=== PATIENT | female | born 1955 | race Caucasian/White ===

== ENCOUNTER 2019-09-10 08:56 | Inpatient (IN) | payer BC ==
[2019-09-10] MEDS ORDERED: ACETAMINOPHEN TAB 325 MG TAB PO PRN (09:36)
[2019-09-10] MEDS ORDERED: ALBUTEROL HFA INHALER INHALATION PRN (09:36)
[2019-09-10] MEDS ORDERED: METOCLOPRAMIDE 5 MG/ML 2 ML VIAL IVP STA (09:37)
--- NOTE | 2019-09-10 09:40 | ED ---
General Adult HPI - General Chief complaint: Weakness Stated complaint: Fatigue Time Seen by Provider: 09/10/19 08:58 Source: patient, EMS, RN notes reviewed Mode of arrival: EMS Limitations: no limitations - History of Present Illness Initial comments: Patient is a pleasant 61-year-old female presenting to the emergency Department as a transfer from [facility]. Report was accepted by nighttime physician. Information provided by [facility] is extremely limited. They did not provide physician report and only limited labs. Patient reportedly was positive for coronavirus. Unclear if x-ray was done. Patient states she has been having symptoms for close to 1 week. Patient states she has mostly fatigue and nausea. No significant vomiting. Patient denies having any dyspnea. Patient has had occasional fevers. No constipation or diarrhea. Patient reportedly had low pulse ox. - Related Data Allergies Allergy/AdvReac Type Severity Reaction Status Date / Time No Known Allergies Allergy Verified 09/10/19 09:05 Review of Systems ROS Statement: Those systems with pertinent positive or pertinent negative responses have been documented in the HPI. ROS Other: All systems not noted in ROS Statement are negative. Constitutional: Reports: as per HPI, chills Eyes: Denies: eye pain ENT: Denies: ear pain Respiratory: Reports: as per HPI. Denies: dyspnea Cardiovascular: Denies: chest pain Endocrine: Reports: fatigue Gastrointestinal: Reports: nausea. Denies: abdominal pain, diarrhea, constipation Genitourinary: Denies: dysuria Musculoskeletal: Denies: back pain Skin: Denies: rash Neurological: Denies: headache Past Medical History Past Medical History: Hypertension History of Any Multi-Drug Resistant Organisms: None Reported Past Psychological History: No Psychological Hx Reported Smoking Status: Never smoker Past Alcohol Use History: None Reported Past Drug Use History: None Reported General Exam Limitations: no limitations General appearance: alert, in no apparent distress Head exam: Present: normocephalic Eye exam: Present: normal appearance Neck exam: Present: normal inspection Respiratory exam: Present: normal lung sounds bilaterally Cardiovascular Exam: Present: regular rate, normal rhythm GI/Abdominal exam: Present: soft. Absent: distended, tenderness Extremities exam: Present: normal inspection. Absent: pedal edema, calf tenderness Neurological exam: Present: alert Psychiatric exam: Present: normal affect, normal mood Skin exam: Present: normal color Course Vital Signs 09/10/19 09/10/19 09/10/19 08:57 09:04 09:05 Temperature 98.7 F Pulse Rate 93 Respiratory 24 24 Rate Blood Pressure 112/69 O2 Sat by Pulse 73 L 90 L Oximetry 09/10/19 09/10/19 09/10/19 10:12 10:27 10:34 Temperature Pulse Rate 96 94 93 Respiratory 16 28 H Rate Blood Pressure 90/49 79/51 88/55 O2 Sat by Pulse 90 L 90 L 90 L Oximetry 09/10/19 11:05 Temperature Pulse Rate 87 Respiratory 24 Rate Blood Pressure 97/57 O2 Sat by Pulse 88 L Oximetry EKG Findings - EKG Comments: EKG Findings:: Normal sinus rhythm 93. CA 162. QRS 88. QT 388. QTC 42. Normal axis. Q wave in lead III. Nonspecific T waves. Medical Decision Making - Medical Decision Making Patient was updated on results and plan. Case was discussed with Dr. Nice who did come evaluate the patient and will admit. He does request ICU. Case also discussed with Dr. Matta who will consult for critical care. He does not recommend antibiotics. He does recommend additional fluids. Patient was given a 30 mL/kg fluid bolus off of ideal body weight Yris to 1500 mL. - Lab Data Result diagrams: 09/10/19 10:07 09/10/19 10:07 Lab Results 09/10/19 09/10/19 09/10/19 Range/Units 10:07 10:07 10:07 WBC 13.2 H (3.8-10.6) k/uL RBC 4.38 (3.80-5.40) m/uL Hgb 13.5 (11.4-16.0) gm/dL Hct 38.0 (34.0-46.0) % MCV 86.7 (80.0-100.0) fL MCH 30.9 (25.0-35.0) pg MCHC 35.6 (31.0-37.0) g/dL RDW 13.2 (11.5-15.5) % Plt Count 513 H (150-450) k/uL Neutrophils % 80 % Lymphocytes % 13 % Monocytes % 4 % Eosinophils % 0 % Basophils % 0 % Neutrophils # 10.6 H (1.3-7.7) k/uL Lymphocytes # 1.6 (1.0-4.8) k/uL Monocytes # 0.6 (0-1.0) k/uL Eosinophils # 0.0 (0-0.7) k/uL Basophils # 0.0 (0-0.2) k/uL PT 10.4 (9.0-12.0) sec INR 1.0 (<1.2) APTT 23.5 (22.0-30.0) sec Sodium 134 L (137-145) mmol/L Potassium 3.7 (3.5-5.1) mmol/L Chloride 96 L (98-107) mmol/L Carbon Dioxide 27 (22-30) mmol/L Anion Gap 11 mmol/L BUN 33 H (7-17) mg/dL Creatinine 0.94 (0.52-1.04) mg/dL Est GFR (CKD-EPI)AfAm 75 (>60 ml/min/1.73 sqM) Est GFR (CKD-EPI)NonAf 65 (>60 ml/min/1.73 sqM) Glucose 197 H (74-99) mg/dL Plasma Lactic Acid Darrel (0.7-2.0) mmol/L Calcium 8.2 L (8.4-10.2) mg/dL Magnesium 2.0 (1.6-2.3) mg/dL Total Bilirubin 0.9 (0.2-1.3) mg/dL AST 92 H (14-36) U/L ALT 51 H (4-34) U/L Alkaline Phosphatase 63 (38-126) U/L Lactate Dehydrogenase 2470 H (313-618) U/L C-Reactive Protein 252.0 H (<10.0) mg/L Total Protein 7.1 (6.3-8.2) g/dL Albumin 3.6 (3.5-5.0) g/dL Coronavirus (PCR) (Not Detectd) 09/10/19 09/10/19 Range/Units 10:07 10:07 WBC (3.8-10.6) k/uL RBC (3.80-5.40) m/uL Hgb (11.4-16.0) gm/dL Hct (34.0-46.0) % MCV (80.0-100.0) fL MCH (25.0-35.0) pg MCHC (31.0-37.0) g/dL RDW (11.5-15.5) % Plt Count (150-450) k/uL Neutrophils % % Lymphocytes % % Monocytes % % Eosinophils % % Basophils % % Neutrophils # (1.3-7.7) k/uL Lymphocytes # (1.0-4.8) k/uL Monocytes # (0-1.0) k/uL Eosinophils # (0-0.7) k/uL Basophils # (0-0.2) k/uL PT (9.0-12.0) sec INR (<1.2) APTT (22.0-30.0) sec Sodium (137-145) mmol/L Potassium (3.5-5.1) mmol/L Chloride (98-107) mmol/L Carbon Dioxide (22-30) mmol/L Anion Gap mmol/L BUN (7-17) mg/dL Creatinine (0.52-1.04) mg/dL Est GFR (CKD-EPI)AfAm (>60 ml/min/1.73 sqM) Est GFR (CKD-EPI)NonAf (>60 ml/min/1.73 sqM) Glucose (74-99) mg/dL Plasma Lactic Acid Darrel 1.8 (0.7-2.0) mmol/L Calcium (8.4-10.2) mg/dL Magnesium (1.6-2.3) mg/dL Total Bilirubin (0.2-1.3) mg/dL AST (14-36) U/L ALT (4-34) U/L Alkaline Phosphatase (38-126) U/L Lactate Dehydrogenase (313-618) U/L C-Reactive Protein (<10.0) mg/L Total Protein (6.3-8.2) g/dL Albumin (3.5-5.0) g/dL Coronavirus (PCR) Detected A (Not Detectd) - Radiology Data Radiology results: image reviewed (Chest x-ray shows scattered interstitial and alveolar infiltrates in both lung mcbride.) Critical Care Time Critical Care Time: Yes Total Critical Care Time: 32 Disposition Clinical Impression: COVID-19 virus infection Disposition: ADMITTED IP TO THIS [facility] Condition: Serious Is patient prescribed a controlled substance at d/c from ED?: No Referrals: Jaison Friedman MD [Primary Care Provider] - 1-2 days Decision Time: 11:47
--- NOTE | 2019-09-10 10:13 | XR ---
EXAMINATION TYPE: XR chest 1V portable DATE OF EXAM: 09/10/2019 HISTORY: Suspected COVID-19 pneumonia COMPARISON: None. TECHNIQUE: Single view of the chest is submitted. FINDINGS: Demonstrated are scattered senescent parenchymal change. Scattered mixed interstitial and alveolar infiltrates throughout both lung mcbride compatible with und erlying pneumonia. The heart is stable. Hilar and mediastinal structures are within normal limits. Degenerative changes are seen of the dorsal spine. IMPRESSION: 1. Scattered mixed interstitial and alveolar infiltrates throughout both lung mcbride compatible with underlying pneumonia.
[2019-09-10 10:24] LABS: Basophils % (A) 0 %; Eosinophils % (A) 0 %; HGB 13.5 gm/dL (11.4-16.0); Lymphocytes # (A) 1.6 k/uL (1.0-4.8); Lymphocytes % (A) 13 %; MCH 30.9 pg (25.0-35.0); MCHC 35.6 g/dL (31.0-37.0); MCV 86.7 fL (80.0-100.0); Mean Platelet Volume 7.1; Monocytes # (A) 0.6 k/uL (0-1.0); Monocytes % (A) 4 %; Neutrophils # (A) 10.6 k/uL (1.3-7.7); Neutrophils % (A) 80 %; Platelet Count 513 k/uL (150-450); RBC 4.38 m/uL (3.80-5.40); RDW 13.2 % (11.5-15.5); WBC 13.2 k/uL (3.8-10.6)
[2019-09-10] MEDS ORDERED: SODIUM CHLORIDE 0.9% 500 ML 500 ML IV STA (10:31)
[2019-09-10 10:36] LABS: Partial Thromboplastin Time 23.5 sec (22.0-30.0); Prothrombin Time 10.4 sec (9.0-12.0)
[2019-09-10 10:41] LABS: Albumin 3.6 g/dL (3.5-5.0); Calcium 8.2 mg/dL (8.4-10.2); Potassium 3.7 mmol/L (3.5-5.1); Total Bilirubin 0.9 mg/dL (0.2-1.3); Total Protein 7.1 g/dL (6.3-8.2)
[2019-09-10] MEDS ORDERED: SODIUM CHLORIDE 0.9% 1,000 ML IV STA (11:31)
[2019-09-10] MEDS ORDERED: NALOXONE 0.4 MG/ML 1 ML VIAL IV PRN (11:47)
[2019-09-10 12:21] LABS: Glucose,Whole Blood 170 mg/dL (75-99)
[2019-09-10] MEDS: SODIUM CHLORIDE 0.9% 1,000 ML IV SCH ×2 (13:17→20:59)
[2019-09-10] MEDS: PANTOPRAZOLE 40 MG/10 ML VIAL IV SCH (13:17)
--- NOTE | 2019-09-10 13:34 | P.CNPUL ---
History of Present Illness Consult date: 09/10/19 Requesting physician: Colby Long Reason for consult: hypoxemia Chief complaint: Weakness, fatigue, fever, hypoxemia History of present illness: 63-year-old female patient of Dr. Jaison Friedman, with past medical history of hypertension, hyperlipidemia, nonsmoker, works in the dietary department at [employer], was accepted as a transfer from [facility] where she presented for evaluation of fatigue, nausea, weakness, occasional fevers and low pulse ox levels. Patient reports symptoms present for about a week. Her coronavirus PCR test was positive on 09/06/2019, and again today on all 09/10/2019. No vomiting or diarrhea, no shortness of breath. Lab work showed white blood cell count 13.2, hemoglobin of 13.5, platelet count is 513, neutrophil count is elevated at 10.6, lymphocytes at 1.6, no d-dimer was drawn, sodium is 134, potassium is 3.7, chloride is 96, CO2 is 27, B1 is 33 creatinine 0.93, LDH is 2470, CRP is significantly elevated at 252, plasma lactic acid was 1.8. EKG shows normal sinus rhythm with evidence of possible inferior infarct of undetermined age, and T-wave inversion in the anterolateral leads. QT/QTc were 388 and 482 respectively. Patient is afebrile, profound hypoxemia, with a pulse ox of 73% on 15 L high flow. Currently requiring 100% nonrebreather in addition to 15 L per high flow nasal cannula and a pulse ox is 98%. In addition patient was borderline hypotensive with pressures of 90 systolic, and patient was given 1/2 L in IV fluid boluses in the emergency department. Patient was transferred to the ICU for close monitoring. Chest x-ray showed scattered mixed interstitial and alveolar infiltrates throughout both lungs compatible with underlying pneumonia. Review of Systems All systems: negative Constitutional: Reports fatigue, Reports weakness, Denies chills, Denies fever Eyes: denies blurred vision, denies pain Ears, nose, mouth and throat: Denies headache, Denies sore throat Cardiovascular: Denies chest pain, Denies shortness of breath Respiratory: Denies cough Gastrointestinal: Reports nausea, Denies abdominal pain, Denies diarrhea, Denies vomiting Genitourinary: Denies dysuria, Denies hematuria Musculoskeletal: Denies myalgias Integumentary: Denies pruritus, Denies rash Neurological: Denies numbness, Denies weakness Psychiatric: Denies anxiety, Denies depression Endocrine: Denies fatigue, Denies weight change Past Medical History Past Medical History: Hyperlipidemia, Hypertension History of Any Multi-Drug Resistant Organisms: None Reported Past Surgical History: No Surgical Hx Reported Past Anesthesia/Blood Transfusion Reactions: No Reported Reaction Past Psychological History: No Psychological Hx Reported Smoking Status: Never smoker Past Alcohol Use History: None Reported Past Drug Use History: None Reported - Past Family History Mother Family Medical History: COPD Father Family Medical History: Coronary Artery Disease (CAD), Myocardial Infarction ([place]) Medications and Allergies Allergies Allergy/AdvReac Type Severity Reaction Status Date / Time No Known Allergies Allergy Verified 09/10/19 09:05 Physical Exam Vitals: Vital Signs Temp Pulse Pulse Resp BP BP Pulse Ox 09/10/19 12:46 98.4 F 86 31 H 109/54 90 L 09/10/19 11:56 82 16 100/53 88 L 09/10/19 11:05 87 24 97/57 88 L 09/10/19 10:34 93 28 H 88/55 90 L 09/10/19 10:27 94 16 79/51 90 L 09/10/19 10:12 96 90/49 90 L 09/10/19 09:05 24 09/10/19 09:04 90 L 09/10/19 08:57 98.7 F 93 24 112/69 73 L Intake and Output 09/09/19 09/10/19 09/10/19 22:59 06:59 14:59 Other: Weight 83.3 kg GENERAL EXAM: Alert, very pleasant, 63-year-old white female, currently on 15 L high flow nasal cannula in the 100% nonrebreather with a pulse ox between 85-90% comfortable in no apparent distress. HEAD: Normocephalic/atraumatic. EYES: Normal reaction of pupils, equal size. Conjunctiva pink, sclera white. NOSE: Clear with pink turbinates. THROAT: No erythema or exudates. NECK: No masses, no JVD, no thyroid enlargement, no adenopathy. CHEST: No chest wall deformity. Symmetrical expansion. LUNGS: Equal air entry with no crackles, wheeze, rhonchi or dullness. CVS: Regular rate and rhythm, normal S1 and S2, no gallops, no murmurs, no rubs ABDOMEN: Soft, nontender. No hepatosplenomegaly, normal bowel sounds, no guarding or rigidity. EXTREMITIES: No clubbing, no edema, no cyanosis, 2+ pulses and upper and lower extremities. MUSCULOSKELETAL: Muscle strength and tone normal. SPINE: No scoliosis or deformity SKIN: No rashes CENTRAL NERVOUS SYSTEM: Alert and oriented -3. No focal deficits, tone is normal in all 4 extremities. PSYCHIATRIC: Alert and oriented -3. Appropriate affect. Intact judgment and insight. Results - Laboratory Findings CBC and BMP: 09/10/19 10:07 09/10/19 10:07 PT/INR, D-dimer PT 10.4 sec (9.0-12.0) 09/10/19 10:07 INR 1.0 (<1.2) 09/10/19 10:07 Abnormal lab findings: Abnormal Labs 09/10/19 09/10/19 09/10/19 10:07 10:07 10:07 WBC 13.2 H Plt Count 513 H Neutrophils # 10.6 H Sodium 134 L Chloride 96 L BUN 33 H Glucose 197 H POC Glucose (mg/dL) Calcium 8.2 L AST 92 H ALT 51 H Lactate Dehydrogenase 2470 H C-Reactive Protein 252.0 H Coronavirus (PCR) Detected A 09/10/19 12:19 WBC Plt Count Neutrophils # Sodium Chloride BUN Glucose POC Glucose (mg/dL) 170 H Calcium AST ALT Lactate Dehydrogenase C-Reactive Protein Coronavirus (PCR) - Diagnostic Findings Chest x-ray: report reviewed, image reviewed Additional studies: EKG reviewed Assessment and Plan Plan: Assessment: #1. Acute hypoxemic respiratory failure related to acute COVID 19 pneumonitis #2. Acute COVID 19 infection with symptoms of profound hypoxemia, weakness, fatigue, intermittent fevers, nausea for one week prior to presentation, patient had a COVID 19 PCR test positive on 2 occasions on 09/06/2019, and again on 09/10/2019 #3. Sepsis related to viral pneumonia, although possibility of bacterial pneumonia is not entirely excluded. Pro-calcitonin level is pending #4. Hypotension, hypovolemic and related to decreased oral intake, nausea, and sepsis related to viral pneumonia, recovered with IV fluid boluses #5. Elevated LDH, CRP related to COVID 19 infection #6. History of hypertension #7. History of hyperlipidemia #8. Never smoker #9. No history of EtOH use Plan: We will continue with high flow oxygen to keep O2 sat at 88-90%. Despite profound hypoxemia patient denies acute respiratory distress, seems to be comfortable on high flow oxygen. We'll get a stat d-dimer, LDH and CRP levels were noted, if d-dimer is above 1 we'll start Lovenox at 1 mg/kg twice daily. We'll start the patient on Plaquenil protocol 400 twice a day 2 doses and 200 twice a day 8 doses. We'll start zinc. Pro-calcitonin level is pending, continue IV hydration. Daily labs, daily inflammatory markers d-dimer and ferritin level every other day. Daily chest x-ray. Close monitoring for deteriorating respiratory status, and worsening hypoxemia. We'll continue to c losely monitor in the ICU. We'll send a interleukin-6 level for possibility of Tocilizumab administration. Continue to follow I performed a history & physical examination of the patient and discussed their management with my nurse practitioner, Nelsy Encarnacion. I reviewed the nurse practitioner's note and agree with the documented findings and plan of care. Lung sounds are positive for diminished breath sounds. The findings and the impression was discussed with the patient. I attest to the documentation by the nurse practitioner. Time with Patient: Greater than 30
--- NOTE | 2019-09-10 13:59 | P.HPIM ---
History of Present Illness 61-year-old female transferred from [facility] after she was diagnosed with the COVID 19. Patient denied any fever chills but patient was having diarrhea and some body aches has been going on for about a week. Patient's the coronary testing is positive. Patient is also hypoxic is on 15 L of oxygen. Patient has elevated white blood cell count doesn't have any lymphopenia highly elevated LDH d-dimer is pending. EKG showed some T-wave inversions in anterolateral leads patient denied any chest pain QTc is around 482 she and is hypotensive with blood pressures of 90 systolic received the 2 L of IV fluids in ER patient is presently on 1 25 mL of normal saline chest x-ray showing alveolar infiltrates consistent with atypical pneumonia coronavirus pneumonia, patient denied any alteration in sense of smell or taste Review of Systems REVIEW OF SYSTEMS: CONSTITUTIONAL: No fever, no malaise, no fatigue. HEENT: No recent visual problems or hearing problems. Denied any sore throat. CARDIOVASCULAR: No chest pain, orthopnea, PND, no palpitations, no syncope. PULMONARY: No shortness of breath, no cough, no hemoptysis. GASTROINTESTINAL: As mentioned in HPI NEUROLOGICAL: No headaches, no weakness, no numbness. HEMATOLOGICAL: Denies any bleeding or petechiae. GENITOURINARY: Denies any burning micturition, frequency, or urgency. MUSCULOSKELETAL/RHEUMATOLOGICAL: Denies any joint pain, swelling, or any muscle pain. ENDOCRINE: Denies any polyuria or polydipsia. The rest of the 14-point review of systems is negative. Past Medical History Past Medical History: Hyperlipidemia, Hypertension History of Any Multi-Drug Resistant Organisms: None Reported Past Surgical History: No Surgical Hx Reported Past Anesthesia/Blood Transfusion Reactions: No Reported Reaction Past Psychological History: No Psychological Hx Reported Smoking Status: Never smoker Past Alcohol Use History: None Reported Past Drug Use History: None Reported - Past Family History Mother Family Medical History: COPD Father Family Medical History: Coronary Artery Disease (CAD), Myocardial Infarction ([place]) Medications and Allergies Allergies Allergy/AdvReac Type Severity Reaction Status Date / Time No Known Allergies Allergy Verified 09/10/19 09:05 Physical Exam Vitals: Vital Signs Temp Pulse Pulse Resp BP BP Pulse Ox 09/10/19 13:10 79 32 H 103/53 85 L 09/10/19 12:46 98.4 F 86 31 H 109/54 90 L 09/10/19 12:40 84 35 H 102/54 86 L 09/10/19 12:30 98.4 F 89 23 109/56 92 L 09/10/19 11:56 82 16 100/53 88 L 09/10/19 11:05 87 24 97/57 88 L 09/10/19 10:34 93 28 H 88/55 90 L 09/10/19 10:27 94 16 79/51 90 L 09/10/19 10:12 96 90/49 90 L 09/10/19 09:05 24 09/10/19 09:04 90 L 09/10/19 08:57 98.7 F 93 24 112/69 73 L Intake and Output 09/09/19 09/10/19 09/10/19 22:59 06:59 14:59 Intake Total 1000 Output Total 240 Balance 760 Intake: IV 1000 Sodium Chloride 0.9% 1, 1000 000 ml @ 999 mls/hr IV . Q1H1M STA Rx#:[id number] Output: Urine 240 Other: Voiding Method Indwelling Catheter Weight 83.3 kg PHYSICAL EXAMINATION: GENERAL: The patient is alert and oriented x3, not in any acute distress. Well developed, well nourished. She and is presently on 100% nonrebreather as well as high flow HEENT: Pupils are round and equally reacting to light. EOMI. No scleral icterus. No conjunctival pallor. Normocephalic, atraumatic. No pharyngeal erythema. No thyromegaly. CARDIOVASCULAR: S1 and S2 present. No murmurs, rubs, or gallops. PULMONARY: Chest is clear to auscultation, no wheezing or crackles. ABDOMEN: Soft, nontender, nondistended, normoactive bowel sounds. No palpable organomegaly. MUSCULOSKELETAL: No joint swelling or deformity. EXTREMITIES: No cyanosis, clubbing, or pedal edema. NEUROLOGICAL: Gross neurological examination did not reveal any focal deficits. SKIN: No rashes. Results CBC & Chem 7: 09/10/19 10:07 09/10/19 10:07 Labs: Abnormal Lab Results - Last 24 Hours (Table) 09/10/19 09/10/19 09/10/19 Range/Units 10:07 10:07 10:07 WBC 13.2 H (3.8-10.6) k/uL Plt Count 513 H (150-450) k/uL Neutrophils # 10.6 H (1.3-7.7) k/uL Sodium 134 L (137-145) mmol/L Chloride 96 L (98-107) mmol/L BUN 33 H (7-17) mg/dL Glucose 197 H (74-99) mg/dL POC Glucose (mg/dL) (75-99) mg/dL Calcium 8.2 L (8.4-10.2) mg/dL AST 92 H (14-36) U/L ALT 51 H (4-34) U/L Lactate Dehydrogenase 2470 H (313-618) U/L C-Reactive Protein 252.0 H (<10.0) mg/L Coronavirus (PCR) Detected A (Not Detectd) 09/10/19 Range/Units 12:19 WBC (3.8-10.6) k/uL Plt Count (150-450) k/uL Neutrophils # (1.3-7.7) k/uL Sodium (137-145) mmol/L Chloride (98-107) mmol/L BUN (7-17) mg/dL Glucose (74-99) mg/dL POC Glucose (mg/dL) 170 H (75-99) mg/dL Calcium (8.4-10.2) mg/dL AST (14-36) U/L ALT (4-34) U/L Lactate Dehydrogenase (313-618) U/L C-Reactive Protein (<10.0) mg/L Coronavirus (PCR) (Not Detectd) Thrombosis Risk Factor Assmnt - Choose All That Apply Each Factor Represents 1 point: Medical pt on bed rest, Obesity (BMI >25) Other Risk Factors: Yes Each Risk Factor Represents 2 Points: Age 61-74 years Other congenital or acquired thrombophilia - If yes, enter type in comment: No Thrombosis Risk Factor Assessment Total Risk Factor Score: 4 Thrombosis Risk Factor Assessment Level: Moderate Risk Assessment and Plan Plan: -Acute hypoxic respiratory failure secondary to COVID 19 pneumonitis and con tinue with respiratory support, need to be closely monitored in ICU. Patient is presently on high flow nasal cannula oxygen. Patient was started on systemic steroids, hydroxychloroquine and repeat chest x-ray tomorrow ferritin level is being obtain as well. -Hypotension : secondary to sepsis from COVID 19 d-dimer will be obtained patient is presently on DVT prophylaxis dose of Lovenox but if needed patient need to be in full anticoagulation dose of Lovenox d-dimer will be obtained. -Hyperlipidemia
[2019-09-10] MEDS: ENOXAPARIN 40 MG/0.4 ML SYRINGE SQ SCH (14:52)
[2019-09-10] MEDS: ALBUTEROL HFA INHALER INHALATION SCH ×2 (15:56→19:53)
[2019-09-10 17:25] LABS: Ferritin 1404.9 ng/mL (10.0-291.0)
[2019-09-10] MEDS: methylPREDNISolone SOD SUCCI 40 MG/ML 1 ML VIAL IV SCH (20:58)
[2019-09-10] MEDS: HYDROXYCHLOROQUINE SULFATE 200 MG TAB PO SCH (20:59)
[2019-09-10 21:16] LABS: Glucose,Whole Blood 138 mg/dL (75-99)
[2019-09-11] MEDS: ALBUTEROL HFA INHALER INHALATION SCH ×5 (01:58→20:38)
[2019-09-11] MEDS: SODIUM CHLORIDE 0.9% 1,000 ML IV SCH ×2 (03:17→14:36)
[2019-09-11 05:18] LABS: Basophils % (A) 0 %; Eosinophils % (A) 0 %; HCT 33.9 % (34.0-46.0); HGB 11.7 gm/dL (11.4-16.0); Lymphocytes % (A) 8 %; MCHC 34.5 g/dL (31.0-37.0); MCV 89.9 fL (80.0-100.0); Mean Platelet Volume 7.1; Monocytes # (A) 0.4 k/uL (0-1.0); Monocytes % (A) 3 %; Neutrophils # (A) 12.1 k/uL (1.3-7.7); Neutrophils % (A) 88 %; Platelet Count 480 k/uL (150-450); RBC 3.77 m/uL (3.80-5.40); RDW 13.5 % (11.5-15.5); WBC 13.8 k/uL (3.8-10.6)
[2019-09-11 05:35] LABS: ALT 39 U/L (4-34); AST 70 U/L (14-36); African American GFR (CKD) >90 (>60 ml/min/1.73 sqM); Albumin 2.9 g/dL (3.5-5.0); Alkaline Phosphatase 56 U/L (38-126); Anion Gap 5 mmol/L; Blood Urea Nitrogen 19 mg/dL (7-17); Calcium 7.2 mg/dL (8.4-10.2); Carbon Dioxide 28 mmol/L (22-30); Chloride 104 mmol/L (98-107); Glucose 278 mg/dL (74-99); Non-African American GFR(CKD) >90 (>60 ml/min/1.73 sqM); Potassium 3.6 mmol/L (3.5-5.1); Sodium 137 mmol/L (137-145); Total Bilirubin 0.6 mg/dL (0.2-1.3); Total Protein 5.8 g/dL (6.3-8.2)
[2019-09-11 05:47] LABS: C Reactive Protein 192.6 mg/L (<10.0); LDH 2002 U/L (313-618)
[2019-09-11] MEDS ORDERED: Potassium Replacement Protocol 1 EACH MISC MISCELLANE PRN (05:55)
[2019-09-11] MEDS ORDERED: POTASSIUM CHLORIDE ER 20 MEQ TAB.ER PO SCH (06:00)
--- NOTE | 2019-09-11 07:57 | XR ---
EXAMINATION TYPE: XR chest 1V portable DATE OF EXAM: 09/11/2019 COMPARISON: 09/11/2019 HISTORY: Shortness of breath. Suspected COVID-19 pneumonia TECHNIQUE: Single frontal view of the chest is obtained. FINDINGS: Increasing consolidation in the right upper lung with better delineation of the right gerri r fissure. Persistent patchy opacities in the left midlung and right lung base. Cardiomediastinal edith houette is now partially obscured but overall stable. No sizable pneumothorax or pleural effusion. IMPRESSION: Worsening right upper lobe pneumonia with multifocal opacities in the left midlung and r ight lung base unchanged from the prior.
[2019-09-11] MEDS: ENOXAPARIN 40 MG/0.4 ML SYRINGE SQ SCH (08:47)
[2019-09-11] MEDS: PANTOPRAZOLE 40 MG/10 ML VIAL IV SCH (08:48)
[2019-09-11] MEDS: ZINC SULFATE 220 MG CAP PO SCH (08:48)
[2019-09-11] MEDS: HYDROXYCHLOROQUINE SULFATE 200 MG TAB PO SCH ×2 (08:48→21:21)
[2019-09-11] MEDS: methylPREDNISolone SOD SUCCI 40 MG/ML 1 ML VIAL IV SCH ×2 (08:48→21:21)
[2019-09-11] MEDS: TOCILIZUMAB 400 MG in SODIUM CHLORIDE 0.9% 80 ML IV SCH ×2 (10:14→21:23)
--- NOTE | 2019-09-11 11:52 | P.PN ---
Subjective Progress Note Date: 09/11/19 Principal diagnosis: Acute COVID 19 related pneumonitis 63-year-old female patient of Dr. Jaison Friedman, with past medical history of hypertension, hyperlipidemia, nonsmoker, works in the dietary department at [employer], was accepted as a transfer from [facility] where she presented for evaluation of fatigue, nausea, weakness, occasional fevers and low pulse ox levels. Patient reports symptoms present for about a week. Her coronavirus PCR test was positive on 09/06/2019, and again today on all 09/10/2019. No vomiting or diarrhea, no shortness of breath. Lab work showed white blood cell count 13.2, hemoglobin of 13.5, platelet count is 513, neutrophil count is elevated at 10.6, lymphocytes at 1.6, no d-dimer was drawn, sodium is 134, potassium is 3.7, chloride is 96, CO2 is 27, B1 is 33 creatinine 0.93, LDH is 2470, CRP is significantly elevated at 252, plasma lactic acid was 1.8. EKG shows normal sinus rhythm with evidence of possible inferior infarct of undetermined age, and T-wave inversion in the anterolateral leads. QT/QTc were 388 and 482 respectively. Patient is afebrile, profound hypoxemia, with a pulse ox of 73% on 15 L high flow. Currently requiring 100% nonrebreather in addition to 15 L per high flow nasal cannula and a pulse ox is 98%. In addition patient was borderline hypotensive with pressures of 90 systolic, and patient was given 1/2 L in IV fluid boluses in the emergency department. Patient was transferred to the ICU for close monitoring. Chest x-ray showed scattered mixed interstitial and alveolar infiltrates throughout both lungs compatible with underlying pneumonia. On 09/11/2019 patient seen in follow-up in the intensive care unit, she remains on high flow oxygen, currently on 100% nonrebreather with a pulse ox of 88-90%, patient has been afebrile, hemodynamically stable, today's chest x-ray shows worsening over the right upper lobe pneumonia with multifocal opacities in the left midlung and right lung base unchanged from prior chest x-ray which was done yesterday. Today's labs have been reviewed, showing white blood cell count of 13.8, hemoglobin of 11.7, platelet count is 480, electrolytes were within normal limits, BUN is 19 creatinine 0.63, yesterday patient's d-dimer was 0.90 patient is on reflected dose of Lovenox. Ferritin level yesterday was 1514, AST and ALT improving, down to 7039 respectively, alk phos is 56, lactate dehydrogenase is 2002, trending down from yesterday, and patient had elevated troponins at 3.2 and 1.8, CRP remains significantly elevated as well at 192. Pro-calcitonin was mildly elevated to 0.18, we will add Rocephin for empiric antibiotic coverage. Objective - Vital Signs Vital signs: Vital Signs Temp 98.8 F 09/11/19 04:00 Pulse 73 09/11/19 07:00 Resp 24 09/11/19 07:00 BP 114/64 09/11/19 07:00 Pulse Ox 90 L 09/11/19 08:44 Intake & Output 09/10/19 09/11/19 09/11/19 18:59 06:59 18:59 Intake Total 1750 1500 600 Output Total 815 820 275 Balance 935 680 325 Weight 83.3 kg 85.3 kg 85.3 kg Intake: IV 1750 1500 375 Sodium Chloride 0.9% 1, 750 1500 375 000 ml @ 125 mls/hr IV . Q8H ABBEY Rx#:[id number] Sodium Chloride 0.9% 1, 1000 000 ml @ 999 mls/hr IV . Q1H1M STA Rx#:[id number] Intake, IV Titration 100 Amount Tocilizumab 400 mg In 100 Sodium Chloride 0.9% 80 ml @ 100 mls/hr IV Q12HR ABBEY Rx#:[id number] Oral 125 Output: Urine 815 820 275 Other: Voiding Method Indwelling Catheter Indwelling Catheter Indwelling Catheter - Exam GENERAL EXAM: Alert, very pleasant, 63-year-old white female, currently on 15 L high flow nasal cannula in the 100% nonrebreather with a pulse ox between 85-90% comfortable in no apparent distress. HEAD: Normocephalic/atraumatic. EYES: Normal reaction of pupils, equal size. Conjunctiva pink, sclera white. NOSE: Clear with pink turbinates. THROAT: No erythema or exudates. NECK: No masses, no JVD, no thyroid enlargement, no adenopathy. CHEST: No chest wall deformity. Symmetrical expansion. LUNGS: Equal air entry with no crackles, wheeze, rhonchi or dullness. CVS: Regular rate and rhythm, normal S1 and S2, no gallops, no murmurs, no rubs ABDOMEN: Soft, nontender. No hepatosplenomegaly, normal bowel sounds, no guarding or rigidity. EXTREMITIES: No clubbing, no edema, no cyanosis, 2+ pulses and upper and lower extremities. MUSCULOSKELETAL: Muscle strength and tone normal. SPINE: No scoliosis or deformity SKIN: No rashes CENTRAL NERVOUS SYSTEM: Alert and oriented -3. No focal deficits, tone is normal in all 4 extremities. PSYCHIATRIC: Alert and oriented -3. Appropriate affect. Intact judgment and insight. - Labs CBC & Chem 7: 09/11/19 05:02 09/11/19 05:02 Labs: Abnormal Lab Results - Last 24 Hours (Table) 09/10/19 09/10/19 09/10/19 Range/Units 10:00 10:07 10:07 WBC (3.8-10.6) k/uL RBC (3.80-5.40) m/uL Hct (34.0-46.0) % Plt Count (150-450) k/uL Neutrophils # (1.3-7.7) k/uL D-Dimer 0.90 H (<0.60) mg/L FEU BUN (7-17) mg/dL Glucose (74-99) mg/dL POC Glucose (mg/dL) (75-99) mg/dL Calcium (8.4-10.2) mg/dL Ferritin 1404.9 H (10.0-291.0) ng/mL AST (14-36) U/L ALT (4-34) U/L Lactate Dehydrogenase (313-618) U/L Troponin I (0.000-0.034) ng/mL C-Reactive Protein (<10.0) mg/L Total Protein (6.3-8.2) g/dL Albumin (3.5-5.0) g/dL Procalcitonin 0.18 H (0.02-0.09) ng/mL 09/10/19 09/10/19 09/10/19 Range/Units 12:19 13:21 13:21 WBC (3.8-10.6) k/uL RBC (3.80-5.40) m/uL Hct (34.0-46.0) % Plt Count (150-450) k/uL Neutrophils # (1.3-7.7) k/uL D-Dimer (<0.60) mg/L FEU BUN (7-17) mg/dL Glucose (74-99) mg/dL POC Glucose (mg/dL) 170 H (75-99) mg/dL Calcium (8.4-10.2) mg/dL Ferritin 1514.6 H (10.0-291.0) ng/mL AST (14-36) U/L ALT (4-34) U/L Lactate Dehydrogenase (313-618) U/L Troponin I 3.200 H* (0.000-0.034) ng/mL C-Reactive Protein (<10.0) mg/L Total Protein (6.3-8.2) g/dL Albumin (3.5-5.0) g/dL Procalcitonin (0.02-0.09) ng/mL 09/10/19 09/11/19 09/11/19 Range/Units 21:15 05:02 05:02 WBC 13.8 H (3.8-10.6) k/uL RBC 3.77 L (3.80-5.40) m/uL Hct 33.9 L (34.0-46.0) % Plt Count 480 H (150-450) k/uL Neutrophils # 12.1 H (1.3-7.7) k/uL D-Dimer (<0.60) mg/L FEU BUN 19 H (7-17) mg/dL Glucose 278 H (74-99) mg/dL POC Glucose (mg/dL) 138 H (75-99) mg/dL Calcium 7.2 L (8.4-10.2) mg/dL Ferritin (10.0-291.0) ng/mL AST 70 H (14-36) U/L ALT 39 H (4-34) U/L Lactate Dehydrogenase 2002 H (313-618) U/L Troponin I (0.000-0.034) ng/mL C-Reactive Protein 192.6 H (<10.0) mg/L Total Protein 5.8 L (6.3-8.2) g/dL Albumin 2.9 L (3.5-5.0) g/dL Procalcitonin (0.02-0.09) ng/mL 09/11/19 Range/Units 05:02 WBC (3.8-10.6) k/uL RBC (3.80-5.40) m/uL Hct (34.0-46.0) % Plt Count (150-450) k/uL Neutrophils # (1.3-7.7) k/uL D-Dimer (<0.60) mg/L FEU BUN (7-17) mg/dL Glucose (74-99) mg/dL POC Glucose (mg/dL) (75-99) mg/dL Calcium (8.4-10.2) mg/dL Ferritin (10.0-291.0) ng/mL AST (14-36) U/L ALT (4-34) U/L Lactate Dehydrogenase (313-618) U/L Troponin I 1.850 H* (0.000-0.034) ng/mL C-Reactive Protein (<10.0) mg/L Total Protein (6.3-8.2) g/dL Albumin (3.5-5.0) g/dL Procalcitonin (0.02-0.09) ng/mL Assessment and Plan Plan: Assessment: #1. Acute hypoxemic respiratory failure related to acute COVID 19 pneumonitis #2. Acute COVID 19 infection with symptoms of profound hypoxemia, weakness, fatigue, intermittent fevers, nausea for one week prior to presentation, patient had a COVID 19 PCR test positive on 2 occasions on 09/06/2019, and again on 09/10/2019 #3. Sepsis related to viral pneumonia, although possibility of bacterial pneumonia is not entirely excluded. Pro-calcitonin level is pending #4. Hypotension, hypovolemic and related to decreased oral intake, nausea, and sepsis related to viral pneumonia, recovered with IV fluid boluses #5. Elevated LDH, CRP related to COVID 19 infection #6. History of hypertension #7. History of hyperlipidemia #8. Never smoker #9. No history of EtOH use #10. Positive troponin, possibly related to acute Covid 19 related myocarditis Plan: We will continue with current treatment protocol including Plaquenil, Solu- Medrol, we will add 2 doses of Tocilizumab 12 hours apart, today's labs reveal inflammatory markers are still significantly elevated, continue prophylactic dose of Lovenox, patient continues on high flow oxygen, maintaining O2 saturations at 85% and above. Blood pressure is stable, we'll add empiric antibiotics in the form of Rocephin, in view of mildly elevated pro-calcitonin. Follow-up chest x-ray and inflammatory markers tomorrow. Still awaiting interleukin-6 level. We'll continue to closely monitor in the ICU I performed a history & physical examination of the patient and discussed their management with my nurse practitioner, Nelsy Encarnacion. I reviewed the nurse practitioner's note and agree with the documented findings and plan of care. Lung sounds are positive for diminished breath sounds. The findings and the impression was discussed with the patient. I attest to the documentation by the nurse practitioner. Time with Patient: Greater than 30
[2019-09-11 12:04] LABS: Glucose,Whole Blood 272 mg/dL (75-99)
--- NOTE | 2019-09-11 12:17 | P.PN ---
Subjective 63-year-old female is admitted for acute respiratory failure secondary to acute COVID 19 sepsis, patient is presently on 100% nonrebreather saturating at 88-90% chest x-ray showing mild worsening of right upper lobe pneumonia. Patient remains on IV fluids. Patient troponins are elevated because of possible Covid myocarditis I'll obtain a echocardiogram to see if there is any heart failure. All the acute phase reactants are elevated including d-dimer which is only minimally elevated. Patient is presently on hydroxychloroquine and the steroids which were ordered by pulmonary patient has highly elevated LDH. Constitutional: Denied any fatigue denied any fever. Cardio vascular: denied any chest pain, palpitations Gastrointestinal denied any nausea vomiting Pulmonary: As mentioned in HPI Neurologic denied any new focal deficits All inpatient medications were reviewed and appropriate changes in these medications as dictated in the interval history and assessment and plan. Objective - Vital Signs Vital signs: Vital Signs Temp 98.8 F 09/11/19 04:00 Pulse 73 09/11/19 07:00 Resp 24 09/11/19 07:00 BP 114/64 09/11/19 07:00 Pulse Ox 90 L 09/11/19 08:44 Intake & Output 09/10/19 09/11/19 09/11/19 18:59 06:59 18:59 Intake Total 1750 1500 600 Output Total 815 820 275 Balance 935 680 325 Weight 83.3 kg 85.3 kg 85.3 kg Intake: IV 1750 1500 375 Sodium Chloride 0.9% 1, 750 1500 375 000 ml @ 125 mls/hr IV . Q8H ABBEY Rx#:[id number] Sodium Chloride 0.9% 1, 1000 000 ml @ 999 mls/hr IV . Q1H1M STA Rx#:[id number] Intake, IV Titration 100 Amount Tocilizumab 400 mg In 100 Sodium Chloride 0.9% 80 ml @ 100 mls/hr IV Q12HR ABBEY Rx#:[id number] Oral 125 Output: Urine 815 820 275 Other: Voiding Method Indwelling Catheter Indwelling Catheter Indwelling Catheter - Exam PHYSICAL EXAMINATION: GENERAL: The patient is alert and oriented x3, not in any acute distress on 100% nonrebreather. Well developed, well nourished. HEENT: Pupils are round and equally reacting to light. EOMI. No scleral icterus. No conjunctival pallor. Normocephalic, atraumatic. No pharyngeal erythema. No thyromegaly. CARDIOVASCULAR: S1 and S2 present. No murmurs, rubs, or gallops. PULMONARY: Chest is clear to auscultation, no wheezing or crackles. ABDOMEN: Soft, nontender, nondistended, normoactive bowel sounds. No palpable organomegaly. MUSCULOSKELETAL: No joint swelling or deformity. EXTREMITIES: No cyanosis, clubbing, or pedal edema. NEUROLOGICAL: Gross neurological examination did not reveal any focal deficits. SKIN: No rashes. - Labs CBC & Chem 7: 09/11/19 05:02 09/11/19 05:02 Labs: Abnormal Lab Results - Last 24 Hours (Table) 09/10/19 09/10/19 09/10/19 Range/Units 10:00 10:07 10:07 WBC (3.8-10.6) k/uL RBC (3.80-5.40) m/uL Hct (34.0-46.0) % Plt Count (150-450) k/uL Neutrophils # (1.3-7.7) k/uL D-Dimer 0.90 H (<0.60) mg/L FEU BUN (7-17) mg/dL Glucose (74-99) mg/dL POC Glucose (mg/dL) (75-99) mg/dL Calcium (8.4-10.2) mg/dL Ferritin 1404.9 H (10.0-291.0) ng/mL AST (14-36) U/L ALT (4-34) U/L Lactate Dehydrogenase (313-618) U/L Troponin I (0.000-0.034) ng/mL C-Reactive Protein (<10.0) mg/L Total Protein (6.3-8.2) g/dL Albumin (3.5-5.0) g/dL Procalcitonin 0.18 H (0.02-0.09) ng/mL 09/10/19 09/10/19 09/10/19 Range/Units 12:19 13:21 13:21 WBC (3.8-10.6) k/uL RBC (3.80-5.40) m/uL Hct (34.0-46.0) % Plt Count (150-450) k/uL Neutrophils # (1.3-7.7) k/uL D-Dimer (<0.60) mg/L FEU BUN (7-17) mg/dL Glucose (74-99) mg/dL POC Glucose (mg/dL) 170 H (75-99) mg/dL Calcium (8.4-10.2) mg/dL Ferritin 1514.6 H (10.0-291.0) ng/mL AST (14-36) U/L ALT (4-34) U/L Lactate Dehydrogenase (313-618) U/L Troponin I 3.200 H* (0.000-0.034) ng/mL C-Reactive Protein (<10.0) mg/L Total Protein (6.3-8.2) g/dL Albumin (3.5-5.0) g/dL Procalcitonin (0.02-0.09) ng/mL 09/10/19 09/11/19 09/11/19 Range/Units 21:15 05:02 05:02 WBC 13.8 H (3.8-10.6) k/uL RBC 3.77 L (3.80-5.40) m/uL Hct 33.9 L (34.0-46.0) % Plt Count 480 H (150-450) k/uL Neutrophils # 12.1 H (1.3-7.7) k/uL D-Dimer (<0.60) mg/L FEU BUN 19 H (7-17) mg/dL Glucose 278 H (74-99) mg/dL POC Glucose (mg/dL) 138 H (75-99) mg/dL Calcium 7.2 L (8.4-10.2) mg/dL Ferritin (10.0-291.0) ng/mL AST 70 H (14-36) U/L ALT 39 H (4-34) U/L Lactate Dehydrogenase 2002 H (313-618) U/L Troponin I (0.000-0.034) ng/mL C-Reactive Protein 192.6 H (<10.0) mg/L Total Protein 5.8 L (6.3-8.2) g/dL Albumin 2.9 L (3.5-5.0) g/dL Procalcitonin (0.02-0.09) ng/mL 09/11/19 09/11/19 Range/Units 05:02 12:03 WBC (3.8-10.6) k/uL RBC (3.80-5.40) m/uL Hct (34.0-46.0) % Plt Count (150-450) k/uL Neutrophils # (1.3-7.7) k/uL D-Dimer (<0.60) mg/L FEU BUN (7-17) mg/dL Glucose (74-99) mg/dL POC Glucose (mg/dL) 272 H (75-99) mg/dL Calcium (8.4-10.2) mg/dL Ferritin (10.0-291.0) ng/mL AST (14-36) U/L ALT (4-34) U/L Lactate Dehydrogenase (313-618) U/L Troponin I 1.850 H* (0.000-0.034) ng/mL C-Reactive Protein (<10.0) mg/L Total Protein (6.3-8.2) g/dL Albumin (3.5-5.0) g/dL Procalcitonin (0.02-0.09) ng/mL Assessment and Plan Plan: -Acute hypoxic respiratory failure secondary to COVID 19 pneumonitis and continue with respiratory support, need to be closely monitored in ICU. Patient is presently on high flow nasal cannula oxygen. Patient was started on systemic steroids, hydroxychloroquine and repeat chest x-ray showing increased infiltrate on the right side -Elevated troponin secondary to Covid myocarditis echocardiogram will be obtained, will consider cardiology consultation -Hypotension : secondary to sepsis from COVID 19 improved with IV fluids patient's d-dimer is only 9 because of which patient is only on prophylactic doses of Lovenox -Hyperlipidemia
[2019-09-11] MEDS ORDERED: INSULIN ASPART (NovoLOG) 100 UNIT/ML VIAL SQ ONE (12:30)
[2019-09-11] MEDS: INSULIN ASPART (NovoLOG) 100 UNIT/ML VIAL SQ SCH ×3 (12:41→21:22)
[2019-09-11 16:50] LABS: Glucose,Whole Blood 180 mg/dL (75-99)
--- NOTE | 2019-09-11 17:01 | ECHOF ---
Referral Reason:elevated troponin MEASUREMENTS -------- HEIGHT: 157.5 cm WEIGHT: 85.3 kg BP: 114/64 RVIDd: 3.5 cm (< 3.3) IVSd: 1.4 cm (0.6 - 1.1) LVIDd: 3.3 cm (3.9 - 5.3) LVPWd: 1.7 cm (0.6 - 1.1) IVSs: 2.1 cm LVIDs: 2.0 cm LVPWs: 2.0 cm LAESV Index (A-L): 9.47 ml/m Ao Diam: 2.9 cm (2.0 - 3.7) AV Cusp: 1.9 cm (1.5 - 2.6) MV EXCURSION: 13.970 mm (> 18.000) MV EF SLOPE: 49 mm/s (70 - 150) EPSS: 0.3 cm MV E Sergio: 0.90 m/s MV DecT: 249 ms MV A Sergio: 1.24 m/s MV E/A Ratio: 0.73 RAP: 5.00 mmHg RVSP: 23.88 mmHg FINDINGS -------- Sinus rhythm. This was a technically difficult study with suboptimal apical views. The left ventricular size is normal. There is moderate concentric left ventricular hypertrophy. O verall left ventricular systolic function is normal with, an EF between 55 - 60 %. The diastolic fi lling pattern is normal for the age of the patient {E/E'}. The right ventricle is mildly enlarged. Normal LA size by volume 22+/-6 ml/m2. The right atrium was not well visualized. 5.0mg of Lumason was utilized for enhancement of images Interatrial and interventricular septum intact. The aortic valve is trileaflet, and appears structurally normal. No aortic stenosis or regurgitation. The mitral valve is normal. There is trace mitral regurgitation. Mild tricuspid regurgitation present. There is no evidence of pulmonary hypertension. The right v entricular systolic pressure, as measured by Doppler, is 23.88mmHg. There is no pulmonic regurgitation present. The aortic root size is normal. IVC Not well visulized. There is no pericardial effusion. CONCLUSIONS -------- 1. There is moderate concentric left ventricular hypertrophy. 2. Overall left ventricular systolic function is normal with, an EF between 55 - 60 %. 3. The diastolic filling pattern is normal for the age of the patient {E/E'} 4. The right ventricle is mildly enlarged. 5. Normal LA size by volume 22+/-6 ml/m2. 6. 5.0mg of Lumason was utilized for enhancement of images 7. The aortic valve is trileaflet, and appears structurally normal. No aortic stenosis or regurgitati on. 8. There is trace mitral regurgitation. 9. Mild tricuspid regurgitation present. 10. There is no evidence of pulmonary hypertension. 11. There is no pericardial effusion. PULMONARY DISEASE SPECIALIST: Iqra Grimes RDCS
[2019-09-11 20:31] LABS: Glucose,Whole Blood 166 mg/dL (75-99)
[2019-09-11] MEDS: INSULIN DETEMIR (LEVEMIR) 100 UNIT/ML SYR SQ SCH (21:23)
[2019-09-12] MEDS: SODIUM CHLORIDE 0.9% 1,000 ML IV SCH ×3 (00:14→08:00)
[2019-09-12] MEDS: ONDANSETRON 4 MG/2 ML VIAL IVP PRN ×2 (02:25→20:42)
[2019-09-12 05:58] LABS: Basophils % (A) 0 %; Eosinophils % (A) 0 %; HCT 37.4 % (34.0-46.0); HGB 12.6 gm/dL (11.4-16.0); Lymphocytes % (A) 5 %; MCH 30.2 pg (25.0-35.0); MCHC 33.6 g/dL (31.0-37.0); MCV 89.9 fL (80.0-100.0); Mean Platelet Volume 7.6; Monocytes # (A) 0.8 k/uL (0-1.0); Monocytes % (A) 4 %; Neutrophils # (A) 16.6 k/uL (1.3-7.7); Neutrophils % (A) 89 %; Platelet Count 489 k/uL (150-450); RBC 4.16 m/uL (3.80-5.40); RDW 13.7 % (11.5-15.5); WBC 18.6 k/uL (3.8-10.6)
[2019-09-12 06:10] LABS: ALT 45 U/L (4-34); AST 96 U/L (14-36); African American GFR (CKD) >90 (>60 ml/min/1.73 sqM); Alkaline Phosphatase 101 U/L (38-126); Anion Gap 8 mmol/L; Blood Urea Nitrogen 19 mg/dL (7-17); C Reactive Protein 87.4 mg/L (<10.0); Calcium 7.3 mg/dL (8.4-10.2); Carbon Dioxide 25 mmol/L (22-30); Chloride 106 mmol/L (98-107); Glucose 192 mg/dL (74-99); Non-African American GFR(CKD) >90 (>60 ml/min/1.73 sqM); Potassium 3.7 mmol/L (3.5-5.1); Sodium 139 mmol/L (137-145); Total Bilirubin 0.5 mg/dL (0.2-1.3); Total Protein 6.2 g/dL (6.3-8.2)
--- NOTE | 2019-09-12 06:18 | XR ---
EXAMINATION TYPE: XR chest 1V DATE OF EXAM: 09/12/2019 HISTORY: SOB. REFERENCE: Previous study dated 09/11/2019. FINDINGS: There are bilateral airspace opacities which may have worsened slightly from previous. Hear t size is mildly enlarged. Blunting of both CP angles and be difficult to exclude small effusions. IMPRESSION: THERE IS PERHAPS, SLIGHT WORSENING IN THE APPEARANCE OF THE CHEST.
[2019-09-12 06:25] LABS: LDH 2980 U/L (313-618)
[2019-09-12] MEDS ORDERED: Potassium Replacement Protocol 1 EACH MISC MISCELLANE PRN (06:40)
[2019-09-12] MEDS ORDERED: POTASSIUM CHLORIDE ER 20 MEQ TAB.ER PO SCH (07:00)
[2019-09-12 07:10] LABS: Glucose,Whole Blood 183 mg/dL (75-99)
[2019-09-12] MEDS: INSULIN ASPART (NovoLOG) 100 UNIT/ML VIAL SQ SCH ×4 (07:19→20:59)
[2019-09-12] MEDS: ZINC SULFATE 220 MG CAP PO SCH (08:01)
[2019-09-12] MEDS: methylPREDNISolone SOD SUCCI 40 MG/ML 1 ML VIAL IV SCH ×2 (08:01→20:58)
[2019-09-12] MEDS: PANTOPRAZOLE 40 MG/10 ML VIAL IV SCH (08:01)
[2019-09-12] MEDS: HYDROXYCHLOROQUINE SULFATE 200 MG TAB PO SCH ×2 (08:01→20:58)
[2019-09-12] MEDS: ENOXAPARIN 40 MG/0.4 ML SYRINGE SQ SCH (08:01)
[2019-09-12] MEDS: ALBUTEROL HFA INHALER INHALATION SCH ×3 (08:04→19:45)
[2019-09-12] MEDS ORDERED: ENOXAPARIN 40 MG/0.4 ML SYRINGE SQ STA (09:25)
--- NOTE | 2019-09-12 10:11 | CONS ---
CONSULTATION Mrs. Olivares is a 63-year-old female who was transferred from [facility] with symptoms of progressive dyspnea and evidence of Covid-19 infection. She has been complaining of dyspnea and fatigue over the last 2 weeks, worse recently with some cough and was subsequently transferred to [facility]. Cardiology consultation was requested because of mild troponin elevation. The patient denies any prior cardiac history. She denies any exertional chest discomfort or dyspnea on a regular basis. No peripheral edema. No PND, orthopnea. No dizziness or syncope in the past. She has a history of hypertension. She is a non smoker and non diabetic. Her lab data on presentation revealed a troponin of 3.2, 1.8 and subsequently 34.6. She underwent an echocardiogram yesterday that showed a preserved systolic function. At home prior to admission she was on Celexa, simvastatin, metoprolol tartrate 25 mg daily and losartan HCT 100-25 mg daily. She has been started on Plaquenil after admission. REVIEW OF SYSTEMS: RESPIRATORY system: She has the symptoms of progressive dyspnea and a cough and a fever. She has Covid-19 positive. GI system: No nausea, no vomiting. No GI bleeding. system: No dysuria or hematuria. Nervous system: No stroke or seizure. PHYSICAL EXAMINATION: She is a 63-year-old female, alert, oriented, mildly dyspneic. Blood pressure 134/80 with a heart rate in the 80s. HEAD: Normocephalic. EYES: Sclerae nonicteric. NECK: Good upstroke. No bruit. LUNGS with scattered rhonchi bilaterally. HEART: Regular rate and rhythm. S1, S2. No S3. No rub. ABDOMEN: Soft, nontender. Positive bowel sounds. No organomegaly. EXTREMITIES: No edema. Intact distal pulses. LAB DATA: Revealed a white blood cell of 18.6, hemoglobin 12.6. BUN and creatinine 19 and 0.62. AST of 96, ALT of 45, LDH of 2980 daily. C-reactive protein of 87.4 which is down compared with her admission numbers. Her EKG showed a sinus mechanism, normal axis, cannot exclude inferior myocardial infarction with nonspecific ST-T wave changes. IMPRESSION: 1. Covid-19 infection with respiratory difficulties and hypoxemia. 2. Elevated troponin related to the infectious process. No evidence of significant wall motion abnormalities. 3. Prior history of hypertension. 4. Prior history of hyperlipidemia. RECOMMENDATIONS: From the cardiac standpoint, there is no significant impairment of ventricular systolic function. We will continue present therapy. We will follow her EKGs. Depending on her progress, further recommendations will be made. Thank you for this consult. We will follow with you. JESSY / MAURICIO: [id number] /
--- NOTE | 2019-09-12 11:25 | P.PN ---
Subjective Progress Note Date: 09/12/19 Principal diagnosis: Acute CoVID19 related to pneumonitis 63-year-old female patient of Dr. Jaison Friedman, with past medical history of hypertension, hyperlipidemia, nonsmoker, works in the dietary department at [employer], was accepted as a transfer from [facility] [employer] [facility] where she presented for evaluation of fatigue, nausea, weakness, occasional fevers and low pulse ox levels. Patient reports symptoms present for about a week. Her coronavirus PCR test was positive on 09/06/2019, and again today on all 09/10/2019. No vomiting or diarrhea, no shortness of breath. Lab work showed white blood cell count 13.2, hemoglobin of 13.5, platelet count is 513, neutrophil count is elevated at 10.6, lymphocytes at 1.6, no d-dimer was drawn, sodium is 134, potassium is 3.7, chloride is 96, CO2 is 27, B1 is 33 creatinine 0.93, LDH is 2470, CRP is significantly elevated at 252, plasma lactic acid was 1.8. EKG shows normal sinus rhythm with evidence of possible inferior infarct of undetermined age, and T-wave inversion in the anterolateral leads. QT/QTc were 388 and 482 respectively. Patient is afebrile, profound hypoxemia, with a pulse ox of 73% on 15 L high flow. Currently requiring 100% nonrebreather in addition to 15 L per high flow nasal cannula and a pulse ox is 98%. In addition patient was borderline hypotensive with pressures of 90 systolic, and patient was given 1/2 L in IV fluid boluses in the emergency department. Patient was transferred to the ICU for close monitoring. Chest x-ray showed scattered mixed interstitial and alveolar infiltrates throughout both lungs compatible with underlying pneumonia. On 09/11/2019 patient seen in follow-up in the intensive care unit, she remains on high flow oxygen, currently on 100% nonrebreather with a pulse ox of 88-90%, patient has been afebrile, hemodynamically stable, today's chest x-ray shows worsening over the right upper lobe pneumonia with multifocal opacities in the left midlung and right lung base unchanged from prior chest x-ray which was done yesterday. Today's labs have been reviewed, showing white blood cell count of 13.8, hemoglobin of 11.7, platelet count is 480, electrolytes were within normal limits, BUN is 19 creatinine 0.63, yesterday patient's d-dimer was 0.90 patient is on reflected dose of Lovenox. Ferritin level yesterday was 1514, AST and ALT improving, down to 7039 respectively, alk phos is 56, lactate dehydrogenase is 2002, trending down from yesterday, and patient had elevated troponins at 3.2 and 1.8, CRP remains significantly elevated as well at 192. Pro-calcitonin was mildly elevated to 0.18, we will add Rocephin for empiric antibiotic coverage. The patient is seen today 09/22/2019 in follow-up in the intensive care unit. She is awake and alert in no acute distress. She is resting in bed. She is continuing to require high flow nasal cannula at 15 L/m along with a nonrebreather. O2 saturations remained in the high 80s. She is currently afebrile. Hemodynamically stable. Tachypneic. Chest x-ray shows bilateral airspace disease that of increased compared to yesterday. Small bilateral effusions. White count 18.6. Hemoglobin 12.6. Platelets 49. D-dimer 14.2. Sodium 139. Potassium 3.7. Creatinine 0.62. Ferritin 1072. LDH 2980. C- reactive protein 87. She did receive tocilizumab 2. She remains on Plaquenil, IV Solu-Medrol and zinc. Antibiotics in the form of ceftriaxone. Lovenox to be increased to 80 mg subcu twice daily. Objective - Vital Signs Vital signs: Vital Signs Temp 98.2 F 09/12/19 08:00 Pulse 87 09/12/19 10:00 Resp 33 H 09/12/19 10:00 BP 157/94 09/12/19 10:00 Pulse Ox 87 L 09/12/19 10:00 Intake & Output 09/11/19 09/12/19 09/12/19 18:59 06:59 18:59 Intake Total 2130 1500 495 Output Total 745 520 170 Balance 1385 980 325 Weight 85.3 kg 89 kg Intake: IV 1375 1500 415 Sodium Chloride 0.9% 1, 1375 1500 415 000 ml @ 40 mls/hr IV . Q24H [facility] Rx#:[id number] Intake, IV Titration 150 50 Amount Tocilizumab 400 mg In 100 Sodium Chloride 0.9% 80 ml @ 100 mls/hr IV Q12HR [facility] Rx#:[id number] cefTRIAXone 1 gm In 50 50 Sodium Chloride 0.9% 50 ml @ 100 mls/hr IVPB Q24HR [facility] Rx#:[id number] Oral 605 30 Output: Urine 745 520 170 Other: Voiding Method Indwelling Catheter Indwelling Catheter Indwelling Catheter # Bowel Movements 1 1 - Exam GENERAL EXAM: Alert, very pleasant, 63-year-old female patient, currently on 15 L high flow nasal cannula in the 100% nonrebreather with a pulse ox between 87- 89 % comfortable in no apparent distress. HEAD: Normocephalic/atraumatic. EYES: Normal reaction of pupils, equal size. Conjunctiva pink, sclera white. NOSE: Clear with pink turbinates. THROAT: No erythema or exudates. NECK: No masses, no JVD, no thyroid enlargement, no adenopathy. CHEST: No chest wall deformity. Symmetrical expansion. LUNGS: Equal air entry with few scattered rhonchi, crackles in the bases. CVS: Regular rate and rhythm, normal S1 and S2, no gallops, no murmurs, no rubs ABDOMEN: Soft, nontender. No hepatosplenomegaly, normal bowel sounds, no guarding or rigidity. EXTREMITIES: No clubbing, no edema, no cyanosis, 2+ pulses and upper and lower extremities. MUSCULOSKELETAL: Muscle strength and tone normal. SPINE: No scoliosis or deformity SKIN: No rashes CENTRAL NERVOUS SYSTEM: No focal deficits, tone is normal in all 4 extremities. PSYCHIATRIC: Alert and oriented -3. Appropriate affect. Intact judgment and insight. - Labs CBC & Chem 7: 09/12/19 05:17 09/12/19 05:17 Labs: Abnormal Lab Results - Last 24 Hours (Table) 09/11/19 09/11/19 09/11/19 Range/Units 12:03 12:36 16:48 WBC (3.8-10.6) k/uL Plt Count (150-450) k/uL Neutrophils # (1.3-7.7) k/uL D-Dimer (<0.60) mg/L FEU BUN (7-17) mg/dL Glucose (74-99) mg/dL POC Glucose (mg/dL) 272 H 180 H (75-99) mg/dL Calcium (8.4-10.2) mg/dL Ferritin (10.0-291.0) ng/mL AST (14-36) U/L ALT (4-34) U/L Lactate Dehydrogenase (313-618) U/L Troponin I 34.600 H* (0.000-0.034) ng/mL C-Reactive Protein (<10.0) mg/L Total Protein (6.3-8.2) g/dL Albumin (3.5-5.0) g/dL 09/11/19 09/12/19 09/12/19 Range/Units 20:30 05:17 05:17 WBC (3.8-10.6) k/uL Plt Count (150-450) k/uL Neutrophils # (1.3-7.7) k/uL D-Dimer (<0.60) mg/L FEU BUN 19 H (7-17) mg/dL Glucose 192 H (74-99) mg/dL POC Glucose (mg/dL) 166 H (75-99) mg/dL Calcium 7.3 L (8.4-10.2) mg/dL Ferritin 1072.3 H (10.0-291.0) ng/mL AST 96 H (14-36) U/L ALT 45 H (4-34) U/L Lactate Dehydrogenase 2980 H (313-618) U/L Troponin I (0.000-0.034) ng/mL C-Reactive Protein 87.4 H (<10.0) mg/L Total Protein 6.2 L (6.3-8.2) g/dL Albumin 3.0 L (3.5-5.0) g/dL 09/12/19 09/12/19 09/12/19 Range/Units 05:17 07:09 07:34 WBC 18.6 H (3.8-10.6) k/uL Plt Count 489 H (150-450) k/uL Neutrophils # 16.6 H (1.3-7.7) k/uL D-Dimer 14.20 H (<0.60) mg/L FEU BUN (7-17) mg/dL Glucose (74-99) mg/dL POC Glucose (mg/dL) 183 H (75-99) mg/dL Calcium (8.4-10.2) mg/dL Ferritin (10.0-291.0) ng/mL AST (14-36) U/L ALT (4-34) U/L Lactate Dehydrogenase (313-618) U/L Troponin I (0.000-0.034) ng/mL C-Reactive Protein (<10.0) mg/L Total Protein (6.3-8.2) g/dL Albumin (3.5-5.0) g/dL Microbiology - Last 24 Hours (Table) 09/10/19 10:07 Blood Culture - Preliminary Blood No Growth after 24 hours Assessment and Plan Assessment: #1. Acute hypoxemic respiratory failure related to acute COVID 19 pneumonitis #2. Acute COVID 19 infection with symptoms of profound hypoxemia, weakness, fatigue, intermittent fevers, nausea for one week prior to presentation, patient had a COVID 19 PCR test positive on 2 occasions on 09/06/2019, and again on 11/2019 #3. Sepsis related to viral pneumonia, although possibility of bacterial pneumonia is not entirely excluded. Pro-calcitonin level is pending #4. Hypotension, hypovolemic and related to decreased oral intake, nausea, and sepsis related to viral pneumonia, recovered with IV fluid boluses #5. Elevated LDH, CRP related to COVID 19 infection #6. History of hypertension #7. History of hyperlipidemia #8. Never smoker #9. No history of EtOH use #10. Positive troponin, possibly related to acute Covid 19 related myocarditis Plan: The patient was seen and evaluated by Dr. Matta Chest x-ray and labs reviewed D-dimer increased from 0.9 to 14.2 Increase Lovenox 80 mg every 12 hours She did receive tocilizumab 2 Continue on Plaquenil, steroids, zinc Antibiotics in the form of ceftriaxone We will continue to monitor her here closely in the intensive care unit We'll continue to follow make further recommendations based on her clinical status I, the cosigning physician, performed a history & physical examination of the patient. Lungs sounds with bilateral scattered rhonchi, crackles in the bases. Maintaining good O2 saturations in the 90s on 15 L high flow nasal cannula along with a nonrebreather mask at 100% FiO2. I discussed the assessment and plan of care with my nurse practitioner, Marlene Mcgarry. I attest to the above note as dictated by her.
[2019-09-12 11:46] LABS: Glucose,Whole Blood 177 mg/dL (75-99)
--- NOTE | 2019-09-12 12:42 | P.PN ---
Subjective 63-year-old female is admitted for acute respiratory failure secondary to acute COVID 19 sepsis, patient is presently on 100% nonrebreather saturating at 88-90% chest x-ray showing mild worsening of right upper lobe pneumonia. Patient remains on IV fluids. Patient troponins are elevated because of possible Covid myocarditis I'll obtain a echocardiogram to see if there is any heart failure. All the acute phase reactants are elevated including d-dimer which is only minimally elevated. Patient is presently on hydroxychloroquine and the steroids which were ordered by pulmonary patient has highly elevated LDH. 09/12/2019 Patient remains in the ICU, she is awake and oriented and follow commands however she is short of breath and she still on 50 L oxygen via nonrebreather. Also patient has significant orthopnea with diminished breath sounds on both sides. She is significantly tachypneic 27-34 and saturating 88% and 15L Oxygen via nasal cannula/high flow She has leukocytosis of 18.6 K however she is on steroids. D-dimer is worse today from 0.4 up to 14.0. BMP is unremarkable. Liver enzymes mildly elevated but stable Patient is currently on Plaquenil, zinc, Rocephin, Solu-Medrol 30 mg twice daily, normal saline. Her Lovenox was increased to 80 mg twice a day Pulmonary the case. Also proration clerk evaluated the patient and recommended to continue with present therapy and monitor EKG Constitutional: Denied any fatigue denied any fever. Cardio vascular: denied any chest pain, palpitations Gastrointestinal denied any nausea vomiting Pulmonary: As mentioned in HPI Neurologic denied any new focal deficits Active Medications Generic Name Dose Route Start Last Admin Trade Name Freq PRN Reason Stop Dose Admin Acetaminophen 650 mg 09/10/19 09:36 Tylenol Tab PO Q4HR PRN Fever>101 Albuterol Sulfate 2 puff 09/10/19 14:00 09/12/19 11:33 Ventolin Hfa Inhaler INHALATION 2 puff RT-Q6H [facility] Administration Albuterol Sulfate 2 puff 09/10/19 09:36 09/10/19 10:02 Ventolin Hfa Inhaler INHALATION 2 puff RT-Q6H PRN Administration Shortness Of Breath Or Wheezing Enoxaparin Sodium 80 mg 09/12/19 21:00 Lovenox SQ BID [facility] Hydroxychloroquine Sulfate 200 mg 09/11/19 21:00 09/12/19 08:01 Plaquenil PO 09/15/19 09:01 200 mg BID [facility] Administration Sodium Chloride 1,000 mls @ 40 mls/hr 09/10/19 12:00 09/12/19 08:00 Saline 0.9% IV 125 mls/hr .Q24H [facility] Administration Ceftriaxone Sodium 1 gm/ 50 mls @ 100 mls/hr 09/11/19 12:00 09/12/19 08:00 Sodium Chloride IVPB 100 mls/hr Q24HR [facility] Administration Insulin Aspart 0 unit 09/11/19 12:30 09/12/19 07:19 Novolog SQ 4 unit ACHS [facility] Administration Protocol Insulin Detemir 15 unit 09/11/19 21:00 09/11/19 21:23 Levemir SQ 15 unit HS [facility] Administration Methylprednisolone Sodium Succinate 30 mg 09/10/19 21:00 09/12/19 08:01 Solu-Medrol IV 30 mg Q12HR [facility] Administration Miscellaneous Information 1 each 09/11/19 05:55 Potassium Per Protocol MISCELLANE DAILY PRN Per Protocol Protocol Miscellaneous Information 1 each 09/12/19 06:40 Potassium Per Protocol MISCELLANE DAILY PRN Per Protocol Protocol Naloxone HCl 0.2 mg 09/10/19 11:47 Narcan IV Q2M PRN Opioid Reversal Ondansetron HCl 4 mg 09/12/19 02:18 09/12/19 02:25 Zofran IVP 4 mg Q6HR PRN Administration Nausea And Vomiting Pantoprazole Sodium 40 mg 09/10/19 12:00 09/12/19 08:01 Protonix IV 40 mg DAILY [facility] Administration Zinc Sulfate 220 mg 09/11/19 09:00 09/12/19 08:01 Orazinc PO 220 mg DAILY [facility] Administration Objective - Vital Signs Vital signs: Vital Signs Temp 98.2 F 09/12/19 08:00 Pulse 101 H 09/12/19 11:00 Resp 27 H 09/12/19 11:00 BP 157/90 09/12/19 11:00 Pulse Ox 88 L 09/12/19 11:00 Intake & Output 09/11/19 09/12/19 09/12/19 18:59 06:59 18:59 Intake Total 2130 1500 495 Output Total 745 520 170 Balance 1385 980 325 Weight 85.3 kg 89 kg Intake: IV 1375 1500 415 Sodium Chloride 0.9% 1, 1375 1500 415 000 ml @ 40 mls/hr IV . Q24H [facility] Rx#:[id number] Intake, IV Titration 150 50 Amount Tocilizumab 400 mg In 100 Sodium Chloride 0.9% 80 ml @ 100 mls/hr IV Q12HR [facility] Rx#:[id number] cefTRIAXone 1 gm In 50 50 Sodium Chloride 0.9% 50 ml @ 100 mls/hr IVPB Q24HR [facility] Rx#:[id number] Oral 605 30 Output: Urine 745 520 170 Other: Voiding Method Indwelling Catheter Indwelling Catheter Indwelling Catheter # Bowel Movements 1 1 - Exam GENERAL: The patient is alert and oriented x3, not in any acute distress. Well developed, well nourished. HEENT: Pupils are round and equally reacting to light. EOMI. No scleral icterus. No conjunctival pallor. Normocephalic, atraumatic. No pharyngeal erythema. No thyromegaly. CARDIOVASCULAR: S1 and S2 present. No murmurs, rubs, or gallops. PULMONARY: Chest is clear to auscultation, no wheezing or crackles. ABDOMEN: Soft, nontender, nondistended, normoactive bowel sounds. No palpable organomegaly. MUSCULOSKELETAL: No joint swelling or deformity. EXTREMITIES: No cyanosis, clubbing, or pedal edema. NEUROLOGICAL: Gross neurological examination did not reveal any focal deficits. SKIN: No rashes. no petechiae. - Labs CBC & Chem 7: 09/12/19 05:17 09/12/19 05:17 Labs: Abnormal Lab Results - Last 24 Hours (Table) 09/11/19 09/11/19 09/11/19 Range/Units 12:36 16:48 20:30 WBC (3.8-10.6) k/uL Plt Count (150-450) k/uL Neutrophils # (1.3-7.7) k/uL D-Dimer (<0.60) mg/L FEU BUN (7-17) mg/dL Glucose (74-99) mg/dL POC Glucose (mg/dL) 180 H 166 H (75-99) mg/dL Calcium (8.4-10.2) mg/dL Ferritin (10.0-291.0) ng/mL AST (14-36) U/L ALT (4-34) U/L Lactate Dehydrogenase (313-618) U/L Troponin I 34.600 H* (0.000-0.034) ng/mL C-Reactive Protein (<10.0) mg/L Total Protein (6.3-8.2) g/dL Albumin (3.5-5.0) g/dL 09/12/19 09/12/19 09/12/19 Range/Units 05:17 05:17 05:17 WBC 18.6 H (3.8-10.6) k/uL Plt Count 489 H (150-450) k/uL Neutrophils # 16.6 H (1.3-7.7) k/uL D-Dimer (<0.60) mg/L FEU BUN 19 H (7-17) mg/dL Glucose 192 H (74-99) mg/dL POC Glucose (mg/dL) (75-99) mg/dL Calcium 7.3 L (8.4-10.2) mg/dL Ferritin 1072.3 H (10.0-291.0) ng/mL AST 96 H (14-36) U/L ALT 45 H (4-34) U/L Lactate Dehydrogenase 2980 H (313-618) U/L Troponin I (0.000-0.034) ng/mL C-Reactive Protein 87.4 H (<10.0) mg/L Total Protein 6.2 L (6.3-8.2) g/dL Albumin 3.0 L (3.5-5.0) g/dL 09/12/19 09/12/19 09/12/19 Range/Units 07:09 07:34 11:45 WBC (3.8-10.6) k/uL Plt Count (150-450) k/uL Neutrophils # (1.3-7.7) k/uL D-Dimer 14.20 H (<0.60) mg/L FEU BUN (7-17) mg/dL Glucose (74-99) mg/dL POC Glucose (mg/dL) 183 H 177 H (75-99) mg/dL Calcium (8.4-10.2) mg/dL Ferritin (10.0-291.0) ng/mL AST (14-36) U/L ALT (4-34) U/L Lactate Dehydrogenase (313-618) U/L Troponin I (0.000-0.034) ng/mL C-Reactive Protein (<10.0) mg/L Total Protein (6.3-8.2) g/dL Albumin (3.5-5.0) g/dL Microbiology - Last 24 Hours (Table) 09/10/19 10:07 Blood Culture - Preliminary Blood No Growth after 48 hours Assessment and Plan Assessment: -Bilateral Covid pneumonia. Continue with antibiotics and pulmonary consult. -Acute hypoxic respiratory failure secondary to COVID 19 pneumonitis and continue with respiratory support, need to be closely monitored in ICU. Patient is presently on high flow nasal cannula oxygen. Patient was started on systemic steroids, hydroxychloroquine and repeat chest x-ray showing increased infiltrate on the right side -Elevated troponin secondary to Covid myocarditis echocardiogram will be obtained, cardiology consultation is ordered -Mildly elevated liver enzymes -Elevated d-dimer, continue with Lovenox -Elevated inflammatory markers included 13, LDH and C-reactive protein, secondary to Covid -Hypotension : Improved -Hyperlipidemia DVT prophylaxis: Lovenox GI prophylaxis: Protonix Prognosis is guarded
[2019-09-12 16:35] LABS: Glucose,Whole Blood 148 mg/dL (75-99)
[2019-09-12 20:48] LABS: Glucose,Whole Blood 116 mg/dL (75-99)
[2019-09-12] MEDS: ENOXAPARIN 80 MG/0.8 ML SYRINGE SQ SCH (20:59)
[2019-09-12] MEDS: INSULIN DETEMIR (LEVEMIR) 100 UNIT/ML SYR SQ SCH (20:59)
[2019-09-12] MEDS ORDERED: ENOXAPARIN 40 MG/0.4 ML SYRINGE SQ SCH (21:00)
[2019-09-13] MEDS: ALBUTEROL HFA INHALER INHALATION SCH ×4 (00:58→18:46)
[2019-09-13] MEDS: ONDANSETRON 4 MG/2 ML VIAL IVP PRN ×2 (01:20→17:47)
--- NOTE | 2019-09-13 05:49 | XR ---
EXAMINATION TYPE: XR chest 1V DATE OF EXAM: 09/13/2019 HISTORY: SOB. REFERENCE: Previous study dated 09/12/2019. FINDINGS: There continues be diffuse opacification of both lungs. This has perhaps worsened slightly from previous. The heart is mildly enlarged. I could not exclude small, bilateral effusions. IMPRESSION: SLIGHT WORSENING IN THE AERATION OF BOTH LUNGS.
[2019-09-13 06:09] LABS: Basophils # (A) 0.1 k/uL (0-0.2); Basophils % (A) 1 %; Eosinophils % (A) 0 %; HCT 38.1 % (34.0-46.0); HGB 12.1 gm/dL (11.4-16.0); Lymphocytes # (A) 0.8 k/uL (1.0-4.8); Lymphocytes % (A) 4 %; MCH 29.1 pg (25.0-35.0); MCHC 31.8 g/dL (31.0-37.0); MCV 91.4 fL (80.0-100.0); Mean Platelet Volume 7.2; Monocytes # (A) 0.9 k/uL (0-1.0); Monocytes % (A) 4 %; Neutrophils # (A) 17.5 k/uL (1.3-7.7); Neutrophils % (A) 89 %; Platelet Count 408 k/uL (150-450); RBC 4.17 m/uL (3.80-5.40); RDW 13.7 % (11.5-15.5); WBC 19.6 k/uL (3.8-10.6)
[2019-09-13 06:20] LABS: ALT 50 U/L (4-34); AST 88 U/L (14-36); African American GFR (CKD) >90 (>60 ml/min/1.73 sqM); Albumin 3.1 g/dL (3.5-5.0); Alkaline Phosphatase 128 U/L (38-126); Anion Gap 6 mmol/L; Blood Urea Nitrogen 23 mg/dL (7-17); C Reactive Protein 41.9 mg/L (<10.0); Calcium 7.5 mg/dL (8.4-10.2); Carbon Dioxide 26 mmol/L (22-30); Chloride 108 mmol/L (98-107); Creatine Kinase 318 U/L (30-135); Glucose 134 mg/dL (74-99); Non-African American GFR(CKD) >90 (>60 ml/min/1.73 sqM); Sodium 140 mmol/L (137-145); Total Bilirubin 0.6 mg/dL (0.2-1.3); Total Protein 6.4 g/dL (6.3-8.2)
[2019-09-13 06:26] LABS: LDH 3118 U/L (313-618)
[2019-09-13] MEDS ORDERED: Potassium Replacement Protocol 1 EACH MISC MISCELLANE PRN (06:41)
[2019-09-13] MEDS: SODIUM CHLORIDE 0.9% 1,000 ML IV SCH (06:48)
[2019-09-13 06:55] LABS: Glucose,Whole Blood 132 mg/dL (75-99)
[2019-09-13] MEDS ORDERED: POTASSIUM CHLORIDE ER 20 MEQ TAB.ER PO SCH (07:00)
[2019-09-13] MEDS: INSULIN ASPART (NovoLOG) 100 UNIT/ML VIAL SQ SCH ×4 (07:04→23:20)
[2019-09-13] MEDS: ENOXAPARIN 80 MG/0.8 ML SYRINGE SQ SCH ×2 (08:13→20:28)
[2019-09-13] MEDS: methylPREDNISolone SOD SUCCI 40 MG/ML 1 ML VIAL IV SCH ×2 (08:13→20:27)
[2019-09-13] MEDS: HYDROXYCHLOROQUINE SULFATE 200 MG TAB PO SCH ×2 (08:14→20:28)
[2019-09-13] MEDS: PANTOPRAZOLE 40 MG/10 ML VIAL IV SCH (08:14)
[2019-09-13] MEDS: ZINC SULFATE 220 MG CAP PO SCH (08:14)
--- NOTE | 2019-09-13 08:21 | PN ---
PROGRESS NOTE Mrs. Olivares is a 63-year-old female who was transferred from [facility] with evidence of Covid-19. Cardiology consultation was requested because of mild troponin elevation. Her echocardiogram revealed a preserved left ventricular size and systolic function with no evidence of segmental wall motion abnormality. Discussion of her case with the nursing staff, she has been stable. She continues to be on high oxygen flow but oxygenating well. Hemodynamically, she is stable. She has no evidence of malignant arrhythmia. She continues to be on Lovenox, Plaquenil, methylprednisolone, Protonix. PHYSICAL EXAMINATION: Blood pressure running in the 130s and 140s with a heart rate in the 60s. IMPRESSION: 1. Covid-19 infection with hypoxemia. 2. Mild troponin elevation most likely related to myocarditis with no evidence of segmental wall motion abnormality. 3. History of hypertension. 4. Hyperlipidemia. RECOMMENDATIONS: From the cardiac standpoint, we will continue on present therapy. There is no evidence of cardiac decompensation at this time. No change in the medication is needed. We will see her on an as-needed basis. Please feel free to call us for any questions. MMODL / IJN: [id number] /
--- NOTE | 2019-09-13 10:44 | P.PN ---
Subjective Progress Note Date: 09/13/19 Principal diagnosis: Acute CoVID19 related to pneumonitis 63-year-old female patient of Dr. Jaison Friedman, with past medical history of hypertension, hyperlipidemia, nonsmoker, works in the dietary department at [employer], was accepted as a transfer from [facility] where she presented for evaluation of fatigue, nausea, weakness, occasional fevers and low pulse ox levels. Patient reports symptoms present for about a week. Her coronavirus PCR test was positive on 09/06/2019, and again today on all 09/10/2019. No vomiting or diarrhea, no shortness of breath. Lab work showed white blood cell count 13.2, hemoglobin of 13.5, platelet count is 513, neutrophil count is elevated at 10.6, lymphocytes at 1.6, no d-dimer was drawn, sodium is 134, potassium is 3.7, chloride is 96, CO2 is 27, B1 is 33 creatinine 0.93, LDH is 2470, CRP is significantly elevated at 252, plasma lactic acid was 1.8. EKG shows normal sinus rhythm with evidence of possible inferior infarct of undetermined age, and T-wave inversion in the anterolateral leads. QT/QTc were 388 and 482 respectively. Patient is afebrile, profound hypoxemia, with a pulse ox of 73% on 15 L high flow. Currently requiring 100% nonrebreather in addition to 15 L per high flow nasal cannula and a pulse ox is 98%. In addition patient was borderline hypotensive with pressures of 90 systolic, and patient was given 1/2 L in IV fluid boluses in the emergency department. Patient was transferred to the ICU for close monitoring. Chest x-ray showed scattered mixed interstitial and alveolar infiltrates throughout both lungs compatible with underlying pneumonia. On 09/11/2019 patient seen in follow-up in the intensive care unit, she remains on high flow oxygen, currently on 100% nonrebreather with a pulse ox of 88-90%, patient has been afebrile, hemodynamically stable, today's chest x-ray shows worsening over the right upper lobe pneumonia with multifocal opacities in the left midlung and right lung base unchanged from prior chest x-ray which was done yesterday. Today's labs have been reviewed, showing white blood cell count of 13.8, hemoglobin of 11.7, platelet count is 480, electrolytes were within normal limits, BUN is 19 creatinine 0.63, yesterday patient's d-dimer was 0.90 patient is on reflected dose of Lovenox. Ferritin level yesterday was 1514, AST and ALT improving, down to 7039 respectively, alk phos is 56, lactate dehydrogenase is 2002, trending down from yesterday, and patient had elevated troponins at 3.2 and 1.8, CRP remains significantly elevated as well at 192. Pro-calcitonin was mildly elevated to 0.18, we will add Rocephin for empiric antibiotic coverage. The patient is seen today 09/12/2019 in follow-up in the intensive care unit. She is awake and alert in no acute distress. She is resting in bed. She is continuing to require high flow nasal cannula at 15 L/m along with a nonrebreather. O2 saturations remained in the high 80s. She is currently afebrile. Hemodynamically stable. Tachypneic. Chest x-ray shows bilateral airspace disease that of increased compared to yesterday. Small bilateral effusions. White count 18.6. Hemoglobin 12.6. Platelets 49. D-dimer 14.2. Sodium 139. Potassium 3.7. Creatinine 0.62. Ferritin 1072. LDH 2980. C- reactive protein 87. She did receive tocilizumab 2. She remains on Plaquenil, IV Solu-Medrol and zinc. Antibiotics in the form of ceftriaxone. Lovenox to be increased to 80 mg subcu twice daily. The patient is seen today 09/13/2019 in follow-up in the intensive care unit. She is currently resting in bed. Awake and alert in no acute distress. She is still requiring 15 L high flow nasal cannula along with a nonrebreather mask to maintain O2 saturation in the low 90s. Chest x-ray continues to show worsening aeration bilaterally. She did receive tocilizumab 2. She remains on Plaquenil, Solu-Medrol, zinc, ceftriaxone. She is on Lovenox 80 mg subcutaneously twice a day. White count 19.6. Hemoglobin 12.1. Lymphocytes 0.8. Sodium 140. Potassium 4.0. Creatinine 0.57. AST 88. ALT 50. LDH 3118. CK 318. C- reactive protein 41.9. Objective - Vital Signs Vital signs: Vital Signs Temp 98.2 F 09/13/19 08:00 Pulse 85 05/10/20 10:00 Resp 30 H 09/13/19 10:00 BP 145/93 09/13/19 10:00 Pulse Ox 92 L 09/13/19 10:00 Intake & Output 09/12/19 09/13/19 09/13/19 18:59 06:59 18:59 Intake Total 995 440 370 Output Total 505 675 195 Balance 490 -235 175 Weight 89.9 kg Intake: IV 735 440 120 Sodium Chloride 0.9% 1, 735 440 120 000 ml @ 40 mls/hr IV . Q24H ABBEY Rx#:[id number] Intake, IV Titration 50 50 Amount cefTRIAXone 1 gm In 50 50 Sodium Chloride 0.9% 50 ml @ 100 mls/hr IVPB Q24HR ABBEY Rx#:[id number] Oral 210 200 Output: Urine 505 675 195 Other: Voiding Method Indwelling Catheter Indwelling Catheter Indwelling Catheter # Bowel Movements 1 - Exam GENERAL EXAM: Alert, very pleasant, 63-year-old female patient, currently on 15 L high flow nasal cannula in the 100% nonrebreather with a pulse ox between 90- 92% comfortable in no apparent distress. HEAD: Normocephalic/atraumatic. EYES: Normal reaction of pupils, equal size. Conjunctiva pink, sclera white. NOSE: Clear with pink turbinates. THROAT: No erythema or exudates. NECK: No masses, no JVD, no thyroid enlargement, no adenopathy. CHEST: No chest wall deformity. Symmetrical expansion. LUNGS: Equal air entry with few scattered rhonchi, crackles in the bases. CVS: Regular rate and rhythm, normal S1 and S2, no gallops, no murmurs, no rubs ABDOMEN: Soft, nontender. No hepatosplenomegaly, normal bowel sounds, no guarding or rigidity. EXTREMITIES: No clubbing, no edema, no cyanosis, 2+ pulses and upper and lower extremities. MUSCULOSKELETAL: Muscle strength and tone normal. SPINE: No scoliosis or deformity SKIN: No rashes CENTRAL NERVOUS SYSTEM: No focal deficits, tone is normal in all 4 extremities. PSYCHIATRIC: Alert and oriented -3. Appropriate affect. Intact judgment and insight. - Labs CBC & Chem 7: 09/13/19 05:50 09/13/19 05:50 Labs: Abnormal Lab Results - Last 24 Hours (Table) 09/12/19 09/12/19 09/12/19 Range/Units 05:17 11:45 16:33 WBC (3.8-10.6) k/uL Neutrophils # (1.3-7.7) k/uL Lymphocytes # (1.0-4.8) k/uL Chloride (98-107) mmol/L BUN (7-17) mg/dL Glucose (74-99) mg/dL POC Glucose (mg/dL) 177 H 148 H (75-99) mg/dL Calcium (8.4-10.2) mg/dL Ferritin 1072.3 H (10.0-291.0) ng/mL AST (14-36) U/L ALT (4-34) U/L Alkaline Phosphatase (38-126) U/L Lactate Dehydrogenase (313-618) U/L Creatine Kinase (30-135) U/L C-Reactive Protein (<10.0) mg/L Albumin (3.5-5.0) g/dL 09/12/19 09/13/19 09/13/19 Range/Units 20:47 05:50 05:50 WBC 19.6 H (3.8-10.6) k/uL Neutrophils # 17.5 H (1.3-7.7) k/uL Lymphocytes # 0.8 L (1.0-4.8) k/uL Chloride 108 H (98-107) mmol/L BUN 23 H (7-17) mg/dL Glucose 134 H (74-99) mg/dL POC Glucose (mg/dL) 116 H (75-99) mg/dL Calcium 7.5 L (8.4-10.2) mg/dL Ferritin (10.0-291.0) ng/mL AST 88 H (14-36) U/L ALT 50 H (4-34) U/L Alkaline Phosphatase 128 H (38-126) U/L Lactate Dehydrogenase 3118 H (313-618) U/L Creatine Kinase 318 H (30-135) U/L C-Reactive Protein 41.9 H (<10.0) mg/L Albumin 3.1 L (3.5-5.0) g/dL 09/13/19 Range/Units 06:53 WBC (3.8-10.6) k/uL Neutrophils # (1.3-7.7) k/uL Lymphocytes # (1.0-4.8) k/uL Chloride (98-107) mmol/L BUN (7-17) mg/dL Glucose (74-99) mg/dL POC Glucose (mg/dL) 132 H (75-99) mg/dL Calcium (8.4-10.2) mg/dL Ferritin (10.0-291.0) ng/mL AST (14-36) U/L ALT (4-34) U/L Alkaline Phosphatase (38-126) U/L Lactate Dehydrogenase (313-618) U/L Creatine Kinase (30-135) U/L C-Reactive Protein (<10.0) mg/L Albumin (3.5-5.0) g/dL Microbiology - Last 24 Hours (Table) 09/10/19 10:07 Blood Culture - Preliminary Blood No Growth after 48 hours Assessment and Plan Assessment: #1. Acute hypoxemic respiratory failure related to acute COVID 19 pneumonitis #2. Acute COVID 19 infection with symptoms of profound hypoxemia, weakness, fatigue, intermittent fevers, nausea for one week prior to presentation, patient had a COVID 19 PCR test positive on 2 occasions on 09/06/2019, and again on 09/10/2019 #3. Sepsis related to viral pneumonia, although possibility of bacterial pneumonia is not entirely excluded. Pro-calcitonin level is pending #4. Hypotension, hypovolemic and related to decreased oral intake, nausea, and sepsis related to viral pneumonia, recovered with IV fluid boluses #5. Elevated LDH, CRP related to COVID 19 infection #6. History of hypertension #7. History of hyperlipidemia #8. Never smoker #9. No history of EtOH use #10. Positive troponin, possibly related to acute Covid 19 related myocarditis Plan: The patient was seen and evaluated by Dr. Matta Chest x-ray and labs reviewed No significant improvement We'll initiate an order for convalescent plasma She did receive tocilizumab 2 Continue on Plaquenil, steroids, zinc Antibiotics in the form of ceftriaxone Continue to monitor inflammatory markers We will continue to monitor her here closely in the intensive care unit We'll continue to follow and make further recommendations based on her clinical status I, the cosigning physician, performed a history & physical examination of the patient. Lungs sounds with bilateral scattered rhonchi, crackles in the bases. Maintaining good O2 saturations in the 90s on 15 L high flow nasal cannula along with a nonrebreather mask at 100% FiO2. I discussed the assessment and plan of care with my nurse practitioner, Marlene Mcgarry. I attest to the above note as dict ated by her.
[2019-09-13 12:15] LABS: Glucose,Whole Blood 104 mg/dL (75-99)
[2019-09-13 16:48] LABS: Glucose,Whole Blood 101 mg/dL (75-99)
--- NOTE | 2019-09-13 17:34 | P.PN ---
Subjective 63-year-old female is admitted for acute respiratory failure secondary to acute COVID 19 sepsis, patient is presently on 100% nonrebreather saturating at 88-90% chest x-ray showing mild worsening of right upper lobe pneumonia. Patient remains on IV fluids. Patient troponins are elevated because of possible Covid myocarditis I'll obtain a echocardiogram to see if there is any heart failure. All the acute phase reactants are elevated including d-dimer which is only minimally elevated. Patient is presently on hydroxychloroquine and the steroids which were ordered by pulmonary patient has highly elevated LDH. 09/12/2019 Patient remains in the ICU, she is awake and oriented and follow commands however she is short of breath and she still on 50 L oxygen via nonrebreather. Also patient has significant orthopnea with diminished breath sounds on both sides. She is significantly tachypneic 27-34 and saturating 88% and 15L Oxygen via nasal cannula/high flow She has leukocytosis of 18.6 K however she is on steroids. D-dimer is worse today from 0.4 up to 14.0. BMP is unremarkable. Liver enzymes mildly elevated but stable Patient is currently on Plaquenil, zinc, Rocephin, Solu-Medrol 30 mg twice daily, normal saline. Her Lovenox was increased to 80 mg twice a day Pulmonary the case. Also music pastor evaluated the patient and recommended to continue with present therapy and monitor EKG 09/13/2019 Patient in the ICU. She is awake and oriented, she is dyspneic and orthopedic with dry cough for her comfort pneumonia with chest x-ray showing slight worsening by radiologist She remains on 15 L oxygen via nasal cannula over the last 2-3 days Cross Tie Tram Loader recommended to continue with same treatment, no need for intervention for now. No change in the treatment today as she continue with Rocephin, Solu-Medrol 30 mg, Lovenox 80 mg and Plaquenil, her normal saline was lowered to 40 mL per hour WBC is 19.6 while she is on steroids, liver enzymes slightly elevated and stable Constitutional: Denied any fatigue denied any fever. Cardio vascular: denied any chest pain, palpitations Gastrointestinal denied any nausea vomiting Pulmonary: As mentioned in HPI Neurologic denied any new focal deficits Active Medications Generic Name Dose Route Start Last Admin Trade Name Freq PRN Reason Stop Dose Admin Acetaminophen 650 mg 09/10/19 09:36 Tylenol Tab PO Q4HR PRN Fever>101 Albuterol Sulfate 2 puff 09/10/19 14:00 09/13/19 11:33 Ventolin Hfa Inhaler INHALATION 2 puff RT-Q6H ABBEY Administration Albuterol Sulfate 2 puff 09/10/19 09:36 09/10/19 10:02 Ventolin Hfa Inhaler INHALATION 2 puff RT-Q6H PRN Administration Shortness Of Breath Or Wheezing Enoxaparin Sodium 80 mg 09/12/19 21:00 09/13/19 08:13 Lovenox SQ 80 mg BID ABBEY Administration Hydroxychloroquine Sulfate 200 mg 09/11/19 21:00 09/13/19 08:14 Plaquenil PO 09/15/19 09:01 200 mg BID ABBEY Administration Sodium Chloride 1,000 mls @ 40 mls/hr 09/10/19 12:00 09/13/19 06:48 Saline 0.9% IV 40 mls/hr .Q24H ABBEY Administration Ceftriaxone Sodium 1 gm/ 50 mls @ 100 mls/hr 09/11/19 12:00 09/13/19 08:14 Sodium Chloride IVPB 100 mls/hr Q24HR ABBEY Administration Insulin Aspart 0 unit 09/11/19 12:30 09/13/19 12:34 Novolog SQ Not Given ACHS ABBEY Protocol Insulin Detemir 15 unit 09/11/19 21:00 09/12/19 20:59 Levemir SQ 15 unit HS ABBEY Administration Methylprednisolone Sodium Succinate 30 mg 09/10/19 21:00 09/13/19 08:13 Solu-Medrol IV 30 mg Q12HR ABBEY Administration Miscellaneous Information 1 each 09/11/19 05:55 Potassium Per Protocol MISCELLANE DAILY PRN Per Protocol Protocol Miscellaneous Information 1 each 09/12/19 06:40 Potassium Per Protocol MISCELLANE DAILY PRN Per Protocol Protocol Miscellaneous Information 1 each 09/13/19 06:41 Potassium Per Protocol MISCELLANE DAILY PRN Per Protocol Protocol Naloxone HCl 0.2 mg 09/10/19 11:47 Narcan IV Q2M PRN Opioid Reversal Ondansetron HCl 4 mg 09/12/19 02:18 09/13/19 01:20 Zofran IVP 4 mg Q6HR PRN Administration Nausea And Vomiting Pantoprazole Sodium 40 mg 09/10/19 12:00 09/13/19 08:14 Protonix IV 40 mg DAILY ABBEY Administration Zinc Sulfate 220 mg 09/11/19 09:00 09/13/19 08:14 Orazinc PO 220 mg DAILY ABBEY Administration Objective - Vital Signs Vital signs: Vital Signs Temp 99 F 09/13/19 12:00 Pulse 75 09/13/19 14:00 Resp 26 H 09/13/19 14:00 BP 156/89 09/13/19 14:00 Pulse Ox 94 L 09/13/19 14:00 Intake & Output 09/12/19 09/13/19 09/13/19 18:59 06:59 18:59 Intake Total 995 440 570 Output Total 505 675 490 Balance 490 -235 80 Weight 89.9 kg Intake: IV 735 440 320 Sodium Chloride 0.9% 1, 735 440 320 000 ml @ 40 mls/hr IV . Q24H [facility]BEY Rx#:[id number] Intake, IV Titration 50 50 Amount cefTRIAXone 1 gm In 50 50 Sodium Chloride 0.9% 50 ml @ 100 mls/hr IVPB Q24HR [facility]BEY Rx#:[id number] Oral 210 200 Output: Urine 505 675 490 Other: Voiding Method Indwelling Catheter Indwelling Catheter Indwelling Catheter # Bowel Movements 1 - Exam GENERAL: The patient is alert and oriented x3, not in any acute distress. Well developed, well nourished. HEENT: Pupils are round and equally reacting to light. EOMI. No scleral icterus. No conjunctival pallor. Normocephalic, atraumatic. No pharyngeal erythema. No thyromegaly. CARDIOVASCULAR: S1 and S2 present. No murmurs, rubs, or gallops. PULMONARY: Chest is clear to auscultation, no wheezing or crackles. ABDOMEN: Soft, nontender, nondistended, normoactive bowel sounds. No palpable organomegaly. MUSCULOSKELETAL: No joint swelling or deformity. EXTREMITIES: No cyanosis, clubbing, or pedal edema. NEUROLOGICAL: Gross neurological examination did not reveal any focal deficits. SKIN: No rashes. no petechiae. - Labs CBC & Chem 7: 09/13/19 05:50 09/13/19 05:50 Labs: Abnormal Lab Results - Last 24 Hours (Table) 09/12/19 09/12/19 09/13/19 Range/Units 16:33 20:47 05:50 WBC (3.8-10.6) k/uL Neutrophils # (1.3-7.7) k/uL Lymphocytes # (1.0-4.8) k/uL Chloride 108 H (98-107) mmol/L BUN 23 H (7-17) mg/dL Glucose 134 H (74-99) mg/dL POC Glucose (mg/dL) 148 H 116 H (75-99) mg/dL Calcium 7.5 L (8.4-10.2) mg/dL AST 88 H (14-36) U/L ALT 50 H (4-34) U/L Alkaline Phosphatase 128 H (38-126) U/L Lactate Dehydrogenase 3118 H (313-618) U/L Creatine Kinase 318 H (30-135) U/L C-Reactive Protein 41.9 H (<10.0) mg/L Albumin 3.1 L (3.5-5.0) g/dL 09/13/19 09/13/19 09/13/19 Range/Units 05:50 06:53 12:14 WBC 19.6 H (3.8-10.6) k/uL Neutrophils # 17.5 H (1.3-7.7) k/uL Lymphocytes # 0.8 L (1.0-4.8) k/uL Chloride (98-107) mmol/L BUN (7-17) mg/dL Glucose (74-99) mg/dL POC Glucose (mg/dL) 132 H 104 H (75-99) mg/dL Calcium (8.4-10.2) mg/dL AST (14-36) U/L ALT (4-34) U/L Alkaline Phosphatase (38-126) U/L Lactate Dehydrogenase (313-618) U/L Creatine Kinase (30-135) U/L C-Reactive Protein (<10.0) mg/L Albumin (3.5-5.0) g/dL Microbiology - Last 24 Hours (Table) 09/10/19 10:07 Blood Culture - Preliminary Blood No Growth after 72 hours Assessment and Plan Assessment: -Bilateral Covid pneumonia. Continue with antibiotics and pulmonary consult. -Acute hypoxic respiratory failure secondary to COVID 19 pneumonitis and continue with respiratory support, need to be closely monitored in ICU. Patient is presently on high flow nasal cannula oxygen. Patient was started on systemic steroids, hydroxychloroquine and repeat chest x-ray showing increased infiltrate on the right side -Elevated troponin secondary to Covid myocarditis echocardiogram will be obtained, cardiology consultation is ordered -Mildly elevated liver enzymes -Elevated d-dimer, continue with Lovenox -Elevated inflammatory markers included 13, LDH and C-reactive protein, secondary to Covid -Hypotension : Improved -Hyperlipidemia DVT prophylaxis: Lovenox GI prophylaxis: Protonix Prognosis is guarded
[2019-09-13] MEDS: INSULIN DETEMIR (LEVEMIR) 100 UNIT/ML SYR SQ SCH (20:28)
[2019-09-13 20:57] LABS: Glucose,Whole Blood 94 mg/dL (75-99)
[2019-09-14] MEDS: ALBUTEROL HFA INHALER INHALATION SCH ×4 (02:55→18:47)
[2019-09-14 07:10] LABS: Glucose,Whole Blood 99 mg/dL (75-99)
[2019-09-14 07:21] LABS: ALT 54 U/L (4-34); AST 95 U/L (14-36); African American GFR (CKD) >90 (>60 ml/min/1.73 sqM); Albumin 2.9 g/dL (3.5-5.0); Alkaline Phosphatase 154 U/L (38-126); Anion Gap 7 mmol/L; Blood Urea Nitrogen 22 mg/dL (7-17); C Reactive Protein 25.2 mg/L (<10.0); Calcium 7.5 mg/dL (8.4-10.2); Carbon Dioxide 25 mmol/L (22-30); Chloride 106 mmol/L (98-107); Creatine Kinase 145 U/L (30-135); Glucose 110 mg/dL (74-99); Non-African American GFR(CKD) >90 (>60 ml/min/1.73 sqM); Potassium 4.4 mmol/L (3.5-5.1); Sodium 138 mmol/L (137-145); Total Bilirubin 0.7 mg/dL (0.2-1.3)
--- NOTE | 2019-09-14 07:33 | XR ---
EXAMINATION TYPE: XR chest 1V portable DATE OF EXAM: 09/14/2019 HISTORY: Shortness of breath. COMPARISON: 09/13/2019 TECHNIQUE: Single view of the chest is submitted. FINDINGS: Demonstrated are scattered senescent parenchymal change. Persistent diffuse bilateral airspace infiltrates and small effusions. The heart is stable. Hilar and mediastinal structures are within normal limits. Degenerative changes are seen of the dorsal spine. IMPRESSION: 1. Stable chest.
[2019-09-14 07:34] LABS: Basophils # (A) 0.1 k/uL (0-0.2); Basophils % (A) 0 %; Eosinophils # (A) 0.1 k/uL (0-0.7); Eosinophils % (A) 1 %; HGB 12.4 gm/dL (11.4-16.0); Lymphocytes # (A) 1.1 k/uL (1.0-4.8); Lymphocytes % (A) 7 %; MCH 30.5 pg (25.0-35.0); MCHC 32.8 g/dL (31.0-37.0); Mean Platelet Volume 7.6; Monocytes % (A) 6 %; Neutrophils # (A) 14.4 k/uL (1.3-7.7); Neutrophils % (A) 86 %; Platelet Count 454 k/uL (150-450); RBC 4.08 m/uL (3.80-5.40); WBC 16.8 k/uL (3.8-10.6)
[2019-09-14 07:37] LABS: LDH 3785 U/L (313-618)
[2019-09-14] MEDS: INSULIN ASPART (NovoLOG) 100 UNIT/ML VIAL SQ SCH ×4 (08:59→20:20)
[2019-09-14] MEDS: ONDANSETRON 4 MG/2 ML VIAL IVP PRN (09:24)
[2019-09-14] MEDS: methylPREDNISolone SOD SUCCI 40 MG/ML 1 ML VIAL IV SCH ×2 (09:24→20:06)
[2019-09-14] MEDS: PANTOPRAZOLE 40 MG/10 ML VIAL IV SCH (09:24)
[2019-09-14] MEDS: ENOXAPARIN 80 MG/0.8 ML SYRINGE SQ SCH ×2 (09:24→20:06)
[2019-09-14] MEDS: SODIUM CHLORIDE 0.9% 1,000 ML IV SCH ×2 (09:44→20:07)
[2019-09-14] MEDS ORDERED: FUROSEMIDE 10 MG/ML 4 ML VIAL IV STA (11:42)
--- NOTE | 2019-09-14 11:42 | P.PN ---
Subjective Progress Note Date: 09/14/19 63-year-old female patient of Dr. Jaison Friedman, with past medical history of hypertension, hyperlipidemia, nonsmoker, works in the dietary department at [employer], was accepted as a transfer from [facility] where she presented for evaluation of fatigue, nausea, weakness, occasional fe vers and low pulse ox levels. Patient reports symptoms present for about a week. Her coronavirus PCR test was positive on 09/06/2019, and again on 09/10/2019. No vomiting or diarrhea, no shortness of breath. Lab work showed white blood cell count 13.2, hemoglobin of 13.5, platelet count is 513, neutrophil count is elevated at 10.6, lymphocytes at 1.6, no d-dimer was drawn, sodium is 134, potassium is 3.7, chloride is 96, CO2 is 27, B1 is 33 creatinine 0.93, LDH is 2470, CRP is significantly elevated at 252, plasma lactic acid was 1.8. EKG shows normal sinus rhythm with evidence of possible inferior infarct of undetermined age, and T-wave inversion in the anterolateral leads. QT/QTc we re 388 and 482 respectively. Patient is afebrile, profound hypoxemia, with a pulse ox of 73% on 15 L high flow. Currently requiring 100% nonrebreather in addition to 15 L per high flow nasal cannula and a pulse ox is 98%. In addition patient was borderline hypotensive with pressures of 90 systolic, and patient was given 1/2 L in IV fluid boluses in the emergency department. Patient was transferred to the ICU for close monitoring. Chest x-ray showed scattered mixed interstitial and alveolar infiltrates throughout both lungs compatible with underlying pneumonia. Over the past 3 days, the patient has remained in the intensive care unit regarding her chronic 19 pneumonia. The patient showed some improvement in the inflammatory markers that were down trending including the ferritin, liver function tests and LDH. The patient's pleural Level Was at 0.18. The Patient Was Given Rocephin As an Empiric Antibiotic Coverage. The patient was given Plaquenil. The patient also was given IV Solu-Medrol. The patient also received 2 doses of tocilizumab . Note that the patient also had a significant elevation of troponin that peaked at 34.6. The EKG showed a normal sinus rhythm and some Q waves involving the inferior wall and the echocardiogram from 09/11/2019 showed normal ejection fraction of 55-60% and moderate degree of concentric left ventricular hypertrophy. Cardiology was consulted. Medical treatment was suggested. The patient remains therapeutic dose of Lovenox 80 mg subcu every 12 hours, IV Solu-Medrol 30 mg every 12 hours and Tequin for now. The patient is also on IV fluids with normal state rate of 40 cc an hour. Clinically the patient is still the same. No major change in her condition compared to yesterday. Chest x-ray findings are essentially unchanged. Remains on IV Solu-Medrol. Remains on empiric antibiotic coverage with Rocephin. Remains on zinc sulfate and completing the course of Plaquenil that was started on 09/11/2019. 700% nonrebreather facemask on today's evaluation. Still on 15 L high flow oxygen. Being considered for convalescent immunoglobulin Objective - Vital Signs Vital signs: Vital Signs Temp 98.0 F 09/14/19 08:00 Pulse 71 09/14/19 11:00 Resp 18 09/14/19 11:00 BP 133/83 09/14/19 11:00 Pulse Ox 91 L 09/14/19 11:00 Intake & Output 09/13/19 09/14/19 09/14/19 18:59 06:59 18:59 Intake Total 970 980 120 Output Total 790 815 260 Balance 180 165 -140 Weight 89.9 kg Intake: IV 480 480 120 Sodium Chloride 0.9% 1, 480 480 120 000 ml @ 40 mls/hr IV . Q24H ABBEY Rx#:[id number] Intake, IV Titration 50 Amount cefTRIAXone 1 gm In 50 Sodium Chloride 0.9% 50 ml @ 100 mls/hr IVPB Q24HR ABBEY Rx#:[id number] Oral 440 500 Output: Urine 790 815 260 Other: Voiding Method Indwelling Catheter Indwelling Catheter Indwelling Catheter # Bowel Movements 1 1 - Exam GENERAL EXAM: Alert, very pleasant, 63-year-old female patient, currently on 15 L high flow nasal cannula in the 100% nonrebreather with a pulse ox between 90- 92% comfortable in no apparent distress. HEAD: Normocephalic/atraumatic. EYES: Normal reaction of pupils, equal size. Conjunctiva pink, sclera white. NOSE: Clear with pink turbinates. THROAT: No erythema or exudates. NECK: No masses, no JVD, no thyroid enlargement, no adenopathy. CHEST: No chest wall deformity. Symmetrical expansion. LUNGS: Equal air entry with few scattered rhonchi, crackles in the bases. CVS: Regular rate and rhythm, normal S1 and S2, no gallops, no murmurs, no rubs ABDOMEN: Soft, nontender. No hepatosplenomegaly, normal bowel sounds, no guarding or rigidity. EXTREMITIES: No clubbing, no edema, no cyanosis, 2+ pulses and upper and lower extremities. MUSCULOSKELETAL: Muscle strength and tone normal. SPINE: No scoliosis or deformity SKIN: No rashes CENTRAL NERVOUS SYSTEM: No focal deficits, tone is normal in all 4 extremities. PSYCHIATRIC: Alert and oriented -3. Appropriate affect. Intact judgment and insight. - Labs CBC & Chem 7: 09/14/19 03:57 09/14/19 03:57 Labs: Abnormal Lab Results - Last 24 Hours (Table) 09/13/19 09/13/19 09/14/19 Range/Units 12:14 16:46 03:57 WBC (3.8-10.6) k/uL Plt Count (150-450) k/uL Neutrophils # (1.3-7.7) k/uL D-Dimer 12.15 H (<0.60) mg/L FEU BUN (7-17) mg/dL Glucose (74-99) mg/dL POC Glucose (mg/dL) 104 H 101 H (75-99) mg/dL Calcium (8.4-10.2) mg/dL AST (14-36) U/L ALT (4-34) U/L Alkaline Phosphatase (38-126) U/L Lactate Dehydrogenase (313-618) U/L Creatine Kinase (30-135) U/L Troponin I (0.000-0.034) ng/mL C-Reactive Protein (<10.0) mg/L Total Protein (6.3-8.2) g/dL Albumin (3.5-5.0) g/dL 09/14/19 09/14/19 09/14/19 Range/Units 03:57 03:57 09:00 WBC 16.8 H (3.8-10.6) k/uL Plt Count 454 H (150-450) k/uL Neutrophils # 14.4 H (1.3-7.7) k/uL D-Dimer (<0.60) mg/L FEU BUN 22 H (7-17) mg/dL Glucose 110 H (74-99) mg/dL POC Glucose (mg/dL) (75-99) mg/dL Calcium 7.5 L (8.4-10.2) mg/dL AST 95 H (14-36) U/L ALT 54 H (4-34) U/L Alkaline Phosphatase 154 H (38-126) U/L Lactate Dehydrogenase 3785 H (313-618) U/L Creatine Kinase 145 H (30-135) U/L Troponin I 2.270 H* (0.000-0.034) ng/mL C-Reactive Protein 25.2 H (<10.0) mg/L Total Protein 6.0 L (6.3-8.2) g/dL Albumin 2.9 L (3.5-5.0) g/dL Microbiology - Last 24 Hours (Table) 09/10/19 10:07 Blood Culture - Preliminary Blood No Growth after 72 hours Assessment and Plan Plan: 1. Acute hypoxemic respiratory failure related to acute COVID 19 pneumonia and the patient developed diffuse bilateral pulmonary infiltrates with areas of consolidation scattered throughout the lung mcbride bilaterally. 2. Acute COVID 19 infection with symptoms of profound hypoxemia, weakness, fatigue, intermittent fevers, nausea for one week prior to presentation, patient had a COVID 19 PCR test positive on 2 occasions on 09/06/2019, and again on 09/10/2019 3. Sepsis related to viral pneumonia, although possibility of bacterial pneumo eligio is not entirely excluded. Pro-calcitonin level is 0.18 and the patient is empirically on IV Rocephin 4. Hypotension, hypovolemic and related to decreased oral intake, nausea, and sepsis related to viral pneumonia, recovered with IV fluid boluses, currently on no pressors 5. Elevated LDH, CRP related to COVID 19 infection 6. History of hypertension 7. History of hyperlipidemia 8. Never smoker 9. No history of EtOH use 10. Positive troponin, possibly related to acute Covid 19 related myocarditis plan Monitor status and ICU Condition is critical and the inflammatory markers included a d-dimer started quite elevated Continue Lovenox Continue steroids Continue Plaquenil Continue high flow oxygen including 15 L nasal cannula and 100% on a beta facemask Repeat troponin levels Were given a dose of Lasix 40 mg IV push Awaiting convalescent immunoglobulin treatment Condition is critical
[2019-09-14] MEDS: HYDROXYCHLOROQUINE SULFATE 200 MG TAB PO SCH ×2 (11:43→20:06)
[2019-09-14] MEDS: ZINC SULFATE 220 MG CAP PO SCH (11:43)
[2019-09-14 12:06] LABS: Glucose,Whole Blood 107 mg/dL (75-99)
--- NOTE | 2019-09-14 16:37 | P.PN ---
Subjective 63-year-old female is admitted for acute respiratory failure secondary to acute COVID 19 sepsis, patient is presently on 100% nonrebreather saturating at 88-90% chest x-ray showing mild worsening of right upper lobe pneumonia. Patient remains on IV fluids. Patient troponins are elevated because of possible Covid myocarditis I'll obtain a echocardiogram to see if there is any heart failure. All the acute phase reactants are elevated including d-dimer which is only minimally elevated. Patient is presently on hydroxychloroquine and the steroids which were ordered by pulmonary patient has highly elevated LDH. 09/12/2019 Patient remains in the ICU, she is awake and oriented and follow commands however she is short of breath and she still on 50 L oxygen via nonrebreather. Also patient has significant orthopnea with diminished breath sounds on both sides. She is significantly tachypneic 27-34 and saturating 88% and 15L Oxygen via nasal cannula/high flow She has leukocytosis of 18.6 K however she is on steroids. D-dimer is worse today from 0.4 up to 14.0. BMP is unremarkable. Liver enzymes mildly elevated but stable Patient is currently on Plaquenil, zinc, Rocephin, Solu-Medrol 30 mg twice daily, normal saline. Her Lovenox was increased to 80 mg twice a day Pulmonary the case. Also silk worker evaluated the patient and recommended to continue with present therapy and monitor EKG 09/13/2019 Patient in the ICU. She is awake and oriented, she is dyspneic and orthopedic with dry cough for her comfort pneumonia with chest x-ray showing slight worsening by radiologist She remains on 15 L oxygen via nasal cannula over the last 2-3 days Hotel Engineer recommended to continue with same treatment, no need for intervention for now. No change in the treatment today as she continue with Rocephin, Solu-Medrol 30 mg, Lovenox 80 mg and Plaquenil, her normal saline was lowered to 40 mL per hour WBC is 19.6 while she is on steroids, liver enzymes slightly elevated and stable 09/14/2019 Patient remains in the ICU oriented but still dyspneic with cough. WBC slightly less at 16.8 D-dimer still high at 12.15, LDH is elevated at 3785, ferritin is slightly down to 983, C-reactive protein is the main inflammatory markers and coming down to 25. Troponin down to 2.2. patient is written for convalescent immunoglobulin Patient was monitored closely by pulmonary/critical care team Constitutional: Denied any fatigue denied any fever. Cardio vascular: denied any chest pain, palpitations Gastrointestinal denied any nausea vomiting Pulmonary: As mentioned in HPI Neurologic denied any new focal deficits Active Medications Generic Name Dose Route Start Last Admin Trade Name Freq PRN Reason Stop Dose Admin Acetaminophen 650 mg 09/10/19 09:36 09/13/19 23:44 Tylenol Tab PO 650 mg Q4HR PRN Administration Fever>101 Albuterol Sulfate 2 puff 09/10/19 14:00 09/14/19 14:22 Ventolin Hfa Inhaler INHALATION Not Given RT-Q6H ABBEY Albuterol Sulfate 2 puff 09/10/19 09:36 09/10/19 10:02 Ventolin Hfa Inhaler INHALATION 2 puff RT-Q6H PRN Administration Shortness Of Breath Or Wheezing Enoxaparin Sodium 80 mg 09/12/19 21:00 09/14/19 09:24 Lovenox SQ 80 mg BID ABBEY Administration Hydroxychloroquine Sulfate 200 mg 09/11/19 21:00 09/14/19 11:43 Plaquenil PO 09/15/19 09:01 200 mg BID ABBEY Administration Sodium Chloride 1,000 mls @ 40 mls/hr 09/10/19 12:00 09/14/19 09:44 Saline 0.9% IV 40 mls/hr .Q24H ABBEY Administration Ceftriaxone Sodium 1 gm/ 50 mls @ 100 mls/hr 09/11/19 12:00 09/14/19 09:25 Sodium Chloride IVPB 100 mls/hr Q24HR ABBEY Administration Insulin Aspart 0 unit 09/11/19 12:30 09/14/19 12:35 Novolog SQ Not Given ACHS ABBEY Protocol Insulin Detemir 15 unit 09/11/19 21:00 09/13/19 20:28 Levemir SQ 15 unit HS ABBEY Administration Methylprednisolone Sodium Succinate 30 mg 09/10/19 21:00 09/14/19 09:24 Solu-Medrol IV 30 mg Q12HR ABBEY Administration Miscellaneous Information 1 each 09/11/19 05:55 Potassium Per Protocol MISCELLANE DAILY PRN Per Protocol Protocol Miscellaneous Information 1 each 09/12/19 06:40 Potassium Per Protocol MISCELLANE DAILY PRN Per Protocol Protocol Miscellaneous Information 1 each 09/13/19 06:41 Potassium Per Protocol MISCELLANE DAILY PRN Per Protocol Protocol Naloxone HCl 0.2 mg 09/10/19 11:47 Narcan IV Q2M PRN Opioid Reversal Ondansetron HCl 4 mg 09/12/19 02:18 09/14/19 09:24 Zofran IVP 4 mg Q6HR PRN Administration Nausea And Vomiting Pantoprazole Sodium 40 mg 09/10/19 12:00 09/14/19 09:24 Protonix IV 40 mg DAILY ABBEY Administration Zinc Sulfate 220 mg 09/11/19 09:00 09/14/19 11:43 Orazinc PO 220 mg DAILY ABBEY Administration Objective - Vital Signs Vital signs: Vital Signs Temp 98.0 F 09/14/19 08:00 Pulse 71 09/14/19 11:00 Resp 18 09/14/19 11:00 BP 133/83 09/14/19 11:00 Pulse Ox 91 L 09/14/19 11:00 Intake & Output 09/13/19 09/14/19 09/14/19 18:59 06:59 18:59 Intake Total 970 980 240 Output Total 790 815 460 Balance 180 165 -220 Weight 89.9 kg Intake: IV 480 480 240 Sodium Chloride 0.9% 1, 480 480 240 000 ml @ 40 mls/hr IV . Q24H ABBEY Rx#:[id number] Intake, IV Titration 50 Amount cefTRIAXone 1 gm In 50 Sodium Chloride 0.9% 50 ml @ 100 mls/hr IVPB Q24HR ABBEY Rx#:[id number] Oral 440 500 Output: Urine 790 815 460 Other: Voiding Method Indwelling Catheter Indwelling Catheter Indwelling Catheter # Bowel Movements 1 1 - Exam GENERAL: The patient is alert and oriented x3, not in any acute distress. Well developed, well nourished. HEENT: Pupils are round and equally reacting to light. EOMI. No scleral icterus. No conjunctival pallor. Normocephalic, atraumatic. No pharyngeal erythema. No thyromegaly. CARDIOVASCULAR: S1 and S2 present. No murmurs, rubs, or gallops. PULMONARY: Chest is clear to auscultation, no wheezing or crackles. ABDOMEN: Soft, nontender, nondistended, normoactive bowel sounds. No palpable organomegaly. MUSCULOSKELETAL: No joint swelling or deformity. EXTREMITIES: No cyanosis, clubbing, or pedal edema. NEUROLOGICAL: Gross neurological examination did not reveal any focal deficits. SKIN: No rashes. no petechiae. - Labs CBC & Chem 7: 09/14/19 03:57 09/14/19 03:57 Labs: Abnormal Lab Results - Last 24 Hours (Table) 09/13/19 09/14/19 09/14/19 Range/Units 16:46 03:57 03:57 WBC (3.8-10.6) k/uL Plt Count (150-450) k/uL Neutrophils # (1.3-7.7) k/uL D-Dimer 12.15 H (<0.60) mg/L FEU BUN (7-17) mg/dL Glucose (74-99) mg/dL POC Glucose (mg/dL) 101 H (75-99) mg/dL Calcium (8.4-10.2) mg/dL Ferritin 983.0 H (10.0-291.0) ng/mL AST (14-36) U/L ALT (4-34) U/L Alkaline Phosphatase (38-126) U/L Lactate Dehydrogenase (313-618) U/L Creatine Kinase (30-135) U/L Troponin I (0.000-0.034) ng/mL C-Reactive Protein (<10.0) mg/L Total Protein (6.3-8.2) g/dL Albumin (3.5-5.0) g/dL 09/14/19 09/14/19 09/14/19 Range/Units 03:57 03:57 09:00 WBC 16.8 H (3.8-10.6) k/uL Plt Count 454 H (150-450) k/uL Neutrophils # 14.4 H (1.3-7.7) k/uL D-Dimer (<0.60) mg/L FEU BUN 22 H (7-17) mg/dL Glucose 110 H (74-99) mg/dL POC Glucose (mg/dL) (75-99) mg/dL Calcium 7.5 L (8.4-10.2) mg/dL Ferritin (10.0-291.0) ng/mL AST 95 H (14-36) U/L ALT 54 H (4-34) U/L Alkaline Phosphatase 154 H (38-126) U/L Lactate Dehydrogenase 3785 H (313-618) U/L Creatine Kinase 145 H (30-135) U/L Troponin I 2.270 H* (0.000-0.034) ng/mL C-Reactive Protein 25.2 H (<10.0) mg/L Total Protein 6.0 L (6.3-8.2) g/dL Albumin 2.9 L (3.5-5.0) g/dL 09/14/19 Range/Units 12:05 WBC (3.8-10.6) k/uL Plt Count (150-450) k/uL Neutrophils # (1.3-7.7) k/uL D-Dimer (<0.60) mg/L FEU BUN (7-17) mg/dL Glucose (74-99) mg/dL POC Glucose (mg/dL) 107 H (75-99) mg/dL Calcium (8.4-10.2) mg/dL Ferritin (10.0-291.0) ng/mL AST (14-36) U/L ALT (4-34) U/L Alkaline Phosphatase (38-126) U/L Lactate Dehydrogenase (313-618) U/L Creatine Kinase (30-135) U/L Troponin I (0.000-0.034) ng/mL C-Reactive Protein (<10.0) mg/L Total Protein (6.3-8.2) g/dL Albumin (3.5-5.0) g/dL Microbiology - Last 24 Hours (Table) 09/10/19 10:07 Blood Culture - Preliminary Blood No Growth after 96 hours Assessment and Plan Assessment: -Bilateral Covid pneumonia. Continue with antibiotics and pulmonary consult. -Acute hypoxic respiratory failure secondary to COVID 19 pneumonitis and continue with respiratory support, need to be closely monitored in ICU. Patient is presently on high flow nasal cannula oxygen. Patient was started on systemic steroids, hydroxychloroquine and repeat chest x-ray showing increased infiltrate on the right side -Elevated troponin secondary to Covid myocarditis echocardiogram will be obtained, cardiology consultation is ordered -Mildly elevated liver enzymes -Elevated d-dimer, continue with Lovenox -Elevated inflammatory markers included 13, LDH and C-reactive protein, secondary to Covid -Hypotension : Improved -Hyperlipidemia DVT prophylaxis: Lovenox GI prophylaxis: Protonix Prognosis is guarded
[2019-09-14 17:08] LABS: Glucose,Whole Blood 123 mg/dL (75-99)
[2019-09-14 20:19] LABS: Glucose,Whole Blood 94 mg/dL (75-99)
[2019-09-14] MEDS: INSULIN DETEMIR (LEVEMIR) 100 UNIT/ML SYR SQ SCH (20:22)
[2019-09-15] MEDS: ALBUTEROL HFA INHALER INHALATION SCH ×4 (01:31→20:10)
[2019-09-15 04:27] LABS: Basophils % (A) 0 %; Eosinophils # (A) 0.5 k/uL (0-0.7); Eosinophils % (A) 4 %; HCT 41.1 % (34.0-46.0); HGB 13.4 gm/dL (11.4-16.0); Lymphocytes # (A) 1.6 k/uL (1.0-4.8); Lymphocytes % (A) 11 %; MCH 29.6 pg (25.0-35.0); MCHC 32.6 g/dL (31.0-37.0); MCV 90.8 fL (80.0-100.0); Mean Platelet Volume 7.1; Monocytes # (A) 0.9 k/uL (0-1.0); Monocytes % (A) 6 %; Neutrophils # (A) 11.5 k/uL (1.3-7.7); Neutrophils % (A) 79 %; Platelet Count 465 k/uL (150-450); RBC 4.52 m/uL (3.80-5.40); RDW 14.1 % (11.5-15.5); WBC 14.6 k/uL (3.8-10.6)
[2019-09-15 04:41] LABS: ALT 76 U/L (4-34); AST 107 U/L (14-36); African American GFR (CKD) >90 (>60 ml/min/1.73 sqM); Alkaline Phosphatase 170 U/L (38-126); Anion Gap 2 mmol/L; Blood Urea Nitrogen 22 mg/dL (7-17); C Reactive Protein 15.6 mg/L (<10.0); Calcium 7.8 mg/dL (8.4-10.2); Carbon Dioxide 34 mmol/L (22-30); Chloride 101 mmol/L (98-107); Creatine Kinase 78 U/L (30-135); Glucose 84 mg/dL (74-99); Non-African American GFR(CKD) >90 (>60 ml/min/1.73 sqM); Potassium 3.9 mmol/L (3.5-5.1); Sodium 137 mmol/L (137-145); Total Bilirubin 0.7 mg/dL (0.2-1.3)
[2019-09-15 04:46] LABS: LDH 3638 U/L (313-618)
[2019-09-15] MEDS ORDERED: POTASSIUM CHLORIDE ER 20 MEQ TAB.ER PO SCH (05:00)
[2019-09-15] MEDS: INSULIN ASPART (NovoLOG) 100 UNIT/ML VIAL SQ SCH ×4 (06:57→21:16)
[2019-09-15 06:58] LABS: Glucose,Whole Blood 83 mg/dL (75-99)
[2019-09-15] MEDS: methylPREDNISolone SOD SUCCI 40 MG/ML 1 ML VIAL IV SCH ×2 (08:23→20:39)
[2019-09-15] MEDS: ZINC SULFATE 220 MG CAP PO SCH (08:23)
[2019-09-15] MEDS: ENOXAPARIN 80 MG/0.8 ML SYRINGE SQ SCH ×2 (08:23→20:39)
[2019-09-15] MEDS: PANTOPRAZOLE 40 MG/10 ML VIAL IV SCH (08:24)
[2019-09-15] MEDS: HYDROXYCHLOROQUINE SULFATE 200 MG TAB PO SCH (08:24)
--- NOTE | 2019-09-15 08:33 | XR ---
EXAMINATION TYPE: XR chest 1V portable DATE OF EXAM: 09/15/2019 COMPARISON: 09/14/2019 INDICATION: Covid 19 TECHNIQUE: Single frontal view of the chest is obtained. FINDINGS: The heart size is normal. The pulmonary vasculature is indistinct. There is diffuse patchy infiltrates throughout the bilateral lung mcbride. This is somewhat more patch y but covers a similar volume to the previous exam. IMPRESSION: 1. Patchy bilateral lung infiltrates.
[2019-09-15 11:38] LABS: Glucose,Whole Blood 111 mg/dL (75-99)
[2019-09-15 12:01] LABS: Ferritin 1402.6 ng/mL (10.0-291.0)
--- NOTE | 2019-09-15 13:54 | P.PN ---
Subjective Progress Note Date: 09/15/19 63-year-old female patient of Dr. Jaison Friedman, with past medical history of hypertension, hyperlipidemia, nonsmoker, works in the dietary department at [employer], was accepted as a transfer from [facility] where she presented for evaluation of fatigue, nausea, weakness, occasional fe vers and low pulse ox levels. Patient reports symptoms present for about a week. Her coronavirus PCR test was positive on 09/06/2019, and again on 09/10/2019. No vomiting or diarrhea, no shortness of breath. Lab work showed white blood cell count 13.2, hemoglobin of 13.5, platelet count is 513, neutrophil count is elevated at 10.6, lymphocytes at 1.6, no d-dimer was drawn, sodium is 134, potassium is 3.7, chloride is 96, CO2 is 27, B1 is 33 creatinine 0.93, LDH is 2470, CRP is significantly elevated at 252, plasma lactic acid was 1.8. EKG shows normal sinus rhythm with evidence of possible inferior infarct of undetermined age, and T-wave inversion in the anterolateral leads. QT/QTc we re 388 and 482 respectively. Patient is afebrile, profound hypoxemia, with a pulse ox of 73% on 15 L high flow. Currently requiring 100% nonrebreather in addition to 15 L per high flow nasal cannula and a pulse ox is 98%. In addition patient was borderline hypotensive with pressures of 90 systolic, and patient was given 1/2 L in IV fluid boluses in the emergency department. Patient was transferred to the ICU for close monitoring. Chest x-ray showed scattered mixed interstitial and alveolar infiltrates throughout both lungs compatible with underlying pneumonia. Over the past 3 days, the patient has remained in the intensive care unit regarding her chronic 19 pneumonia. The patient showed some improvement in the inflammatory markers that were down trending including the ferritin, liver function tests and LDH. The patient's pleural Level Was at 0.18. The Patient Was Given Rocephin As an Empiric Antibiotic Coverage. The patient was given Plaquenil. The patient also was given IV Solu-Medrol. The patient also received 2 doses of tocilizumab . Note that the patient also had a significant elevation of troponin that peaked at 34.6. The EKG showed a normal sinus rhythm and some Q waves involving the inferior wall and the echocardiogram from 09/11/2019 showed normal ejection fraction of 55-60% and moderate degree of concentric left ventricular hypertrophy. Cardiology was consulted. Medical treatment was suggested. The patient remains therapeutic dose of Lovenox 80 mg subcu every 12 hours, IV Solu-Medrol 30 mg every 12 hours and Tequin for now. The patient is also on IV fluids with normal state rate of 40 cc an hour. Clinically the patient is still the same. No major change in her condition compared to yesterday. Chest x-ray findings are essentially unchanged. Remains on IV Solu-Medrol. Remains on empiric antibiotic coverage with Rocephin. Remains on zinc sulfate and completing the course of Plaquenil that was started on 09/11/2019. 700% nonrebreather facemask on today's evaluation. Still on 15 L high flow oxygen. Being considered for convalescent immunoglobulin On today's evaluation of 09/15/2019, the patient's condition essentially unchanged. The patient remains in the 100% nonrebreather facemask addition to 15 L of oxygen by nasal cannula. Chest x-ray findings remains essentially unchanged diffuse bilateral pulmonary infiltrates, unchanged compared to yesterday. Inflammatory markers continue to be quite elevated including ferritin, LDH, and there has been some improvement in the d-dimer over the course of treatment. The patient remains on IV fluids with normal state rate of 40 mL an hour. The patient remains on IV Rocephin. The patient remains on Plaquenil. The patient remains on IV Solu Medrol. She has no altered mentation. She is feeling weak. No significant cough or sputum production. No chest pain. Her reserve is minimal at the patient desaturates easily with limited amount of activity and for that reason she is been kept in bed for now. The white cell count is 14.6. Platelet count is at 462. The patient's LDH level was 3638. The patient's C-reactive protein is 15.6. The patient's ferritin level is 1402. Objective - Vital Signs Vital signs: Vital Signs Temp 98.3 F 09/15/19 12:00 Pulse 100 09/15/19 13:00 Resp 27 H 09/15/19 13:00 BP 142/82 09/15/19 13:00 Pulse Ox 92 L 09/15/19 13:00 Intake & Output 09/14/19 09/15/19 09/15/19 18:59 06:59 18:59 Intake Total 480 480 290 Output Total 2635 1050 535 Balance -2155 -570 -245 Weight 89.9 kg 86.9 kg Intake: IV 480 480 240 Sodium Chloride 0.9% 1, 480 480 240 000 ml @ 40 mls/hr IV . Q24H ABBEY Rx#:[id number] Intake, IV Titration 50 Amount cefTRIAXone 1 gm In 50 Sodium Chloride 0.9% 50 ml @ 100 mls/hr IVPB Q24HR ABBEY Rx#:[id number] Output: Urine 2635 1050 535 Other: Voiding Method Indwelling Catheter Indwelling Catheter Indwelling Catheter - Exam GENERAL EXAM: Alert, very pleasant, 63-year-old female patient, currently on 15 L high flow nasal cannula in the 100% nonrebreather with a pulse ox between 90- 92% comfortable in no apparent distress. HEAD: Normocephalic/atraumatic. EYES: Normal reaction of pupils, equal size. Conjunctiva pink, sclera white. NOSE: Clear with pink turbinates. THROAT: No erythema or exudates. NECK: No masses, no JVD, no thyroid enlargement, no adenopathy. CHEST: No chest wall deformity. Symmetrical expansion. LUNGS: Equal air entry with few scattered rhonchi, crackles in the bases. CVS: Regular rate and rhythm, normal S1 and S2, no gallops, no murmurs, no rubs ABDOMEN: Soft, nontender. No hepatosplenomegaly, normal bowel sounds, no guarding or rigidity. EXTREMITIES: No clubbing, no edema, no cyanosis, 2+ pulses and upper and lower extremities. MUSCULOSKELETAL: Muscle strength and tone normal. SPINE: No scoliosis or deformity SKIN: No rashes CENTRAL NERVOUS SYSTEM: No focal deficits, tone is normal in all 4 extremities. PSYCHIATRIC: Alert and oriented -3. Appropriate affect. Intact judgment and insight. - Labs CBC & Chem 7: 09/15/19 03:57 09/15/19 03:57 Labs: Abnormal Lab Results - Last 24 Hours (Table) 09/14/19 09/15/19 09/15/19 Range/Units 17:07 03:57 03:57 WBC 14.6 H (3.8-10.6) k/uL Plt Count 465 H (150-450) k/uL Neutrophils # 11.5 H (1.3-7.7) k/uL D-Dimer (<0.60) mg/L FEU Carbon Dioxide 34 H (22-30) mmol/L BUN 22 H (7-17) mg/dL POC Glucose (mg/dL) 123 H (75-99) mg/dL Calcium 7.8 L (8.4-10.2) mg/dL Ferritin 1402.6 H (10.0-291.0) ng/mL AST 107 H (14-36) U/L ALT 76 H (4-34) U/L Alkaline Phosphatase 170 H (38-126) U/L Lactate Dehydrogenase 3638 H (313-618) U/L C-Reactive Protein 15.6 H (<10.0) mg/L Total Protein 6.0 L (6.3-8.2) g/dL Albumin 3.0 L (3.5-5.0) g/dL 09/15/19 09/15/19 Range/Units 03:57 11:37 WBC (3.8-10.6) k/uL Plt Count (150-450) k/uL Neutrophils # (1.3-7.7) k/uL D-Dimer 13.29 H (<0.60) mg/L FEU Carbon Dioxide (22-30) mmol/L BUN (7-17) mg/dL POC Glucose (mg/dL) 111 H (75-99) mg/dL Calcium (8.4-10.2) mg/dL Ferritin (10.0-291.0) ng/mL AST (14-36) U/L ALT (4-34) U/L Alkaline Phosphatase (38-126) U/L Lactate Dehydrogenase (313-618) U/L C-Reactive Protein (<10.0) mg/L Total Protein (6.3-8.2) g/dL Albumin (3.5-5.0) g/dL Microbiology - Last 24 Hours (Table) 09/10/19 10:07 Blood Culture - Preliminary Blood No Growth after 120 hours Assessment and Plan Plan: 1. Acute hypoxemic respiratory failure related to acute COVID 19 pneumonia and the patient developed diffuse bilateral pulmonary infiltrates with areas of consolidation scattered throughout the lung mcbride bilaterally. The chest x-ray is unchanged compared to yesterday and the patient continues to be hypoxic respiratory failure. The patient is requiring 100% nonrebreather facemask addition to high flow oxygen at 15 L per minute nasal cannula. 2. Acute COVID 19 infection with symptoms of profound hypoxemia, weakness, fatigue, intermittent fevers, nausea for one week prior to presentation, patient had a COVID 19 PCR test positive on 2 occasions on 09/06/2019, and again on 09/10/2019 3. Sepsis related to viral pneumonia, although possibility of bacterial pneumonia is not entirely excluded. Pro-calcitonin level is 0.18 and the patient is empirically on IV Rocephin 4. Hypotension, hypovolemic and related to decreased oral intake, nausea, and sepsis related to viral pneumonia, recovered with IV fluid boluses, currently on no pressors 5. Elevated LDH, CRP related to COVID 19 infection 6. History of hypertension 7. History of hyperlipidemia 8. Never smoker 9. No history of EtOH use 10. Positive troponin, possibly related to acute Covid 19 related myocarditis, troponins are improving Plan Continue the same supportive care including the combination of antibiotic ventilation with Lovenox, steroids, Plaquenil, she supplementation the form of high flow oxygen at 15 L and continued to 100% on a beta facemasks. No major c hanges in her condition. Repeat chest x-ray in the morning. We'll continue to follow. Condition remains critical. The patient is to be staying here in the ICU.
[2019-09-15 16:41] LABS: Glucose,Whole Blood 109 mg/dL (75-99)
[2019-09-15] MEDS: SODIUM CHLORIDE 0.9% 1,000 ML IV SCH (20:40)
[2019-09-15] MEDS: INSULIN DETEMIR (LEVEMIR) 100 UNIT/ML SYR SQ SCH (20:40)
[2019-09-15 20:48] LABS: Glucose,Whole Blood 93 mg/dL (75-99)
--- NOTE | 2019-09-15 20:49 | P.PN ---
Subjective 63-year-old female is admitted for acute respiratory failure secondary to acute COVID 19 sepsis, patient is presently on 100% nonrebreather saturating at 88-90% chest x-ray showing mild worsening of right upper lobe pneumonia. Patient remains on IV fluids. Patient troponins are elevated because of possible Covid myocarditis I'll obtain a echocardiogram to see if there is any heart failure. All the acute phase reactants are elevated including d-dimer which is only minimally elevated. Patient is presently on hydroxychloroquine and the steroids which were ordered by pulmonary patient has highly elevated LDH. 09/12/2019 Patient remains in the ICU, she is awake and oriented and follow commands however she is short of breath and she still on 50 L oxygen via nonrebreather. Also patient has significant orthopnea with diminished breath sounds on both sides. She is significantly tachypneic 27-34 and saturating 88% and 15L Oxygen via nasal cannula/high flow She has leukocytosis of 18.6 K however she is on steroids. D-dimer is worse today from 0.4 up to 14.0. BMP is unremarkable. Liver enzymes mildly elevated but stable Patient is currently on Plaquenil, zinc, Rocephin, Solu-Medrol 30 mg twice daily, normal saline. Her Lovenox was increased to 80 mg twice a day Pulmonary the case. Also wood tank erector evaluated the patient and recommended to continue with present therapy and monitor EKG 09/13/2019 Patient in the ICU. She is awake and oriented, she is dyspneic and orthopedic with dry cough for her comfort pneumonia with chest x-ray showing slight worsening by radiologist She remains on 15 L oxygen via nasal cannula over the last 2-3 days Field Counsel recommended to continue with same treatment, no need for intervention for now. No change in the treatment today as she continue with Rocephin, Solu-Medrol 30 mg, Lovenox 80 mg and Plaquenil, her normal saline was lowered to 40 mL per hour WBC is 19.6 while she is on steroids, liver enzymes slightly elevated and stable 09/14/2019 Patient remains in the ICU oriented but still dyspneic with cough. WBC slightly less at 16.8 D-dimer still high at 12.15, LDH is elevated at 3785, ferritin is slightly down to 983, C-reactive protein is the main inflammatory markers and coming down to 25. Troponin down to 2.2. patient is written for convalescent immunoglobulin Patient was monitored closely by pulmonary/critical care team 09/15/2019 Patient seen in the ICU. She still have dyspnea. She saturating low 90s on 15 L oxygen via nonrebreather. Chest x-ray still showing infiltrates. Patient WBC is 14.6 K, liver enzymes slightly elevated. She still tachypneic. Patient remains on antibiotics ceftriaxone and zinc. Patient finished her Plaquenil. Continue Solu-Medrol 50 mg twice daily. She is a normal-sized heart with per hour. She is also on Lovenox 80 mg. Levemir is lowered to 8 units. Constitutional: Denied any fatigue denied any fever. Cardio vascular: denied any chest pain, palpitations Gastrointestinal denied any nausea vomiting Pulmonary: As mentioned in HPI Neurologic denied any new focal deficits Active Medications Generic Name Dose Route Start Last Admin Trade Name Freq PRN Reason Stop Dose Admin Acetaminophen 650 mg 09/10/19 09:36 09/13/19 23:44 Tylenol Tab PO 650 mg Q4HR PRN Administration Fever>101 Albuterol Sulfate 2 puff 09/10/19 14:00 09/15/19 20:10 Ventolin Hfa Inhaler INHALATION 2 puff RT-Q6H ABBEY Administration Albuterol Sulfate 2 puff 09/10/19 09:36 09/10/19 10:02 Ventolin Hfa Inhaler INHALATION 2 puff RT-Q6H PRN Administration Shortness Of Breath Or Wheezing Enoxaparin Sodium 80 mg 09/12/19 21:00 09/15/19 20:39 Lovenox SQ 80 mg BID ABBEY Administration Sodium Chloride 1,000 mls @ 40 mls/hr 09/10/19 12:00 09/15/19 20:40 Saline 0.9% IV 40 mls/hr .Q24H ABBEY Administration Ceftriaxone Sodium 1 gm/ 50 mls @ 100 mls/hr 09/11/19 12:00 09/15/19 08:25 Sodium Chloride IVPB 100 mls/hr Q24HR ABBEY Administration Insulin Aspart 0 unit 09/11/19 12:30 09/15/19 17:03 Novolog SQ Not Given ACHS ABBEY Protocol Insulin Detemir 8 unit 09/15/19 21:00 09/15/19 20:40 Levemir SQ 8 unit HS ABBEY Administration Methylprednisolone Sodium Succinate 30 mg 09/10/19 21:00 09/15/19 20:39 Solu-Medrol IV 30 mg Q12HR ABBEY Administration Miscellaneous Information 1 each 09/11/19 05:55 Potassium Per Protocol MISCELLANE DAILY PRN Per Protocol Protocol Miscellaneous Information 1 each 09/12/19 06:40 Potassium Per Protocol MISCELLANE DAILY PRN Per Protocol Protocol Miscellaneous Information 1 each 09/13/19 06:41 Potassium Per Protocol MISCELLANE DAILY PRN Per Protocol Protocol Naloxone HCl 0.2 mg 09/10/19 11:47 Narcan IV Q2M PRN Opioid Reversal Ondansetron HCl 4 mg 09/12/19 02:18 09/14/19 09:24 Zofran IVP 4 mg Q6HR PRN Administration Nausea And Vomiting Pantoprazole Sodium 40 mg 09/10/19 12:00 09/15/19 08:24 Protonix IV 40 mg DAILY ABBEY Administration Zinc Sulfate 220 mg 09/11/19 09:00 09/15/19 08:23 Orazinc PO 220 mg DAILY ABBEY Administration Objective - Vital Signs Vital signs: Vital Signs Temp 98.3 F 09/15/19 12:00 Pulse 90 09/15/19 18:00 Resp 17 09/15/19 18:00 BP 144/74 09/15/19 18:00 Pulse Ox 91 L 09/15/19 18:00 Intake & Output 09/15/19 09/15/19 09/16/19 06:59 18:59 06:59 Intake Total 480 530 Output Total 1050 935 Balance -570 -405 Weight 86.9 kg Intake: IV 480 480 Sodium Chloride 0.9% 1, 480 480 000 ml @ 40 mls/hr IV . Q24H ABBEY Rx#:[id number] Intake, IV Titration 50 Amount cefTRIAXone 1 gm In 50 Sodium Chloride 0.9% 50 ml @ 100 mls/hr IVPB Q24HR [facility]BEY Rx#:[id number] Output: Urine 1050 935 Other: Voiding Method Indwelling Catheter Indwelling Catheter # Bowel Movements 1 - Exam GENERAL: The patient is alert and oriented x3, not in any acute distress. Well developed, well nourished. HEENT: Pupils are round and equally reacting to light. EOMI. No scleral icterus. No conjunctival pallor. Normocephalic, atraumatic. No pharyngeal erythema. No thyromegaly. CARDIOVASCULAR: S1 and S2 present. No murmurs, rubs, or gallops. PULMONARY: Chest is clear to auscultation, no wheezing or crackles. ABDOMEN: Soft, nontender, nondistended, normoactive bowel sounds. No palpable organomegaly. MUSCULOSKELETAL: No joint swelling or deformity. EXTREMITIES: No cyanosis, clubbing, or pedal edema. NEUROLOGICAL: Gross neurological examination did not reveal any focal deficits. SKIN: No rashes. no petechiae. - Labs CBC & Chem 7: 09/15/19 03:57 09/15/19 03:57 Labs: Abnormal Lab Results - Last 24 Hours (Table) 09/15/19 09/15/19 09/15/19 Range/Units 03:57 03:57 03:57 WBC 14.6 H (3.8-10.6) k/uL Plt Count 465 H (150-450) k/uL Neutrophils # 11.5 H (1.3-7.7) k/uL D-Dimer 13.29 H (<0.60) mg/L FEU Carbon Dioxide 34 H (22-30) mmol/L BUN 22 H (7-17) mg/dL POC Glucose (mg/dL) (75-99) mg/dL Calcium 7.8 L (8.4-10.2) mg/dL Ferritin 1402.6 H (10.0-291.0) ng/mL AST 107 H (14-36) U/L ALT 76 H (4-34) U/L Alkaline Phosphatase 170 H (38-126) U/L Lactate Dehydrogenase 3638 H (313-618) U/L C-Reactive Protein 15.6 H (<10.0) mg/L Total Protein 6.0 L (6.3-8.2) g/dL Albumin 3.0 L (3.5-5.0) g/dL 09/15/19 09/15/19 Range/Units 11:37 16:40 WBC (3.8-10.6) k/uL Plt Count (150-450) k/uL Neutrophils # (1.3-7.7) k/uL D-Dimer (<0.60) mg/L FEU Carbon Dioxide (22-30) mmol/L BUN (7-17) mg/dL POC Glucose (mg/dL) 111 H 109 H (75-99) mg/dL Calcium (8.4-10.2) mg/dL Ferritin (10.0-291.0) ng/mL AST (14-36) U/L ALT (4-34) U/L Alkaline Phosphatase (38-126) U/L Lactate Dehydrogenase (313-618) U/L C-Reactive Protein (<10.0) mg/L Total Protein (6.3-8.2) g/dL Albumin (3.5-5.0) g/dL Microbiology - Last 24 Hours (Table) 09/10/19 10:07 Blood Culture - Preliminary Blood No Growth after 120 hours Assessment and Plan Assessment: -Bilateral Covid pneumonia. Continue with antibiotics and pulmonary consult. -Acute hypoxic respiratory failure secondary to COVID 19 pneumonitis and continue with respiratory support, need to be closely monitored in ICU. Patient is presently on high flow nasal cannula oxygen. Patient was started on systemic steroids, hydroxychloroquine and repeat chest x-ray showing increased infiltrate on the right side -Elevated troponin secondary to Covid myocarditis echocardiogram will be obtained, cardiology consultation is ordered -Mildly elevated liver enzymes -Elevated d-dimer, continue with Lovenox -Elevated inflammatory markers included 13, LDH and C-reactive protein, secondary to Covid -Hypotension : Improved -Hyperlipidemia DVT prophylaxis: Lovenox GI prophylaxis: Protonix Prognosis is guarded
[2019-09-16] MEDS: ALBUTEROL HFA INHALER INHALATION SCH ×4 (01:03→19:25)
[2019-09-16 04:52] LABS: Basophils % (A) 0 %; Eosinophils # (A) 0.2 k/uL (0-0.7); Eosinophils % (A) 1 %; HCT 39.8 % (34.0-46.0); HGB 13.3 gm/dL (11.4-16.0); Lymphocytes # (A) 0.8 k/uL (1.0-4.8); Lymphocytes % (A) 5 %; MCHC 33.5 g/dL (31.0-37.0); MCV 89.4 fL (80.0-100.0); Mean Platelet Volume 7.5; Monocytes % (A) 6 %; Neutrophils # (A) 14.3 k/uL (1.3-7.7); Neutrophils % (A) 87 %; Platelet Count 427 k/uL (150-450); RBC 4.45 m/uL (3.80-5.40); RDW 14.2 % (11.5-15.5); WBC 16.4 k/uL (3.8-10.6)
[2019-09-16 05:13] LABS: ALT 71 U/L (4-34); AST 88 U/L (14-36); African American GFR (CKD) >90 (>60 ml/min/1.73 sqM); Albumin 2.9 g/dL (3.5-5.0); Alkaline Phosphatase 199 U/L (38-126); Anion Gap 3 mmol/L; Blood Urea Nitrogen 18 mg/dL (7-17); C Reactive Protein 11.4 mg/L (<10.0); Calcium 7.8 mg/dL (8.4-10.2); Carbon Dioxide 31 mmol/L (22-30); Chloride 100 mmol/L (98-107); Creatine Kinase 65 U/L (30-135); Glucose 138 mg/dL (74-99); Non-African American GFR(CKD) >90 (>60 ml/min/1.73 sqM); Potassium 4.2 mmol/L (3.5-5.1); Sodium 134 mmol/L (137-145); Total Bilirubin 0.7 mg/dL (0.2-1.3); Total Protein 5.8 g/dL (6.3-8.2)
[2019-09-16 05:19] LABS: LDH 3660 U/L (313-618)
--- NOTE | 2019-09-16 07:04 | XR ---
EXAMINATION TYPE: XR chest 1V portable DATE OF EXAM: 09/16/2019 HISTORY: Shortness of breath. COMPARISON: 09/15/2019 TECHNIQUE: Single view of the chest is submitted. FINDINGS: Demonstrated are scattered senescent parenchymal change. Diffuse bilateral airspace disease is essentially unchanged allowing for differences in technique. Kramer spect small pleural effusions. The heart is stable. Hilar and mediastinal structures are within normal limits. Degenerative changes are seen of the dorsal spine. IMPRESSION: 1. Diffuse bilateral airspace disease is essentially unchanged allowing for differences in technique . Suspect small pleural effusions.
[2019-09-16 07:40] LABS: Glucose,Whole Blood 97 mg/dL (75-99)
[2019-09-16] MEDS: INSULIN ASPART (NovoLOG) 100 UNIT/ML VIAL SQ SCH ×4 (07:43→23:24)
[2019-09-16] MEDS: ZINC SULFATE 220 MG CAP PO SCH (08:26)
[2019-09-16] MEDS: methylPREDNISolone SOD SUCCI 40 MG/ML 1 ML VIAL IV SCH ×2 (08:26→20:10)
[2019-09-16] MEDS: ENOXAPARIN 80 MG/0.8 ML SYRINGE SQ SCH ×2 (08:27→20:10)
[2019-09-16] MEDS: PANTOPRAZOLE 40 MG/10 ML VIAL IV SCH (08:27)
[2019-09-16] MEDS: ONDANSETRON 4 MG/2 ML VIAL IVP PRN (09:43)
[2019-09-16 11:11] LABS: Glucose,Whole Blood 123 mg/dL (75-99)
[2019-09-16 12:45] LABS: Ferritin 1036.1 ng/mL (10.0-291.0)
--- NOTE | 2019-09-16 13:08 | P.PN ---
Subjective Progress Note Date: 09/16/19 63-year-old female patient of Dr. Jaison Friedman, with past medical history of hypertension, hyperlipidemia, nonsmoker, works in the dietary department at [employer], was accepted as a transfer from [facility] where she presented for evaluation of fatigue, nausea, weakness, occasional fe vers and low pulse ox levels. Patient reports symptoms present for about a week. Her coronavirus PCR test was positive on 09/06/2019, and again on 09/10/2019. No vomiting or diarrhea, no shortness of breath. Lab work showed white blood cell count 13.2, hemoglobin of 13.5, platelet count is 513, neutrophil count is elevated at 10.6, lymphocytes at 1.6, no d-dimer was drawn, sodium is 134, potassium is 3.7, chloride is 96, CO2 is 27, B1 is 33 creatinine 0.93, LDH is 2470, CRP is significantly elevated at 252, plasma lactic acid was 1.8. EKG shows normal sinus rhythm with evidence of possible inferior infarct of undetermined age, and T-wave inversion in the anterolateral leads. QT/QTc we re 388 and 482 respectively. Patient is afebrile, profound hypoxemia, with a pulse ox of 73% on 15 L high flow. Currently requiring 100% nonrebreather in addition to 15 L per high flow nasal cannula and a pulse ox is 98%. In addition patient was borderline hypotensive with pressures of 90 systolic, and patient was given 1/2 L in IV fluid boluses in the emergency department. Patient was transferred to the ICU for close monitoring. Chest x-ray showed scattered mixed interstitial and alveolar infiltrates throughout both lungs compatible with underlying pneumonia. Over the past 3 days, the patient has remained in the intensive care unit regarding her chronic 19 pneumonia. The patient showed some improvement in the inflammatory markers that were down trending including the ferritin, liver function tests and LDH. The patient's pleural Level Was at 0.18. The Patient Was Given Rocephin As an Empiric Antibiotic Coverage. The patient was given Plaquenil. The patient also was given IV Solu-Medrol. The patient also received 2 doses of tocilizumab . Note that the patient also had a significant elevation of troponin that peaked at 34.6. The EKG showed a normal sinus rhythm and some Q waves involving the inferior wall and the echocardiogram from 09/11/2019 showed normal ejection fraction of 55-60% and moderate degree of concentric left ventricular hypertrophy. Cardiology was consulted. Medical treatment was suggested. The patient remains therapeutic dose of Lovenox 80 mg subcu every 12 hours, IV Solu-Medrol 30 mg every 12 hours and Tequin for now. The patient is also on IV fluids with normal state rate of 40 cc an hour. Clinically the patient is still the same. No major change in her condition compared to yesterday. Chest x-ray findings are essentially unchanged. Remains on IV Solu-Medrol. Remains on empiric antibiotic coverage with Rocephin. Remains on zinc sulfate and completing the course of Plaquenil that was started on 09/11/2019. 700% nonrebreather facemask on today's evaluation. Still on 15 L high flow oxygen. Being considered for convalescent immunoglobulin On today's evaluation of 09/15/2019, the patient's condition essentially unchanged. The patient remains in the 100% nonrebreather facemask addition to 15 L of oxygen by nasal cannula. Chest x-ray findings remains essentially unchanged diffuse bilateral pulmonary infiltrates, unchanged compared to yesterday. Inflammatory markers continue to be quite elevated including ferritin, LDH, and there has been some improvement in the d-dimer over the course of treatment. The patient remains on IV fluids with normal state rate of 40 mL an hour. The patient remains on IV Rocephin. The patient remains on Plaquenil. The patient remains on IV Solu Medrol. She has no altered mentation. She is feeling weak. No significant cough or sputum production. No chest pain. Her reserve is minimal at the patient desaturates easily with limited amount of activity and for that reason she is been kept in bed for now. The white cell count is 14.6. Platelet count is at 462. The patient's LDH level was 3638. The patient's C-reactive protein is 15.6. The patient's ferritin level is 1402. On today's evaluation of 09/16/2019 the patient is being seen in follow-up in the intensive care unit. She continues to be an acute hypoxic respiratory failure related to Covid 19 related pneumonia. The patient remains on the percent nonrebreather facemask in addition to 15 L of oxygen by nasal cannula. Her pulse ox is ranging between 91-92% to chest x-ray showing diffuse bilateral pulmonary infiltrates unchanged compared to yesterday. Her white cell count 16.4. She is having some limited cough. No significant sputum production. No hemoptysis. No pleurisy. She is tolerating her diet. She is taking Glucerna shakes at the bedside. In terms of the rest of the inflammatory markers, the patient's LDH level is still elevated at 3660. LFTs are also abnormal with a AST of 88, ALT of 71 and a bilirubin of 0.7 with an alkaline phosphatase of 199. CRP is at 11.4. The calcium level is at 7.8. Ferritin level is at 1036. The serum bicarbs at 31. BUN is 18 with a creatinine of 0.4. Remains on Lovenox. Remains on Rocephin. Remains on IV Solu-Medrol. Objective - Vital Signs Vital signs: Vital Signs Temp 98.4 F 09/16/19 12:00 Pulse 102 H 09/16/19 13:00 Resp 22 09/16/19 13:00 BP 132/74 09/16/19 13:00 Pulse Ox 93 L 09/16/19 13:00 Intake & Output 09/15/19 09/16/19 09/16/19 18:59 06:59 18:59 Intake Total 530 780 810 Output Total 935 935 905 Balance -405 -155 -95 Weight 87 kg 87 kg Intake: IV 480 480 330 Sodium Chloride 0.9% 1, 480 480 280 000 ml @ 40 mls/hr IV . Q24H ABBEY Rx#:[id number] cefTRIAXone 1 gm In 50 Sodium Chloride 0.9% 50 ml @ 100 mls/hr IVPB Q24HR ABBEY Rx#:[id number] Intake, IV Titration 50 Amount cefTRIAXone 1 gm In 50 Sodium Chloride 0.9% 50 ml @ 100 mls/hr IVPB Q24HR ABBEY Rx#:[id number] Oral 300 480 Output: Urine 935 935 905 Other: Voiding Method Indwelling Catheter Indwelling Catheter Indwelling Catheter # Bowel Movements 1 - Exam GENERAL EXAM: Alert, very pleasant, 63-year-old female patient, currently on 15 L high flow nasal cannula in the 100% nonrebreather with a pulse ox between 90- 92% comfortable in no apparent distress. HEAD: Normocephalic/atraumatic. EYES: Normal reaction of pupils, equal size. Conjunctiva pink, sclera white. NOSE: Clear with pink turbinates. THROAT: No erythema or exudates. NECK: No masses, no JVD, no thyroid enlargement, no adenopathy. CHEST: No chest wall deformity. Symmetrical expansion. LUNGS: Equal air entry with few scattered rhonchi, crackles in the bases. CVS: Regular rate and rhythm, normal S1 and S2, no gallops, no murmurs, no rubs ABDOMEN: Soft, nontender. No hepatosplenomegaly, normal bowel sounds, no guarding or rigidity. EXTREMITIES: No clubbing, no edema, no cyanosis, 2+ pulses and upper and lower extremities. MUSCULOSKELETAL: Muscle strength and tone normal. SPINE: No scoliosis or deformity SKIN: No rashes CENTRAL NERVOUS SYSTEM: No focal deficits, tone is normal in all 4 extremities. PSYCHIATRIC: Alert and oriented -3. Appropriate affect. Intact judgment and insight. - Labs CBC & Chem 7: 09/16/19 04:16 09/16/19 04:16 Labs: Abnormal Lab Results - Last 24 Hours (Table) 09/15/19 09/16/19 09/16/19 Range/Units 16:40 04:16 04:16 WBC 16.4 H (3.8-10.6) k/uL Neutrophils # 14.3 H (1.3-7.7) k/uL Lymphocytes # 0.8 L (1.0-4.8) k/uL Sodium 134 L (137-145) mmol/L Carbon Dioxide 31 H (22-30) mmol/L BUN 18 H (7-17) mg/dL Creatinine 0.47 L (0.52-1.04) mg/dL Glucose 138 H (74-99) mg/dL POC Glucose (mg/dL) 109 H (75-99) mg/dL Calcium 7.8 L (8.4-10.2) mg/dL Ferritin 1036.1 H (10.0-291.0) ng/mL AST 88 H (14-36) U/L ALT 71 H (4-34) U/L Alkaline Phosphatase 199 H (38-126) U/L Lactate Dehydrogenase 3660 H (313-618) U/L C-Reactive Protein 11.4 H (<10.0) mg/L Total Protein 5.8 L (6.3-8.2) g/dL Albumin 2.9 L (3.5-5.0) g/dL 09/16/19 Range/Units 11:09 WBC (3.8-10.6) k/uL Neutrophils # (1.3-7.7) k/uL Lymphocytes # (1.0-4.8) k/uL Sodium (137-145) mmol/L Carbon Dioxide (22-30) mmol/L BUN (7-17) mg/dL Creatinine (0.52-1.04) mg/dL Glucose (74-99) mg/dL POC Glucose (mg/dL) 123 H (75-99) mg/dL Calcium (8.4-10.2) mg/dL Ferritin (10.0-291.0) ng/mL AST (14-36) U/L ALT (4-34) U/L Alkaline Phosphatase (38-126) U/L Lactate Dehydrogenase (313-618) U/L C-Reactive Protein (<10.0) mg/L Total Protein (6.3-8.2) g/dL Albumin (3.5-5.0) g/dL Microbiology - Last 24 Hours (Table) 09/10/19 10:07 Blood Culture - Final Blood No Growth after 144 hours Assessment and Plan Plan: 1. Acute hypoxemic respiratory failure related to acute COVID 19 pneumonia and the patient developed diffuse bilateral pulmonary infiltrates with areas of consolidation scattered throughout the lung mcbride bilaterally. The chest x-ray is unchanged compared to yesterday and the patient continues to be hypoxic respiratory failure. The patient is requiring 100% nonrebreather facemask addition to high flow oxygen at 15 L per minute nasal cannula. 2. Acute COVID 19 infection with symptoms of profound hypoxemia, weakness, fatigue, intermittent fevers, nausea for one week prior to presentation, patient had a COVID 19 PCR test positive on 2 occasions on 09/06/2019, and again on 09/10/2019 3. Sepsis related to viral pneumonia, although possibility of bacterial pneumonia is not entirely excluded. Pro-calcitonin level is 0.18 and the pa tient is empirically on IV Rocephin 4. Hypotension, hypovolemic and related to decreased oral intake, nausea, and sepsis related to viral pneumonia, recovered with IV fluid boluses, currently on no pressors 5. Elevated LDH, CRP related to COVID 19 infection 6. History of hypertension 7. History of hyperlipidemia 8. Never smoker 9. No history of EtOH use 10. Positive troponin, possibly related to acute Covid 19 related myocarditis, troponins are improving Plan No major changes in her condition Continue Lovenox therapeutic dose Continued IV Solu Medrol 30 mg every 12 hours Completed the course of Plaquenil Continue zinc sulfate Continue IV Rocephin Continue high flow oxygen at 15 L in addition to 100% nonrebreather facemask We'll continue to follow. Condition is critical. Intermittent markers remains quite elevated.
[2019-09-16 17:05] LABS: Glucose,Whole Blood 100 mg/dL (75-99)
[2019-09-16 20:18] LABS: Glucose,Whole Blood 110 mg/dL (75-99)
[2019-09-16] MEDS: INSULIN DETEMIR (LEVEMIR) 100 UNIT/ML SYR SQ SCH (20:24)
--- NOTE | 2019-09-16 21:30 | P.PN ---
Subjective 63-year-old female is admitted for acute respiratory failure secondary to acute COVID 19 sepsis, patient is presently on 100% nonrebreather saturating at 88-90% chest x-ray showing mild worsening of right upper lobe pneumonia. Patient remains on IV fluids. Patient troponins are elevated because of possible Covid myocarditis I'll obtain a echocardiogram to see if there is any heart failure. All the acute phase reactants are elevated including d-dimer which is only minimally elevated. Patient is presently on hydroxychloroquine and the steroids which were ordered by pulmonary patient has highly elevated LDH. 09/12/2019 Patient remains in the ICU, she is awake and oriented and follow commands however she is short of breath and she still on 50 L oxygen via nonrebreather. Also patient has significant orthopnea with diminished breath sounds on both sides. She is significantly tachypneic 27-34 and saturating 88% and 15L Oxygen via nasal cannula/high flow She has leukocytosis of 18.6 K however she is on steroids. D-dimer is worse today from 0.4 up to 14.0. BMP is unremarkable. Liver enzymes mildly elevated but stable Patient is currently on Plaquenil, zinc, Rocephin, Solu-Medrol 30 mg twice daily, normal saline. Her Lovenox was increased to 80 mg twice a day Pulmonary the case. Also door repairer bus evaluated the patient and recommended to continue with present therapy and monitor EKG 09/13/2019 Patient in the ICU. She is awake and oriented, she is dyspneic and orthopedic with dry cough for her comfort pneumonia with chest x-ray showing slight worsening by radiologist She remains on 15 L oxygen via nasal cannula over the last 2-3 days Card Tender recommended to continue with same treatment, no need for intervention for now. No change in the treatment today as she continue with Rocephin, Solu-Medrol 30 mg, Lovenox 80 mg and Plaquenil, her normal saline was lowered to 40 mL per hour WBC is 19.6 while she is on steroids, liver enzymes slightly elevated and stable 09/14/2019 Patient remains in the ICU oriented but still dyspneic with cough. WBC slightly less at 16.8 D-dimer still high at 12.15, LDH is elevated at 3785, ferritin is slightly down to 983, C-reactive protein is the main inflammatory markers and coming down to 25. Troponin down to 2.2. patient is written for convalescent immunoglobulin Patient was monitored closely by pulmonary/critical care team 09/15/2019 Patient seen in the ICU. She still have dyspnea. She saturating low 90s on 15 L oxygen via nonrebreather. Chest x-ray still showing infiltrates. Patient WBC is 14.6 K, liver enzymes slightly elevated. She still tachypneic. Patient remains on antibiotics ceftriaxone and zinc. Patient finished her Plaquenil. Continue Solu-Medrol 50 mg twice daily. She is a normal-sized heart with per hour. She is also on Lovenox 80 mg. Levemir is lowered to 8 units. 09/16/2019 Patient remains in the ICU, she is closely monitored for her pulmonary status for her covid-19 pneumonia. No much change in her situation. She still on 15 L oxygen nasal cannula with oxygen saturating 95%. WBC is slightly up To 16.4 K , sodium and electrolytes are within normal limits. Sugar is controlled. liver enzymes trending down slowly, bilirubin opening is normal. Inflammatory markers of ferritin, LDH and C reactive protein are still elevated. Patient remains on Rocephin, Solu-Medrol 30 mg, normal saline at 40, Lovenox 80 mg twice daily and Levemir 8 units Constitutional: Denied any fatigue denied any fever. Cardio vascular: denied any chest pain, palpitations Gastrointestinal denied any nausea vomiting Pulmonary: As mentioned in HPI Neurologic denied any new focal deficits Active Medications Generic Name Dose Route Start Last Admin Trade Name Freq PRN Reason Stop Dose Admin Acetaminophen 650 mg 09/10/19 09:36 09/13/19 23:44 Tylenol Tab PO 650 mg Q4HR PRN Administration Fever>101 Albuterol Sulfate 2 puff 09/10/19 14:00 09/16/19 19:25 Ventolin Hfa Inhaler INHALATION 2 puff RT-Q6H ABBEY Administration Albuterol Sulfate 2 puff 09/10/19 09:36 09/10/19 10:02 Ventolin Hfa Inhaler INHALATION 2 puff RT-Q6H PRN Administration Shortness Of Breath Or Wheezing Enoxaparin Sodium 80 mg 09/12/19 21:00 09/16/19 20:10 Lovenox SQ 80 mg BID ABBEY Administration Sodium Chloride 1,000 mls @ 40 mls/hr 09/10/19 12:00 09/15/19 20:40 Saline 0.9% IV 40 mls/hr .Q24H ABBEY Administration Ceftriaxone Sodium 1 gm/ 50 mls @ 100 mls/hr 09/11/19 12:00 09/16/19 08:26 Sodium Chloride IVPB 100 mls/hr Q24HR ABBEY Administration Insulin Aspart 0 unit 09/11/19 12:30 09/16/19 17:21 Novolog SQ Not Given ACHS ABBEY Protocol Insulin Detemir 8 unit 09/15/19 21:00 09/16/19 20:24 Levemir SQ 8 unit HS ABBEY Administration Methylprednisolone Sodium Succinate 30 mg 09/10/19 21:00 09/16/19 20:10 Solu-Medrol IV 30 mg Q12HR ABBEY Administration Miscellaneous Information 1 each 09/11/19 05:55 Potassium Per Protocol MISCELLANE DAILY PRN Per Protocol Protocol Miscellaneous Information 1 each 09/12/19 06:40 Potassium Per Protocol MISCELLANE DAILY PRN Per Protocol Protocol Miscellaneous Information 1 each 09/13/19 06:41 Potassium Per Protocol MISCELLANE DAILY PRN Per Protocol Protocol Naloxone HCl 0.2 mg 09/10/19 11:47 Narcan IV Q2M PRN Opioid Reversal Ondansetron HCl 4 mg 09/12/19 02:18 09/16/19 09:43 Zofran IVP 4 mg Q6HR PRN Administration Nausea And Vomiting Pantoprazole Sodium 40 mg 09/10/19 12:00 09/16/19 08:27 Protonix IV 40 mg DAILY ABBEY Administration Zinc Sulfate 220 mg 09/11/19 09:00 09/16/19 08:26 Orazinc PO 220 mg DAILY ABBEY Administration Objective - Vital Signs Vital signs: Vital Signs Temp 97.6 F 09/16/19 16:00 Pulse 93 09/16/19 16:00 Resp 21 09/16/19 16:00 BP 144/88 09/16/19 16:00 Pulse Ox 94 L 09/16/19 16:00 Intake & Output 09/15/19 09/16/19 09/16/19 18:59 06:59 18:59 Intake Total 530 780 890 Output Total 971 709 6160 Balance -405 -155 -155 Weight 87 kg 87 kg Intake: IV 480 480 410 Sodium Chloride 0.9% 1, 480 480 360 000 ml @ 40 mls/hr IV . Q24H ABBEY Rx#:[id number] cefTRIAXone 1 gm In 50 Sodium Chloride 0.9% 50 ml @ 100 mls/hr IVPB Q24HR [facility]BEY Rx#:[id number] Intake, IV Titration 50 Amount cefTRIAXone 1 gm In 50 Sodium Chloride 0.9% 50 ml @ 100 mls/hr IVPB Q24HR ABBEY Rx#:[id number] Oral 300 480 Output: Urine 807 [id number] 9155 Other: Voiding Method Indwelling Catheter Indwelling Catheter Indwelling Catheter # Bowel Movements 1 1 - Exam GENERAL: The patient is alert and oriented x3, not in any acute distress. Well developed, well nourished. HEENT: Pupils are round and equally reacting to light. EOMI. No scleral icterus. No conjunctival pallor. Normocephalic, atraumatic. No pharyngeal erythema. No thyromegaly. CARDIOVASCULAR: S1 and S2 present. No murmurs, rubs, or gallops. PULMONARY: Chest is clear to auscultation, no wheezing or crackles. ABDOMEN: Soft, nontender, nondistended, normoactive bowel sounds. No palpable organomegaly. MUSCULOSKELETAL: No joint swelling or deformity. EXTREMITIES: No cyanosis, clubbing, or pedal edema. NEUROLOGICAL: Gross neurological examination did not reveal any focal deficits. SKIN: No rashes. no petechiae. - Labs CBC & Chem 7: 09/16/19 04:16 09/16/19 04:16 Labs: Abnormal Lab Results - Last 24 Hours (Table) 09/15/19 09/16/19 09/16/19 Range/Units 16:40 04:16 04:16 WBC 16.4 H (3.8-10.6) k/uL Neutrophils # 14.3 H (1.3-7.7) k/uL Lymphocytes # 0.8 L (1.0-4.8) k/uL Sodium 134 L (137-145) mmol/L Carbon Dioxide 31 H (22-30) mmol/L BUN 18 H (7-17) mg/dL Creatinine 0.47 L (0.52-1.04) mg/dL Glucose 138 H (74-99) mg/dL POC Glucose (mg/dL) 109 H (75-99) mg/dL Calcium 7.8 L (8.4-10.2) mg/dL Ferritin 1036.1 H (10.0-291.0) ng/mL AST 88 H (14-36) U/L ALT 71 H (4-34) U/L Alkaline Phosphatase 199 H (38-126) U/L Lactate Dehydrogenase 3660 H (313-618) U/L C-Reactive Protein 11.4 H (<10.0) mg/L Total Protein 5.8 L (6.3-8.2) g/dL Albumin 2.9 L (3.5-5.0) g/dL 09/16/19 Range/Units 11:09 WBC (3.8-10.6) k/uL Neutrophils # (1.3-7.7) k/uL Lymphocytes # (1.0-4.8) k/uL Sodium (137-145) mmol/L Carbon Dioxide (22-30) mmol/L BUN (7-17) mg/dL Creatinine (0.52-1.04) mg/dL Glucose (74-99) mg/dL POC Glucose (mg/dL) 123 H (75-99) mg/dL Calcium (8.4-10.2) mg/dL Ferritin (10.0-291.0) ng/mL AST (14-36) U/L ALT (4-34) U/L Alkaline Phosphatase (38-126) U/L Lactate Dehydrogenase (313-618) U/L C-Reactive Protein (<10.0) mg/L Total Protein (6.3-8.2) g/dL Albumin (3.5-5.0) g/dL Microbiology - Last 24 Hours (Table) 09/10/19 10:07 Blood Culture - Final Blood No Growth after 144 hours Assessment and Plan Assessment: -Bilateral Covid pneumonia. Continue with antibiotics and pulmonary consult. -Acute hypoxic respiratory failure secondary to COVID 19 pneumonitis and continue with respiratory support, need to be closely monitored in ICU. Patient is presently on high flow nasal cannula oxygen. Patient was started on systemic steroids, hydroxychloroquine and repeat chest x-ray showing increased infiltrate on the right side -Elevated troponin secondary to Covid myocarditis echocardiogram will be obtained, cardiology consultation is ordered -Mildly elevated liver enzymes -Elevated d-dimer, continue with Lovenox -Elevated inflammatory markers included 13, LDH and C-reactive protein, secondary to Covid -Hypotension : Improved -Hyperlipidemia DVT prophylaxis: Lovenox GI prophylaxis: Protonix Prognosis is guarded
[2019-09-16] MEDS: SODIUM CHLORIDE 0.9% 1,000 ML IV SCH (23:25)
[2019-09-17] MEDS: ALBUTEROL HFA INHALER INHALATION SCH ×4 (01:25→20:36)
[2019-09-17 05:37] LABS: Basophils % (A) 0 %; Eosinophils # (A) 0.1 k/uL (0-0.7); Eosinophils % (A) 1 %; HCT 41.3 % (34.0-46.0); Lymphocytes # (A) 0.8 k/uL (1.0-4.8); Lymphocytes % (A) 6 %; MCH 31.1 pg (25.0-35.0); MCHC 33.9 g/dL (31.0-37.0); MCV 91.7 fL (80.0-100.0); Mean Platelet Volume 7.5; Monocytes # (A) 0.4 k/uL (0-1.0); Monocytes % (A) 3 %; Neutrophils # (A) 12.3 k/uL (1.3-7.7); Neutrophils % (A) 90 %; Platelet Count 377 k/uL (150-450); RDW 14.2 % (11.5-15.5); WBC 13.6 k/uL (3.8-10.6)
[2019-09-17 06:29] LABS: ALT 74 U/L (4-34); AST 71 U/L (14-36); African American GFR (CKD) >90 (>60 ml/min/1.73 sqM); Albumin 3.1 g/dL (3.5-5.0); Alkaline Phosphatase 214 U/L (38-126); Anion Gap 3 mmol/L; Blood Urea Nitrogen 18 mg/dL (7-17); C Reactive Protein 7.9 mg/L (<10.0); Calcium 7.9 mg/dL (8.4-10.2); Carbon Dioxide 31 mmol/L (22-30); Chloride 101 mmol/L (98-107); Creatine Kinase 57 U/L (30-135); Glucose 171 mg/dL (74-99); Non-African American GFR(CKD) >90 (>60 ml/min/1.73 sqM); Sodium 135 mmol/L (137-145); Total Bilirubin 0.6 mg/dL (0.2-1.3); Total Protein 5.9 g/dL (6.3-8.2)
[2019-09-17 06:59] LABS: Glucose,Whole Blood 136 mg/dL (75-99)
[2019-09-17] MEDS: INSULIN ASPART (NovoLOG) 100 UNIT/ML VIAL SQ SCH ×3 (07:01→16:53)
[2019-09-17 07:22] LABS: LDH 3167 U/L (313-618)
--- NOTE | 2019-09-17 07:42 | XR ---
EXAMINATION TYPE: XR chest 1V portable DATE OF EXAM: 09/17/2019 COMPARISON: Prior chest x-ray dated 09/16/2019 HISTORY: Pneumonia, Covid infection TECHNIQUE: Single frontal view of the chest is obtained. FINDINGS: Diffuse bilateral airspace disease is again noted. No pneumothorax or pleural effusion. He art is stable. IMPRESSION: Stable airspace disease bilaterally
[2019-09-17] MEDS: methylPREDNISolone SOD SUCCI 40 MG/ML 1 ML VIAL IV SCH ×2 (08:16→20:03)
[2019-09-17] MEDS: ZINC SULFATE 220 MG CAP PO SCH (08:17)
[2019-09-17] MEDS: PANTOPRAZOLE 40 MG/10 ML VIAL IV SCH (08:18)
[2019-09-17] MEDS: ENOXAPARIN 80 MG/0.8 ML SYRINGE SQ SCH ×2 (08:19→20:03)
[2019-09-17] MEDS: ONDANSETRON 4 MG/2 ML VIAL IVP PRN ×2 (08:28→16:47)
[2019-09-17 11:44] LABS: Glucose,Whole Blood 170 mg/dL (75-99)
[2019-09-17 11:50] LABS: Ferritin 1031.5 ng/mL (10.0-291.0)
--- NOTE | 2019-09-17 12:39 | P.PN ---
Subjective Progress Note Date: 09/17/19 63-year-old female patient of Dr. Jaison Friedman, with past medical history of hypertension, hyperlipidemia, nonsmoker, works in the dietary department at [employer], was accepted as a transfer from [facility] where she presented for evaluation of fatigue, nausea, weakness, occasional fe vers and low pulse ox levels. Patient reports symptoms present for about a week. Her coronavirus PCR test was positive on 09/06/2019, and again on 09/10/2019. No vomiting or diarrhea, no shortness of breath. Lab work showed white blood cell count 13.2, hemoglobin of 13.5, platelet count is 513, neutrophil count is elevated at 10.6, lymphocytes at 1.6, no d-dimer was drawn, sodium is 134, potassium is 3.7, chloride is 96, CO2 is 27, B1 is 33 creatinine 0.93, LDH is 2470, CRP is significantly elevated at 252, plasma lactic acid was 1.8. EKG shows normal sinus rhythm with evidence of possible inferior infarct of undetermined age, and T-wave inversion in the anterolateral leads. QT/QTc we re 388 and 482 respectively. Patient is afebrile, profound hypoxemia, with a pulse ox of 73% on 15 L high flow. Currently requiring 100% nonrebreather in addition to 15 L per high flow nasal cannula and a pulse ox is 98%. In addition patient was borderline hypotensive with pressures of 90 systolic, and patient was given 1/2 L in IV fluid boluses in the emergency department. Patient was transferred to the ICU for close monitoring. Chest x-ray showed scattered mixed interstitial and alveolar infiltrates throughout both lungs compatible with underlying pneumonia. Over the past 3 days, the patient has remained in the intensive care unit regarding her chronic 19 pneumonia. The patient showed some improvement in the inflammatory markers that were down trending including the ferritin, liver function tests and LDH. The patient's pleural Level Was at 0.18. The Patient Was Given Rocephin As an Empiric Antibiotic Coverage. The patient was given Plaquenil. The patient also was given IV Solu-Medrol. The patient also received 2 doses of tocilizumab . Note that the patient also had a significant elevation of troponin that peaked at 34.6. The EKG showed a normal sinus rhythm and some Q waves involving the inferior wall and the echocardiogram from 09/11/2019 showed normal ejection fraction of 55-60% and moderate degree of concentric left ventricular hypertrophy. Cardiology was consulted. Medical treatment was suggested. The patient remains therapeutic dose of Lovenox 80 mg subcu every 12 hours, IV Solu-Medrol 30 mg every 12 hours and Tequin for now. The patient is also on IV fluids with normal state rate of 40 cc an hour. Clinically the patient is still the same. No major change in her condition compared to yesterday. Chest x-ray findings are essentially unchanged. Remains on IV Solu-Medrol. Remains on empiric antibiotic coverage with Rocephin. Remains on zinc sulfate and completing the course of Plaquenil that was started on 09/11/2019. 700% nonrebreather facemask on today's evaluation. Still on 15 L high flow oxygen. Being considered for convalescent immunoglobulin On today's evaluation of 09/15/2019, the patient's condition essentially unchanged. The patient remains in the 100% nonrebreather facemask addition to 15 L of oxygen by nasal cannula. Chest x-ray findings remains essentially unchanged diffuse bilateral pulmonary infiltrates, unchanged compared to yesterday. Inflammatory markers continue to be quite elevated including ferritin, LDH, and there has been some improvement in the d-dimer over the course of treatment. The patient remains on IV fluids with normal state rate of 40 mL an hour. The patient remains on IV Rocephin. The patient remains on Plaquenil. The patient remains on IV Solu Medrol. She has no altered mentation. She is feeling weak. No significant cough or sputum production. No chest pain. Her reserve is minimal at the patient desaturates easily with limited amount of activity and for that reason she is been kept in bed for now. The white cell count is 14.6. Platelet count is at 462. The patient's LDH level was 3638. The patient's C-reactive protein is 15.6. The patient's ferritin level is 1402. On today's evaluation of 09/16/2019 the patient is being seen in follow-up in the intensive care unit. She continues to be an acute hypoxic respiratory failure related to Covid 19 related pneumonia. The patient remains on the percent nonrebreather facemask in addition to 15 L of oxygen by nasal cannula. Her pulse ox is ranging between 91-92% to chest x-ray showing diffuse bilateral pulmonary infiltrates unchanged compared to yesterday. Her white cell count 16.4. She is having some limited cough. No significant sputum production. No hemoptysis. No pleurisy. She is tolerating her diet. She is taking Glucerna shakes at the bedside. In terms of the rest of the inflammatory markers, the patient's LDH level is still elevated at 3660. LFTs are also abnormal with a AST of 88, ALT of 71 and a bilirubin of 0.7 with an alkaline phosphatase of 199. CRP is at 11.4. The calcium level is at 7.8. Ferritin level is at 1036. The serum bicarbs at 31. BUN is 18 with a creatinine of 0.4. Remains on Lovenox. Remains on Rocephin. Remains on IV Solu-Medrol. On 09/17/2019, the patient is feeling better. She is able to sit up on a chair. She is tolerating her diet. She is trying to eat more. She is on 100% nonrebreather facemask. Her chest x-ray showing diffuse breath and pulmonary infiltrates. She is also utilizing 15 L of oxygen nasal cannula along with the 100% nonrebreather and is possible that we should be able to wean her off the nasal cannula. No chest pain. No altered mentation. No cough or sputum production. No nausea. No vomiting. No diarrhea. No abdominal pain. Paperwork for convalescent immunoglobulins has been sent. D-dimer is slowly improving. LDH still elevated. Patient remains on his Lovenox. The patient remains on IV Solu-Medrol. Objective - Vital Signs Vital signs: Vital Signs Temp 97.6 F 09/17/19 12:00 Pulse 92 09/17/19 12:00 Resp 12 09/17/19 12:00 BP 129/83 09/17/19 12:00 Pulse Ox 95 09/17/19 12:00 Intake & Output 09/16/19 09/17/19 09/17/19 18:59 06:59 18:59 Intake Total 1130 980 410 Output Total 1260 825 280 Balance -130 155 130 Weight 87 kg Intake: IV 530 480 290 Sodium Chloride 0.9% 1, 480 480 240 000 ml @ 40 mls/hr IV . Q[facility]H [facility] Rx#:[id number] cefTRIAXone 1 gm In 50 50 Sodium Chloride 0.9% 50 ml @ 100 mls/hr IVPB Q24HR [facility] Rx#:[id number] Oral 600 500 120 Output: Urine 1260 825 280 Other: Voiding Method Indwelling Catheter Indwelling Catheter Indwelling Catheter # Bowel Movements 1 - Exam GENERAL EXAM: Alert, very pleasant, 63-year-old female patient, currently on 15 L high flow nasal cannula in the 100% nonrebreather with a pulse ox between 90- 92% comfortable in no apparent distress. HEAD: Normocephalic/atraumatic. EYES: Normal reaction of pupils, equal size. Conjunctiva pink, sclera white. NOSE: Clear with pink turbinates. THROAT: No erythema or exudates. NECK: No masses, no JVD, no thyroid enlargement, no adenopathy. CHEST: No chest wall deformity. Symmetrical expansion. LUNGS: Equal air entry with few scattered rhonchi, crackles in the bases. CVS: Regular rate and rhythm, normal S1 and S2, no gallops, no murmurs, no rubs ABDOMEN: Soft, nontender. No hepatosplenomegaly, normal bowel sounds, no guarding or rigidity. EXTREMITIES: No clubbing, no edema, no cyanosis, 2+ pulses and upper and lower extremities. MUSCULOSKELETAL: Muscle strength and tone normal. SPINE: No scoliosis or deformity SKIN: No rashes CENTRAL NERVOUS SYSTEM: No focal deficits, tone is normal in all 4 extremities. PSYCHIATRIC: Alert and oriented -3. Appropriate affect. Intact judgment and insight. - Labs CBC & Chem 7: 09/17/19 04:56 09/17/19 04:56 Labs: Abnormal Lab Results - Last 24 Hours (Table) 09/16/19 09/16/19 09/16/19 Range/Units 04:16 17:03 20:17 WBC (3.8-10.6) k/uL Neutrophils # (1.3-7.7) k/uL Lymphocytes # (1.0-4.8) k/uL D-Dimer (<0.60) mg/L FEU Sodium (137-145) mmol/L Carbon Dioxide (22-30) mmol/L BUN (7-17) mg/dL Creatinine (0.52-1.04) mg/dL Glucose (74-99) mg/dL POC Glucose (mg/dL) 100 H 110 H (75-99) mg/dL Calcium (8.4-10.2) mg/dL Ferritin 1036.1 H (10.0-291.0) ng/mL AST (14-36) U/L ALT (4-34) U/L Alkaline Phosphatase (38-126) U/L Lactate Dehydrogenase (313-618) U/L Total Protein (6.3-8.2) g/dL Albumin (3.5-5.0) g/dL 09/17/19 09/17/19 09/17/19 Range/Units 04:56 04:56 04:56 WBC 13.6 H (3.8-10.6) k/uL Neutrophils # 12.3 H (1.3-7.7) k/uL Lymphocytes # 0.8 L (1.0-4.8) k/uL D-Dimer 8.48 H (<0.60) mg/L FEU Sodium 135 L (137-145) mmol/L Carbon Dioxide 31 H (22-30) mmol/L BUN 18 H (7-17) mg/dL Creatinine 0.43 L (0.52-1.04) mg/dL Glucose 171 H (74-99) mg/dL POC Glucose (mg/dL) (75-99) mg/dL Calcium 7.9 L (8.4-10.2) mg/dL Ferritin 1031.5 H (10.0-291.0) ng/mL AST 71 H (14-36) U/L ALT 74 H (4-34) U/L Alkaline Phosphatase 214 H (38-126) U/L Lactate Dehydrogenase 3167 H (313-618) U/L Total Protein 5.9 L (6.3-8.2) g/dL Albumin 3.1 L (3.5-5.0) g/dL 09/17/19 09/17/19 Range/Units 06:57 11:43 WBC (3.8-10.6) k/uL Neutrophils # (1.3-7.7) k/uL Lymphocytes # (1.0-4.8) k/uL D-Dimer (<0.60) mg/L FEU Sodium (137-145) mmol/L Carbon Dioxide (22-30) mmol/L BUN (7-17) mg/dL Creatinine (0.52-1.04) mg/dL Glucose (74-99) mg/dL POC Glucose (mg/dL) 136 H 170 H (75-99) mg/dL Calcium (8.4-10.2) mg/dL Ferritin (10.0-291.0) ng/mL AST (14-36) U/L ALT (4-34) U/L Alkaline Phosphatase (38-126) U/L Lactate Dehydrogenase (313-618) U/L Total Protein (6.3-8.2) g/dL Albumin (3.5-5.0) g/dL Microbiology - Last 24 Hours (Table) 09/10/19 10:07 Blood Culture - Final Blood No Growth after 144 hours Assessment and Plan Plan: 1. Acute hypoxemic respiratory failure related to acute COVID 19 pneumonia and the patient developed diffuse bilateral pulmonary infiltrates with areas of consolidation scattered throughout the lung mcbride bilaterally. The chest x-ray is still showing diffuse bilateral pulmonary infiltrates. The patient clinically is improved. He still requiring high levels of oxygen including 100% on a beta facemask and oxygen at 15 L per minute nasal cannula. Continue IV Solu-Medrol. Continue Lovenox. Possible coalescent immunoglobulin treatment once available. 2. Acute COVID 19 infection with symptoms of profound hypoxemia, weakness, fatigue, intermittent fevers, nausea for one week prior to presentation, patient had a COVID 19 PCR test positive on 2 occasions on 09/06/2019, and again on 11/2019 3. Sepsis related to viral pneumonia, although possibility of bacterial pneumonia is not entirely excluded. Pro-calcitonin level is 0.18 and the patient is empirically on IV Rocephin 4. Hypotension, hypovolemic and related to decreased oral intake, nausea, and sepsis related to viral pneumonia, recovered with IV fluid boluses, currently on no pressors 5. Elevated LDH, CRP related to COVID 19 infection, levels are still elevated especially LDH, CRP is improving, d-dimer is improving although still elevated. 6. History of hypertension 7. History of hyperlipidemia 8. Never smoker 9. No history of EtOH use 10. Positive troponin, possibly related to acute Covid 19 related myocarditis, troponins are improving Plan No major changes in her oxygenation level Continue Lovenox therapeutic dose Continued IV Solu Medrol 30 mg every 12 hours Completed the course of Plaquenil Continue zinc sulfate Continue IV Rocephin Paperwork for convalescent plasma have been sent Continue high flow oxygen at 15 L in addition to 100% nonrebreather facemask We'll continue to follow. Condition is critical. Intermittent markers remains quite elevated.
[2019-09-17 16:53] LABS: Glucose,Whole Blood 121 mg/dL (75-99)
[2019-09-17] MEDS: INSULIN DETEMIR (LEVEMIR) 100 UNIT/ML SYR SQ SCH (20:04)
[2019-09-17 20:17] LABS: Glucose,Whole Blood 114 mg/dL (75-99)
[2019-09-17] MEDS: SODIUM CHLORIDE 0.9% 1,000 ML IV SCH (22:00)
--- NOTE | 2019-09-18 00:04 | P.PN ---
Subjective 63-year-old female is admitted for acute respiratory failure secondary to acute COVID 19 sepsis, patient is presently on 100% nonrebreather saturating at 88-90% chest x-ray showing mild worsening of right upper lobe pneumonia. Patient remains on IV fluids. Patient troponins are elevated because of possible Covid myocarditis I'll obtain a echocardiogram to see if there is any heart failure. All the acute phase reactants are elevated including d-dimer which is only minimally elevated. Patient is presently on hydroxychloroquine and the steroids which were ordered by pulmonary patient has highly elevated LDH. 09/12/2019 Patient remains in the ICU, she is awake and oriented and follow commands however she is short of breath and she still on 50 L oxygen via nonrebreather. Also patient has significant orthopnea with diminished breath sounds on both sides. She is significantly tachypneic 27-34 and saturating 88% and 15L Oxygen via nasal cannula/high flow She has leukocytosis of 18.6 K however she is on steroids. D-dimer is worse today from 0.4 up to 14.0. BMP is unremarkable. Liver enzymes mildly elevated but stable Patient is currently on Plaquenil, zinc, Rocephin, Solu-Medrol 30 mg twice daily, normal saline. Her Lovenox was increased to 80 mg twice a day Pulmonary the case. Also heel burnisher evaluated the patient and recommended to continue with present therapy and monitor EKG 09/13/2019 Patient in the ICU. She is awake and oriented, she is dyspneic and orthopedic with dry cough for her comfort pneumonia with chest x-ray showing slight worsening by radiologist She remains on 15 L oxygen via nasal cannula over the last 2-3 days [employer] recommended to continue with same treatment, no need for intervention for now. No change in the treatment today as she continue with Rocephin, Solu-Medrol 30 mg, Lovenox 80 mg and Plaquenil, her normal saline was lowered to 40 mL per hour WBC is 19.6 while she is on steroids, liver enzymes slightly elevated and stable 09/14/2019 Patient remains in the ICU oriented but still dyspneic with cough. WBC slightly less at 16.8 D-dimer still high at 12.15, LDH is elevated at 3785, ferritin is slightly down to 983, C-reactive protein is the main inflammatory markers and coming down to 25. Troponin down to 2.2. patient is written for convalescent immunoglobulin Patient was monitored closely by pulmonary/critical care team 09/15/2019 Patient seen in the ICU. She still have dyspnea. She saturating low 90s on 15 L oxygen via nonrebreather. Chest x-ray still showing infiltrates. Patient WBC is 14.6 K, liver enzymes slightly elevated. She still tachypneic. Patient remains on antibiotics ceftriaxone and zinc. Patient finished her Plaquenil. Continue Solu-Medrol 50 mg twice daily. She is a normal-sized heart with per hour. She is also on Lovenox 80 mg. Levemir is lowered to 8 units. 09/16/2019 Patient remains in the ICU, she is closely monitored for her pulmonary status for her covid-19 pneumonia. No much change in her situation. She still on 15 L oxygen nasal cannula with oxygen saturating 95%. WBC is slightly up To 16.4 K , sodium and electrolytes are within normal limits. Sugar is controlled. liver enzymes trending down slowly, bilirubin opening is normal. Inflammatory markers of ferritin, LDH and C reactive protein are still elevated. Patient remains on Rocephin, Solu-Medrol 30 mg, normal saline at 40, Lovenox 80 mg twice daily and Levemir 8 units 09/17/2019 Today patient was trying to wean her oxygen down, she quit saturating at 94 on 7 L for short while before it came up again to 15 L oxygen via nasal cannula during the evening time Patient is still tachypneic 21-25 She consented for convalescent plasma which is pending now Inflammatory markers 13 and LDH still elevated, C-reactive protein is normal Chest x-ray showing same changes and infiltrates Constitutional: Denied any fatigue denied any fever. Cardio vascular: denied any chest pain, palpitations Gastrointestinal denied any nausea vomiting Pulmonary: As mentioned in HPI Neurologic denied any new focal deficits Active Medications Generic Name Dose Route Start Last Admin Trade Name Freq PRN Reason Stop Dose Admin Acetaminophen 650 mg 09/10/19 09:36 09/13/19 23:44 Tylenol Tab PO 650 mg Q4HR PRN Administration Fever>101 Albuterol Sulfate 2 puff 09/10/19 14:00 09/17/19 20:36 Ventolin Hfa Inhaler INHALATION 2 puff RT-Q6H [facility] Administration Albuterol Sulfate 2 puff 09/10/19 09:36 09/10/19 10:02 Ventolin Hfa Inhaler INHALATION 2 puff RT-Q6H PRN Administration Shortness Of Breath Or Wheezing Enoxaparin Sodium 80 mg 09/12/19 21:00 09/17/19 20:03 Lovenox SQ 80 mg BID [facility] Administration Sodium Chloride 1,000 mls @ 40 mls/hr 09/10/19 12:00 09/16/19 23:25 Saline 0.9% IV 40 mls/hr .Q24H [facility] Administration Ceftriaxone Sodium 1 gm/ 50 mls @ 100 mls/hr 09/11/19 12:00 09/17/19 08:19 Sodium Chloride IVPB 100 mls/hr Q24HR [facility] Administration Insulin Aspart 0 unit 09/11/19 12:30 09/17/19 16:53 Novolog SQ Not Given [facility] Protocol Insulin Detemir 8 unit 09/15/19 21:00 09/17/19 20:04 Levemir SQ 8 unit HS [facility] Administration Methylprednisolone Sodium Succinate 30 mg 09/10/19 21:00 09/17/19 20:03 Solu-Medrol IV 30 mg Q12HR [facility] Administration Miscellaneous Information 1 each 09/11/19 05:55 Potassium Per Protocol MISCELLANE DAILY PRN Per Protocol Protocol Miscellaneous Information 1 each 09/12/19 06:40 Potassium Per Protocol MISCELLANE DAILY PRN Per Protocol Protocol Miscellaneous Information 1 each 09/13/19 06:41 Potassium Per Protocol MISCELLANE DAILY PRN Per Protocol Protocol Naloxone HCl 0.2 mg 09/10/19 11:47 Narcan IV Q2M PRN Opioid Reversal Ondansetron HCl 4 mg 09/12/19 02:18 09/17/19 16:47 Zofran IVP 4 mg Q6HR PRN Administration Nausea And Vomiting Pantoprazole Sodium 40 mg 09/10/19 12:00 09/17/19 08:18 Protonix IV 40 mg DAILY [facility] Administration Zinc Sulfate 220 mg 09/11/19 09:00 09/17/19 08:17 Orazinc PO 220 mg DAILY [facility] Administration Objective - Vital Signs Vital signs: Vital Signs Temp 98.4 F 09/17/19 16:00 Pulse 82 09/17/19 17:00 Resp 20 09/17/19 17:00 BP 141/82 09/17/19 17:00 Pulse Ox 92 L 09/17/19 17:00 Intake & Output 09/16/19 09/17/19 09/17/19 18:59 06:59 18:59 Intake Total 1130 980 970 Output Total 1260 825 615 Balance -130 155 355 Weight 87 kg 85.3 kg Intake: IV 530 480 490 Sodium Chloride 0.9% 1, 480 480 440 000 ml @ 40 mls/hr IV . Q24H [facility] Rx#:[id number] cefTRIAXone 1 gm In 50 50 Sodium Chloride 0.9% 50 ml @ 100 mls/hr IVPB Q24HR [facility] Rx#:[id number] Oral 600 500 480 Output: Urine 1260 825 615 Other: Voiding Method Indwelling Catheter Indwelling Catheter Indwelling Catheter # Bowel Movements 1 1 - Exam GENERAL: The patient is alert and oriented x3, not in any acute distress. Well developed, well nourished. HEENT: Pupils are round and equally reacting to light. EOMI. No scleral icterus. No conjunctival pallor. Normocephalic, atraumatic. No pharyngeal erythema. No thyromegaly. CARDIOVASCULAR: S1 and S2 present. No murmurs, rubs, or gallops. PULMONARY: Chest is clear to auscultation, no wheezing or crackles. ABDOMEN: Soft, nontender, nondistended, normoactive bowel sounds. No palpable organomegaly. MUSCULOSKELETAL: No joint swelling or deformity. EXTREMITIES: No cyanosis, clubbing, or pedal edema. NEUROLOGICAL: Gross neurological examination did not reveal any focal deficits. SKIN: No rashes. no petechiae. - Labs CBC & Chem 7: 09/17/19 04:56 09/17/19 04:56 Labs: Abnormal Lab Results - Last 24 Hours (Table) 09/16/19 09/17/19 09/17/19 Range/Units 20:17 04:56 04:56 WBC 13.6 H (3.8-10.6) k/uL Neutrophils # 12.3 H (1.3-7.7) k/uL Lymphocytes # 0.8 L (1.0-4.8) k/uL D-Dimer (<0.60) mg/L FEU Sodium 135 L (137-145) mmol/L Carbon Dioxide 31 H (22-30) mmol/L BUN 18 H (7-17) mg/dL Creatinine 0.43 L (0.52-1.04) mg/dL Glucose 171 H (74-99) mg/dL POC Glucose (mg/dL) 110 H (75-99) mg/dL Calcium 7.9 L (8.4-10.2) mg/dL Ferritin 1031.5 H (10.0-291.0) ng/mL AST 71 H (14-36) U/L ALT 74 H (4-34) U/L Alkaline Phosphatase 214 H (38-126) U/L Lactate Dehydrogenase 3167 H (313-618) U/L Total Protein 5.9 L (6.3-8.2) g/dL Albumin 3.1 L (3.5-5.0) g/dL 09/17/19 09/17/19 09/17/19 Range/Units 04:56 06:57 11:43 WBC (3.8-10.6) k/uL Neutrophils # (1.3-7.7) k/uL Lymphocytes # (1.0-4.8) k/uL D-Dimer 8.48 H (<0.60) mg/L FEU Sodium (137-145) mmol/L Carbon Dioxide (22-30) mmol/L BUN (7-17) mg/dL Creatinine (0.52-1.04) mg/dL Glucose (74-99) mg/dL POC Glucose (mg/dL) 136 H 170 H (75-99) mg/dL Calcium (8.4-10.2) mg/dL Ferritin (10.0-291.0) ng/mL AST (14-36) U/L ALT (4-34) U/L Alkaline Phosphatase (38-126) U/L Lactate Dehydrogenase (313-618) U/L Total Protein (6.3-8.2) g/dL Albumin (3.5-5.0) g/dL 09/17/19 Range/Units 16:51 WBC (3.8-10.6) k/uL Neutrophils # (1.3-7.7) k/uL Lymphocytes # (1.0-4.8) k/uL D-Dimer (<0.60) mg/L FEU Sodium (137-145) mmol/L Carbon Dioxide (22-30) mmol/L BUN (7-17) mg/dL Creatinine (0.52-1.04) mg/dL Glucose (74-99) mg/dL POC Glucose (mg/dL) 121 H (75-99) mg/dL Calcium (8.4-10.2) mg/dL Ferritin (10.0-291.0) ng/mL AST (14-36) U/L ALT (4-34) U/L Alkaline Phosphatase (38-126) U/L Lactate Dehydrogenase (313-618) U/L Total Protein (6.3-8.2) g/dL Albumin (3.5-5.0) g/dL Assessment and Plan Assessment: -Bilateral Covid pneumonia. Continue with antibiotics and pulmonary consult. -Acute hypoxic respiratory failure secondary to COVID 19 pneumonitis and continue with respiratory support, need to be closely monitored in ICU. Patient is presently on high flow nasal cannula oxygen. Patient was started on systemic steroids, hydroxychloroquine and repeat chest x-ray showing increased infiltrate on the right side -Elevated troponin secondary to Covid myocarditis echocardiogram will be obtained, cardiology consultation is ordered -Mildly elevated liver enzymes -Elevated d-dimer, continue with Lovenox -Elevated inflammatory markers included 13, LDH and C-reactive protein, secondary to Covid -Hypotension : Improved -Hyperlipidemia DVT prophylaxis: Lovenox GI prophylaxis: Protonix Prognosis is guarded
[2019-09-18] MEDS: ALBUTEROL HFA INHALER INHALATION SCH ×4 (02:20→19:25)
[2019-09-18 06:26] LABS: Basophils % (A) 0 %; Eosinophils # (A) 0.1 k/uL (0-0.7); Eosinophils % (A) 1 %; HCT 38.8 % (34.0-46.0); Lymphocytes # (A) 0.7 k/uL (1.0-4.8); Lymphocytes % (A) 6 %; MCH 30.4 pg (25.0-35.0); MCHC 33.5 g/dL (31.0-37.0); MCV 90.7 fL (80.0-100.0); Mean Platelet Volume 7.2; Monocytes # (A) 0.7 k/uL (0-1.0); Monocytes % (A) 5 %; Neutrophils # (A) 10.5 k/uL (1.3-7.7); Neutrophils % (A) 87 %; Platelet Count 373 k/uL (150-450); RBC 4.28 m/uL (3.80-5.40); RDW 13.9 % (11.5-15.5); WBC 12.1 k/uL (3.8-10.6)
[2019-09-18 06:36] LABS: ALT 76 U/L (4-34); AST 61 U/L (14-36); African American GFR (CKD) >90 (>60 ml/min/1.73 sqM); Albumin 3.1 g/dL (3.5-5.0); Alkaline Phosphatase 191 U/L (38-126); Anion Gap 1 mmol/L; Blood Urea Nitrogen 16 mg/dL (7-17); C Reactive Protein 5.3 mg/L (<10.0); Calcium 8.1 mg/dL (8.4-10.2); Carbon Dioxide 37 mmol/L (22-30); Chloride 99 mmol/L (98-107); Creatine Kinase 65 U/L (30-135); Glucose 141 mg/dL (74-99); Non-African American GFR(CKD) >90 (>60 ml/min/1.73 sqM); Sodium 137 mmol/L (137-145); Total Bilirubin 0.7 mg/dL (0.2-1.3); Total Protein 5.8 g/dL (6.3-8.2)
[2019-09-18 06:41] LABS: Glucose,Whole Blood 128 mg/dL (75-99)
[2019-09-18 06:55] LABS: LDH 2459 U/L (313-618)
[2019-09-18] MEDS: INSULIN ASPART (NovoLOG) 100 UNIT/ML VIAL SQ SCH ×5 (07:05→22:42)
--- NOTE | 2019-09-18 07:12 | XR ---
EXAMINATION TYPE: XR chest 1V portable DATE OF EXAM: 09/18/2019 COMPARISON: 09/17/2019 HISTORY: Shortness of breath TECHNIQUE: Single frontal view of the chest is obtained. FINDINGS: Diffuse bilateral airspace disease is stable. No pneumothorax. Near complete opacification of both hemithoraces. Heart size stable. Arthropathy of the shoulders. Tiny pleural effusion suspect ed. IMPRESSION: Diffuse bilateral airspace disease correlate for diffuse pneumonia, ARDS or pulmonary ed teddy
[2019-09-18] MEDS: methylPREDNISolone SOD SUCCI 40 MG/ML 1 ML VIAL IV SCH ×2 (08:30→21:20)
[2019-09-18] MEDS: PANTOPRAZOLE 40 MG/10 ML VIAL IV SCH (08:32)
[2019-09-18] MEDS: ENOXAPARIN 80 MG/0.8 ML SYRINGE SQ SCH ×2 (08:33→22:41)
[2019-09-18] MEDS: ZINC SULFATE 220 MG CAP PO SCH (08:33)
[2019-09-18] MEDS: FUROSEMIDE 10 MG/ML 4 ML VIAL IV SCH (09:40)
--- NOTE | 2019-09-18 11:51 | P.PN ---
Subjective Progress Note Date: 09/18/19 63-year-old female patient of Dr. Jaison Friedman, with past medical history of hypertension, hyperlipidemia, nonsmoker, works in the dietary department at [employer], was accepted as a transfer from [employer] [facility] where she presented for evaluation of fatigue, nausea, weakness, occasional fe vers and low pulse ox levels. Patient reports symptoms present for about a week. Her coronavirus PCR test was positive on 09/06/2019, and again on 09/10/2019. No vomiting or diarrhea, no shortness of breath. Lab work showed white blood cell count 13.2, hemoglobin of 13.5, platelet count is 513, neutrophil count is elevated at 10.6, lymphocytes at 1.6, no d-dimer was drawn, sodium is 134, potassium is 3.7, chloride is 96, CO2 is 27, B1 is 33 creatinine 0.93, LDH is 2470, CRP is significantly elevated at 252, plasma lactic acid was 1.8. EKG shows normal sinus rhythm with evidence of possible inferior infarct of undetermined age, and T-wave inversion in the anterolateral leads. QT/QTc we re 388 and 482 respectively. Patient is afebrile, profound hypoxemia, with a pulse ox of 73% on 15 L high flow. Currently requiring 100% nonrebreather in addition to 15 L per high flow nasal cannula and a pulse ox is 98%. In addition patient was borderline hypotensive with pressures of 90 systolic, and patient was given 1/2 L in IV fluid boluses in the emergency department. Patient was transferred to the ICU for close monitoring. Chest x-ray showed scattered mixed interstitial and alveolar infiltrates throughout both lungs compatible with underlying pneumonia. Over the past 3 days, the patient has remained in the intensive care unit regarding her chronic 19 pneumonia. The patient showed some improvement in the inflammatory markers that were down trending including the ferritin, liver function tests and LDH. The patient's pleural Level Was at 0.18. The Patient Was Given Rocephin As an Empiric Antibiotic Coverage. The patient was given Plaquenil. The patient also was given IV Solu-Medrol. The patient also received 2 doses of tocilizumab . Note that the patient also had a significant elevation of troponin that peaked at 34.6. The EKG showed a normal sinus rhythm and some Q waves involving the inferior wall and the echocardiogram from 09/11/2019 showed normal ejection fraction of 55-60% and moderate degree of concentric left ventricular hypertrophy. Cardiology was consulted. Medical treatment was suggested. The patient remains therapeutic dose of Lovenox 80 mg subcu every 12 hours, IV Solu-Medrol 30 mg every 12 hours and Tequin for now. The patient is also on IV fluids with normal state rate of 40 cc an hour. Clinically the patient is still the same. No major change in her condition compared to yesterday. Chest x-ray findings are essentially unchanged. Remains on IV Solu-Medrol. Remains on empiric antibiotic coverage with Rocephin. Remains on zinc sulfate and completing the course of Plaquenil that was started on 09/11/2019. 700% nonrebreather facemask on today's evaluation. Still on 15 L high flow oxygen. Being considered for convalescent immunoglobulin On today's evaluation of 09/15/2019, the patient's condition essentially unchanged. The patient remains in the 100% nonrebreather facemask addition to 15 L of oxygen by nasal cannula. Chest x-ray findings remains essentially unchanged diffuse bilateral pulmonary infiltrates, unchanged compared to yesterday. Inflammatory markers continue to be quite elevated including ferritin, LDH, and there has been some improvement in the d-dimer over the course of treatment. The patient remains on IV fluids with normal state rate of 40 mL an hour. The patient remains on IV Rocephin. The patient remains on Plaquenil. The patient remains on IV Solu Medrol. She has no altered mentation. She is feeling weak. No significant cough or sputum production. No chest pain. Her reserve is minimal at the patient desaturates easily with limited amount of activity and for that reason she is been kept in bed for now. The white cell count is 14.6. Platelet count is at 462. The patient's LDH level was 3638. The patient's C-reactive protein is 15.6. The patient's ferritin level is 1402. On today's evaluation of 09/16/2019 the patient is being seen in follow-up in the intensive care unit. She continues to be an acute hypoxic respiratory failure related to Covid 19 related pneumonia. The patient remains on the percent nonrebreather facemask in addition to 15 L of oxygen by nasal cannula. Her pulse ox is ranging between 91-92% to chest x-ray showing diffuse bilateral pulmonary infiltrates unchanged compared to yesterday. Her white cell count 16.4. She is having some limited cough. No significant sputum production. No hemoptysis. No pleurisy. She is tolerating her diet. She is taking Glucerna shakes at the bedside. In terms of the rest of the inflammatory markers, the patient's LDH level is still elevated at 3660. LFTs are also abnormal with a AST of 88, ALT of 71 and a bilirubin of 0.7 with an alkaline phosphatase of 199. CRP is at 11.4. The calcium level is at 7.8. Ferritin level is at 1036. The serum bicarbs at 31. BUN is 18 with a creatinine of 0.4. Remains on Lovenox. Remains on Rocephin. Remains on IV Solu-Medrol. On 09/17/2019, the patient is feeling better. She is able to sit up on a chair. She is tolerating her diet. She is trying to eat more. She is on 100% nonrebreather facemask. Her chest x-ray showing diffuse breath and pulmonary infiltrates. She is also utilizing 15 L of oxygen nasal cannula along with the 100% nonrebreather and is possible that we should be able to wean her off the nasal cannula. No chest pain. No altered mentation. No cough or sputum production. No nausea. No vomiting. No diarrhea. No abdominal pain. Paperwork for convalescent immunoglobulins has been sent. D-dimer is slowly improving. LDH still elevated. Patient remains on his Lovenox. The patient remains on IV Solu-Medrol. On 09/18/2019, the patient's condition essentially unchanged. Remains on 100% nonrebreather facemask. The high flow oxygen was cut down from 15 L note date liters. Chest x-ray still showing diffuse breath and pulmonary infiltrates unchanged compared to yesterday. The patient received a dose of convalescent plasma yesterday regarding her Covid 19 related pneumonia. She remains on IV Solu-Medrol. LDH is slowly improving. She remains on Lovenox therapeutic dose. no chest pain. No nausea. No vomiting. No altered mentation. She is reporting some increased edema and for that reason she'll be given a dose of Lasix 40 mg IV push. She has also completed a seven-day course of Rocephin and this will be also discontinued. No other significant issues for now. She is a bit bored and tired being in the hospital with the same condition. No other new events otherwise for now. The patient is resting comfortably in bed and she is able to sit up on a recliner. Objective - Vital Signs Vital signs: Vital Signs Temp 98.0 F 09/18/19 08:00 Pulse 95 09/18/19 10:00 Resp 20 09/18/19 10:00 BP 139/74 09/18/19 10:00 Pulse Ox 90 L 09/18/19 10:00 Intake & Output 09/17/19 09/18/19 09/18/19 18:59 06:59 18:59 Intake Total 1490 649 250 Output Total 690 825 225 Balance 800 -176 25 Weight 85.3 kg 85.3 kg Intake: IV 530 440 200 Sodium Chloride 0.9% 1, 480 440 200 000 ml @ 40 mls/hr IV . Q24H [facility]BEY Rx#:[id number] cefTRIAXone 1 gm In 50 Sodium Chloride 0.9% 50 ml @ 100 mls/hr IVPB Q24HR [facility]BEY Rx#:[id number] Intake, IV Titration 50 Amount cefTRIAXone 1 gm In 50 Sodium Chloride 0.9% 50 ml @ 100 mls/hr IVPB Q24HR ABBEY Rx#:[id number] Oral 960 Blood Product 209 Ffp Pher Conval Covid19 209 Acda 1 Unit [id number] Output: Urine 690 825 225 Other: Voiding Method Indwelling Catheter Indwelling Catheter Indwelling Catheter # Bowel Movements 1 - Exam GENERAL EXAM: Alert, very pleasant, 63-year-old female patient, currently on 8 L high flow nasal cannula in the 100% nonrebreather with a pulse ox between 90-92% comfortable in no apparent distress. HEAD: Normocephalic/atraumatic. EYES: Normal reaction of pupils, equal size. Conjunctiva pink, sclera white. NOSE: Clear with pink turbinates. THROAT: No erythema or exudates. NECK: No masses, no JVD, no thyroid enlargement, no adenopathy. CHEST: No chest wall deformity. Symmetrical expansion. LUNGS: Equal air entry with few scattered rhonchi, crackles in the bases. CVS: Regular rate and rhythm, normal S1 and S2, no gallops, no murmurs, no rubs ABDOMEN: Soft, nontender. No hepatosplenomegaly, normal bowel sounds, no guar ding or rigidity. EXTREMITIES: No clubbing, no edema, no cyanosis, 2+ pulses and upper and lower extremities. MUSCULOSKELETAL: Muscle strength and tone normal. SPINE: No scoliosis or deformity SKIN: No rashes CENTRAL NERVOUS SYSTEM: No focal deficits, tone is normal in all 4 extremities. PSYCHIATRIC: Alert and oriented -3. Appropriate affect. Intact judgment and insight. - Labs CBC & Chem 7: 09/18/19 05:44 09/18/19 05:44 Labs: Abnormal Lab Results - Last 24 Hours (Table) 09/17/19 09/17/19 09/17/19 Range/Units 04:56 16:51 20:15 WBC (3.8-10.6) k/uL Neutrophils # (1.3-7.7) k/uL Lymphocytes # (1.0-4.8) k/uL Carbon Dioxide (22-30) mmol/L Creatinine (0.52-1.04) mg/dL Glucose (74-99) mg/dL POC Glucose (mg/dL) 121 H 114 H (75-99) mg/dL Calcium (8.4-10.2) mg/dL Ferritin 1031.5 H (10.0-291.0) ng/mL AST (14-36) U/L ALT (4-34) U/L Alkaline Phosphatase (38-126) U/L Lactate Dehydrogenase (313-618) U/L Total Protein (6.3-8.2) g/dL Albumin (3.5-5.0) g/dL 09/18/19 09/18/19 09/18/19 Range/Units 05:44 05:44 06:39 WBC 12.1 H (3.8-10.6) k/uL Neutrophils # 10.5 H (1.3-7.7) k/uL Lymphocytes # 0.7 L (1.0-4.8) k/uL Carbon Dioxide 37 H (22-30) mmol/L Creatinine 0.44 L (0.52-1.04) mg/dL Glucose 141 H (74-99) mg/dL POC Glucose (mg/dL) 128 H (75-99) mg/dL Calcium 8.1 L (8.4-10.2) mg/dL Ferritin (10.0-291.0) ng/mL AST 61 H (14-36) U/L ALT 76 H (4-34) U/L Alkaline Phosphatase 191 H (38-126) U/L Lactate Dehydrogenase 2459 H (313-618) U/L Total Protein 5.8 L (6.3-8.2) g/dL Albumin 3.1 L (3.5-5.0) g/dL Assessment and Plan Plan: 1. Acute hypoxemic respiratory failure related to acute COVID 19 pneumonia and the patient developed diffuse bilateral pulmonary infiltrates with areas of consolidation scattered throughout the lung mcbride bilaterally. The chest x-ray is still showing diffuse bilateral pulmonary infiltrates. The patient clinically is improved. He still requiring high levels of oxygen including 100% on a beta facemask and oxygen at 8 L per minute nasal cannula. Continue IV Solu-Medrol. Continue Lovenox. The patient also receives convalescent immunoglobulins/plasma yesterday. This was given to her without any side effects or complications. She did not have any reaction or fever. The patient is still on her percent nonrebreather facemask and she is Down to 80s of oxygen by nasal cannula. Chest x-ray findings are essentially unchanged compared to yesterday. 2. Acute COVID 19 infection with symptoms of profound hypoxemia, weakness, fatigue, intermittent fevers, nausea for one week prior to presentation, patient had a COVID 19 PCR test positive on 2 occasions on 09/06/2019, and again on 09/10/2019 3. Sepsis related to viral pneumonia, although possibility of bacterial pneumonia is not entirely excluded. Pro-calcitonin level is 0.18 and the patient is empirically on IV Rocephin, the patient completed a seven-day course of Rocephin and this will be discontinued. 4. Hypotension, hypovolemic and related to decreased oral intake, nausea, and sepsis related to viral pneumonia, recovered with IV fluid boluses, currently on no pressors, and there are some signs of fluid overload for now and the patient will be given a dose of Lasix 5. Elevated LDH, CRP related to COVID 19 infection, levels are still elevated especially LDH, CRP is improving, d-dimer is improving although still elevated. 6. History of hypertension 7. History of hyperlipidemia 8. Never smoker 9. No history of EtOH use 10. Positive troponin, possibly related to acute Covid 19 related myocarditis, troponins are improving Plan No major changes in her oxygenation level Continue Lovenox therapeutic dose Continued IV Solu Medrol 30 mg every 12 hours Completed the course of Plaquenil Continue zinc sulfate IV Rocephin will be discontinued today Convalescent plasma was given to her yesterday regarding Covid 19 related pneumonia Keep 100% nonrebreather Wean the FiO2 down to 8 L and gradually wean down the nasal cannula to maintain a saturation above 90% Monitor the inflammatory markers Advance diet We'll continue to follow and the patient will be kept in ICU. She'll be given dose of Lasix 40 mg IV push
[2019-09-18 12:15] LABS: Glucose,Whole Blood 160 mg/dL (75-99)
[2019-09-18 12:40] LABS: Ferritin 919.7 ng/mL (10.0-291.0)
--- NOTE | 2019-09-18 14:22 | CDI ---
Documentation Clarification Form Date: 09/18/2019 02:06:21 PM From: Diamond HdzRíosSIRI loomis, CCDS Admit Date: 09/10/2019 11:47:00 AM Patient Name: Amarilis Olivares Visit Number: [id number] Discharge Date: ATTENTION: The Clinical Documentation Specialists (CDI) and [facility] Coding Staff appreciate your assistance in clarifying documentation. Please respond to the clarification below the line at the bottom and electronically sign. The CDI & [facility] Coding staff will review the response and follow-up if needed. Please note: Queries are made part of the Legal Health Record. If you have any questions, please contact the author of this message via ITS. Dr. Mirella Sethi: 63 yo female patient was admitted on 09/09 with Sepsis, Positive COVID 19, Pneumonia & Acute Hypoxic Respiratory Failure. History/Risk Factors: Hypertensive Heart Disease, Hyperlipidemia & a family history of Heart Disease & Asthma. Clinical Indicators: Presented to the ED via EMS with weakness & fatigue as a transfer from [facility]. Positive COVID at [place]. Repeat 09/09: POSITIVE. Vital Signs 09/09: T 98.7, P 93, R 24, BP 112/69, PO 73 RA - 90 15% nrb. Patient has been maintained on nrb with 15L nc weaned to 8Lnc. Respiratory Rates 09/09: 24 - 35; 09/10 & 09/11: 25 - 34; 09/12 & 09/13: 21 - 32; 09/14 - 09/16: 16 - 31; 09/17: 12 - 22 PO on NRB & 15Lnc: 75 - 93, Currently 97 on NRB & 8L nc. 09/17 CXR: Diffuse bilateral airspace disease correlate for pneumonia, ARDS or pulmonary edema. Treatment: O2 supplement as above, INH Albuterol, IV Reglan, IV fluid bolus 500 mls @ 999 mls/hr, IV fluid bolus 1,000 mls @ 999 mls/hr, IV Solumedrol (continued), IV Rocephin (discontinued 09/17), po Plaquenil, IV Lasix on 09/13. In order to accurately reflect the severity of condition, please indicate if the above clinical findings and treatment signify a respiratory condition, such as: Acute Respiratory Distress Syndrome Other, please specify Unable to determine (Last Revision: February 2017) No ARDS Dx : COVID 19 amado HUNTER
[2019-09-18 17:03] LABS: Glucose,Whole Blood 118 mg/dL (75-99)
--- NOTE | 2019-09-18 20:12 | P.PN ---
Subjective 63-year-old female is admitted for acute respiratory failure secondary to acute COVID 19 sepsis, patient is presently on 100% nonrebreather saturating at 88-90% chest x-ray showing mild worsening of right upper lobe pneumonia. Patient remains on IV fluids. Patient troponins are elevated because of possible Covid myocarditis I'll obtain a echocardiogram to see if there is any heart failure. All the acute phase reactants are elevated including d-dimer which is only minimally elevated. Patient is presently on hydroxychloroquine and the steroids which were ordered by pulmonary patient has highly elevated LDH. 09/12/2019 Patient remains in the ICU, she is awake and oriented and follow commands however she is short of breath and she still on 50 L oxygen via nonrebreather. Also patient has significant orthopnea with diminished breath sounds on both sides. She is significantly tachypneic 27-34 and saturating 88% and 15L Oxygen via nasal cannula/high flow She has leukocytosis of 18.6 K however she is on steroids. D-dimer is worse today from 0.4 up to 14.0. BMP is unremarkable. Liver enzymes mildly elevated but stable Patient is currently on Plaquenil, zinc, Rocephin, Solu-Medrol 30 mg twice daily, normal saline. Her Lovenox was increased to 80 mg twice a day Pulmonary the case. Also supervisor estimator and drafter evaluated the patient and recommended to continue with present therapy and monitor EKG 09/13/2019 Patient in the ICU. She is awake and oriented, she is dyspneic and orthopedic with dry cough for her comfort pneumonia with chest x-ray showing slight worsening by radiologist She remains on 15 L oxygen via nasal cannula over the last 2-3 days Excellence Leader recommended to continue with same treatment, no need for intervention for now. No change in the treatment today as she continue with Rocephin, Solu-Medrol 30 mg, Lovenox 80 mg and Plaquenil, her normal saline was lowered to 40 mL per hour WBC is 19.6 while she is on steroids, liver enzymes slightly elevated and stable 09/14/2019 Patient remains in the ICU oriented but still dyspneic with cough. WBC slightly less at 16.8 D-dimer still high at 12.15, LDH is elevated at 3785, ferritin is slightly down to 983, C-reactive protein is the main inflammatory markers and coming down to 25. Troponin down to 2.2. patient is written for convalescent immunoglobulin Patient was monitored closely by pulmonary/critical care team 09/15/2019 Patient seen in the ICU. She still have dyspnea. She saturating low 90s on 15 L oxygen via nonrebreather. Chest x-ray still showing infiltrates. Patient WBC is 14.6 K, liver enzymes slightly elevated. She still tachypneic. Patient remains on antibiotics ceftriaxone and zinc. Patient finished her Plaquenil. Continue Solu-Medrol 50 mg twice daily. She is a normal-sized heart with per hour. She is also on Lovenox 80 mg. Levemir is lowered to 8 units. 09/16/2019 Patient remains in the ICU, she is closely monitored for her pulmonary status for her covid-19 pneumonia. No much change in her situation. She still on 15 L oxygen nasal cannula with oxygen saturating 95%. WBC is slightly up To 16.4 K , sodium and electrolytes are within normal limits. Sugar is controlled. liver enzymes trending down slowly, bilirubin opening is normal. Inflammatory markers of ferritin, LDH and C reactive protein are still elevated. Patient remains on Rocephin, Solu-Medrol 30 mg, normal saline at 40, Lovenox 80 mg twice daily and Levemir 8 units 09/17/2019 Today patient was trying to wean her oxygen down, she quit saturating at 94 on 7 L for short while before it came up again to 15 L oxygen via nasal cannula during the evening time Patient is still tachypneic 21-25 She consented for convalescent plasma which is pending now Inflammatory markers 13 and LDH still elevated, C-reactive protein is normal Chest x-ray showing same changes and infiltrates 09/18/2019 Patient is awake, she still in the ICU saturating 96% on 15 L oxygen via nasal cannula, however she is not in great distress. She is tachypneic and tachycardic, WBC came down to 12.1 K, basic metabolic panic and glucose are stable Patient received convalescent plasma yesterday for her Covid pneumonia, Rocephin was stopped and patient was started on Lasix 40 mg daily Patient remains critical and monitored closely in the ICU Constitutional: Denied any fatigue denied any fever. Cardio vascular: denied any chest pain, palpitations Gastrointestinal denied any nausea vomiting Pulmonary: As mentioned in HPI Neurologic denied any new focal deficits Active Medications Generic Name Dose Route Start Last Admin Trade Name Freq PRN Reason Stop Dose Admin Acetaminophen 650 mg 09/10/19 09:36 09/13/19 23:44 Tylenol Tab PO 650 mg Q4HR PRN Administration Fever>101 Albuterol Sulfate 2 puff 09/10/19 14:00 09/18/19 19:25 Ventolin Hfa Inhaler INHALATION 2 puff RT-Q6H ABBEY Administration Albuterol Sulfate 2 puff 09/10/19 09:36 09/10/19 10:02 Ventolin Hfa Inhaler INHALATION 2 puff RT-Q6H PRN Administration Shortness Of Breath Or Wheezing Enoxaparin Sodium 80 mg 09/12/19 21:00 09/18/19 08:33 Lovenox SQ 80 mg BID ABBEY Administration Furosemide 40 mg 09/18/19 09:15 09/18/19 09:40 Lasix IV 40 mg DAILY ABBEY Administration Sodium Chloride 1,000 mls @ 40 mls/hr 09/10/19 12:00 09/17/19 22:00 Saline 0.9% IV 40 mls/hr .Q24H ABBEY Administration Insulin Aspart 0 unit 09/11/19 12:30 09/18/19 17:34 Novolog SQ Not Given ACHS [facility] Protocol Insulin Detemir 8 unit 09/15/19 21:00 09/17/19 20:04 Levemir SQ 8 unit HS ABBEY Administration Methylprednisolone Sodium Succinate 30 mg 09/10/19 21:00 09/18/19 08:30 Solu-Medrol IV 30 mg Q12HR ABBEY Administration Miscellaneous Information 1 each 09/11/19 05:55 Potassium Per Protocol MISCELLANE DAILY PRN Per Protocol Protocol Miscellaneous Information 1 each 09/12/19 06:40 Potassium Per Protocol MISCELLANE DAILY PRN Per Protocol Protocol Miscellaneous Information 1 each 09/13/19 06:41 Potassium Per Protocol MISCELLANE DAILY PRN Per Protocol Protocol Naloxone HCl 0.2 mg 09/10/19 11:47 Narcan IV Q2M PRN Opioid Reversal Ondansetron HCl 4 mg 09/12/19 02:18 09/17/19 16:47 Zofran IVP 4 mg Q6HR PRN Administration Nausea And Vomiting Pantoprazole Sodium 40 mg 09/10/19 12:00 09/18/19 08:32 Protonix IV 40 mg DAILY ABBEY Administration Zinc Sulfate 220 mg 09/11/19 09:00 09/18/19 08:33 Orazinc PO 220 mg DAILY ABBEY Administration Objective - Vital Signs Vital signs: Vital Signs Temp 98.0 F 09/18/19 08:00 Pulse 95 09/18/19 10:00 Resp 20 09/18/19 10:00 BP 139/74 09/18/19 10:00 Pulse Ox 90 L 09/18/19 10:00 Intake & Output 09/17/19 09/18/19 09/18/19 18:59 06:59 18:59 Intake Total 1490 649 250 Output Total 690 825 225 Balance 800 -176 25 Weight 85.3 kg 85.3 kg Intake: IV 530 440 200 Sodium Chloride 0.9% 1, 480 440 200 000 ml @ 40 mls/hr IV . Q24H ABBEY Rx#:[id number] cefTRIAXone 1 gm In 50 Sodium Chloride 0.9% 50 ml @ 100 mls/hr IVPB Q24HR ABBEY Rx#:[id number] Intake, IV Titration 50 Amount cefTRIAXone 1 gm In 50 Sodium Chloride 0.9% 50 ml @ 100 mls/hr IVPB Q24HR ABBEY Rx#:[id number] Oral 960 Blood Product 209 Ffp Pher Conval Covid19 209 Acda 1 Unit [id number] Output: Urine 690 825 225 Other: Voiding Method Indwelling Catheter Indwelling Catheter Indwelling Catheter # Bowel Movements 1 - Exam GENERAL: The patient is alert and oriented x3, not in any acute distress. Well developed, well nourished. HEENT: Pupils are round and equally reacting to light. EOMI. No scleral icterus. No conjunctival pallor. Normocephalic, atraumatic. No pharyngeal erythema. No thyromegaly. CARDIOVASCULAR: S1 and S2 present. No murmurs, rubs, or gallops. PULMONARY: Chest is clear to auscultation, no wheezing or crackles. ABDOMEN: Soft, nontender, nondistended, normoactive bowel sounds. No palpable organomegaly. MUSCULOSKELETAL: No joint swelling or deformity. EXTREMITIES: No cyanosis, clubbing, or pedal edema. NEUROLOGICAL: Gross neurological examination did not reveal any focal deficits. SKIN: No rashes. no petechiae. - Labs CBC & Chem 7: 09/18/19 05:44 09/18/19 05:44 Labs: Abnormal Lab Results - Last 24 Hours (Table) 09/17/19 09/17/19 09/17/19 Range/Units 04:56 11:43 16:51 WBC (3.8-10.6) k/uL Neutrophils # (1.3-7.7) k/uL Lymphocytes # (1.0-4.8) k/uL Carbon Dioxide (22-30) mmol/L Creatinine (0.52-1.04) mg/dL Glucose (74-99) mg/dL POC Glucose (mg/dL) 170 H 121 H (75-99) mg/dL Calcium (8.4-10.2) mg/dL Ferritin 1031.5 H (10.0-291.0) ng/mL AST (14-36) U/L ALT (4-34) U/L Alkaline Phosphatase (38-126) U/L Lactate Dehydrogenase (313-618) U/L Total Protein (6.3-8.2) g/dL Albumin (3.5-5.0) g/dL 09/17/19 09/18/19 09/18/19 Range/Units 20:15 05:44 05:44 WBC 12.1 H (3.8-10.6) k/uL Neutrophils # 10.5 H (1.3-7.7) k/uL Lymphocytes # 0.7 L (1.0-4.8) k/uL Carbon Dioxide 37 H (22-30) mmol/L Creatinine 0.44 L (0.52-1.04) mg/dL Glucose 141 H (74-99) mg/dL POC Glucose (mg/dL) 114 H (75-99) mg/dL Calcium 8.1 L (8.4-10.2) mg/dL Ferritin (10.0-291.0) ng/mL AST 61 H (14-36) U/L ALT 76 H (4-34) U/L Alkaline Phosphatase 191 H (38-126) U/L Lactate Dehydrogenase 2459 H (313-618) U/L Total Protein 5.8 L (6.3-8.2) g/dL Albumin 3.1 L (3.5-5.0) g/dL 09/18/19 Range/Units 06:39 WBC (3.8-10.6) k/uL Neutrophils # (1.3-7.7) k/uL Lymphocytes # (1.0-4.8) k/uL Carbon Dioxide (22-30) mmol/L Creatinine (0.52-1.04) mg/dL Glucose (74-99) mg/dL POC Glucose (mg/dL) 128 H (75-99) mg/dL Calcium (8.4-10.2) mg/dL Ferritin (10.0-291.0) ng/mL AST (14-36) U/L ALT (4-34) U/L Alkaline Phosphatase (38-126) U/L Lactate Dehydrogenase (313-618) U/L Total Protein (6.3-8.2) g/dL Albumin (3.5-5.0) g/dL Assessment and Plan Assessment: -Bilateral Covid pneumonia. Continue with antibiotics and pulmonary consult. Status post convalescent plasma -Acute hypoxic respiratory failure secondary to COVID 19 pneumonitis and continue with respiratory support, need to be closely monitored in ICU. Patient is presently on high flow nasal cannula oxygen. -Elevated troponin secondary to Covid myocarditis echocardiogram will be obtained, cardiology consultation is ordered -Mildly elevated liver enzymes -Elevated d-dimer, continue with Lovenox -Elevated inflammatory markers included 13, LDH and C-reactive protein, secondary to Covid -Hypotension : Improved -Hyperlipidemia DVT prophylaxis: Lovenox GI prophylaxis: Protonix Prognosis is guarded
[2019-09-18] MEDS: SODIUM CHLORIDE 0.9% 1,000 ML IV SCH (21:21)
[2019-09-18] MEDS: INSULIN DETEMIR (LEVEMIR) 100 UNIT/ML SYR SQ SCH (21:21)
[2019-09-18 21:30] LABS: Glucose,Whole Blood 132 mg/dL (75-99)
[2019-09-19] MEDS: ALBUTEROL HFA INHALER INHALATION SCH ×4 (02:13→20:13)
[2019-09-19 05:55] LABS: Basophils % (A) 0 %; Eosinophils # (A) 0.1 k/uL (0-0.7); Eosinophils % (A) 1 %; HCT 40.8 % (34.0-46.0); HGB 13.6 gm/dL (11.4-16.0); Lymphocytes # (A) 0.7 k/uL (1.0-4.8); Lymphocytes % (A) 8 %; MCH 30.6 pg (25.0-35.0); MCHC 33.2 g/dL (31.0-37.0); MCV 92.1 fL (80.0-100.0); Mean Platelet Volume 7.7; Monocytes # (A) 0.4 k/uL (0-1.0); Monocytes % (A) 4 %; Neutrophils # (A) 7.7 k/uL (1.3-7.7); Neutrophils % (A) 85 %; Platelet Count 306 k/uL (150-450); RBC 4.43 m/uL (3.80-5.40)
--- NOTE | 2019-09-19 06:31 | XR ---
EXAMINATION TYPE: XR chest 1V portable DATE OF EXAM: 09/19/2019 HISTORY: assess lungs. REFERENCE: Previous study dated 09/18/2019. FINDINGS: There is slight improvement in the aeration of both lungs. Heart size is largely obscured. I could not exclude a small left effusion. IMPRESSION: IMPROVED AERATION, BOTH LUNGS.
[2019-09-19 07:18] LABS: Glucose,Whole Blood 137 mg/dL (75-99)
[2019-09-19 07:30] LABS: ALT 99 U/L (4-34); AST 70 U/L (14-36); African American GFR (CKD) >90 (>60 ml/min/1.73 sqM); Albumin 3.3 g/dL (3.5-5.0); Alkaline Phosphatase 188 U/L (38-126); Anion Gap 6 mmol/L; Blood Urea Nitrogen 22 mg/dL (7-17); C Reactive Protein 5.9 mg/L (<10.0); Calcium 8.4 mg/dL (8.4-10.2); Carbon Dioxide 34 mmol/L (22-30); Chloride 98 mmol/L (98-107); Creatine Kinase 53 U/L (30-135); Glucose 192 mg/dL (74-99); Non-African American GFR(CKD) >90 (>60 ml/min/1.73 sqM); Potassium 4.1 mmol/L (3.5-5.1); Sodium 138 mmol/L (137-145); Total Bilirubin 0.8 mg/dL (0.2-1.3); Total Protein 5.9 g/dL (6.3-8.2)
[2019-09-19 07:38] LABS: LDH 2368 U/L (313-618)
[2019-09-19] MEDS: INSULIN ASPART (NovoLOG) 100 UNIT/ML VIAL SQ SCH ×4 (08:45→21:47)
[2019-09-19] MEDS: FUROSEMIDE 10 MG/ML 4 ML VIAL IV SCH (08:46)
[2019-09-19] MEDS: methylPREDNISolone SOD SUCCI 40 MG/ML 1 ML VIAL IV SCH ×2 (08:46→21:25)
[2019-09-19] MEDS: ENOXAPARIN 80 MG/0.8 ML SYRINGE SQ SCH ×2 (08:46→21:24)
[2019-09-19] MEDS: ZINC SULFATE 220 MG CAP PO SCH (08:47)
[2019-09-19] MEDS: PANTOPRAZOLE 40 MG/10 ML VIAL IV SCH (08:50)
--- NOTE | 2019-09-19 10:56 | P.PN ---
Subjective Progress Note Date: 09/19/19 63-year-old female patient of Dr. Jaison Friedman, with past medical history of hypertension, hyperlipidemia, nonsmoker, works in the dietary department at [employer], was accepted as a transfer from [employer] where she presented for evaluation of fatigue, nausea, weakness, occasional fe vers and low pulse ox levels. Patient reports symptoms present for about a week. Her coronavirus PCR test was positive on 09/06/2019, and again on 09/10/2019. No vomiting or diarrhea, no shortness of breath. Lab work showed white blood cell count 13.2, hemoglobin of 13.5, platelet count is 513, neutrophil count is elevated at 10.6, lymphocytes at 1.6, no d-dimer was drawn, sodium is 134, potassium is 3.7, chloride is 96, CO2 is 27, B1 is 33 creatinine 0.93, LDH is 2470, CRP is significantly elevated at 252, plasma lactic acid was 1.8. EKG shows normal sinus rhythm with evidence of possible inferior infarct of undetermined age, and T-wave inversion in the anterolateral leads. QT/QTc we re 388 and 482 respectively. Patient is afebrile, profound hypoxemia, with a pulse ox of 73% on 15 L high flow. Currently requiring 100% nonrebreather in addition to 15 L per high flow nasal cannula and a pulse ox is 98%. In addition patient was borderline hypotensive with pressures of 90 systolic, and patient was given 1/2 L in IV fluid boluses in the emergency department. Patient was transferred to the ICU for close monitoring. Chest x-ray showed scattered mixed interstitial and alveolar infiltrates throughout both lungs compatible with underlying pneumonia. Over the past 3 days, the patient has remained in the intensive care unit regarding her chronic 19 pneumonia. The patient showed some improvement in the inflammatory markers that were down trending including the ferritin, liver function tests and LDH. The patient's pleural Level Was at 0.18. The Patient Was Given Rocephin As an Empiric Antibiotic Coverage. The patient was given Plaquenil. The patient also was given IV Solu-Medrol. The patient also received 2 doses of tocilizumab . Note that the patient also had a significant elevation of troponin that peaked at 34.6. The EKG showed a normal sinus rhythm and some Q waves involving the inferior wall and the echocardiogram from 09/11/2019 showed normal ejection fraction of 55-60% and moderate degree of concentric left ventricular hypertrophy. Cardiology was consulted. Medical treatment was suggested. The patient remains therapeutic dose of Lovenox 80 mg subcu every 12 hours, IV Solu-Medrol 30 mg every 12 hours and Tequin for now. The patient is also on IV fluids with normal state rate of 40 cc an hour. Clinically the patient is still the same. No major change in her condition compared to yesterday. Chest x-ray findings are essentially unchanged. Remains on IV Solu-Medrol. Remains on empiric antibiotic coverage with Rocephin. Remains on zinc sulfate and completing the course of Plaquenil that was started on 09/11/2019. 700% nonrebreather facemask on today's evaluation. Still on 15 L high flow oxygen. Being considered for convalescent immunoglobulin On today's evaluation of 09/15/2019, the patient's condition essentially unchanged. The patient remains in the 100% nonrebreather facemask addition to 15 L of oxygen by nasal cannula. Chest x-ray findings remains essentially unchanged diffuse bilateral pulmonary infiltrates, unchanged compared to yesterday. Inflammatory markers continue to be quite elevated including ferritin, LDH, and there has been some improvement in the d-dimer over the course of treatment. The patient remains on IV fluids with normal state rate of 40 mL an hour. The patient remains on IV Rocephin. The patient remains on Plaquenil. The patient remains on IV Solu Medrol. She has no altered mentation. She is feeling weak. No significant cough or sputum production. No chest pain. Her reserve is minimal at the patient desaturates easily with limited amount of activity and for that reason she is been kept in bed for now. The white cell count is 14.6. Platelet count is at 462. The patient's LDH level was 3638. The patient's C-reactive protein is 15.6. The patient's ferritin level is 1402. On today's evaluation of 09/16/2019 the patient is being seen in follow-up in the intensive care unit. She continues to be an acute hypoxic respiratory failure related to Covid 19 related pneumonia. The patient remains on the percent nonrebreather facemask in addition to 15 L of oxygen by nasal cannula. Her pulse ox is ranging between 91-92% to chest x-ray showing diffuse bilateral pulmonary infiltrates unchanged compared to yesterday. Her white cell count 16.4. She is having some limited cough. No significant sputum production. No hemoptysis. No pleurisy. She is tolerating her diet. She is taking Glucerna shakes at the bedside. In terms of the rest of the inflammatory markers, the patient's LDH level is still elevated at 3660. LFTs are also abnormal with a AST of 88, ALT of 71 and a bilirubin of 0.7 with an alkaline phosphatase of 199. CRP is at 11.4. The calcium level is at 7.8. Ferritin level is at 1036. The serum bicarbs at 31. BUN is 18 with a creatinine of 0.4. Remains on Lovenox. Remains on Rocephin. Remains on IV Solu-Medrol. On 09/17/2019, the patient is feeling better. She is able to sit up on a chair. She is tolerating her diet. She is trying to eat more. She is on 100% nonrebreather facemask. Her chest x-ray showing diffuse breath and pulmonary infiltrates. She is also utilizing 15 L of oxygen nasal cannula along with the 100% nonrebreather and is possible that we should be able to wean her off the nasal cannula. No chest pain. No altered mentation. No cough or sputum production. No nausea. No vomiting. No diarrhea. No abdominal pain. Paperwork for convalescent immunoglobulins has been sent. D-dimer is slowly improving. LDH still elevated. Patient remains on his Lovenox. The patient remains on IV Solu-Medrol. On 09/18/2019, the patient's condition essentially unchanged. Remains on 100% nonrebreather facemask. The high flow oxygen was cut down from 15 L note date liters. Chest x-ray still showing diffuse breath and pulmonary infiltrates unchanged compared to yesterday. The patient received a dose of convalescent plasma yesterday regarding her Covid 19 related pneumonia. She remains on IV Solu-Medrol. LDH is slowly improving. She remains on Lovenox therapeutic dose. no chest pain. No nausea. No vomiting. No altered mentation. She is reporting some increased edema and for that reason she'll be given a dose of Lasix 40 mg IV push. She has also completed a seven-day course of Rocephin and this will be also discontinued. No other significant issues for now. She is a bit bored and tired being in the hospital with the same condition. No other new events otherwise for now. The patient is resting comfortably in bed and she is able to sit up on a recliner. On 09/19/2019, the patient is improved in terms of her oxygenation. She is currently on a pressure nonrebreather facemask and the nasal cannula has been discontinued. Pulse ox is and order of 94-95%. She feels less short of breath . No cough or sputum production. No nausea. No vomiting. No diarrhea. No fever. No chills. No other complaints otherwise. She has a Mariee catheter in place. The LDH level is down to 2368. LFTs are slightly abnormal and they have been persistently abnormal for the past 1 week. No major change in the AST and ALP. D-dimer is down to 6.43. Rest of the blood work and electrodes are all within normal limits. Objective - Vital Signs Vital signs: Vital Signs Temp 98.1 F 09/19/19 08:00 Pulse 82 09/19/19 09:00 Resp 16 09/19/19 09:00 BP 135/92 09/19/19 09:00 Pulse Ox 92 L 09/19/19 09:00 Intake & Output 09/18/19 09/19/19 09/19/19 18:59 06:59 18:59 Intake Total 610 440 120 Output Total 2655 631 485 Balance -2045 -191 -365 Weight 80 kg Intake: IV 560 440 120 Sodium Chloride 0.9% 1, 560 440 120 000 ml @ 40 mls/hr IV . Q24H ABBEY Rx#:[id number] Intake, IV Titration 50 Amount cefTRIAXone 1 gm In 50 Sodium Chloride 0.9% 50 ml @ 100 mls/hr IVPB Q24HR ABBEY Rx#:[id number] Output: Urine 2655 631 485 Other: Voiding Method Indwelling Catheter Indwelling Catheter - Exam GENERAL EXAM: Alert, very pleasant, 63-year-old female patient, currently on a partial nonrebreather facemask HEAD: Normocephalic/atraumatic. EYES: Normal reaction of pupils, equal size. Conjunctiva pink, sclera white. NOSE: Clear with pink turbinates. THROAT: No erythema or exudates. NECK: No masses, no JVD, no thyroid enlargement, no adenopathy. CHEST: No chest wall deformity. Symmetrical expansion. LUNGS: Equal air entry with few scattered rhonchi, crackles in the bases. CVS: Regular rate and rhythm, normal S1 and S2, no gallops, no murmurs, no rubs ABDOMEN: Soft, nontender. No hepatosplenomegaly, normal bowel sounds, no guarding or rigidity. EXTREMITIES: No clubbing, no edema, no cyanosis, 2+ pulses and upper and lower extremities. MUSCULOSKELETAL: Muscle strength and tone normal. SPINE: No scoliosis or deformity SKIN: No rashes CENTRAL NERVOUS SYSTEM: No focal deficits, tone is normal in all 4 extremities. PSYCHIATRIC: Alert and oriented -3. Appropriate affect. Intact judgment and insight. - Labs CBC & Chem 7: 09/19/19 04:41 09/19/19 04:41 Labs: Abnormal Lab Results - Last 24 Hours (Table) 09/18/19 09/18/19 09/18/19 Range/Units 05:44 12:13 17:01 Lymphocytes # (1.0-4.8) k/uL D-Dimer (<0.60) mg/L FEU Carbon Dioxide (22-30) mmol/L BUN (7-17) mg/dL Creatinine (0.52-1.04) mg/dL Glucose (74-99) mg/dL POC Glucose (mg/dL) 160 H 118 H (75-99) mg/dL Ferritin 919.7 H (10.0-291.0) ng/mL AST (14-36) U/L ALT (4-34) U/L Alkaline Phosphatase (38-126) U/L Lactate Dehydrogenase (313-618) U/L Total Protein (6.3-8.2) g/dL Albumin (3.5-5.0) g/dL 09/18/19 09/19/19 09/19/19 Range/Units 21:29 04:41 04:41 Lymphocytes # 0.7 L (1.0-4.8) k/uL D-Dimer (<0.60) mg/L FEU Carbon Dioxide 34 H (22-30) mmol/L BUN 22 H (7-17) mg/dL Creatinine 0.39 L (0.52-1.04) mg/dL Glucose 192 H (74-99) mg/dL POC Glucose (mg/dL) 132 H (75-99) mg/dL Ferritin (10.0-291.0) ng/mL AST 70 H (14-36) U/L ALT 99 H (4-34) U/L Alkaline Phosphatase 188 H (38-126) U/L Lactate Dehydrogenase 2368 H (313-618) U/L Total Protein 5.9 L (6.3-8.2) g/dL Albumin 3.3 L (3.5-5.0) g/dL 09/19/19 09/19/19 Range/Units 04:41 07:16 Lymphocytes # (1.0-4.8) k/uL D-Dimer 6.43 H (<0.60) mg/L FEU Carbon Dioxide (22-30) mmol/L BUN (7-17) mg/dL Creatinine (0.52-1.04) mg/dL Glucose (74-99) mg/dL POC Glucose (mg/dL) 137 H (75-99) mg/dL Ferritin (10.0-291.0) ng/mL AST (14-36) U/L ALT (4-34) U/L Alkaline Phosphatase (38-126) U/L Lactate Dehydrogenase (313-618) U/L Total Protein (6.3-8.2) g/dL Albumin (3.5-5.0) g/dL Assessment and Plan Plan: 1. Acute hypoxemic respiratory failure related to acute COVID 19 pneumonia and the patient developed diffuse bilateral pulmonary infiltrates with areas of consolidation scattered throughout the lung mcbride bilaterally. The chest x-ray is still showing diffuse bilateral pulmonary infiltrates. The patient clinically is improved. Patient received convalescent plasma and the patient is currently on a partial nonrebreather at 70% FiO2. This can be further weaned down. We'll decide on the weaned according the patient's pulse ox and symptoms. Meanwhile, we'll monitor the inflammatory markers and the LDH and a D-dimer test remain elevated. No fever. No hemodynamic instability. 2. Acute COVID 19 infection with symptoms of profound hypoxemia, weakness, fatigue, intermittent fevers, nausea for one week prior to presentation, patient had a COVID 19 PCR test positive on 2 occasions on 09/06/2019, and again on 09/10/2019 3. Sepsis related to viral pneumonia, although possibility of bacterial pneumonia is not entirely excluded. Pro-calcitonin level is 0.18 and the patient is empirically on IV Rocephin, the patient completed a seven-day course of Rocephin and this will be discontinued. 4 Positive troponin, possibly related to acute Covid 19 related myocarditis, troponins are improving 5 Elevated LDH, CRP related to COVID 19 infection, levels are still elevated especially LDH, CRP is improving, d-dimer is improving although still elevated. 6. History of hypertension 7. History of hyperlipidemia 8. Never smoker 9. No history of EtOH use Plan No major changes on chest x-ray findings. Oxidation is slightly improved. We'll try to lower down to either a simple facemask or a oxygen by nasal cannula starting with 15 L. Respiratory therapy was instructed and will do this sue rogers. Continue Lovenox therapeutic dose Continued IV Solu Medrol 30 mg every 12 hours Completed the course of Plaquenil and the patient received a dose of convalescent immunoglobulins. Continue zinc sulfate Wean the FiO2 down to 8 L and gradually wean down the nasal cannula to maintain a saturation above 90% Monitor the inflammatory markers, values remain elevated Discontinue the Mariee catheter Advance diet We'll continue to follow and the patient will be kept in ICU.
[2019-09-19 12:18] LABS: Glucose,Whole Blood 156 mg/dL (75-99)
[2019-09-19 17:22] LABS: Glucose,Whole Blood 131 mg/dL (75-99)
[2019-09-19] MEDS: SODIUM CHLORIDE 0.9% 1,000 ML IV SCH (21:26)
[2019-09-19 21:33] LABS: Glucose,Whole Blood 144 mg/dL (75-99)
[2019-09-19] MEDS: INSULIN DETEMIR (LEVEMIR) 100 UNIT/ML SYR SQ SCH (21:48)
--- NOTE | 2019-09-19 22:50 | P.PN ---
Subjective 63-year-old female is admitted for acute respiratory failure secondary to acute COVID 19 sepsis, patient is presently on 100% nonrebreather saturating at 88-90% chest x-ray showing mild worsening of right upper lobe pneumonia. Patient remains on IV fluids. Patient troponins are elevated because of possible Covid myocarditis I'll obtain a echocardiogram to see if there is any heart failure. All the acute phase reactants are elevated including d-dimer which is only minimally elevated. Patient is presently on hydroxychloroquine and the steroids which were ordered by pulmonary patient has highly elevated LDH. 09/12/2019 Patient remains in the ICU, she is awake and oriented and follow commands however she is short of breath and she still on 50 L oxygen via nonrebreather. Also patient has significant orthopnea with diminished breath sounds on both sides. She is significantly tachypneic 27-34 and saturating 88% and 15L Oxygen via nasal cannula/high flow She has leukocytosis of 18.6 K however she is on steroids. D-dimer is worse today from 0.4 up to 14.0. BMP is unremarkable. Liver enzymes mildly elevated but stable Patient is currently on Plaquenil, zinc, Rocephin, Solu-Medrol 30 mg twice daily, normal saline. Her Lovenox was increased to 80 mg twice a day Pulmonary the case. Also facility manager histology evaluated the patient and recommended to continue with present therapy and monitor EKG 09/13/2019 Patient in the ICU. She is awake and oriented, she is dyspneic and orthopedic with dry cough for her comfort pneumonia with chest x-ray showing slight worsening by radiologist She remains on 15 L oxygen via nasal cannula over the last 2-3 days Change Room Attendant recommended to continue with same treatment, no need for intervention for now. No change in the treatment today as she continue with Rocephin, Solu-Medrol 30 mg, Lovenox 80 mg and Plaquenil, her normal saline was lowered to 40 mL per hour WBC is 19.6 while she is on steroids, liver enzymes slightly elevated and stable 09/14/2019 Patient remains in the ICU oriented but still dyspneic with cough. WBC slightly less at 16.8 D-dimer still high at 12.15, LDH is elevated at 3785, ferritin is slightly down to 983, C-reactive protein is the main inflammatory markers and coming down to 25. Troponin down to 2.2. patient is written for convalescent immunoglobulin Patient was monitored closely by pulmonary/critical care team 09/15/2019 Patient seen in the ICU. She still have dyspnea. She saturating low 90s on 15 L oxygen via nonrebreather. Chest x-ray still showing infiltrates. Patient WBC is 14.6 K, liver enzymes slightly elevated. She still tachypneic. Patient remains on antibiotics ceftriaxone and zinc. Patient finished her Plaquenil. Continue Solu-Medrol 50 mg twice daily. She is a normal-sized heart with per hour. She is also on Lovenox 80 mg. Levemir is lowered to 8 units. 09/16/2019 Patient remains in the ICU, she is closely monitored for her pulmonary status for her covid-19 pneumonia. No much change in her situation. She still on 15 L oxygen nasal cannula with oxygen saturating 95%. WBC is slightly up To 16.4 K , sodium and electrolytes are within normal limits. Sugar is controlled. liver enzymes trending down slowly, bilirubin opening is normal. Inflammatory markers of ferritin, LDH and C reactive protein are still elevated. Patient remains on Rocephin, Solu-Medrol 30 mg, normal saline at 40, Lovenox 80 mg twice daily and Levemir 8 units 09/17/2019 Today patient was trying to wean her oxygen down, she quit saturating at 94 on 7 L for short while before it came up again to 15 L oxygen via nasal cannula during the evening time Patient is still tachypneic 21-25 She consented for convalescent plasma which is pending now Inflammatory markers 13 and LDH still elevated, C-reactive protein is normal Chest x-ray showing same changes and infiltrates 09/18/2019 Patient is awake, she still in the ICU saturating 96% on 15 L oxygen via nasal cannula, however she is not in great distress. She is tachypneic and tachycardic, WBC came down to 12.1 K, basic metabolic panic and glucose are stable Patient received convalescent plasma yesterday for her Covid pneumonia, Rocephin was stopped and patient was started on Lasix 40 mg daily Patient remains critical and monitored closely in the ICU 09/19/2019 Patient is in the ICU, sedated and intubated with mild respiratory distress however patient looks improvement as her oxygen requirement is lowered to 6 L via nasal cannula while gaping saturation above 90%, her chest x-ray also shows improvement in aeriation, she is slightly tachycardic, labs and sugar stable, inflammatory markers still elevated. Patient remains on Solu-Medrol 30 mg, normocephalic 40 mg, Lasix IV 40 mg daily and Levemir 80 mg twice a day. Constitutional: Denied any fatigue denied any fever. Cardio vascular: denied any chest pain, palpitations Gastrointestinal denied any nausea vomiting Pulmonary: As mentioned in HPI Neurologic denied any new focal deficits Active Medications Generic Name Dose Route Start Last Admin Trade Name Freq PRN Reason Stop Dose Admin Acetaminophen 650 mg 09/10/19 09:36 09/13/19 23:44 Tylenol Tab PO 650 mg Q4HR PRN Administration Fever>101 Albuterol Sulfate 2 puff 09/10/19 14:00 09/19/19 20:13 Ventolin Hfa Inhaler INHALATION 2 puff RT-Q6H ABBEY Administration Albuterol Sulfate 2 puff 09/10/19 09:36 09/10/19 10:02 Ventolin Hfa Inhaler INHALATION 2 puff RT-Q6H PRN Administration Shortness Of Breath Or Wheezing Enoxaparin Sodium 80 mg 09/12/19 21:00 09/19/19 21:24 Lovenox SQ 80 mg BID ABBEY Administration Furosemide 40 mg 09/18/19 09:15 09/19/19 08:46 Lasix IV 40 mg DAILY ABBEY Administration Sodium Chloride 1,000 mls @ 40 mls/hr 09/10/19 12:00 09/19/19 21:26 Saline 0.9% IV 40 mls/hr .Q24H ABBEY Administration Insulin Aspart 0 unit 09/11/19 12:30 09/19/19 21:47 Novolog SQ 2 unit ACHS ABBEY Administration Protocol Insulin Detemir 8 unit 09/15/19 21:00 09/19/19 21:48 Levemir SQ 8 unit HS ABBEY Administration Methylprednisolone Sodium Succinate 30 mg 09/10/19 21:00 09/19/19 21:25 Solu-Medrol IV 30 mg Q12HR ABBEY Administration Miscellaneous Information 1 each 09/13/19 06:41 Potassium Per Protocol MISCELLANE DAILY PRN Per Protocol Protocol Naloxone HCl 0.2 mg 09/10/19 11:47 Narcan IV Q2M PRN Opioid Reversal Ondansetron HCl 4 mg 09/12/19 02:18 09/17/19 16:47 Zofran IVP 4 mg Q6HR PRN Administration Nausea And Vomiting Pantoprazole Sodium 40 mg 09/20/19 09:00 Protonix PO DAILY ABBEY Zinc Sulfate 220 mg 09/11/19 09:00 09/19/19 08:47 Orazinc PO 220 mg DAILY ABBEY Administration Objective - Vital Signs Vital signs: Vital Signs Temp 98.2 F 09/19/19 16:00 Pulse 118 H 09/19/19 19:00 Resp 20 09/19/19 19:00 BP 105/95 09/19/19 19:00 Pulse Ox 94 L 09/19/19 19:00 Intake & Output 09/19/19 09/19/19 09/20/19 06:59 18:59 06:59 Intake Total 440 730 Output Total 631 2245 Balance -191 -1515 Intake: IV 440 480 Sodium Chloride 0.9% 1, 440 480 000 ml @ 40 mls/hr IV . Q24H ABBEY Rx#:[id number] Oral 250 Output: Urine 631 2245 Other: Voiding Method Indwelling Catheter Indwelling Catheter - Exam GENERAL: The patient is alert and oriented x3, not in any acute distress. Well developed, well nourished. HEENT: Pupils are round and equally reacting to light. EOMI. No scleral icterus. No conjunctival pallor. Normocephalic, atraumatic. No pharyngeal erythema. No thyromegaly. CARDIOVASCULAR: S1 and S2 present. No murmurs, rubs, or gallops. PULMONARY: Chest is clear to auscultation, no wheezing or crackles. ABDOMEN: Soft, nontender, nondistended, normoactive bowel sounds. No palpable organomegaly. MUSCULOSKELETAL: No joint swelling or deformity. EXTREMITIES: No cyanosis, clubbing, or pedal edema. NEUROLOGICAL: Gross neurological examination did not reveal any focal deficits. SKIN: No rashes. no petechiae. - Labs CBC & Chem 7: 09/19/19 04:41 09/19/19 04:41 Labs: Abnormal Lab Results - Last 24 Hours (Table) 09/18/19 09/19/19 09/19/19 Range/Units 21:29 04:41 04:41 Lymphocytes # 0.7 L (1.0-4.8) k/uL D-Dimer (<0.60) mg/L FEU Carbon Dioxide 34 H (22-30) mmol/L BUN 22 H (7-17) mg/dL Creatinine 0.39 L (0.52-1.04) mg/dL Glucose 192 H (74-99) mg/dL POC Glucose (mg/dL) 132 H (75-99) mg/dL Ferritin 1277.0 H (10.0-291.0) ng/mL AST 70 H (14-36) U/L ALT 99 H (4-34) U/L Alkaline Phosphatase 188 H (38-126) U/L Lactate Dehydrogenase 2368 H (313-618) U/L Total Protein 5.9 L (6.3-8.2) g/dL Albumin 3.3 L (3.5-5.0) g/dL 09/19/19 09/19/19 09/19/19 Range/Units 04:41 07:16 12:16 Lymphocytes # (1.0-4.8) k/uL D-Dimer 6.43 H (<0.60) mg/L FEU Carbon Dioxide (22-30) mmol/L BUN (7-17) mg/dL Creatinine (0.52-1.04) mg/dL Glucose (74-99) mg/dL POC Glucose (mg/dL) 137 H 156 H (75-99) mg/dL Ferritin (10.0-291.0) ng/mL AST (14-36) U/L ALT (4-34) U/L Alkaline Phosphatase (38-126) U/L Lactate Dehydrogenase (313-618) U/L Total Protein (6.3-8.2) g/dL Albumin (3.5-5.0) g/dL 09/19/19 Range/Units 17:20 Lymphocytes # (1.0-4.8) k/uL D-Dimer (<0.60) mg/L FEU Carbon Dioxide (22-30) mmol/L BUN (7-17) mg/dL Creatinine (0.52-1.04) mg/dL Glucose (74-99) mg/dL POC Glucose (mg/dL) 131 H (75-99) mg/dL Ferritin (10.0-291.0) ng/mL AST (14-36) U/L ALT (4-34) U/L Alkaline Phosphatase (38-126) U/L Lactate Dehydrogenase (313-618) U/L Total Protein (6.3-8.2) g/dL Albumin (3.5-5.0) g/dL Assessment and Plan Assessment: -Bilateral Covid pneumonia. Continue with antibiotics and pulmonary consult. Status post convalescent plasma -Acute hypoxic respiratory failure secondary to COVID 19 pneumonitis and continue with respiratory support, need to be closely monitored in ICU. Patient is presently on high flow nasal cannula oxygen. -Elevated troponin secondary to Covid myocarditis echocardiogram will be obtained, cardiology consultation is ordered -Mildly elevated liver enzymes -Elevated d-dimer, continue with Lovenox -Elevated inflammatory markers included 13, LDH and C-reactive protein, secon deb to Covid -Hypotension : Improved -Hyperlipidemia DVT prophylaxis: Lovenox GI prophylaxis: Protonix Prognosis is guarded
[2019-09-20] MEDS: ALBUTEROL HFA INHALER INHALATION SCH ×4 (02:42→19:44)
[2019-09-20 05:23] LABS: Basophils % (A) 0 %; Eosinophils # (A) 0.2 k/uL (0-0.7); Eosinophils % (A) 2 %; HCT 41.8 % (34.0-46.0); HGB 13.9 gm/dL (11.4-16.0); Lymphocytes # (A) 0.9 k/uL (1.0-4.8); Lymphocytes % (A) 10 %; MCH 30.5 pg (25.0-35.0); MCHC 33.2 g/dL (31.0-37.0); Mean Platelet Volume 7.6; Monocytes # (A) 0.5 k/uL (0-1.0); Monocytes % (A) 6 %; Neutrophils # (A) 7.6 k/uL (1.3-7.7); Neutrophils % (A) 82 %; Platelet Count 316 k/uL (150-450); RBC 4.55 m/uL (3.80-5.40); RDW 13.9 % (11.5-15.5); WBC 9.3 k/uL (3.8-10.6)
[2019-09-20 05:40] LABS: ALT 107 U/L (4-34); AST 59 U/L (14-36); African American GFR (CKD) >90 (>60 ml/min/1.73 sqM); Albumin 3.5 g/dL (3.5-5.0); Alkaline Phosphatase 175 U/L (38-126); Anion Gap 5 mmol/L; Blood Urea Nitrogen 23 mg/dL (7-17); C Reactive Protein <5.0 mg/L (<10.0); Calcium 8.8 mg/dL (8.4-10.2); Carbon Dioxide 36 mmol/L (22-30); Chloride 95 mmol/L (98-107); Creatine Kinase 36 U/L (30-135); Glucose 219 mg/dL (74-99); LDH 1892 U/L (313-618); Non-African American GFR(CKD) >90 (>60 ml/min/1.73 sqM); Potassium 3.9 mmol/L (3.5-5.1); Sodium 136 mmol/L (137-145); Total Bilirubin 0.9 mg/dL (0.2-1.3); Total Protein 6.2 g/dL (6.3-8.2)
--- NOTE | 2019-09-20 06:37 | XR ---
EXAMINATION TYPE: XR chest 1V portable DATE OF EXAM: 09/20/2019 HISTORY: assess lungs. REFERENCE: Previous study dated 09/19/2019. FINDINGS: There continues to be patchy, bilateral airspace disease. This has perhaps improved slightl y from previous. The heart is not enlarged. There is blunting of the left CP angle and I cannot exclu de a small effusion. IMPRESSION: OPTIMISTICALLY, THERE MAY BE SOME SLIGHT IMPROVEMENT IN THE APPEARANCE OF THE CHEST.
[2019-09-20 06:59] LABS: Glucose,Whole Blood 173 mg/dL (75-99)
[2019-09-20] MEDS: INSULIN ASPART (NovoLOG) 100 UNIT/ML VIAL SQ SCH ×4 (07:01→22:21)
[2019-09-20] MEDS ORDERED: ALPRAZolam 0.5 MG TAB PO PRN (08:31)
[2019-09-20] MEDS ORDERED: ONDANSETRON 4 MG TAB PO PRN (08:31)
[2019-09-20] MEDS: PANTOPRAZOLE 40 MG TABLET PO SCH (08:38)
[2019-09-20] MEDS: ZINC SULFATE 220 MG CAP PO SCH (08:38)
[2019-09-20] MEDS: ENOXAPARIN 80 MG/0.8 ML SYRINGE SQ SCH ×2 (08:38→22:24)
[2019-09-20] MEDS: CITALOPRAM HYDROBROMIDE 20 MG TAB PO SCH (09:31)
[2019-09-20] MEDS: FENOFIBRATE 160 MG TAB PO SCH (09:31)
[2019-09-20] MEDS: LOSARTAN-HCTZ 50-12.5 MG 1 EACH TAB PO SCH (09:32)
[2019-09-20] MEDS: predniSONE 10 MG TAB PO SCH (09:33)
[2019-09-20] MEDS: METOPROLOL SUCCINATE (ER) 25 MG TAB.ER.24H PO SCH (09:33)
[2019-09-20] MEDS: NIACIN TR 500 MG CAPLET PO SCH (09:33)
--- NOTE | 2019-09-20 11:32 | P.PN ---
Subjective Progress Note Date: 09/20/19 63-year-old female patient of Dr. Jaison Friedman, with past medical history of hypertension, hyperlipidemia, nonsmoker, works in the dietary department at [employer], was accepted as a transfer from [employer] where she presented for evaluation of fatigue, nausea, weakness, occasional fe vers and low pulse ox levels. Patient reports symptoms present for about a week. Her coronavirus PCR test was positive on 09/06/2019, and again on 09/10/2019. No vomiting or diarrhea, no shortness of breath. Lab work showed white blood cell count 13.2, hemoglobin of 13.5, platelet count is 513, neutrophil count is elevated at 10.6, lymphocytes at 1.6, no d-dimer was drawn, sodium is 134, potassium is 3.7, chloride is 96, CO2 is 27, B1 is 33 creatinine 0.93, LDH is 2470, CRP is significantly elevated at 252, plasma lactic acid was 1.8. EKG shows normal sinus rhythm with evidence of possible inferior infarct of undetermined age, and T-wave inversion in the anterolateral leads. QT/QTc we re 388 and 482 respectively. Patient is afebrile, profound hypoxemia, with a pulse ox of 73% on 15 L high flow. Currently requiring 100% nonrebreather in addition to 15 L per high flow nasal cannula and a pulse ox is 98%. In addition patient was borderline hypotensive with pressures of 90 systolic, and patient was given 1/2 L in IV fluid boluses in the emergency department. Patient was transferred to the ICU for close monitoring. Chest x-ray showed scattered mixed interstitial and alveolar infiltrates throughout both lungs compatible with underlying pneumonia. Over the past 3 days, the patient has remained in the intensive care unit regarding her chronic 19 pneumonia. The patient showed some improvement in the inflammatory markers that were down trending including the ferritin, liver function tests and LDH. The patient's pleural Level Was at 0.18. The Patient Was Given Rocephin As an Empiric Antibiotic Coverage. The patient was given Plaquenil. The patient also was given IV Solu-Medrol. The patient also received 2 doses of tocilizumab . Note that the patient also had a significant elevation of troponin that peaked at 34.6. The EKG showed a normal sinus rhythm and some Q waves involving the inferior wall and the echocardiogram from 09/11/2019 showed normal ejection fraction of 55-60% and moderate degree of concentric left ventricular hypertrophy. Cardiology was consulted. Medical treatment was suggested. The patient remains therapeutic dose of Lovenox 80 mg subcu every 12 hours, IV Solu-Medrol 30 mg every 12 hours and Tequin for now. The patient is also on IV fluids with normal state rate of 40 cc an hour. Clinically the patient is still the same. No major change in her condition compared to yesterday. Chest x-ray findings are essentially unchanged. Remains on IV Solu-Medrol. Remains on empiric antibiotic coverage with Rocephin. Remains on zinc sulfate and completing the course of Plaquenil that was started on 09/11/2019. 700% nonrebreather facemask on today's evaluation. Still on 15 L high flow oxygen. Being considered for convalescent immunoglobulin On today's evaluation of 09/15/2019, the patient's condition essentially unchanged. The patient remains in the 100% nonrebreather facemask addition to 15 L of oxygen by nasal cannula. Chest x-ray findings remains essentially unchanged diffuse bilateral pulmonary infiltrates, unchanged compared to yesterday. Inflammatory markers continue to be quite elevated including ferritin, LDH, and there has been some improvement in the d-dimer over the course of treatment. The patient remains on IV fluids with normal state rate of 40 mL an hour. The patient remains on IV Rocephin. The patient remains on Plaquenil. The patient remains on IV Solu Medrol. She has no altered mentation. She is feeling weak. No significant cough or sputum production. No chest pain. Her reserve is minimal at the patient desaturates easily with limited amount of activity and for that reason she is been kept in bed for now. The white cell count is 14.6. Platelet count is at 462. The patient's LDH level was 3638. The patient's C-reactive protein is 15.6. The patient's ferritin level is 1402. On today's evaluation of 09/16/2019 the patient is being seen in follow-up in the intensive care unit. She continues to be an acute hypoxic respiratory failure related to Covid 19 related pneumonia. The patient remains on the percent nonrebreather facemask in addition to 15 L of oxygen by nasal cannula. Her pulse ox is ranging between 91-92% to chest x-ray showing diffuse bilateral pulmonary infiltrates unchanged compared to yesterday. Her white cell count 16.4. She is having some limited cough. No significant sputum production. No hemoptysis. No pleurisy. She is tolerating her diet. She is taking Glucerna shakes at the bedside. In terms of the rest of the inflammatory markers, the patient's LDH level is still elevated at 3660. LFTs are also abnormal with a AST of 88, ALT of 71 and a bilirubin of 0.7 with an alkaline phosphatase of 199. CRP is at 11.4. The calcium level is at 7.8. Ferritin level is at 1036. The serum bicarbs at 31. BUN is 18 with a creatinine of 0.4. Remains on Lovenox. Remains on Rocephin. Remains on IV Solu-Medrol. On 09/17/2019, the patient is feeling better. She is able to sit up on a chair. She is tolerating her diet. She is trying to eat more. She is on 100% nonrebreather facemask. Her chest x-ray showing diffuse breath and pulmonary infiltrates. She is also utilizing 15 L of oxygen nasal cannula along with the 100% nonrebreather and is possible that we should be able to wean her off the nasal cannula. No chest pain. No altered mentation. No cough or sputum production. No nausea. No vomiting. No diarrhea. No abdominal pain. Paperwork for convalescent immunoglobulins has been sent. D-dimer is slowly improving. LDH still elevated. Patient remains on his Lovenox. The patient remains on IV Solu-Medrol. On 09/18/2019, the patient's condition essentially unchanged. Remains on 100% nonrebreather facemask. The high flow oxygen was cut down from 15 L note date liters. Chest x-ray still showing diffuse breath and pulmonary infiltrates unchanged compared to yesterday. The patient received a dose of convalescent plasma yesterday regarding her Covid 19 related pneumonia. She remains on IV Solu-Medrol. LDH is slowly improving. She remains on Lovenox therapeutic dose. no chest pain. No nausea. No vomiting. No altered mentation. She is reporting some increased edema and for that reason she'll be given a dose of Lasix 40 mg IV push. She has also completed a seven-day course of Rocephin and this will be also discontinued. No other significant issues for now. She is a bit bored and tired being in the hospital with the same condition. No other new events otherwise for now. The patient is resting comfortably in bed and she is able to sit up on a recliner. On 09/19/2019, the patient is improved in terms of her oxygenation. She is currently on a pressure nonrebreather facemask and the nasal cannula has been discontinued. Pulse ox is and order of 94-95%. She feels less short of breath . No cough or sputum production. No nausea. No vomiting. No diarrhea. No fever. No chills. No other complaints otherwise. She has a Mariee catheter in place. The LDH level is down to 2368. LFTs are slightly abnormal and they have been persistently abnormal for the past 1 week. No major change in the AST and ALP. D-dimer is down to 6.43. Rest of the blood work and electrodes are all within normal limits. On 09/20/2019, the patient is feeling better. I took her off the 100% nonrebr eather and switch this patient related of oxygen by nasal cannula. Her chest x- ray shows some limited improvement of bilateral pulmonary infiltrates. No fever. No chills. No nausea. No vomiting. No diarrhea. No chest pain. No altered mentation. The patient seems to be clinically improving specially after the convalescent plasma administration. The inflammatory markers are also improving. LDH level is down to 1892. D-dimer was not checked however it was down trending and the patient remains on therapeutic doses of Lovenox. The patient has abnormal LFTs including AST 107 ALT 175. Objective - Vital Signs Vital signs: Vital Signs Temp 98.2 F 09/20/19 08:00 Pulse 105 H 09/20/19 09:00 Resp 22 09/20/19 09:00 BP 141/83 09/20/19 09:00 Pulse Ox 91 L 09/20/19 09:00 Intake & Output 09/19/19 09/20/19 09/20/19 18:59 06:59 18:59 Intake Total 730 480 120 Output Total 0775 513 0 Balance -1515 -33 120 Weight 77.8 kg Intake: IV 480 480 120 Sodium Chloride 0.9% 1, 480 480 120 000 ml @ 40 mls/hr IV . Q24H [facility] Rx#:[id number] Oral 250 Output: Urine 2245 513 0 Other: Voiding Method Indwelling Catheter Indwelling Catheter - Exam GENERAL EXAM: Alert, very pleasant, 63-year-old female patient, currently on a partial nonrebreather facemask HEAD: Normocephalic/atraumatic. EYES: Normal reaction of pupils, equal size. Conjunctiva pink, sclera white. NOSE: Clear with pink turbinates. THROAT: No erythema or exudates. NECK: No masses, no JVD, no thyroid enlargement, no adenopathy. CHEST: No chest wall deformity. Symmetrical expansion. LUNGS: Equal air entry with few scattered rhonchi, crackles in the bases. CVS: Regular rate and rhythm, normal S1 and S2, no gallops, no murmurs, no rubs ABDOMEN: Soft, nontender. No hepatosplenomegaly, normal bowel sounds, no guard ing or rigidity. EXTREMITIES: No clubbing, no edema, no cyanosis, 2+ pulses and upper and lower extremities. MUSCULOSKELETAL: Muscle strength and tone normal. SPINE: No scoliosis or deformity SKIN: No rashes CENTRAL NERVOUS SYSTEM: No focal deficits, tone is normal in all 4 extremities. PSYCHIATRIC: Alert and oriented -3. Appropriate affect. Intact judgment and insight. - Labs CBC & Chem 7: 09/20/19 04:43 09/20/19 04:43 Labs: Abnormal Lab Results - Last 24 Hours (Table) 09/19/19 09/19/19 09/19/19 Range/Units 04:41 12:16 17:20 Lymphocytes # (1.0-4.8) k/uL Sodium (137-145) mmol/L Chloride (98-107) mmol/L Carbon Dioxide (22-30) mmol/L BUN (7-17) mg/dL Creatinine (0.52-1.04) mg/dL Glucose (74-99) mg/dL POC Glucose (mg/dL) 156 H 131 H (75-99) mg/dL Ferritin 1277.0 H (10.0-291.0) ng/mL AST (14-36) U/L ALT (4-34) U/L Alkaline Phosphatase (38-126) U/L Lactate Dehydrogenase (313-618) U/L Total Protein (6.3-8.2) g/dL 09/19/19 09/20/19 09/20/19 Range/Units 21:31 04:43 04:43 Lymphocytes # 0.9 L (1.0-4.8) k/uL Sodium 136 L (137-145) mmol/L Chloride 95 L (98-107) mmol/L Carbon Dioxide 36 H (22-30) mmol/L BUN 23 H (7-17) mg/dL Creatinine 0.47 L (0.52-1.04) mg/dL Glucose 219 H (74-99) mg/dL POC Glucose (mg/dL) 144 H (75-99) mg/dL Ferritin (10.0-291.0) ng/mL AST 59 H (14-36) U/L ALT 107 H (4-34) U/L Alkaline Phosphatase 175 H (38-126) U/L Lactate Dehydrogenase 1892 H (313-618) U/L Total Protein 6.2 L (6.3-8.2) g/dL 09/20/19 Range/Units 06:57 Lymphocytes # (1.0-4.8) k/uL Sodium (137-145) mmol/L Chloride (98-107) mmol/L Carbon Dioxide (22-30) mmol/L BUN (7-17) mg/dL Creatinine (0.52-1.04) mg/dL Glucose (74-99) mg/dL POC Glucose (mg/dL) 173 H (75-99) mg/dL Ferritin (10.0-291.0) ng/mL AST (14-36) U/L ALT (4-34) U/L Alkaline Phosphatase (38-126) U/L Lactate Dehydrogenase (313-618) U/L Total Protein (6.3-8.2) g/dL Assessment and Plan Plan: 1. Acute hypoxemic respiratory failure related to acute COVID 19 pneumonia and the patient developed diffuse bilateral pulmonary infiltrates with areas of consolidation scattered throughout the lung mcbride bilaterally. The chest x-ray is still showing diffuse bilateral pulmonary infiltrates. The patient clinically is improved. Patient received convalescent plasma and the patient is currently weaned off from 100% nonrebreather to a partial nonrebreather and later on to oxygen at 8 L per minute nasal cannula. Chest x-ray is also improving. The patient remains on therapeutic doses of Lovenox. The patient was also treated with IV Solu-Medrol and this will be transitioned to prednisone burst taper. 2. Acute COVID 19 infection with symptoms of profound hypoxemia, weakness, fatigue, intermittent fevers, nausea for one week prior to presentation, patient had a COVID 19 PCR test positive on 2 occasions on 09/06/2019, and again on 09/10/2019 3. Sepsis related to viral pneumonia, although possibility of bacterial pneumon ia is not entirely excluded. Pro-calcitonin level is 0.18 and the patient is empirically on IV Rocephin, the patient completed a seven-day course of Rocephin and this will be discontinued. 4 Positive troponin, possibly related to acute Covid 19 related myocarditis, troponins are improving 5 Elevated LDH, CRP related to COVID 19 infection, levels are still elevated especially LDH, CRP is improving, d-dimer is improving although still elevated, Although the values are slightly improved 6. History of hypertension 7. History of hyperlipidemia 8. Never smoker 9. No history of EtOH use Plan Oxygen at 8 L per minute nasal cannula with a gradually wean This continued IV Solu-Medrol and put the patient prednisone burst taper starting with 30 mg Lovenox therapeutic dose Completed convalescent plasma treatment Monitor inflammatory markers Discontinue Lasix Transfer this patient to medical surgical floor. Clinically improving and today's chest x-ray also shows improvement in the bilateral pulmonary infiltrates.
[2019-09-20 12:07] LABS: Glucose,Whole Blood 128 mg/dL (75-99)
[2019-09-20 17:05] LABS: Glucose,Whole Blood 143 mg/dL (75-99)
--- NOTE | 2019-09-20 20:59 | P.PN ---
Subjective 63-year-old female is admitted for acute respiratory failure secondary to acute COVID 19 sepsis, patient is presently on 100% nonrebreather saturating at 88-90% chest x-ray showing mild worsening of right upper lobe pneumonia. Patient remains on IV fluids. Patient troponins are elevated because of possible Covid myocarditis I'll obtain a echocardiogram to see if there is any heart failure. All the acute phase reactants are elevated including d-dimer which is only minimally elevated. Patient is presently on hydroxychloroquine and the steroids which were ordered by pulmonary patient has highly elevated LDH. 09/12/2019 Patient remains in the ICU, she is awake and oriented and follow commands however she is short of breath and she still on 50 L oxygen via nonrebreather. Also patient has significant orthopnea with diminished breath sounds on both sides. She is significantly tachypneic 27-34 and saturating 88% and 15L Oxygen via nasal cannula/high flow She has leukocytosis of 18.6 K however she is on steroids. D-dimer is worse today from 0.4 up to 14.0. BMP is unremarkable. Liver enzymes mildly elevated but stable Patient is currently on Plaquenil, zinc, Rocephin, Solu-Medrol 30 mg twice daily, normal saline. Her Lovenox was increased to 80 mg twice a day Pulmonary the case. Also dust mill operator evaluated the patient and recommended to continue with present therapy and monitor EKG 09/13/2019 Patient in the ICU. She is awake and oriented, she is dyspneic and orthopedic with dry cough for her comfort pneumonia with chest x-ray showing slight worsening by radiologist She remains on 15 L oxygen via nasal cannula over the last 2-3 days Negative Notcher recommended to continue with same treatment, no need for intervention for now. No change in the treatment today as she continue with Rocephin, Solu-Medrol 30 mg, Lovenox 80 mg and Plaquenil, her normal saline was lowered to 40 mL per hour WBC is 19.6 while she is on steroids, liver enzymes slightly elevated and stable 09/14/2019 Patient remains in the ICU oriented but still dyspneic with cough. WBC slightly less at 16.8 D-dimer still high at 12.15, LDH is elevated at 3785, ferritin is slightly down to 983, C-reactive protein is the main inflammatory markers and coming down to 25. Troponin down to 2.2. patient is written for convalescent immunoglobulin Patient was monitored closely by pulmonary/critical care team 09/15/2019 Patient seen in the ICU. She still have dyspnea. She saturating low 90s on 15 L oxygen via nonrebreather. Chest x-ray still showing infiltrates. Patient WBC is 14.6 K, liver enzymes slightly elevated. She still tachypneic. Patient remains on antibiotics ceftriaxone and zinc. Patient finished her Plaquenil. Continue Solu-Medrol 50 mg twice daily. She is a normal-sized heart with per hour. She is also on Lovenox 80 mg. Levemir is lowered to 8 units. 09/16/2019 Patient remains in the ICU, she is closely monitored for her pulmonary status for her covid-19 pneumonia. No much change in her situation. She still on 15 L oxygen nasal cannula with oxygen saturating 95%. WBC is slightly up To 16.4 K , sodium and electrolytes are within normal limits. Sugar is controlled. liver enzymes trending down slowly, bilirubin opening is normal. Inflammatory markers of ferritin, LDH and C reactive protein are still elevated. Patient remains on Rocephin, Solu-Medrol 30 mg, normal saline at 40, Lovenox 80 mg twice daily and Levemir 8 units 09/17/2019 Today patient was trying to wean her oxygen down, she quit saturating at 94 on 7 L for short while before it came up again to 15 L oxygen via nasal cannula during the evening time Patient is still tachypneic 21-25 She consented for convalescent plasma which is pending now Inflammatory markers 13 and LDH still elevated, C-reactive protein is normal Chest x-ray showing same changes and infiltrates 09/18/2019 Patient is awake, she still in the ICU saturating 96% on 15 L oxygen via nasal cannula, however she is not in great distress. She is tachypneic and tachycardic, WBC came down to 12.1 K, basic metabolic panic and glucose are stable Patient received convalescent plasma yesterday for her Covid pneumonia, Rocephin was stopped and patient was started on Lasix 40 mg daily Patient remains critical and monitored closely in the ICU 09/19/2019 Patient is in the ICU, sedated and intubated with mild respiratory distress however patient looks improvement as her oxygen requirement is lowered to 6 L via nasal cannula while gaping saturation above 90%, her chest x-ray also shows improvement in aeriation, she is slightly tachycardic, labs and sugar stable, inflammatory markers still elevated. Patient remains on Solu-Medrol 30 mg, normocephalic 40 mg, Lasix IV 40 mg daily and Levemir 80 mg twice a day. 09/20/2019 Patient the ICU was showing significant improvement regarding her breathing with decreased oxygen requirement down to 8-4 L via nasal cannula. Rest of vital signs stable Labs reviewed and looks stable., Sugar controlled GEN Solu-Medrol to prednisone 30 mg daily, and Lasix discontinued. She remains on prednisone 30 mg, #40 mL/h and Lovenox 80 mg twice a day Patient is stable to go to general medical floor Constitutional: Denied any fatigue denied any fever. Cardio vascular: denied any chest pain, palpitations Gastrointestinal denied any nausea vomiting Pulmonary: As mentioned in HPI Neurologic denied any new focal deficits Active Medications Generic Name Dose Route Start Last Admin Trade Name Freq PRN Reason Stop Dose Admin Acetaminophen 650 mg 09/10/19 09:36 09/13/19 23:44 Tylenol Tab PO 650 mg Q4HR PRN Administration Fever>101 Albuterol Sulfate 2 puff 09/10/19 14:00 09/20/19 19:44 Ventolin Hfa Inhaler INHALATION 2 puff RT-Q6H ABBEY Administration Albuterol Sulfate 2 puff 09/10/19 09:36 09/10/19 10:02 Ventolin Hfa Inhaler INHALATION 2 puff RT-Q6H PRN Administration Shortness Of Breath Or Wheezing Alprazolam 0.5 mg 09/20/19 08:31 Xanax PO DAILY PRN Anxiety Atorvastatin Calcium 10 mg 09/20/19 21:00 Lipitor PO HS ABBEY Citalopram Hydrobromide 20 mg 09/20/19 09:00 09/20/19 09:31 Celexa PO 20 mg DAILY ABBEY Administration Enoxaparin Sodium 80 mg 09/12/19 21:00 09/20/19 08:38 Lovenox SQ 80 mg BID ABBEY Administration Fenofibrate 160 mg 09/20/19 09:00 09/20/19 09:31 Lofibra PO 160 mg DAILY ABBEY Administration HCTZ/Losartan Potassium 2 each 09/20/19 09:00 09/20/19 09:32 Hyzaar 50-12.5 PO 2 each DAILY ABBEY Administration Sodium Chloride 1,000 mls @ 40 mls/hr 09/10/19 12:00 09/19/19 21:26 Saline 0.9% IV 40 mls/hr .Q24H ABBEY Administration Insulin Aspart 0 unit 09/11/19 12:30 09/20/19 17:16 Novolog SQ 2 unit ACHS ABBEY Administration Protocol Insulin Detemir 8 unit 09/15/19 21:00 09/19/19 21:48 Levemir SQ 8 unit HS ABBEY Administration Metoprolol Succinate 25 mg 09/20/19 09:00 09/20/19 09:33 Toprol Xl PO 25 mg DAILY ABBEY Administration Miscellaneous Information 1 each 09/13/19 06:41 Potassium Per Protocol MISCELLANE DAILY PRN Per Protocol Protocol Naloxone HCl 0.2 mg 09/10/19 11:47 Narcan IV Q2M PRN Opioid Reversal Niacin 500 mg 09/20/19 09:00 09/20/19 09:33 Niacin Tr PO Not Given DAILY ABBEY Ondansetron HCl 4 mg 09/12/19 02:18 09/17/19 16:47 Zofran IVP 4 mg Q6HR PRN Administration Nausea And Vomiting Ondansetron HCl 4 mg 09/20/19 08:31 Zofran PO Q6H PRN Nausea Pantoprazole Sodium 40 mg 09/20/19 09:00 09/20/19 08:38 Protonix PO 40 mg DAILY ABBEY Administration Prednisone 30 mg 09/20/19 09:00 09/20/19 09:33 PO 30 mg DAILY ABBEY Administration Zinc Sulfate 220 mg 09/11/19 09:00 09/20/19 08:38 Orazinc PO 220 mg DAILY ABBEY Administration Objective - Vital Signs Vital signs: Vital Signs Temp 98.2 F 09/20/19 16:00 Pulse 103 H 09/20/19 16:00 Resp 24 09/20/19 16:00 BP 123/80 09/20/19 16:00 Pulse Ox 92 L 09/20/19 19:49 Intake & Output 09/20/19 09/20/19 09/21/19 06:59 18:59 06:59 Intake Total 480 440 80 Output Total 513 0 Balance -33 440 80 Weight 77.8 kg Intake: IV 480 440 80 Sodium Chloride 0.9% 1, 480 440 80 000 ml @ 40 mls/hr IV . Q24H [facility] Rx#:[id number] Output: Urine 513 0 Other: Voiding Method Indwelling Catheter Indwelling Catheter # Voids 1 # Bowel Movements 1 - Exam GENERAL: The patient is alert and oriented x3, not in any acute distress. Well developed, well nourished. HEENT: Pupils are round and equally reacting to light. EOMI. No scleral icterus. No conjunctival pallor. Normocephalic, atraumatic. No pharyngeal erythema. No thyromegaly. CARDIOVASCULAR: S1 and S2 present. No murmurs, rubs, or gallops. PULMONARY: Chest is clear to auscultation, no wheezing or crackles. ABDOMEN: Soft, nontender, nondistended, normoactive bowel sounds. No palpable organomegaly. MUSCULOSKELETAL: No joint swelling or deformity. EXTREMITIES: No cyanosis, clubbing, or pedal edema. NEUROLOGICAL: Gross neurological examination did not reveal any focal deficits. SKIN: No rashes. no petechiae. - Labs CBC & Chem 7: 09/20/19 04:43 09/20/19 04:43 Labs: Abnormal Lab Results - Last 24 Hours (Table) 09/19/19 09/20/19 09/20/19 Range/Units 21:31 04:43 04:43 Lymphocytes # 0.9 L (1.0-4.8) k/uL Sodium 136 L (137-145) mmol/L Chloride 95 L (98-107) mmol/L Carbon Dioxide 36 H (22-30) mmol/L BUN 23 H (7-17) mg/dL Creatinine 0.47 L (0.52-1.04) mg/dL Glucose 219 H (74-99) mg/dL POC Glucose (mg/dL) 144 H (75-99) mg/dL AST 59 H (14-36) U/L ALT 107 H (4-34) U/L Alkaline Phosphatase 175 H (38-126) U/L Lactate Dehydrogenase 1892 H (313-618) U/L Total Protein 6.2 L (6.3-8.2) g/dL 09/20/19 09/20/19 09/20/19 Range/Units 06:57 12:05 17:04 Lymphocytes # (1.0-4.8) k/uL Sodium (137-145) mmol/L Chloride (98-107) mmol/L Carbon Dioxide (22-30) mmol/L BUN (7-17) mg/dL Creatinine (0.52-1.04) mg/dL Glucose (74-99) mg/dL POC Glucose (mg/dL) 173 H 128 H 143 H (75-99) mg/dL AST (14-36) U/L ALT (4-34) U/L Alkaline Phosphatase (38-126) U/L Lactate Dehydrogenase (313-618) U/L Total Protein (6.3-8.2) g/dL Assessment and Plan Assessment: -Bilateral Covid pneumonia. Continue with antibiotics and pulmonary consult. Status post convalescent plasma -Acute hypoxic respiratory failure secondary to COVID 19 pneumonitis and continue with respiratory support, need to be closely monitored in ICU. Patient is presently on high flow nasal cannula oxygen. -Elevated troponin secondary to Covid myocarditis echocardiogram will be obtained, cardiology consultation is ordered -Mildly elevated liver enzymes -Elevated d-dimer, continue with Lovenox -Elevated inflammatory markers included 13, LDH and C-reactive protein, secondary to Covid -Hypotension : Improved -Hyperlipidemia DVT prophylaxis: Lovenox GI prophylaxis: Protonix Prognosis is guarded
[2019-09-20 22:05] LABS: Glucose,Whole Blood 130 mg/dL (75-99)
[2019-09-20] MEDS: INSULIN DETEMIR (LEVEMIR) 100 UNIT/ML SYR SQ SCH (22:24)
[2019-09-20] MEDS: ATORVASTATIN 10 MG TAB PO SCH (22:24)
[2019-09-21] MEDS: ALBUTEROL HFA INHALER INHALATION SCH ×4 (03:12→19:39)
[2019-09-21 04:53] LABS: Basophils % (A) 0 %; Eosinophils # (A) 0.3 k/uL (0-0.7); Eosinophils % (A) 4 %; HCT 42.2 % (34.0-46.0); HGB 13.8 gm/dL (11.4-16.0); Lymphocytes % (A) 23 %; MCH 30.2 pg (25.0-35.0); MCHC 32.7 g/dL (31.0-37.0); MCV 92.6 fL (80.0-100.0); Mean Platelet Volume 7.8; Monocytes # (A) 0.5 k/uL (0-1.0); Monocytes % (A) 6 %; Neutrophils # (A) 5.5 k/uL (1.3-7.7); Neutrophils % (A) 66 %; Platelet Count 345 k/uL (150-450); RBC 4.56 m/uL (3.80-5.40); RDW 14.3 % (11.5-15.5); WBC 8.4 k/uL (3.8-10.6)
[2019-09-21 06:09] LABS: ALT 114 U/L (4-34); AST 67 U/L (14-36); African American GFR (CKD) >90 (>60 ml/min/1.73 sqM); Albumin 3.2 g/dL (3.5-5.0); Alkaline Phosphatase 134 U/L (38-126); Anion Gap 7 mmol/L; Blood Urea Nitrogen 23 mg/dL (7-17); Calcium 8.8 mg/dL (8.4-10.2); Carbon Dioxide 29 mmol/L (22-30); Chloride 98 mmol/L (98-107); Creatine Kinase 35 U/L (30-135); Glucose 134 mg/dL (74-99); LDH 1636 U/L (313-618); Non-African American GFR(CKD) >90 (>60 ml/min/1.73 sqM); Potassium 3.4 mmol/L (3.5-5.1); Sodium 134 mmol/L (137-145); Total Protein 5.9 g/dL (6.3-8.2)
[2019-09-21 06:12] LABS: C Reactive Protein <5.0 mg/L (<10.0)
[2019-09-21 06:49] LABS: Glucose,Whole Blood 123 mg/dL (75-99)
[2019-09-21] MEDS: INSULIN ASPART (NovoLOG) 100 UNIT/ML VIAL SQ SCH ×4 (07:02→21:22)
--- NOTE | 2019-09-21 08:21 | XR ---
EXAMINATION TYPE: XR chest 1V portable DATE OF EXAM: 09/21/2019 HISTORY: Shortness of breath. COMPARISON: None. TECHNIQUE: Single view of the chest is submitted. FINDINGS: Demonstrated are scattered senescent parenchymal change. Mixed interstitial and alveolar infiltrates again noted throughout both lung mcbride essentially uncha nged from prior study. The heart is stable. Hilar and mediastinal structures are within normal limits. Degenerative changes are seen of the dorsal spine. IMPRESSION: 1. Mixed interstitial and alveolar infiltrates again noted throughout both lung mcbride essentially u nchanged from prior study.
[2019-09-21] MEDS: SODIUM CHLORIDE 0.9% 1,000 ML IV SCH (08:49)
[2019-09-21] MEDS: predniSONE 10 MG TAB PO SCH (08:55)
[2019-09-21] MEDS: LOSARTAN-HCTZ 50-12.5 MG 1 EACH TAB PO SCH (08:55)
[2019-09-21] MEDS: NIACIN TR 500 MG CAPLET PO SCH (08:55)
[2019-09-21] MEDS: METOPROLOL SUCCINATE (ER) 25 MG TAB.ER.24H PO SCH (08:55)
[2019-09-21] MEDS: FENOFIBRATE 160 MG TAB PO SCH (08:55)
[2019-09-21] MEDS: CITALOPRAM HYDROBROMIDE 20 MG TAB PO SCH (08:55)
[2019-09-21] MEDS: POTASSIUM CHLORIDE ER 20 MEQ TAB.ER PO SCH ×2 (08:55→10:19)
[2019-09-21] MEDS: ENOXAPARIN 80 MG/0.8 ML SYRINGE SQ SCH ×2 (08:56→21:31)
[2019-09-21] MEDS: ZINC SULFATE 220 MG CAP PO SCH (08:58)
[2019-09-21] MEDS: PANTOPRAZOLE 40 MG TABLET PO SCH (10:19)
[2019-09-21 11:49] LABS: Glucose,Whole Blood 194 mg/dL (75-99)
[2019-09-21 11:50] LABS: Ferritin 1026.3 ng/mL (10.0-291.0)
[2019-09-21 12:36] LABS: Ferritin 1091.3 ng/mL (10.0-291.0)
--- NOTE | 2019-09-21 13:58 | P.PN ---
Subjective Progress Note Date: 09/21/19 Principal diagnosis: Acute CoVID19 related to pneumonitis 63-year-old female patient of Dr. Jaison Friedman, with past medical history of hypertension, hyperlipidemia, nonsmoker, works in the dietary department at [employer], was accepted as a transfer from [employer] [facility] where she presented for evaluation of fatigue, nausea, weakness, occasional fevers and low pulse ox levels. Patient reports symptoms present for about a week. Her coronavirus PCR test was positive on 09/06/2019, and again today on all 09/10/2019. No vomiting or diarrhea, no shortness of breath. Lab work showed white blood cell count 13.2, hemoglobin of 13.5, platelet count is 513, neutrophil count is elevated at 10.6, lymphocytes at 1.6, no d-dimer was drawn, sodium is 134, potassium is 3.7, chloride is 96, CO2 is 27, B1 is 33 creatinine 0.93, LDH is 2470, CRP is significantly elevated at 252, plasma lactic acid was 1.8. EKG shows normal sinus rhythm with evidence of possible inferior infarct of undetermined age, and T-wave inversion in the anterolateral leads. QT/QTc were 388 and 482 respectively. Patient is afebrile, profound hypoxemia, with a pulse ox of 73% on 15 L high flow. Currently requiring 100% nonrebreather in addition to 15 L per high flow nasal cannula and a pulse ox is 98%. In addition patient was borderline hypotensive with pressures of 90 systolic, and patient was given 1/2 L in IV fluid boluses in the emergency department. Patient was transferred to the ICU for close monitoring. Chest x-ray showed scattered mixed interstitial and alveolar infiltrates throughout both lungs compatible with underlying pneumonia. On 09/11/2019 patient seen in follow-up in the intensive care unit, she remains on high flow oxygen, currently on 100% nonrebreather with a pulse ox of 88-90%, patient has been afebrile, hemodynamically stable, today's chest x-ray shows worsening over the right upper lobe pneumonia with multifocal opacities in the left midlung and right lung base unchanged from prior chest x-ray which was done yesterday. Today's labs have been reviewed, showing white blood cell count of 13.8, hemoglobin of 11.7, platelet count is 480, electrolytes were within normal limits, BUN is 19 creatinine 0.63, yesterday patient's d-dimer was 0.90 patient is on reflected dose of Lovenox. Ferritin level yesterday was 1514, AST and ALT improving, down to 7039 respectively, alk phos is 56, lactate dehydrogenase is 2002, trending down from yesterday, and patient had elevated troponins at 3.2 and 1.8, CRP remains significantly elevated as well at 192. Pro-calcitonin was mildly elevated to 0.18, we will add Rocephin for empiric antibiotic coverage. The patient is seen today 09/12/2019 in follow-up in the intensive care unit. She is awake and alert in no acute distress. She is resting in bed. She is continuing to require high flow nasal cannula at 15 L/m along with a nonrebreather. O2 saturations remained in the high 80s. She is currently afebrile. Hemodynamically stable. Tachypneic. Chest x-ray shows bilateral airspace disease that of increased compared to yesterday. Small bilateral effusions. White count 18.6. Hemoglobin 12.6. Platelets 49. D-dimer 14.2. Sodium 139. Potassium 3.7. Creatinine 0.62. Ferritin 1072. LDH 2980. C- reactive protein 87. She did receive tocilizumab 2. She remains on Plaquenil, IV Solu-Medrol and zinc. Antibiotics in the form of ceftriaxone. Lovenox to be increased to 80 mg subcu twice daily. The patient is seen today 09/13/2019 in follow-up in the intensive care unit. She is currently resting in bed. Awake and alert in no acute distress. She is still requiring 15 L high flow nasal cannula along with a nonrebreather mask to maintain O2 saturation in the low 90s. Chest x-ray continues to show worsening aeration bilaterally. She did receive tocilizumab 2. She remains on Plaquenil, Solu-Medrol, zinc, ceftriaxone. She is on Lovenox 80 mg subcutaneously twice a day. White count 19.6. Hemoglobin 12.1. Lymphocytes 0.8. Sodium 140. Potassium 4.0. Creatinine 0.57. AST 88. ALT 50. LDH 3118. CK 318. C- reactive protein 41.9. On today's evaluation of 09/15/2019, the patient's condition essentially unchanged. The patient remains in the 100% nonrebreather facemask addition to 15 L of oxygen by nasal cannula. Chest x-ray findings remains essentially unchanged diffuse bilateral pulmonary infiltrates, unchanged compared to yesterday. Inflammatory markers continue to be quite elevated including ferritin, LDH, and there has been some improvement in the d-dimer over the course of treatment. The patient remains on IV fluids with normal state rate of 40 mL an hour. The patient remains on IV Rocephin. The patient remains on Plaquenil. The patient remains on IV Solu Medrol. She has no altered mentation. She is feeling weak. No significant cough or sputum production. No chest pain. Her reserve is minimal at the patient desaturates easily with limited amount of activity and for that reason she is been kept in bed for now. The white cell count is 14.6. Platelet count is at 462. The patient's LDH level was 3638. The patient's C-reactive protein is 15.6. The patient's ferritin level is 1402. On today's evaluation of 09/16/2019 the patient is being seen in follow-up in the intensive care unit. She continues to be an acute hypoxic respiratory failure related to Covid 19 related pneumonia. The patient remains on the percent nonrebreather facemask in addition to 15 L of oxygen by nasal cannula. Her pulse ox is ranging between 91-92% to chest x-ray showing diffuse bilateral pulmonary infiltrates unchanged compared to yesterday. Her white cell count 16.4. She is having some limited cough. No significant sputum production. No hemoptysis. No pleurisy. She is tolerating her diet. She is taking Glucerna shakes at the bedside. In terms of the rest of the inflammatory markers, the patient's LDH level is still elevated at 3660. LFTs are also abnormal with a AST of 88, ALT of 71 and a bilirubin of 0.7 with an alkaline phosphatase of 199. CRP is at 11.4. The calcium level is at 7.8. Ferritin level is at 1036. The serum bicarbs at 31. BUN is 18 with a creatinine of 0.4. Remains on Lovenox. Remains on Rocephin. Remains on IV Solu-Medrol. On 09/17/2019, the patient is feeling better. She is able to sit up on a chair. She is tolerating her diet. She is trying to eat more. She is on 100% nonrebreather facemask. Her chest x-ray showing diffuse breath and pulmonary infiltrates. She is also utilizing 15 L of oxygen nasal cannula along with the 100% nonrebreather and is possible that we should be able to wean her off the nasal cannula. No chest pain. No altered mentation. No cough or sputum production. No nausea. No vomiting. No diarrhea. No abdominal pain. Paperwork for convalescent immunoglobulins has been sent. D-dimer is slowly improving. LDH still elevated. Patient remains on his Lovenox. The patient remains on IV Solu-Medrol. On 09/18/2019, the patient's condition essentially unchanged. Remains on 100% nonrebreather facemask. The high flow oxygen was cut down from 15 L note date liters. Chest x-ray still showing diffuse breath and pulmonary infiltrates unchanged compared to yesterday. The patient received a dose of convalescent plasma yesterday regarding her Covid 19 related pneumonia. She remains on IV Solu-Medrol. LDH is slowly improving. She remains on Lovenox therapeutic dose. no chest pain. No nausea. No vomiting. No altered mentation. She is reporting some increased edema and for that reason she'll be given a dose of Lasix 40 mg IV push. She has also completed a seven-day course of Rocephin and this will be also discontinued. No other significant issues for now. She is a bit bored and tired being in the hospital with the same condition. No other new events otherwise for now. The patient is resting comfortably in bed and she is able to sit up on a recliner. On 09/19/2019, the patient is improved in terms of her oxygenation. She is currently on a pressure nonrebreather facemask and the nasal cannula has been discontinued. Pulse ox is and order of 94-95%. She feels less short of breath. No cough or sputum production. No nausea. No vomiting. No diarrhea. No fever. No chills. No other complaints otherwise. She has a Mariee catheter in place. The LDH level is down to 2368. LFTs are slightly abnormal and they have been persistently abnormal for the past 1 week. No major change in the AST and ALP. D-dimer is down to 6.43. Rest of the blood work and electrodes are all within normal limits. On 09/20/2019, the patient is feeling better. I took her off the 100% nonrebreather and switch this patient related of oxygen by nasal cannula. Her chest x-ray shows some limited improvement of bilateral pulmonary infiltrates. No fever. No chills. No nausea. No vomiting. No diarrhea. No chest pain. No altered mentation. The patient seems to be clinically improving specially after the convalescent plasma administration. The inflammatory markers are also improving. LDH level is down to 1892. D-dimer was not checked however it was down trending and the patient remains on therapeutic doses of Lovenox. The patient has abnormal LFTs including AST 107 ALT 175. The patient is seen today 09/21/2019 in follow-up on in the intensive care unit. She is awake and alert in no acute distress. She is down to 4 L high flow nasal cannula and maintaining O2 saturations in the mid 90s. She's been afebrile. Hemodynamically stable. Chest x-ray continues to show mixed interstitial and alveolar infiltrates bilaterally. Unchanged compared to previous. She had received 1 unit of convalescent plasma this admission. Blood cultures reveal no growth. White count 8.4. Hemoglobin 13.8. Sodium 134. Potassium 3.4. Creatinine 0.37. Ferritin 1091. AST 67. ALT 114. LDH and thousand 636. Creatinine kinase 35. C-reactive protein less than 5. She remains on Lovenox, prednisone, bronchodilators. Objective - Vital Signs Vital signs: Vital Signs Temp 97.5 F L 09/21/19 13:06 Pulse 100 09/21/19 13:06 Resp 18 09/21/19 13:06 BP 94/62 09/21/19 13:06 Pulse Ox 95 09/21/19 13:06 Intake & Output 09/20/19 09/21/19 09/21/19 18:59 06:59 18:59 Intake Total 440 760 80 Output Total 0 Balance 440 760 80 Weight 76.2 kg Intake: IV 440 520 80 Sodium Chloride 0.9% 1, 440 520 80 000 ml @ 40 mls/hr IV . Q24H [facility] Rx#:[id number] Oral 240 Output: Urine 0 Other: Voiding Method Indwelling Catheter Indwelling Catheter Bedside Commode # Voids 1 1 1 # Bowel Movements 1 1 1 - Exam GENERAL EXAM: Alert, very pleasant, 63-year-old female patient, currently on 4 L high flow nasal cannula with a pulse ox between 95-96 % comfortable in no apparent distress. HEAD: Normocephalic/atraumatic. EYES: Normal reaction of pupils, equal size. Conjunctiva pink, sclera white. NOSE: Clear with pink turbinates. THROAT: No erythema or exudates. NECK: No masses, no JVD, no thyroid enlargement, no adenopathy. CHEST: No chest wall deformity. Symmetrical expansion. LUNGS: Equal air entry with crackles in the bases. CVS: Regular rate and rhythm, normal S1 and S2, no gallops, no murmurs, no rubs ABDOMEN: Soft, nontender. No hepatosplenomegaly, normal bowel sounds, no guarding or rigidity. EXTREMITIES: No clubbing, no edema, no cyanosis, 2+ pulses and upper and lower extremities. MUSCULOSKELETAL: Muscle strength and tone normal. SPINE: No scoliosis or deformity SKIN: No rashes CENTRAL NERVOUS SYSTEM: No focal deficits, tone is normal in all 4 extremities. PSYCHIATRIC: Alert and oriented -3. Appropriate affect. Intact judgment and insight. - Labs CBC & Chem 7: 09/21/19 04:30 09/21/19 04:30 Labs: Abnormal Lab Results - Last 24 Hours (Table) 09/20/19 09/20/19 09/20/19 Range/Units 04:43 17:04 22:04 Sodium (137-145) mmol/L Potassium (3.5-5.1) mmol/L BUN (7-17) mg/dL Creatinine (0.52-1.04) mg/dL Glucose (74-99) mg/dL POC Glucose (mg/dL) 143 H 130 H (75-99) mg/dL Ferritin 1026.3 H (10.0-291.0) ng/mL AST (14-36) U/L ALT (4-34) U/L Alkaline Phosphatase (38-126) U/L Lactate Dehydrogenase (313-618) U/L Total Protein (6.3-8.2) g/dL Albumin (3.5-5.0) g/dL 09/21/19 09/21/19 09/21/19 Range/Units 04:30 06:48 11:47 Sodium 134 L (137-145) mmol/L Potassium 3.4 L (3.5-5.1) mmol/L BUN 23 H (7-17) mg/dL Creatinine 0.37 L (0.52-1.04) mg/dL Glucose 134 H (74-99) mg/dL POC Glucose (mg/dL) 123 H 194 H (75-99) mg/dL Ferritin 1091.3 H (10.0-291.0) ng/mL AST 67 H (14-36) U/L ALT 114 H (4-34) U/L Alkaline Phosphatase 134 H (38-126) U/L Lactate Dehydrogenase 1636 H (313-618) U/L Total Protein 5.9 L (6.3-8.2) g/dL Albumin 3.2 L (3.5-5.0) g/dL Assessment and Plan Assessment: #1. Acute hypoxemic respiratory failure related to acute COVID 19 pneumonitis, improved and currently on 4 L high flow nasal cannula #2. Acute COVID 19 infection with symptoms of profound hypoxemia, weakness, fatigue, intermittent fevers, nausea for one week prior to presentation, patient had a COVID 19 PCR test positive on 2 occasions on 09/06/2019, and again on 09/10/2019 #3. Sepsis related to viral pneumonia, although possibility of bacterial pneumonia is not entirely excluded. #4. Hypotension, hypovolemic and related to decreased oral intake, nausea, and sepsis related to viral pneumonia, recovered with IV fluid boluses #5. Elevated LDH, CRP related to COVID 19 infection, trending down #6. History of hypertension #7. History of hyperlipidemia #8. Never smoker #9. No history of EtOH use #10. Positive troponin, possibly related to acute Covid 19 related myocarditis Plan: The patient was seen and evaluated by Dr. Keating Chest x-ray and labs reviewed X-ray stable Inflammatory markers trending down She did receive convalescent plasma 1 She did receive tocilizumab 2 Completed Plaquenil, continued on steroids, zinc Down to 4 L high flow nasal cannula, continue to titrate down as tolerated Transfer to a regular medical floor. Remains in isolation precautions We'll continue to follow and make further recommendations based on her clinical status I, the cosigning physician, performed a history & physical examination of the patient. Lungs sounds with crackles in the bases. Maintaining good O2 saturations in the 90s on 4 L high flow nasal cannula with FiO2 in the 90s. I discussed the assessment and plan of care with my nurse practitioner, Marlene Mcgarry. I attest to the above note as dictated by her.
[2019-09-21 16:38] LABS: Glucose,Whole Blood 172 mg/dL (75-99)
--- NOTE | 2019-09-21 20:17 | P.PN ---
Subjective 63-year-old female is admitted for acute respiratory failure secondary to acute COVID 19 sepsis, patient is presently on 100% nonrebreather saturating at 88-90% chest x-ray showing mild worsening of right upper lobe pneumonia. Patient remains on IV fluids. Patient troponins are elevated because of possible Covid myocarditis I'll obtain a echocardiogram to see if there is any heart failure. All the acute phase reactants are elevated including d-dimer which is only minimally elevated. Patient is presently on hydroxychloroquine and the steroids which were ordered by pulmonary patient has highly elevated LDH. 09/12/2019 Patient remains in the ICU, she is awake and oriented and follow commands however she is short of breath and she still on 50 L oxygen via nonrebreather. Also patient has significant orthopnea with diminished breath sounds on both sides. She is significantly tachypneic 27-34 and saturating 88% and 15L Oxygen via nasal cannula/high flow She has leukocytosis of 18.6 K however she is on steroids. D-dimer is worse today from 0.4 up to 14.0. BMP is unremarkable. Liver enzymes mildly elevated but stable Patient is currently on Plaquenil, zinc, Rocephin, Solu-Medrol 30 mg twice daily, normal saline. Her Lovenox was increased to 80 mg twice a day Pulmonary the case. Also machinist first class evaluated the patient and recommended to continue with present therapy and monitor EKG 09/13/2019 Patient in the ICU. She is awake and oriented, she is dyspneic and orthopedic with dry cough for her comfort pneumonia with chest x-ray showing slight worsening by radiologist She remains on 15 L oxygen via nasal cannula over the last 2-3 days [employer] recommended to continue with same treatment, no need for intervention for now. No change in the treatment today as she continue with Rocephin, Solu-Medrol 30 mg, Lovenox 80 mg and Plaquenil, her normal saline was lowered to 40 mL per hour WBC is 19.6 while she is on steroids, liver enzymes slightly elevated and stable 09/14/2019 Patient remains in the ICU oriented but still dyspneic with cough. WBC slightly less at 16.8 D-dimer still high at 12.15, LDH is elevated at 3785, ferritin is slightly down to 983, C-reactive protein is the main inflammatory markers and coming down to 25. Troponin down to 2.2. patient is written for convalescent immunoglobulin Patient was monitored closely by pulmonary/critical care team 09/15/2019 Patient seen in the ICU. She still have dyspnea. She saturating low 90s on 15 L oxygen via nonrebreather. Chest x-ray still showing infiltrates. Patient WBC is 14.6 K, liver enzymes slightly elevated. She still tachypneic. Patient remains on antibiotics ceftriaxone and zinc. Patient finished her Plaquenil. Continue Solu-Medrol 50 mg twice daily. She is a normal-sized heart with per hour. She is also on Lovenox 80 mg. Levemir is lowered to 8 units. 09/16/2019 Patient remains in the ICU, she is closely monitored for her pulmonary status for her covid-19 pneumonia. No much change in her situation. She still on 15 L oxygen nasal cannula with oxygen saturating 95%. WBC is slightly up To 16.4 K , sodium and electrolytes are within normal limits. Sugar is controlled. liver enzymes trending down slowly, bilirubin opening is normal. Inflammatory markers of ferritin, LDH and C reactive protein are still elevated. Patient remains on Rocephin, Solu-Medrol 30 mg, normal saline at 40, Lovenox 80 mg twice daily and Levemir 8 units 09/17/2019 Today patient was trying to wean her oxygen down, she quit saturating at 94 on 7 L for short while before it came up again to 15 L oxygen via nasal cannula during the evening time Patient is still tachypneic 21-25 She consented for convalescent plasma which is pending now Inflammatory markers 13 and LDH still elevated, C-reactive protein is normal Chest x-ray showing same changes and infiltrates 09/18/2019 Patient is awake, she still in the ICU saturating 96% on 15 L oxygen via nasal cannula, however she is not in great distress. She is tachypneic and tachycardic, WBC came down to 12.1 K, basic metabolic panic and glucose are stable Patient received convalescent plasma yesterday for her Covid pneumonia, Rocephin was stopped and patient was started on Lasix 40 mg daily Patient remains critical and monitored closely in the ICU 09/19/2019 Patient is in the ICU, sedated and intubated with mild respiratory distress however patient looks improvement as her oxygen requirement is lowered to 6 L via nasal cannula while gaping saturation above 90%, her chest x-ray also shows improvement in aeriation, she is slightly tachycardic, labs and sugar stable, inflammatory markers still elevated. Patient remains on Solu-Medrol 30 mg, normocephalic 40 mg, Lasix IV 40 mg daily and Levemir 80 mg twice a day. 09/20/2019 Patient the ICU was showing significant improvement regarding her breathing with decreased oxygen requirement down to 8-4 L via nasal cannula. Rest of vital signs stable Labs reviewed and looks stable., Sugar controlled GEN Solu-Medrol to prednisone 30 mg daily, and Lasix discontinued. She remains on prednisone 30 mg, #40 mL/h and Lovenox 80 mg twice a day Patient is stable to go to general medical floor 09/21/2019 Patient is awake, breathing more quietly in the ICU. She saturating 94-95% on 4 L oxygen via nasal cannula. She has low-grade temperature of 100.2 today. Labs reviewed showing WBC of normal 8.4K, hemoglobin 13.8 platelets 345, sodium 134, potassium 3.4 creatinine 0.37, glucose stable and controlled inflammatory markers ferittin 1091, LDH elevated 166 and C-reactive protein is normal with less than 5 While chest x-ray showing mixed interstitial and alveolar infiltrates throughout both lung mcbride, unchanged from prior study. She remains on prednisone 30 mg, Levemir 8 units and Lovenox therapeutic dose Just improving and transferred to the general medical floor today stitutional: Denied any fatigue denied any fever. Cardio vascular: denied any chest pain, palpitations Gastrointestinal denied any nausea vomiting Pulmonary: As mentioned in HPI Neurologic denied any new focal deficits Active Medications Generic Name Dose Route Start Last Admin Trade Name Freq PRN Reason Stop Dose Admin Acetaminophen 650 mg 09/10/19 09:36 09/13/19 23:44 Tylenol Tab PO 650 mg Q4HR PRN Administration Fever>101 Albuterol Sulfate 2 puff 09/10/19 14:00 09/21/19 19:39 Ventolin Hfa Inhaler INHALATION 2 puff RT-Q6H ABBEY Administration Albuterol Sulfate 2 puff 09/10/19 09:36 09/10/19 10:02 Ventolin Hfa Inhaler INHALATION 2 puff RT-Q6H PRN Administration Shortness Of Breath Or Wheezing Alprazolam 0.5 mg 09/20/19 08:31 Xanax PO DAILY PRN Anxiety Atorvastatin Calcium 10 mg 09/20/19 21:00 09/20/19 22:24 Lipitor PO 10 mg HS ABBEY Administration Citalopram Hydrobromide 20 mg 09/20/19 09:00 09/21/19 08:55 Celexa PO 20 mg DAILY ABBEY Administration Enoxaparin Sodium 80 mg 09/12/19 21:00 09/21/19 08:56 Lovenox SQ 80 mg BID ABBEY Administration Fenofibrate 160 mg 09/20/19 09:00 09/21/19 08:55 Lofibra PO 160 mg DAILY ABBEY Administration HCTZ/Losartan Potassium 2 each 09/20/19 09:00 09/21/19 08:55 Hyzaar 50-12.5 PO 2 each DAILY ABBEY Administration Insulin Aspart 0 unit 09/11/19 12:30 09/21/19 17:41 Novolog SQ 4 unit ACHS ABBEY Administration Protocol Insulin Detemir 8 unit 09/15/19 21:00 09/20/19 22:24 Levemir SQ 8 unit HS ABBEY Administration Metoprolol Succinate 25 mg 09/20/19 09:00 09/21/19 08:55 Toprol Xl PO 25 mg DAILY ABBEY Administration Miscellaneous Information 1 each 09/13/19 06:41 Potassium Per Protocol MISCELLANE DAILY PRN Per Protocol Protocol Naloxone HCl 0.2 mg 09/10/19 11:47 Narcan IV Q2M PRN Opioid Reversal Niacin 500 mg 09/20/19 09:00 09/21/19 08:55 Niacin Tr PO 500 mg DAILY ABBEY Administration Ondansetron HCl 4 mg 09/12/19 02:18 09/17/19 16:47 Zofran IVP 4 mg Q6HR PRN Administration Nausea And Vomiting Ondansetron HCl 4 mg 09/20/19 08:31 Zofran PO Q6H PRN Nausea Pantoprazole Sodium 40 mg 09/20/19 09:00 09/21/19 10:19 Protonix PO 40 mg DAILY ABBEY Administration Prednisone 30 mg 09/20/19 09:00 09/21/19 08:55 PO 30 mg DAILY ABBEY Administration Zinc Sulfate 220 mg 09/11/19 09:00 09/21/19 08:58 Orazinc PO 220 mg DAILY ABBEY Administration Objective - Vital Signs Vital signs: Vital Signs Temp 98.1 F 09/21/19 08:00 Pulse 96 09/21/19 08:00 Resp 20 09/21/19 08:00 BP 123/72 09/21/19 08:00 Pulse Ox 91 L 09/21/19 08:00 Intake & Output 09/20/19 09/21/19 09/21/19 18:59 06:59 18:59 Intake Total 440 760 Output Total 0 Balance 440 760 Weight 76.2 kg Intake: IV 440 520 Sodium Chloride 0.9% 1, 440 520 000 ml @ 40 mls/hr IV . Q24H [facility] Rx#:[id number] Oral 240 Output: Urine 0 Other: Voiding Method Indwelling Catheter Indwelling Catheter Bedside Commode # Voids 1 1 # Bowel Movements 1 1 - Labs CBC & Chem 7: 09/21/19 04:30 09/21/19 04:30 Labs: Abnormal Lab Results - Last 24 Hours (Table) 09/20/19 09/20/19 09/20/19 Range/Units 12:05 17:04 22:04 Sodium (137-145) mmol/L Potassium (3.5-5.1) mmol/L BUN (7-17) mg/dL Creatinine (0.52-1.04) mg/dL Glucose (74-99) mg/dL POC Glucose (mg/dL) 128 H 143 H 130 H (75-99) mg/dL AST (14-36) U/L ALT (4-34) U/L Alkaline Phosphatase (38-126) U/L Lactate Dehydrogenase (313-618) U/L Total Protein (6.3-8.2) g/dL Albumin (3.5-5.0) g/dL 09/21/19 09/21/19 Range/Units 04:30 06:48 Sodium 134 L (137-145) mmol/L Potassium 3.4 L (3.5-5.1) mmol/L BUN 23 H (7-17) mg/dL Creatinine 0.37 L (0.52-1.04) mg/dL Glucose 134 H (74-99) mg/dL POC Glucose (mg/dL) 123 H (75-99) mg/dL AST 67 H (14-36) U/L ALT 114 H (4-34) U/L Alkaline Phosphatase 134 H (38-126) U/L Lactate Dehydrogenase 1636 H (313-618) U/L Total Protein 5.9 L (6.3-8.2) g/dL Albumin 3.2 L (3.5-5.0) g/dL Assessment and Plan Assessment: -Bilateral Covid pneumonia. Continue with antibiotics and pulmonary consult. Status post convalescent plasma. Improving gradually -Acute hypoxic respiratory failure secondary to COVID 19 pneumonitis and continue with respiratory support, -Elevated troponin secondary to Covid myocarditis echocardiogram will be obtained, cardiology consultation evaluated patient -Mildly elevated liver enzymes -Elevated d-dimer, continue with Lovenox -Elevated inflammatory markers included 13, LDH and C-reactive protein, secondary to Covid -Hypotension : Improved -Hyperlipidemia DVT prophylaxis: Lovenox GI prophylaxis: Protonix Prognosis is guarded
[2019-09-21 20:26] LABS: Glucose,Whole Blood 159 mg/dL (75-99)
[2019-09-21] MEDS: INSULIN DETEMIR (LEVEMIR) 100 UNIT/ML SYR SQ SCH (21:22)
[2019-09-21] MEDS: ATORVASTATIN 10 MG TAB PO SCH (21:22)
[2019-09-22] MEDS: ALBUTEROL HFA INHALER INHALATION SCH ×4 (01:41→19:55)
[2019-09-22 07:04] LABS: Glucose,Whole Blood 129 mg/dL (75-99)
[2019-09-22] MEDS: INSULIN ASPART (NovoLOG) 100 UNIT/ML VIAL SQ SCH ×4 (07:12→20:38)
[2019-09-22 07:29] LABS: Basophils % (A) 1 %; Eosinophils # (A) 0.3 k/uL (0-0.7); Eosinophils % (A) 4 %; HCT 41.6 % (34.0-46.0); HGB 13.7 gm/dL (11.4-16.0); Lymphocytes % (A) 26 %; MCHC 32.9 g/dL (31.0-37.0); MCV 91.4 fL (80.0-100.0); Mean Platelet Volume 7.8; Monocytes # (A) 0.5 k/uL (0-1.0); Monocytes % (A) 7 %; Neutrophils # (A) 4.8 k/uL (1.3-7.7); Neutrophils % (A) 61 %; Platelet Count 284 k/uL (150-450); RBC 4.55 m/uL (3.80-5.40); RDW 14.3 % (11.5-15.5); WBC 7.8 k/uL (3.8-10.6)
[2019-09-22 07:51] LABS: African American GFR (CKD) >90 (>60 ml/min/1.73 sqM); Anion Gap 5 mmol/L; Blood Urea Nitrogen 25 mg/dL (7-17); Calcium 8.7 mg/dL (8.4-10.2); Carbon Dioxide 33 mmol/L (22-30); Chloride 99 mmol/L (98-107); Glucose 135 mg/dL (74-99); Non-African American GFR(CKD) >90 (>60 ml/min/1.73 sqM); Potassium 3.8 mmol/L (3.5-5.1); Sodium 137 mmol/L (137-145)
[2019-09-22] MEDS: CITALOPRAM HYDROBROMIDE 20 MG TAB PO SCH (08:19)
[2019-09-22] MEDS: predniSONE 10 MG TAB PO SCH (08:19)
[2019-09-22] MEDS: FENOFIBRATE 160 MG TAB PO SCH (08:19)
[2019-09-22] MEDS: NIACIN TR 500 MG CAPLET PO SCH (08:20)
[2019-09-22] MEDS: PANTOPRAZOLE 40 MG TABLET PO SCH (08:20)
[2019-09-22] MEDS: METOPROLOL SUCCINATE (ER) 25 MG TAB.ER.24H PO SCH (08:20)
[2019-09-22] MEDS: ENOXAPARIN 80 MG/0.8 ML SYRINGE SQ SCH ×2 (08:21→20:38)
[2019-09-22] MEDS: ZINC SULFATE 220 MG CAP PO SCH (08:21)
[2019-09-22] MEDS: LOSARTAN-HCTZ 50-12.5 MG 1 EACH TAB PO SCH (10:12)
[2019-09-22 11:10] LABS: Creatine Kinase 36 U/L (30-135); LDH 1634 U/L (313-618)
[2019-09-22 11:29] LABS: Glucose,Whole Blood 170 mg/dL (75-99)
[2019-09-22 11:50] LABS: C Reactive Protein <5.0 mg/L (<10.0)
--- NOTE | 2019-09-22 12:14 | P.PN ---
Subjective Progress Note Date: 09/22/19 Principal diagnosis: Acute CoVID19 related to pneumonitis 63-year-old female patient of Dr. Jaison Friedman, with past medical history of hypertension, hyperlipidemia, nonsmoker, works in the dietary department at [employer], was accepted as a transfer from [facility] [employer] [facility] where she presented for evaluation of fatigue, nausea, weakness, occasional fevers and low pulse ox levels. Patient reports symptoms present for about a week. Her coronavirus PCR test was positive on 09/06/2019, and again today on all 09/10/2019. No vomiting or diarrhea, no shortness of breath. Lab work showed white blood cell count 13.2, hemoglobin of 13.5, platelet count is 513, neutrophil count is elevated at 10.6, lymphocytes at 1.6, no d-dimer was drawn, sodium is 134, potassium is 3.7, chloride is 96, CO2 is 27, B1 is 33 creatinine 0.93, LDH is 2470, CRP is significantly elevated at 252, plasma lactic acid was 1.8. EKG shows normal sinus rhythm with evidence of possible inferior infarct of undetermined age, and T-wave inversion in the anterolateral leads. QT/QTc were 388 and 482 respectively. Patient is afebrile, profound hypoxemia, with a pulse ox of 73% on 15 L high flow. Currently requiring 100% nonrebreather in addition to 15 L per high flow nasal cannula and a pulse ox is 98%. In addition patient was borderline hypotensive with pressures of 90 systolic, and patient was given 1/2 L in IV fluid boluses in the emergency department. Patient was transferred to the ICU for close monitoring. Chest x-ray showed scattered mixed interstitial and alveolar infiltrates throughout both lungs compatible with underlying pneumonia. On 09/11/2019 patient seen in follow-up in the intensive care unit, she remains on high flow oxygen, currently on 100% nonrebreather with a pulse ox of 88-90%, patient has been afebrile, hemodynamically stable, today's chest x-ray shows worsening over the right upper lobe pneumonia with multifocal opacities in the left midlung and right lung base unchanged from prior chest x-ray which was done yesterday. Today's labs have been reviewed, showing white blood cell count of 13.8, hemoglobin of 11.7, platelet count is 480, electrolytes were within normal limits, BUN is 19 creatinine 0.63, yesterday patient's d-dimer was 0.90 patient is on reflected dose of Lovenox. Ferritin level yesterday was 1514, AST and ALT improving, down to 7039 respectively, alk phos is 56, lactate dehydrogenase is 2002, trending down from yesterday, and patient had elevated troponins at 3.2 and 1.8, CRP remains significantly elevated as well at 192. Pro-calcitonin was mildly elevated to 0.18, we will add Rocephin for empiric antibiotic coverage. The patient is seen today 09/12/2019 in follow-up in the intensive care unit. She is awake and alert in no acute distress. She is resting in bed. She is continuing to require high flow nasal cannula at 15 L/m along with a nonrebreather. O2 saturations remained in the high 80s. She is currently afebrile. Hemodynamically stable. Tachypneic. Chest x-ray shows bilateral airspace disease that of increased compared to yesterday. Small bilateral effusions. White count 18.6. Hemoglobin 12.6. Platelets 49. D-dimer 14.2. Sodium 139. Potassium 3.7. Creatinine 0.62. Ferritin 1072. LDH 2980. C- reactive protein 87. She did receive tocilizumab 2. She remains on Plaquenil, IV Solu-Medrol and zinc. Antibiotics in the form of ceftriaxone. Lovenox to be increased to 80 mg subcu twice daily. The patient is seen today 09/13/2019 in follow-up in the intensive care unit. She is currently resting in bed. Awake and alert in no acute distress. She is still requiring 15 L high flow nasal cannula along with a nonrebreather mask to maintain O2 saturation in the low 90s. Chest x-ray continues to show worsening aeration bilaterally. She did receive tocilizumab 2. She remains on Plaquenil, Solu-Medrol, zinc, ceftriaxone. She is on Lovenox 80 mg subcutaneously twice a day. White count 19.6. Hemoglobin 12.1. Lymphocytes 0.8. Sodium 140. Potassium 4.0. Creatinine 0.57. AST 88. ALT 50. LDH 3118. CK 318. C- reactive protein 41.9. On today's evaluation of 09/15/2019, the patient's condition essentially unchanged. The patient remains in the 100% nonrebreather facemask addition to 15 L of oxygen by nasal cannula. Chest x-ray findings remains essentially unchanged diffuse bilateral pulmonary infiltrates, unchanged compared to yesterday. Inflammatory markers continue to be quite elevated including ferritin, LDH, and there has been some improvement in the d-dimer over the course of treatment. The patient remains on IV fluids with normal state rate of 40 mL an hour. The patient remains on IV Rocephin. The patient remains on Plaquenil. The patient remains on IV Solu Medrol. She has no altered mentation. She is feeling weak. No significant cough or sputum production. No chest pain. Her reserve is minimal at the patient desaturates easily with limited amount of activity and for that reason she is been kept in bed for now. The white cell count is 14.6. Platelet count is at 462. The patient's LDH level was 3638. The patient's C-reactive protein is 15.6. The patient's ferritin level is 1402. On today's evaluation of 09/16/2019 the patient is being seen in follow-up in the intensive care unit. She continues to be an acute hypoxic respiratory failure related to Covid 19 related pneumonia. The patient remains on the percent nonrebreather facemask in addition to 15 L of oxygen by nasal cannula. Her pulse ox is ranging between 91-92% to chest x-ray showing diffuse bilateral pulmonary infiltrates unchanged compared to yesterday. Her white cell count 16.4. She is having some limited cough. No significant sputum production. No hemoptysis. No pleurisy. She is tolerating her diet. She is taking Glucerna shakes at the bedside. In terms of the rest of the inflammatory markers, the patient's LDH level is still elevated at 3660. LFTs are also abnormal with a AST of 88, ALT of 71 and a bilirubin of 0.7 with an alkaline phosphatase of 199. CRP is at 11.4. The calcium level is at 7.8. Ferritin level is at 1036. The serum bicarbs at 31. BUN is 18 with a creatinine of 0.4. Remains on Lovenox. Remains on Rocephin. Remains on IV Solu-Medrol. On 09/17/2019, the patient is feeling better. She is able to sit up on a chair. She is tolerating her diet. She is trying to eat more. She is on 100% nonrebreather facemask. Her chest x-ray showing diffuse breath and pulmonary infiltrates. She is also utilizing 15 L of oxygen nasal cannula along with the 100% nonrebreather and is possible that we should be able to wean her off the nasal cannula. No chest pain. No altered mentation. No cough or sputum production. No nausea. No vomiting. No diarrhea. No abdominal pain. Paperwork for convalescent immunoglobulins has been sent. D-dimer is slowly improving. LDH still elevated. Patient remains on his Lovenox. The patient remains on IV Solu-Medrol. On 09/18/2019, the patient's condition essentially unchanged. Remains on 100% nonrebreather facemask. The high flow oxygen was cut down from 15 L note date liters. Chest x-ray still showing diffuse breath and pulmonary infiltrates unchanged compared to yesterday. The patient received a dose of convalescent plasma yesterday regarding her Covid 19 related pneumonia. She remains on IV Solu-Medrol. LDH is slowly improving. She remains on Lovenox therapeutic dose. no chest pain. No nausea. No vomiting. No altered mentation. She is reporting some increased edema and for that reason she'll be given a dose of Lasix 40 mg IV push. She has also completed a seven-day course of Rocephin and this will be also discontinued. No other significant issues for now. She is a bit bored and tired being in the hospital with the same condition. No other new events otherwise for now. The patient is resting comfortably in bed and she is able to sit up on a recliner. On 09/19/2019, the patient is improved in terms of her oxygenation. She is currently on a pressure nonrebreather facemask and the nasal cannula has been discontinued. Pulse ox is and order of 94-95%. She feels less short of breath. No cough or sputum production. No nausea. No vomiting. No diarrhea. No fever. No chills. No other complaints otherwise. She has a Mariee catheter in place. The LDH level is down to 2368. LFTs are slightly abnormal and they have been persistently abnormal for the past 1 week. No major change in the AST and ALP. D-dimer is down to 6.43. Rest of the blood work and electrodes are all within normal limits. On 09/20/2019, the patient is feeling better. I took her off the 100% nonrebreather and switch this patient related of oxygen by nasal cannula. Her chest x-ray shows some limited improvement of bilateral pulmonary infiltrates. No fever. No chills. No nausea. No vomiting. No diarrhea. No chest pain. No altered mentation. The patient seems to be clinically improving specially after the convalescent plasma administration. The inflammatory markers are also improving. LDH level is down to 1892. D-dimer was not checked however it was down trending and the patient remains on therapeutic doses of Lovenox. The patient has abnormal LFTs including AST 107 ALT 175. The patient is seen today 09/21/2019 in follow-up on in the intensive care unit. She is awake and alert in no acute distress. She is down to 4 L high flow nasal cannula and maintaining O2 saturations in the mid 90s. She's been afebrile. Hemodynamically stable. Chest x-ray continues to show mixed interstitial and alveolar infiltrates bilaterally. Unchanged compared to previous. She had received 1 unit of convalescent plasma this admission. Blood cultures reveal no growth. White count 8.4. Hemoglobin 13.8. Sodium 134. Potassium 3.4. Creatinine 0.37. Ferritin 1091. AST 67. ALT 114. LDH and thousand 636. Creatinine kinase 35. C-reactive protein less than 5. She remains on Lovenox, prednisone, bronchodilators. The patient is seen today 09/22/2019 in follow-up on the regular medical floor. She is awake and alert in no acute distress. She is breathing easier today compared to yesterday. She remains on 4 L high flow nasal cannula and maintaining good O2 saturations in the low 90s. She's been afebrile. Hemodynamically stable. White count 7.8. Hemoglobin 13.7. D-dimer 4.07. Sodium 137. Potassium 3.8. Creatinine 0.56. LDH 1634. Troponin 0.118. C- reactive protein 5.0. I'll trending down. She remains on Lovenox 80 mg subcu twice a day. Objective - Vital Signs Vital signs: Vital Signs Temp 98.0 F 09/22/19 07:00 Pulse 100 09/22/19 09:27 Resp 17 09/22/19 09:27 BP 120/74 09/22/19 07:00 Pulse Ox 92 L 09/22/19 07:00 Intake & Output 09/21/19 09/22/19 09/22/19 18:59 06:59 18:59 Intake Total 80 Output Total 0 Balance 80 0 Weight 76.2 kg Intake: IV 80 Sodium Chloride 0.9% 1, 80 000 ml @ 40 mls/hr IV . Q24H [facility] Rx#:[id number] Output: Urine 0 Other: Voiding Method Bedside Commode Bedside Commode Bedside Commode # Voids 1 1 # Bowel Movements 1 - Exam GENERAL EXAM: Alert, very pleasant, 63-year-old female patient, currently on 4 L high flow nasal cannula with a pulse ox in the 90s, comfortable in no apparent distress. HEAD: Normocephalic/atraumatic. EYES: Normal reaction of pupils, equal size. Conjunctiva pink, sclera white. NOSE: Clear with pink turbinates. THROAT: No erythema or exudates. NECK: No masses, no JVD, no thyroid enlargement, no adenopathy. CHEST: No chest wall deformity. Symmetrical expansion. LUNGS: Equal air entry with crackles in the bases. CVS: Regular rate and rhythm, normal S1 and S2, no gallops, no murmurs, no rubs ABDOMEN: Soft, nontender. No hepatosplenomegaly, normal bowel sounds, no guarding or rigidity. EXTREMITIES: No clubbing, no edema, no cyanosis, 2+ pulses and upper and lower extremities. MUSCULOSKELETAL: Muscle strength and tone normal. SPINE: No scoliosis or deformity SKIN: No rashes CENTRAL NERVOUS SYSTEM: No focal deficits, tone is normal in all 4 extremities. PSYCHIATRIC: Alert and oriented -3. Appropriate affect. Intact judgment and insight. - Labs CBC & Chem 7: 09/22/19 06:44 09/22/19 06:44 Labs: Abnormal Lab Results - Last 24 Hours (Table) 09/21/19 09/21/19 09/21/19 Range/Units 04:30 16:37 20:25 D-Dimer (<0.60) mg/L FEU Carbon Dioxide (22-30) mmol/L BUN (7-17) mg/dL Glucose (74-99) mg/dL POC Glucose (mg/dL) 172 H 159 H (75-99) mg/dL Ferritin 1091.3 H (10.0-291.0) ng/mL Lactate Dehydrogenase (313-618) U/L Troponin I (0.000-0.034) ng/mL 09/22/19 09/22/19 09/22/19 Range/Units 06:44 07:03 10:14 D-Dimer 4.07 H (<0.60) mg/L FEU Carbon Dioxide 33 H (22-30) mmol/L BUN 25 H (7-17) mg/dL Glucose 135 H (74-99) mg/dL POC Glucose (mg/dL) 129 H (75-99) mg/dL Ferritin (10.0-291.0) ng/mL Lactate Dehydrogenase (313-618) U/L Troponin I (0.000-0.034) ng/mL 09/22/19 09/22/19 09/22/19 Range/Units 10:14 10:14 11:28 D-Dimer (<0.60) mg/L FEU Carbon Dioxide (22-30) mmol/L BUN (7-17) mg/dL Glucose (74-99) mg/dL POC Glucose (mg/dL) 170 H (75-99) mg/dL Ferritin (10.0-291.0) ng/mL Lactate Dehydrogenase 1634 H (313-618) U/L Troponin I 0.118 H* (0.000-0.034) ng/mL Assessment and Plan Assessment: #1. Acute hypoxemic respiratory failure related to acute COVID 19 pneumonitis, improved and currently on 4 L high flow nasal cannula #2. Acute COVID 19 infection with symptoms of profound hypoxemia, weakness, fatigue, intermittent fevers, nausea for one week prior to presentation, patient had a COVID 19 PCR test positive on 2 occasions on 09/06/2019, and again on 09/10/2019 #3. Sepsis related to viral pneumonia, although possibility of bacterial pneumonia is not entirely excluded. #4. Hypotension, hypovolemic and related to decreased oral intake, nausea, and sepsis related to viral pneumonia, recovered with IV fluid boluses #5. Elevated LDH, CRP related to COVID 19 infection, trending down #6. History of hypertension #7. History of hyperlipidemia #8. Never smoker #9. No history of EtOH use #10. Positive troponin, possibly related to acute Covid 19 related myocarditis Plan: The patient was seen and evaluated by Dr. Keating Inflammatory markers trending down She did receive convalescent plasma 1 She did receive tocilizumab 2 Completed Plaquenil, continued on steroids, zinc Down to 4 L high flow nasal cannula, continue to titrate down as tolerated Repeat chest x-ray in a.m. We'll continue to follow and make further recommendations based on her clinical status I, the cosigning physician, performed a history & physical examination of the patient. Lungs sounds with crackles in the bases. Maintaining good O2 saturations in the 90s on 4 L high flow nasal cannula with FiO2 in the 90s. I discussed the assessment and plan of care with my nurse practitioner, Marlene Mcgarry. I attest to the above note as dictated by her.
[2019-09-22 16:46] LABS: Glucose,Whole Blood 198 mg/dL (75-99)
[2019-09-22 19:32] LABS: Ferritin 1326.2 ng/mL (10.0-291.0)
[2019-09-22 20:01] LABS: Glucose,Whole Blood 119 mg/dL (75-99)
[2019-09-22] MEDS: INSULIN DETEMIR (LEVEMIR) 100 UNIT/ML SYR SQ SCH (20:38)
[2019-09-22] MEDS: ATORVASTATIN 10 MG TAB PO SCH (20:38)
--- NOTE | 2019-09-22 20:53 | P.PN ---
Subjective 63-year-old female is admitted for acute respiratory failure secondary to acute COVID 19 sepsis, patient is presently on 100% nonrebreather saturating at 88-90% chest x-ray showing mild worsening of right upper lobe pneumonia. Patient remains on IV fluids. Patient troponins are elevated because of possible Covid myocarditis I'll obtain a echocardiogram to see if there is any heart failure. All the acute phase reactants are elevated including d-dimer which is only minimally elevated. Patient is presently on hydroxychloroquine and the steroids which were ordered by pulmonary patient has highly elevated LDH. 09/12/2019 Patient remains in the ICU, she is awake and oriented and follow commands however she is short of breath and she still on 50 L oxygen via nonrebreather. Also patient has significant orthopnea with diminished breath sounds on both sides. She is significantly tachypneic 27-34 and saturating 88% and 15L Oxygen via nasal cannula/high flow She has leukocytosis of 18.6 K however she is on steroids. D-dimer is worse today from 0.4 up to 14.0. BMP is unremarkable. Liver enzymes mildly elevated but stable Patient is currently on Plaquenil, zinc, Rocephin, Solu-Medrol 30 mg twice daily, normal saline. Her Lovenox was increased to 80 mg twice a day Pulmonary the case. 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 She is awake and oriented, she is dyspneic and orthopedic with dry cough for her comfort pneumonia with chest x-ray showing slight worsening by radiologist She remains on 15 L oxygen via nasal cannula over the last 2-3 days Plant Maintenance Mechanic recommended to continue with same treatment, no need for intervention for now. No change in the treatment today as she continue with Rocephin, Solu-Medrol 30 mg, Lovenox 80 mg and Plaquenil, her normal saline was lowered to 40 mL per hour WBC is 19.6 while she is on steroids, liver enzymes slightly elevated and stable 09/14/2019 Patient remains in the ICU oriented but still dyspneic with cough. WBC slightly less at 16.8 D-dimer still high at 12.15, LDH is elevated at 3785, ferritin is slightly down to 983, C-reactive protein is the main inflammatory markers and coming down to 25. Troponin down to 2.2. patient is written for convalescent immunoglobulin Patient was monitored closely by pulmonary/critical care team 09/15/2019 Patient seen in the ICU. She still have dyspnea. She saturating low 90s on 15 L oxygen via nonrebreather. Chest x-ray still showing infiltrates. Patient WBC is 14.6 K, liver enzymes slightly elevated. She still tachypneic. Patient remains on antibiotics ceftriaxone and zinc. Patient finished her Plaquenil. Continue Solu-Medrol 50 mg twice daily. She is a normal-sized heart with per hour. She is also on Lovenox 80 mg. Levemir is lowered to 8 units. 09/16/2019 Patient remains in the ICU, she is closely monitored for her pulmonary status for her covid-19 pneumonia. No much change in her situation. She still on 15 L oxygen nasal cannula with oxygen saturating 95%. WBC is slightly up To 16.4 K , sodium and electrolytes are within normal limits. Sugar is controlled. liver enzymes trending down slowly, bilirubin opening is normal. Inflammatory markers of ferritin, LDH and C reactive protein are still elevated. Patient remains on Rocephin, Solu-Medrol 30 mg, normal saline at 40, Lovenox 80 mg twice daily and Levemir 8 units 09/17/2019 Today patient was trying to wean her oxygen down, she quit saturating at 94 on 7 L for short while before it came up again to 15 L oxygen via nasal cannula during the evening time Patient is still tachypneic 21-25 She consented for convalescent plasma which is pending now Inflammatory markers 13 and LDH still elevated, C-reactive protein is normal Chest x-ray showing same changes and infiltrates 09/18/2019 Patient is awake, she still in the ICU saturating 96% on 15 L oxygen via nasal cannula, however she is not in great distress. She is tachypneic and tachycardic, WBC came down to 12.1 K, basic metabolic panic and glucose are stable Patient received convalescent plasma yesterday for her Covid pneumonia, Rocephin was stopped and patient was started on Lasix 40 mg daily Patient remains critical and monitored closely in the ICU 09/19/2019 Patient is in the ICU, sedated and intubated with mild respiratory distress however patient looks improvement as her oxygen requirement is lowered to 6 L via nasal cannula while gaping saturation above 90%, her chest x-ray also shows improvement in aeriation, she is slightly tachycardic, labs and sugar stable, inflammatory markers still elevated. Patient remains on Solu-Medrol 30 mg, normocephalic 40 mg, Lasix IV 40 mg daily and Levemir 80 mg twice a day. 09/20/2019 Patient the ICU was showing significant improvement regarding her breathing with decreased oxygen requirement down to 8-4 L via nasal cannula. Rest of vital signs stable Labs reviewed and looks stable., Sugar controlled GEN Solu-Medrol to prednisone 30 mg daily, and Lasix discontinued. She remains on prednisone 30 mg, #40 mL/h and Lovenox 80 mg twice a day Patient is stable to go to general medical floor 09/21/2019 Patient is awake, breathing more quietly in the ICU. She saturating 94-95% on 4 L oxygen via nasal cannula. She has low-grade temperature of 100.2 today. Labs reviewed showing WBC of normal 8.4K, hemoglobin 13.8 platelets 345, sodium 134, potassium 3.4 creatinine 0.37, glucose stable and controlled inflammatory markers ferittin 1091, LDH elevated 166 and C-reactive protein is normal with less than 5 While chest x-ray showing mixed interstitial and alveolar infiltrates throughout both lung mcbride, unchanged from prior study. She remains on prednisone 30 mg, Levemir 8 units and Lovenox therapeutic dose Just improving and transferred to the general medical floor today 09/22/2019 She is breathing more quietly today, her oxygen saturation is 90 with 4 L oxygen via nasal cannula. WBC is back to normal. And inflammatory markers slightly coming down. Troponin is down from 2.2-2 days ago to 0.11 today. She isn't prednisone 30 mg and Lovenox 80 mg twice a day and monitor chest x-ray in the morning Objective - Vital Signs Vital signs: Vital Signs Temp 98.0 F 09/22/19 07:00 Pulse 100 09/22/19 09:27 Resp 17 09/22/19 09:27 BP 120/74 09/22/19 07:00 Pulse Ox 92 L 09/22/19 07:00 Intake & Output 09/21/19 09/22/19 09/22/19 18:59 06:59 18:59 Intake Total 80 Balance 80 Weight 76.2 kg Intake: IV 80 Sodium Chloride 0.9% 1, 80 000 ml @ 40 mls/hr IV . Q24H [facility] Rx#:[id number] Other: Voiding Method Bedside Commode Bedside Commode Bedside Commode # Voids 1 # Bowel Movements 1 - Exam GENERAL: The patient is alert and oriented x3, not in any acute distress. Well developed, well nourished. HEENT: Pupils are round and equally reacting to light. EOMI. No scleral icterus. No conjunctival pallor. Normocephalic, atraumatic. No pharyngeal erythema. No thyromegaly. CARDIOVASCULAR: S1 and S2 present. No murmurs, rubs, or gallops. PULMONARY: Chest is clear to auscultation, no wheezing or crackles. ABDOMEN: Soft, nontender, nondistended, normoactive bowel sounds. No palpable organomegaly. MUSCULOSKELETAL: No joint swelling or deformity. EXTREMITIES: No cyanosis, clubbing, or pedal edema. NEUROLOGICAL: Gross neurological examination did not reveal any focal deficits. SKIN: No rashes. no petechiae. - Labs CBC & Chem 7: 09/22/19 06:44 09/22/19 06:44 Labs: Abnormal Lab Results - Last 24 Hours (Table) 09/20/19 09/21/19 09/21/19 Range/Units 04:43 04:30 11:47 Carbon Dioxide (22-30) mmol/L BUN (7-17) mg/dL Glucose (74-99) mg/dL POC Glucose (mg/dL) 194 H (75-99) mg/dL Ferritin 1026.3 H 1091.3 H (10.0-291.0) ng/mL 09/21/19 09/21/19 09/22/19 Range/Units 16:37 20:25 06:44 Carbon Dioxide 33 H (22-30) mmol/L BUN 25 H (7-17) mg/dL Glucose 135 H (74-99) mg/dL POC Glucose (mg/dL) 172 H 159 H (75-99) mg/dL Ferritin (10.0-291.0) ng/mL 09/22/19 Range/Units 07:03 Carbon Dioxide (22-30) mmol/L BUN (7-17) mg/dL Glucose (74-99) mg/dL POC Glucose (mg/dL) 129 H (75-99) mg/dL Ferritin (10.0-291.0) ng/mL Assessment and Plan Assessment: -Bilateral Covid pneumonia. Continue with antibiotics and pulmonary consult. Status post convalescent plasma. Improving gradually -Acute hypoxic respiratory failure secondary to COVID 19 pneumonitis and continue with respiratory support, -Elevated troponin secondary to Covid myocarditis echocardiogram will be obtained, cardiology consultation evaluated patient -Mildly elevated liver enzymes -Elevated d-dimer, continue with Lovenox -Elevated inflammatory markers included 13, LDH and C-reactive protein, secondary to Covid -Hypotension : Improved -Hyperlipidemia DVT prophylaxis: Lovenox GI prophylaxis: Protonix Prognosis is guarded
[2019-09-23] MEDS: ALBUTEROL HFA INHALER INHALATION SCH ×4 (03:41→19:44)
[2019-09-23 06:23] LABS: Basophils % (A) 0 %; Eosinophils # (A) 0.2 k/uL (0-0.7); Eosinophils % (A) 3 %; HCT 40.4 % (34.0-46.0); Lymphocytes # (A) 1.9 k/uL (1.0-4.8); Lymphocytes % (A) 25 %; MCH 29.4 pg (25.0-35.0); MCHC 32.2 g/dL (31.0-37.0); MCV 91.4 fL (80.0-100.0); Mean Platelet Volume 7.9; Monocytes # (A) 0.4 k/uL (0-1.0); Monocytes % (A) 6 %; Neutrophils # (A) 4.9 k/uL (1.3-7.7); Neutrophils % (A) 64 %; Platelet Count 260 k/uL (150-450); RBC 4.43 m/uL (3.80-5.40); RDW 14.3 % (11.5-15.5); WBC 7.6 k/uL (3.8-10.6)
[2019-09-23 07:07] LABS: ALT 113 U/L (4-34); AST 45 U/L (14-36); African American GFR (CKD) >90 (>60 ml/min/1.73 sqM); Albumin 3.2 g/dL (3.5-5.0); Alkaline Phosphatase 102 U/L (38-126); Anion Gap 5 mmol/L; Bilirubin, Delta 0.1 mg/dL (0.0-0.2); Blood Urea Nitrogen 29 mg/dL (7-17); Calcium 8.7 mg/dL (8.4-10.2); Carbon Dioxide 30 mmol/L (22-30); Chloride 100 mmol/L (98-107); Glucose 127 mg/dL (74-99); Non-African American GFR(CKD) >90 (>60 ml/min/1.73 sqM); Potassium 3.6 mmol/L (3.5-5.1); Sodium 135 mmol/L (137-145); Total Bilirubin 1.1 mg/dL (0.2-1.3); Total Protein 5.7 g/dL (6.3-8.2)
[2019-09-23 07:22] LABS: Glucose,Whole Blood 126 mg/dL (75-99)
[2019-09-23] MEDS: INSULIN ASPART (NovoLOG) 100 UNIT/ML VIAL SQ SCH ×4 (07:25→20:27)
[2019-09-23] MEDS: CITALOPRAM HYDROBROMIDE 20 MG TAB PO SCH (07:33)
[2019-09-23] MEDS: FENOFIBRATE 160 MG TAB PO SCH (07:33)
[2019-09-23] MEDS: predniSONE 10 MG TAB PO SCH (07:33)
[2019-09-23] MEDS: ZINC SULFATE 220 MG CAP PO SCH (07:33)
[2019-09-23] MEDS: ENOXAPARIN 80 MG/0.8 ML SYRINGE SQ SCH ×2 (07:33→22:25)
[2019-09-23] MEDS: PANTOPRAZOLE 40 MG TABLET PO SCH (07:33)
--- NOTE | 2019-09-23 08:22 | XR ---
EXAMINATION TYPE: XR chest 1V portable DATE OF EXAM: 09/23/2019 COMPARISON: Prior chest x-ray 09/21/2019 HISTORY: Pneumonia TECHNIQUE: Single frontal view of the chest is obtained. FINDINGS: Bilateral airspace disease is present. No evident pneumothorax or pleural effusion. Heart is stable, patient is rotated. IMPRESSION: No significant interval change in bilateral airspace disease.
[2019-09-23] MEDS: NIACIN TR 500 MG CAPLET PO SCH (08:42)
[2019-09-23] MEDS: METOPROLOL SUCCINATE (ER) 25 MG TAB.ER.24H PO SCH (08:42)
[2019-09-23] MEDS: LOSARTAN-HCTZ 50-12.5 MG 1 EACH TAB PO SCH (08:42)
[2019-09-23 11:51] LABS: Glucose,Whole Blood 192 mg/dL (75-99)
--- NOTE | 2019-09-23 13:32 | P.PN ---
Subjective Progress Note Date: 09/23/19 Principal diagnosis: Acute COVID 19 related pneumonitis 63-year-old female patient of Dr. Jaison Friedman, with past medical history of hypertension, hyperlipidemia, nonsmoker, works in the dietary department at [employer], was accepted as a transfer from [employer] [facility] where she presented for evaluation of fatigue, nausea, weakness, occasional fevers and low pulse ox levels. Patient reports symptoms present for about a week. Her coronavirus PCR test was positive on 09/06/2019, and again today on all 09/10/2019. No vomiting or diarrhea, no shortness of breath. Lab work showed white blood cell count 13.2, hemoglobin of 13.5, platelet count is 513, neutrophil count is elevated at 10.6, lymphocytes at 1.6, no d-dimer was drawn, sodium is 134, potassium is 3.7, chloride is 96, CO2 is 27, B1 is 33 creatinine 0.93, LDH is 2470, CRP is significantly elevated at 252, plasma lactic acid was 1.8. EKG shows normal sinus rhythm with evidence of possible inferior infarct of undetermined age, and T-wave inversion in the anterolateral leads. QT/QTc were 388 and 482 respectively. Patient is afebrile, profound hypoxemia, with a pulse ox of 73% on 15 L high flow. Currently requiring 100% nonrebreather in addition to 15 L per high flow nasal cannula and a pulse ox is 98%. In addition patient was borderline hypotensive with pressures of 90 systolic, and patient was given 1/2 L in IV fluid boluses in the emergency department. Patient was transferred to the ICU for close monitoring. Chest x-ray showed scattered mixed interstitial and alveolar infiltrates throughout both lungs compatible with underlying pneumonia. On 09/11/2019 patient seen in follow-up in the intensive care unit, she remains on high flow oxygen, currently on 100% nonrebreather with a pulse ox of 88-90%, patient has been afebrile, hemodynamically stable, today's chest x-ray shows worsening over the right upper lobe pneumonia with multifocal opacities in the left midlung and right lung base unchanged from prior chest x-ray which was done yesterday. Today's labs have been reviewed, showing white blood cell count of 13.8, hemoglobin of 11.7, platelet count is 480, electrolytes were within normal limits, BUN is 19 creatinine 0.63, yesterday patient's d-dimer was 0.90 patient is on reflected dose of Lovenox. Ferritin level yesterday was 1514, AST and ALT improving, down to 7039 respectively, alk phos is 56, lactate dehydrogenase is 2002, trending down from yesterday, and patient had elevated troponins at 3.2 and 1.8, CRP remains significantly elevated as well at 192. Pro-calcitonin was mildly elevated to 0.18, we will add Rocephin for empiric antibiotic coverage. On 09/23/2019 patient is seen in follow-up on general medical floor, she continues to improve, breathing easier, her FiO2 is down to 1 L currently, and her pulse ox is 92%, hemodynamically stable, afebrile, denies any shortness of breath, denies any chest pain, no nausea vomiting or diarrhea. She is status post convalescent plasma infusion on 09/17/2019. Today's labs have been reviewed, showing white blood cell, 7.6, hemoglobin of 13.0, lymphocyte count is 1.9, sodium is 135, and the rest of the electrolytes were within normal limits, BUN of 29 creatinine is 0.47. LFTs are improving, AST is 45, ALT 113, alkaline phosphatase is 102, although troponin was done yesterday, and is down to 0.118, down trending, d-dimer is also down trending to 4.07 on yesterday's labs, follow pro-calcitonin is negative at 0.06. Cultures have shown no growth, no abdominal pain, patient is tolerating oral intake. Remains on oral prednisone at 30 mg daily, in addition to therapeutic doses of Lovenox at 80 mg twice a day Objective - Vital Signs Vital signs: Vital Signs Temp 98.1 F 09/23/19 11:00 Pulse 90 09/23/19 11:00 Resp 16 09/23/19 11:00 BP 99/66 09/23/19 11:00 Pulse Ox 92 L 09/23/19 11:00 Intake & Output 09/22/19 09/23/19 09/23/19 18:59 06:59 18:59 Output Total 0 Balance 0 Weight 77.5 kg Output: Urine 0 Other: Voiding Method Bedside Commode Toilet Bedside Commode # Voids 1 - Exam GENERAL EXAM: Alert, very pleasant, 63-year-old white female, currently on 1 L of oxygen and the pulse ox of 92%, sitting up in the recliner, in no acute distress HEAD: Normocephalic/atraumatic. EYES: Normal reaction of pupils, equal size. Conjunctiva pink, sclera white. NOSE: Clear with pink turbinates. THROAT: No erythema or exudates. NECK: No masses, no JVD, no thyroid enlargement, no adenopathy. CHEST: No chest wall deformity. Symmetrical expansion. LUNGS: Equal air entry with no crackles, wheeze, rhonchi or dullness. CVS: Regular rate and rhythm, normal S1 and S2, no gallops, no murmurs, no rubs ABDOMEN: Soft, nontender. No hepatosplenomegaly, normal bowel sounds, no guarding or rigidity. EXTREMITIES: No clubbing, no edema, no cyanosis, 2+ pulses and upper and lower extremities. MUSCULOSKELETAL: Muscle strength and tone normal. SPINE: No scoliosis or deformity SKIN: No rashes CENTRAL NERVOUS SYSTEM: Alert and oriented -3. No focal deficits, tone is normal in all 4 extremities. PSYCHIATRIC: Alert and oriented -3. Appropriate affect. Intact judgment and insight. - Labs CBC & Chem 7: 09/23/19 05:28 09/23/19 05:28 Labs: Abnormal Lab Results - Last 24 Hours (Table) 09/22/19 09/22/19 09/22/19 Range/Units 10:14 16:45 19:59 Sodium (137-145) mmol/L BUN (7-17) mg/dL Creatinine (0.52-1.04) mg/dL Glucose (74-99) mg/dL POC Glucose (mg/dL) 198 H 119 H (75-99) mg/dL Ferritin 1326.2 H (10.0-291.0) ng/mL AST (14-36) U/L ALT (4-34) U/L Total Protein (6.3-8.2) g/dL Albumin (3.5-5.0) g/dL 09/23/19 09/23/19 09/23/19 Range/Units 05:28 07:21 11:48 Sodium 135 L (137-145) mmol/L BUN 29 H (7-17) mg/dL Creatinine 0.47 L (0.52-1.04) mg/dL Glucose 127 H (74-99) mg/dL POC Glucose (mg/dL) 126 H 192 H (75-99) mg/dL Ferritin (10.0-291.0) ng/mL AST 45 H (14-36) U/L ALT 113 H (4-34) U/L Total Protein 5.7 L (6.3-8.2) g/dL Albumin 3.2 L (3.5-5.0) g/dL Assessment and Plan Plan: Assessment: #1. Acute hypoxemic respiratory failure related to acute COVID 19 pneumonitis, improved, and patient has been treated with a combination of empiric antibiotics, IV steroids, tocilizumab, and status post convalescent plasma infusion on 09/17/2019 #2. Acute COVID 19 infection with symptoms of profound hypoxemia, weakness, fatigue, intermittent fevers, nausea for one week prior to presentation, patient had a COVID 19 PCR test positive on 2 occasions on 09/06/2019, and again on 09/10/2019 #3. Sepsis related to viral pneumonia, although possibility of bacterial pneumonia is not entirely excluded. Initial pro-calcitonin was elevated to 0.18, was treated with empiric [place] form of Rocephin, and subsequent pro-calcitonin on 09/22/2019 was negative at 0.06 #4. Hypotension, hypovolemic and related to decreased oral intake, nausea, and sepsis related to viral pneumonia, recovered with IV fluid boluses, improved #5. Elevated LDH, CRP related to COVID 19 infection, improved. Interleukin-6 level elevated at 83.8 #6. History of hypertension #7. History of hyperlipidemia #8. Never smoker #9. No history of EtOH use #10. Positive troponin, possibly related to acute Covid 19 related myocarditis, down trending Plan: Patient continues to improve, continue weaning FiO2 to keep O2 sats at 90 or above, no worsening dyspnea, chest x-ray findings are improving with persistent bilateral airspace disease. Likely improving, patient is afebrile, we'll obtain follow-up inflammatory markers tomorrow but the d-dimer and troponin continued to downtrend, no shortness of breath or chest pain, no fever or chills, patient is tolerating oral intake, no nausea vomiting or diarrhea. We'll continue oral steroids, patient has completed the antibiotics, her follow pro-calcitonin is negative at 0.06. Patient continues to improve, possibility of discharge home tomorrow will be considered I performed a history & physical examination of the patient and discussed their management with my nurse practitioner, Nelsy Encarnacion. I reviewed the nurse practitioner's note and agree with the documented findings and plan of care. Lung sounds are positive for diminished breath sounds. The findings and the impression was discussed with the patient. I attest to the documentation by the nurse practitioner. Time with Patient: Less than 30
[2019-09-23 13:48] VITALS: BMI 31.2
[2019-09-23 16:51] LABS: Glucose,Whole Blood 116 mg/dL (75-99)
--- NOTE | 2019-09-23 19:21 | P.PN ---
Subjective 63-year-old female is admitted for acute respiratory failure secondary to acute COVID 19 sepsis, patient is presently on 100% nonrebreather saturating at 88-90% chest x-ray showing mild worsening of right upper lobe pneumonia. Patient remains on IV fluids. Patient troponins are elevated because of possible Covid myocarditis I'll obtain a echocardiogram to see if there is any heart failure. All the acute phase reactants are elevated including d-dimer which is only minimally elevated. Patient is presently on hydroxychloroquine and the steroids which were ordered by pulmonary patient has highly elevated LDH. 09/12/2019 Patient remains in the ICU, she is awake and oriented and follow commands however she is short of breath and she still on 50 L oxygen via nonrebreather. Also patient has significant orthopnea with diminished breath sounds on both sides. She is significantly tachypneic 27-34 and saturating 88% and 15L Oxygen via nasal cannula/high flow She has leukocytosis of 18.6 K however she is on steroids. D-dimer is worse today from 0.4 up to 14.0. BMP is unremarkable. Liver enzymes mildly elevated but stable Patient is currently on Plaquenil, zinc, Rocephin, Solu-Medrol 30 mg twice daily, normal saline. Her Lovenox was increased to 80 mg twice a day Pulmonary the case. Also film mounter evaluated the patient and recommended to continue with present therapy and monitor EKG 09/13/2019 Patient in the ICU. She is awake and oriented, she is dyspneic and orthopedic with dry cough for her comfort pneumonia with chest x-ray showing slight worsening by radiologist She remains on 15 L oxygen via nasal cannula over the last 2-3 days Educational Program Director recommended to continue with same treatment, no need for intervention for now. No change in the treatment today as she continue with Rocephin, Solu-Medrol 30 mg, Lovenox 80 mg and Plaquenil, her normal saline was lowered to 40 mL per hour WBC is 19.6 while she is on steroids, liver enzymes slightly elevated and stable 09/14/2019 Patient remains in the ICU oriented but still dyspneic with cough. WBC slightly less at 16.8 D-dimer still high at 12.15, LDH is elevated at 3785, ferritin is slightly down to 983, C-reactive protein is the main inflammatory markers and coming down to 25. Troponin down to 2.2. patient is written for convalescent immunoglobulin Patient was monitored closely by pulmonary/critical care team 09/15/2019 Patient seen in the ICU. She still have dyspnea. She saturating low 90s on 15 L oxygen via nonrebreather. Chest x-ray still showing infiltrates. Patient WBC is 14.6 K, liver enzymes slightly elevated. She still tachypneic. Patient remains on antibiotics ceftriaxone and zinc. Patient finished her Plaquenil. Continue Solu-Medrol 50 mg twice daily. She is a normal-sized heart with per hour. She is also on Lovenox 80 mg. Levemir is lowered to 8 units. 09/16/2019 Patient remains in the ICU, she is closely monitored for her pulmonary status for her covid-19 pneumonia. No much change in her situation. She still on 15 L oxygen nasal cannula with oxygen saturating 95%. WBC is slightly up To 16.4 K , sodium and electrolytes are within normal limits. Sugar is controlled. liver enzymes trending down slowly, bilirubin opening is normal. Inflammatory markers of ferritin, LDH and C reactive protein are still elevated. Patient remains on Rocephin, Solu-Medrol 30 mg, normal saline at 40, Lovenox 80 mg twice daily and Levemir 8 units 09/17/2019 Today patient was trying to wean her oxygen down, she quit saturating at 94 on 7 L for short while before it came up again to 15 L oxygen via nasal cannula during the evening time Patient is still tachypneic 21-25 She consented for convalescent plasma which is pending now Inflammatory markers 13 and LDH still elevated, C-reactive protein is normal Chest x-ray showing same changes and infiltrates 09/18/2019 Patient is awake, she still in the ICU saturating 96% on 15 L oxygen via nasal cannula, however she is not in great distress. She is tachypneic and tachycardic, WBC came down to 12.1 K, basic metabolic panic and glucose are stable Patient received convalescent plasma yesterday for her Covid pneumonia, Rocephin was stopped and patient was started on Lasix 40 mg daily Patient remains critical and monitored closely in the ICU 09/19/2019 Patient is in the ICU, sedated and intubated with mild respiratory distress however patient looks improvement as her oxygen requirement is lowered to 6 L via nasal cannula while gaping saturation above 90%, her chest x-ray also shows improvement in aeriation, she is slightly tachycardic, labs and sugar stable, inflammatory markers still elevated. Patient remains on Solu-Medrol 30 mg, normocephalic 40 mg, Lasix IV 40 mg daily and Levemir 80 mg twice a day. 09/20/2019 Patient the ICU was showing significant improvement regarding her breathing with decreased oxygen requirement down to 8-4 L via nasal cannula. Rest of vital signs stable Labs reviewed and looks stable., Sugar controlled GEN Solu-Medrol to prednisone 30 mg daily, and Lasix discontinued. She remains on prednisone 30 mg, #40 mL/h and Lovenox 80 mg twice a day Patient is stable to go to general medical floor 09/21/2019 Patient is awake, breathing more quietly in the ICU. She saturating 94-95% on 4 L oxygen via nasal cannula. She has low-grade temperature of 100.2 today. Labs reviewed showing WBC of normal 8.4K, hemoglobin 13.8 platelets 345, sodium 134, potassium 3.4 creatinine 0.37, glucose stable and controlled inflammatory markers ferittin 1091, LDH elevated 166 and C-reactive protein is normal with less than 5 While chest x-ray showing mixed interstitial and alveolar infiltrates throughout both lung [place], unchanged from prior study. She remains on prednisone 30 mg, Levemir 8 units and Lovenox therapeutic dose Just improving and transferred to the general medical floor today 09/22/2019 She is breathing more quietly today, her oxygen saturation is 90 with 4 L oxygen via nasal cannula. WBC is back to normal. And inflammatory markers slightly coming down. Troponin is down from 2.2-2 days ago to 0.11 today. She isn't prednisone 30 mg and Lovenox 80 mg twice a day and monitor chest x-ray in the morning 09/23/2019 She continued doing well regarding her breathing and she is improving gradually, this morning she saturating 92-94% on 1-2 L of oxygen via nasal cannula, no significant dyspnea. No chest pain CBC and BMP are within normal and stable limits, liver enzymes are trending down. Objective - Vital Signs Vital signs: Vital Signs Temp 98.1 F 09/23/19 11:00 Pulse 90 09/23/19 11:00 Resp 16 09/23/19 11:00 BP 99/66 09/23/19 11:00 Pulse Ox 92 L 09/23/19 11:00 Intake & Output 09/22/19 09/23/19 09/23/19 18:59 06:59 18:59 Output Total 0 Balance 0 Weight 77.5 kg Output: Urine 0 Other: Voiding Method Bedside Commode Toilet Bedside Commode # Voids 1 - Exam GENERAL: The patient is alert and oriented x3, not in any acute distress. Well developed, well nourished. HEENT: Pupils are round and equally reacting to light. EOMI. No scleral icterus. No conjunctival pallor. Normocephalic, atraumatic. No pharyngeal erythema. No thyromegaly. CARDIOVASCULAR: S1 and S2 present. No murmurs, rubs, or gallops. PULMONARY: Chest is clear to auscultation, no wheezing or crackles. ABDOMEN: Soft, nontender, nondistended, normoactive bowel sounds. No palpable organomegaly. MUSCULOSKELETAL: No joint swelling or deformity. EXTREMITIES: No cyanosis, clubbing, or pedal edema. NEUROLOGICAL: Gross neurological examination did not reveal any focal deficits. SKIN: No rashes. no petechiae. - Labs CBC & Chem 7: 09/23/19 05:28 09/23/19 05:28 Labs: Abnormal Lab Results - Last 24 Hours (Table) 09/22/19 09/22/19 09/22/19 Range/Units 10:14 16:45 19:59 Sodium (137-145) mmol/L BUN (7-17) mg/dL Creatinine (0.52-1.04) mg/dL Glucose (74-99) mg/dL POC Glucose (mg/dL) 198 H 119 H (75-99) mg/dL Ferritin 1326.2 H (10.0-291.0) ng/mL AST (14-36) U/L ALT (4-34) U/L Total Protein (6.3-8.2) g/dL Albumin (3.5-5.0) g/dL 09/23/19 09/23/19 09/23/19 Range/Units 05:28 07:21 11:48 Sodium 135 L (137-145) mmol/L BUN 29 H (7-17) mg/dL Creatinine 0.47 L (0.52-1.04) mg/dL Glucose 127 H (74-99) mg/dL POC Glucose (mg/dL) 126 H 192 H (75-99) mg/dL Ferritin (10.0-291.0) ng/mL AST 45 H (14-36) U/L ALT 113 H (4-34) U/L Total Protein 5.7 L (6.3-8.2) g/dL Albumin 3.2 L (3.5-5.0) g/dL Assessment and Plan Assessment: -Bilateral Covid pneumonia. Continue with antibiotics and pulmonary consult. Status post convalescent plasma. Improving gradually -Acute hypoxic respiratory failure secondary to COVID 19 pneumonitis and continue with respiratory support, -Elevated troponin secondary to Covid myocarditis echocardiogram will be obtained, cardiology consultation evaluated patient -Mildly elevated liver enzymes -Elevated d-dimer, continue with Lovenox -Elevated inflammatory markers included 13, LDH and C-reactive protein, secondary to Covid -Hypotension : Improved -Hyperlipidemia DVT prophylaxis: Lovenox GI prophylaxis: Protonix Prognosis is guarded
[2019-09-23 20:20] LABS: Glucose,Whole Blood 208 mg/dL (75-99)
[2019-09-23] MEDS: INSULIN DETEMIR (LEVEMIR) 100 UNIT/ML SYR SQ SCH (20:26)
[2019-09-23] MEDS: ATORVASTATIN 10 MG TAB PO SCH (20:36)
[2019-09-24] MEDS: ALBUTEROL HFA INHALER INHALATION SCH ×4 (01:44→19:56)
[2019-09-24 07:01] LABS: Glucose,Whole Blood 146 mg/dL (75-99)
[2019-09-24] MEDS: PANTOPRAZOLE 40 MG TABLET PO SCH (07:46)
[2019-09-24] MEDS: NIACIN TR 500 MG CAPLET PO SCH (07:46)
[2019-09-24] MEDS: INSULIN ASPART (NovoLOG) 100 UNIT/ML VIAL SQ SCH ×4 (07:46→21:03)
[2019-09-24] MEDS: CITALOPRAM HYDROBROMIDE 20 MG TAB PO SCH (07:47)
[2019-09-24] MEDS: FENOFIBRATE 160 MG TAB PO SCH (07:47)
[2019-09-24] MEDS: METOPROLOL SUCCINATE (ER) 25 MG TAB.ER.24H PO SCH (07:47)
[2019-09-24] MEDS: LOSARTAN-HCTZ 50-12.5 MG 1 EACH TAB PO SCH (07:47)
[2019-09-24] MEDS: predniSONE 10 MG TAB PO SCH (07:47)
[2019-09-24] MEDS: ZINC SULFATE 220 MG CAP PO SCH (07:47)
[2019-09-24] MEDS ORDERED: FUROSEMIDE 10 MG/ML 2 ML VIAL IV ONE (07:49)
[2019-09-24 08:02] LABS: Basophils # (A) 0.1 k/uL (0-0.2); Basophils % (A) 1 %; Eosinophils # (A) 0.3 k/uL (0-0.7); Eosinophils % (A) 3 %; HCT 43.8 % (34.0-46.0); HGB 14.9 gm/dL (11.4-16.0); Lymphocytes # (A) 2.4 k/uL (1.0-4.8); Lymphocytes % (A) 26 %; MCH 31.3 pg (25.0-35.0); MCHC 34.1 g/dL (31.0-37.0); MCV 91.7 fL (80.0-100.0); Monocytes # (A) 0.5 k/uL (0-1.0); Monocytes % (A) 6 %; Neutrophils # (A) 5.6 k/uL (1.3-7.7); Neutrophils % (A) 62 %; Platelet Count 337 k/uL (150-450); RBC 4.77 m/uL (3.80-5.40); RDW 14.8 % (11.5-15.5)
[2019-09-24 08:16] LABS: LDH 1187 U/L (313-618)
--- NOTE | 2019-09-24 08:21 | XR ---
EXAMINATION TYPE: XR chest 1V portable DATE OF EXAM: 09/24/2019 COMPARISON: 09/23/2019 INDICATION: Covid TECHNIQUE: Single frontal view of the chest is obtained. FINDINGS: The heart size is normal. The pulmonary vasculature is somewhat prominent. Diffuse patchy infiltrates are present bilaterally. Findings can be compatible with atypical pneumoni a. A focal consolidation is not identified. IMPRESSION: 1. Patchy bilateral infiltrates can be compatible with atypical pneumonia.
[2019-09-24 08:33] LABS: C Reactive Protein <5.0 mg/L (<10.0); Creatine Kinase 35 U/L (30-135)
[2019-09-24 08:56] LABS: ALT 95 U/L (4-34); AST 41 U/L (14-36); African American GFR (CKD) >90 (>60 ml/min/1.73 sqM); Albumin 3.8 g/dL (3.5-5.0); Alkaline Phosphatase 95 U/L (38-126); Anion Gap 5 mmol/L; Bilirubin, Delta 0.1 mg/dL (0.0-0.2); Bilirubin,Unconjugated 1.1 mg/dL (0.0-1.1); Blood Urea Nitrogen 35 mg/dL (7-17); Calcium 9.2 mg/dL (8.4-10.2); Carbon Dioxide 31 mmol/L (22-30); Chloride 99 mmol/L (98-107); Glucose 143 mg/dL (74-99); Non-African American GFR(CKD) >90 (>60 ml/min/1.73 sqM); Potassium 3.7 mmol/L (3.5-5.1); Sodium 135 mmol/L (137-145); Total Bilirubin 1.2 mg/dL (0.2-1.3); Total Protein 6.6 g/dL (6.3-8.2)
--- NOTE | 2019-09-24 09:18 | P.PN ---
Subjective 63-year-old female is admitted for acute respiratory failure secondary to acute COVID 19 sepsis, patient is presently on 100% nonrebreather saturating at 88-90% chest x-ray showing mild worsening of right upper lobe pneumonia. Patient remains on IV fluids. Patient troponins are elevated because of possible Covid myocarditis I'll obtain a echocardiogram to see if there is any heart failure. All the acute phase reactants are elevated including d-dimer which is only minimally elevated. Patient is presently on hydroxychloroquine and the steroids which were ordered by pulmonary patient has highly elevated LDH. 09/12/2019 Patient remains in the ICU, she is awake and oriented and follow commands however she is short of breath and she still on 50 L oxygen via nonrebreather. Also patient has significant orthopnea with diminished breath sounds on both sides. She is significantly tachypneic 27-34 and saturating 88% and 15L Oxygen via nasal cannula/high flow She has leukocytosis of 18.6 K however she is on steroids. D-dimer is worse today from 0.4 up to 14.0. BMP is unremarkable. Liver enzymes mildly elevated but stable Patient is currently on Plaquenil, zinc, Rocephin, Solu-Medrol 30 mg twice daily, normal saline. Her Lovenox was increased to 80 mg twice a day Pulmonary the case. Also venipuncturist evaluated the patient and recommended to continue with present therapy and monitor EKG 09/13/2019 Patient in the ICU. She is awake and oriented, she is dyspneic and orthopedic with dry cough for her comfort pneumonia with chest x-ray showing slight worsening by radiologist She remains on 15 L oxygen via nasal cannula over the last 2-3 days [employer]ishing [employer] Back Tender recommended to continue with same treatment, no need for intervention for now. No change in the treatment today as she continue with Rocephin, Solu-Medrol 30 mg, Lovenox 80 mg and Plaquenil, her normal saline was lowered to 40 mL per hour WBC is 19.6 while she is on steroids, liver enzymes slightly elevated and stable 09/14/2019 Patient remains in the ICU oriented but still dyspneic with cough. WBC slightly less at 16.8 D-dimer still high at 12.15, LDH is elevated at 3785, ferritin is slightly down to 983, C-reactive protein is the main inflammatory markers and coming down to 25. Troponin down to 2.2. patient is written for convalescent immunoglobulin Patient was monitored closely by pulmonary/critical care team 09/15/2019 Patient seen in the ICU. She still have dyspnea. She saturating low 90s on 15 L oxygen via nonrebreather. Chest x-ray still showing infiltrates. Patient WBC is 14.6 K, liver enzymes slightly elevated. She still tachypneic. Patient remains on antibiotics ceftriaxone and zinc. Patient finished her Plaquenil. Continue Solu-Medrol 50 mg twice daily. She is a normal-sized heart with per hour. She is also on Lovenox 80 mg. Levemir is lowered to 8 units. 09/16/2019 Patient remains in the ICU, she is closely monitored for her pulmonary status for her covid-19 pneumonia. No much change in her situation. She still on 15 L oxygen nasal cannula with oxygen saturating 95%. WBC is slightly up To 16.4 K , sodium and electrolytes are within normal limits. Sugar is controlled. liver enzymes trending down slowly, bilirubin opening is normal. Inflammatory markers of ferritin, LDH and C reactive protein are still elevated. Patient remains on Rocephin, Solu-Medrol 30 mg, normal saline at 40, Lovenox 80 mg twice daily and Levemir 8 units 09/17/2019 Today patient was trying to wean her oxygen down, she quit saturating at 94 on 7 L for short while before it came up again to 15 L oxygen via nasal cannula during the evening time Patient is still tachypneic 21-25 She consented for convalescent plasma which is pending now Inflammatory markers 13 and LDH still elevated, C-reactive protein is normal Chest x-ray showing same changes and infiltrates 09/18/2019 Patient is awake, she still in the ICU saturating 96% on 15 L oxygen via nasal cannula, however she is not in great distress. She is tachypneic and tachycardic, WBC came down to 12.1 K, basic metabolic panic and glucose are stable Patient received convalescent plasma yesterday for her Covid pneumonia, Rocephin was stopped and patient was started on Lasix 40 mg daily Patient remains critical and monitored closely in the ICU 09/19/2019 Patient is in the ICU, sedated and intubated with mild respiratory distress however patient looks improvement as her oxygen requirement is lowered to 6 L via nasal cannula while gaping saturation above 90%, her chest x-ray also shows improvement in aeriation, she is slightly tachycardic, labs and sugar stable, inflammatory markers still elevated. Patient remains on Solu-Medrol 30 mg, normocephalic 40 mg, Lasix IV 40 mg daily and Levemir 80 mg twice a day. 09/20/2019 Patient the ICU was showing significant improvement regarding her breathing with decreased oxygen requirement down to 8-4 L via nasal cannula. Rest of vital signs stable Labs reviewed and looks stable., Sugar controlled GEN Solu-Medrol to prednisone 30 mg daily, and Lasix discontinued. She remains on prednisone 30 mg, #40 mL/h and Lovenox 80 mg twice a day Patient is stable to go to general medical floor 09/21/2019 Patient is awake, breathing more quietly in the ICU. She saturating 94-95% on 4 L oxygen via nasal cannula. She has low-grade temperature of 100.2 today. Labs reviewed showing WBC of normal 8.4K, hemoglobin 13.8 platelets 345, sodium 134, potassium 3.4 creatinine 0.37, glucose stable and controlled inflammatory markers ferittin 1091, LDH elevated 166 and C-reactive protein is normal with less than 5 While chest x-ray showing mixed interstitial and alveolar infiltrates throughout both lung mcbride, unchanged from prior study. She remains on prednisone 30 mg, Levemir 8 units and Lovenox therapeutic dose Just improving and transferred to the general medical floor today 09/22/2019 She is breathing more quietly today, her oxygen saturation is 90 with 4 L oxygen via nasal cannula. WBC is back to normal. And inflammatory markers slightly coming down. Troponin is down from 2.2-2 days ago to 0.11 today. She isn't prednisone 30 mg and Lovenox 80 mg twice a day and monitor chest x-ray in the morning 09/23/2019 She continued doing well regarding her breathing and she is improving gradually, this morning she saturating 92-94% on 1-2 L of oxygen via nasal cannula, no significant dyspnea. No chest pain CBC and BMP are within normal and stable limits, liver enzymes are trending down. 09/24/2019 Patient is awake and breathing comfortably this morning. She saturating 98-93% on 1 L via nasal cannula. We will check her oxygen saturation this morning on room air. Patient is eating and drinking with no problems Labs are improving. Creatinine is 0.6. Sodium 135, d-dimer is 2.4 which is improving and trending down from 2 days ago at 4.07. Liver enzymes keep trending down. Chest x-ray: Patchy bilateral infiltrates Compatible with atypical pneumonia by radiologist. To me it looks similar to yesterday's chest x-ray She remains on prednisone 30 mg and Lovenox 80 mg twice daily. Objective - Vital Signs Vital signs: Vital Signs Temp 97.8 F 09/24/19 07:00 Pulse 99 09/24/19 08:00 Resp 18 09/24/19 08:00 BP 104/66 09/24/19 07:00 Pulse Ox 88 L 09/24/19 07:00 Intake & Output 09/23/19 09/24/19 09/24/19 18:59 06:59 18:59 Output Total 0 0 Balance 0 0 Weight 77.5 kg 77.5 kg Output: Urine 0 Stool 0 0 Other: Voiding Method Toilet Toilet Bedside Commode Bedside Commode # Voids 0 - Exam GENERAL: The patient is alert and oriented x3, not in any acute distress. Well developed, well nourished. HEENT: Pupils are round and equally reacting to light. EOMI. No scleral icterus. No conjunctival pallor. Normocephalic, atraumatic. No pharyngeal erythema. No thyromegaly. CARDIOVASCULAR: S1 and S2 present. No murmurs, rubs, or gallops. PULMONARY: Chest is clear to auscultation, no wheezing or crackles. ABDOMEN: Soft, nontender, nondistended, normoactive bowel sounds. No palpable organomegaly. MUSCULOSKELETAL: No joint swelling or deformity. EXTREMITIES: No cyanosis, clubbing, or pedal edema. NEUROLOGICAL: Gross neurological examination did not reveal any focal deficits. SKIN: No rashes. no petechiae. - Labs CBC & Chem 7: 09/24/19 07:48 09/24/19 07:48 Labs: Abnormal Lab Results - Last 24 Hours (Table) 09/23/19 09/23/19 09/23/19 Range/Units 11:48 16:49 20:19 D-Dimer (<0.60) mg/L FEU Sodium (137-145) mmol/L Carbon Dioxide (22-30) mmol/L BUN (7-17) mg/dL Glucose (74-99) mg/dL POC Glucose (mg/dL) 192 H 116 H 208 H (75-99) mg/dL AST (14-36) U/L ALT (4-34) U/L Lactate Dehydrogenase (313-618) U/L 09/24/19 09/24/19 09/24/19 Range/Units 06:59 07:48 07:48 D-Dimer 2.49 H (<0.60) mg/L FEU Sodium 135 L (137-145) mmol/L Carbon Dioxide 31 H (22-30) mmol/L BUN 35 H (7-17) mg/dL Glucose 143 H (74-99) mg/dL POC Glucose (mg/dL) 146 H (75-99) mg/dL AST 41 H (14-36) U/L ALT 95 H (4-34) U/L Lactate Dehydrogenase (313-618) U/L 09/24/19 Range/Units 07:48 D-Dimer (<0.60) mg/L FEU Sodium (137-145) mmol/L Carbon Dioxide (22-30) mmol/L BUN (7-17) mg/dL Glucose (74-99) mg/dL POC Glucose (mg/dL) (75-99) mg/dL AST (14-36) U/L ALT (4-34) U/L Lactate Dehydrogenase 1187 H (313-618) U/L Assessment and Plan Assessment: -Bilateral Covid pneumonia. Continue with antibiotics and pulmonary consult. Status post convalescent plasma. Improving gradually -Acute hypoxic respiratory failure secondary to COVID 19 pneumonitis and cont inue with respiratory support, -Elevated troponin secondary to Covid myocarditis echocardiogram will be obtained, cardiology consultation evaluated patient -Mildly elevated liver enzymes -Elevated d-dimer, continue with Lovenox -Elevated inflammatory markers included 13, LDH and C-reactive protein, secondary to Covid -Hypotension : Improved -Hyperlipidemia DVT prophylaxis: Lovenox GI prophylaxis: Protonix Prognosis is guarded
[2019-09-24 11:22] LABS: Glucose,Whole Blood 222 mg/dL (75-99)
--- NOTE | 2019-09-24 12:24 | P.PN ---
Subjective Progress Note Date: 09/24/19 Principal diagnosis: Acute COVID 19 related pneumonitis 63-year-old female patient of Dr. Jaison Friedman, with past medical history of hypertension, hyperlipidemia, nonsmoker, works in the dietary department at [employer], was accepted as a transfer from [employer] where she presented for evaluation of fatigue, nausea, weakness, occasional fevers and low pulse ox levels. Patient reports symptoms present for about a week. Her coronavirus PCR test was positive on 09/06/2019, and again today on all 09/10/2019. No vomiting or diarrhea, no shortness of breath. Lab work showed white blood cell count 13.2, hemoglobin of 13.5, platelet count is 513, neutrophil count is elevated at 10.6, lymphocytes at 1.6, no d-dimer was drawn, sodium is 134, potassium is 3.7, chloride is 96, CO2 is 27, B1 is 33 creatinine 0.93, LDH is 2470, CRP is significantly elevated at 252, plasma lactic acid was 1.8. EKG shows normal sinus rhythm with evidence of possible inferior infarct of undetermined age, and T-wave inversion in the anterolateral leads. QT/QTc were 388 and 482 respectively. Patient is afebrile, profound hypoxemia, with a pulse ox of 73% on 15 L high flow. Currently requiring 100% nonrebreather in addition to 15 L per high flow nasal cannula and a pulse ox is 98%. In addition patient was borderline hypotensive with pressures of 90 systolic, and patient was given 1/2 L in IV fluid boluses in the emergency department. Patient was transferred to the ICU for close monitoring. Chest x-ray showed scattered mixed interstitial and alveolar infiltrates throughout both lungs compatible with underlying pneumonia. On 09/11/2019 patient seen in follow-up in the intensive care unit, she remains on high flow oxygen, currently on 100% nonrebreather with a pulse ox of 88-90%, patient has been afebrile, hemodynamically stable, today's chest x-ray shows worsening over the right upper lobe pneumonia with multifocal opacities in the left midlung and right lung base unchanged from prior chest x-ray which was done yesterday. Today's labs have been reviewed, showing white blood cell count of 13.8, hemoglobin of 11.7, platelet count is 480, electrolytes were within normal limits, BUN is 19 creatinine 0.63, yesterday patient's d-dimer was 0.90 patient is on reflected dose of Lovenox. Ferritin level yesterday was 1514, AST and ALT improving, down to 7039 respectively, alk phos is 56, lactate dehydrogenase is 2002, trending down from yesterday, and patient had elevated troponins at 3.2 and 1.8, CRP remains significantly elevated as well at 192. Pro-calcitonin was mildly elevated to 0.18, we will add Rocephin for empiric antibiotic coverage. On 09/23/2019 patient is seen in follow-up on general medical floor, she continues to improve, breathing easier, her FiO2 is down to 1 L currently, and her pulse ox is 92%, hemodynamically stable, afebrile, denies any shortness of breath, denies any chest pain, no nausea vomiting or diarrhea. She is status post convalescent plasma infusion on 09/17/2019. Today's labs have been reviewed, showing white blood cell, 7.6, hemoglobin of 13.0, lymphocyte count is 1.9, sodium is 135, and the rest of the electrolytes were within normal limits, BUN of 29 creatinine is 0.47. LFTs are improving, AST is 45, ALT 113, alkaline phosphatase is 102, although troponin was done yesterday, and is down to 0.118, down trending, d-dimer is also down trending to 4.07 on yesterday's labs, follow pro-calcitonin is negative at 0.06. Cultures have shown no growth, no abdominal pain, patient is tolerating oral intake. Remains on oral prednisone at 30 mg daily, in addition to therapeutic doses of Lovenox at 80 mg twice a day On 09/24/2019 patient seen in follow-up on general medical floor. She continues to improve, no worsening dyspnea, FiO2 is down to 1 L and her pulse ox is 95%, afebrile, today's chest x-ray has been reviewed showing diffuse patchy bilateral infiltrates, may be slightly worsened aeration, and for that reason a dose of Lasix was given . However clinically patient feels good, her breathing is comfortable, no nausea or vomiting, no abdominal pain, she is tolerating oral intake. Her labs continue to improve today's labs showed CBC within normal limits, d-dimer is down to 2.49, sodium is 135, potassium is 3.7, chloride is 99, CO2 31, BUN of 35, creatinine 0.62, LDH is down to 1187, CKs 35, CRP is less than 5. No complaints of chest pain, or worsening dyspnea, she remains on ther apeutic doses of Lovenox at 80 mg twice daily, oral prednisone and zinc supplement. Objective - Vital Signs Vital signs: Vital Signs Temp 98.9 F 09/24/19 11:00 Pulse 103 H 09/24/19 11:00 Resp 16 09/24/19 11:00 BP 86/59 09/24/19 11:00 Pulse Ox 95 09/24/19 11:00 Intake & Output 09/23/19 09/24/19 09/24/19 18:59 06:59 18:59 Output Total 0 0 Balance 0 0 Weight 77.5 kg 77.5 kg Output: Urine 0 Stool 0 0 Other: Voiding Method Toilet Toilet Bedside Commode Bedside Commode # Voids 0 - Exam GENERAL EXAM: Alert, very pleasant, 63-year-old white female, currently on 1 L of oxygen and the pulse ox of 95%, sitting up in the recliner, in no acute distress HEAD: Normocephalic/atraumatic. EYES: Normal reaction of pupils, equal size. Conjunctiva pink, sclera white. NOSE: Clear with pink turbinates. THROAT: No erythema or exudates. NECK: No masses, no JVD, no thyroid enlargement, no adenopathy. CHEST: No chest wall deformity. Symmetrical expansion. LUNGS: Equal air entry with no crackles, wheeze, rhonchi or dullness. CVS: Regular rate and rhythm, normal S1 and S2, no gallops, no murmurs, no rubs ABDOMEN: Soft, nontender. No hepatosplenomegaly, normal bowel sounds, no guarding or rigidity. EXTREMITIES: No clubbing, no edema, no cyanosis, 2+ pulses and upper and lower extremities. MUSCULOSKELETAL: Muscle strength and tone normal. SPINE: No scoliosis or deformity SKIN: No rashes CENTRAL NERVOUS SYSTEM: Alert and oriented -3. No focal deficits, tone is normal in all 4 extremities. PSYCHIATRIC: Alert and oriented -3. Appropriate affect. Intact judgment and insight. - Labs CBC & Chem 7: 09/24/19 07:48 09/24/19 07:48 Labs: Abnormal Lab Results - Last 24 Hours (Table) 09/23/19 09/23/19 09/24/19 Range/Units 16:49 20:19 06:59 D-Dimer (<0.60) mg/L FEU Sodium (137-145) mmol/L Carbon Dioxide (22-30) mmol/L BUN (7-17) mg/dL Glucose (74-99) mg/dL POC Glucose (mg/dL) 116 H 208 H 146 H (75-99) mg/dL AST (14-36) U/L ALT (4-34) U/L Lactate Dehydrogenase (313-618) U/L 09/24/19 09/24/19 09/24/19 Range/Units 07:48 07:48 07:48 D-Dimer 2.49 H (<0.60) mg/L FEU Sodium 135 L (137-145) mmol/L Carbon Dioxide 31 H (22-30) mmol/L BUN 35 H (7-17) mg/dL Glucose 143 H (74-99) mg/dL POC Glucose (mg/dL) (75-99) mg/dL AST 41 H (14-36) U/L ALT 95 H (4-34) U/L Lactate Dehydrogenase 1187 H (313-618) U/L 09/24/19 Range/Units 11:21 D-Dimer (<0.60) mg/L FEU Sodium (137-145) mmol/L Carbon Dioxide (22-30) mmol/L BUN (7-17) mg/dL Glucose (74-99) mg/dL POC Glucose (mg/dL) 222 H (75-99) mg/dL AST (14-36) U/L ALT (4-34) U/L Lactate Dehydrogenase (313-618) U/L Assessment and Plan Plan: Assessment: #1. Acute hypoxemic respiratory failure related to acute COVID 19 pneumonitis, improved, and patient has been treated with a combination of empiric antibiotics, IV steroids, tocilizumab, and status post convalescent plasma infusion on 09/17/2019 #2. Acute COVID 19 infection with symptoms of profound hypoxemia, weakness, fatigue, intermittent fevers, nausea for one week prior to presentation, patient had a COVID 19 PCR test positive on 2 occasions on 09/06/2019, and again on 09/10/2019 #3. Sepsis related to viral pneumonia, although possibility of bacterial pneumonia is not entirely excluded. Initial pro-calcitonin was elevated to 0.18, was treated with empiric [place] form of Rocephin, and subsequent pro-calcitonin on 09/22/2019 was negative at 0.06 #4. Hypotension, hypovolemic and related to decreased oral intake, nausea, and sepsis related to viral pneumonia, recovered with IV fluid boluses, improved #5. Elevated LDH, CRP related to COVID 19 infection, improved. Interleukin-6 level elevated at 83.8 #6. History of hypertension #7. History of hyperlipidemia #8. Never smoker #9. No history of EtOH use #10. Positive troponin, possibly related to acute Covid 19 related myocarditis, down trending Plan: Today's chest x-ray has been reviewed showing light worsening in the appearance of patchy bilateral infiltrates and for that reason a dose of IV Lasix has been given. However clinically patient feels good vital signs are stable, she still requiring oxygen at 1 L, no worsening dyspnea and no complaints of chest pain, her inflammatory markers are down trending, d-dimer is improving. No fever or chills. She has completed the antibiotics, follow-up pro-calcitonin was neg ative. Increase activity as tolerated, from pulmonary perspective she could be considered for discharge home today, she will need outpatient follow-up testing for Covid 19 with her primary care practitioner, and after that if she is negative she will need follow-up with Dr. Matta in the office I performed a history & physical examination of the patient and discussed their management with my nurse practitioner, Nelsy Encarnacion. I reviewed the nurse practitioner's note and agree with the documented findings and plan of care. Lung sounds are positive for diminished breath sounds. The findings and the impression was discussed with the patient. I attest to the documentation by the nurse practitioner. Time with Patient: Less than 30
[2019-09-24] MEDS: ENOXAPARIN 80 MG/0.8 ML SYRINGE SQ SCH ×2 (12:44→21:39)
[2019-09-24 17:22] LABS: Glucose,Whole Blood 190 mg/dL (75-99)
[2019-09-24 17:36] LABS: Ferritin 1163.7 ng/mL (10.0-291.0)
[2019-09-24 19:20] VITALS: RESP 18
[2019-09-24 20:35] LABS: Glucose,Whole Blood 117 mg/dL (75-99)
[2019-09-24] MEDS: ATORVASTATIN 10 MG TAB PO SCH (21:39)
[2019-09-24] MEDS: INSULIN DETEMIR (LEVEMIR) 100 UNIT/ML SYR SQ SCH (21:39)
[2019-09-25] MEDS: ALBUTEROL HFA INHALER INHALATION SCH ×2 (00:42→08:24)
[2019-09-25 03:13] VITALS: PULSE 91
[2019-09-25 07:04] LABS: Glucose,Whole Blood 114 mg/dL (75-99)
[2019-09-25] MEDS: INSULIN ASPART (NovoLOG) 100 UNIT/ML VIAL SQ SCH (07:16)
[2019-09-25 07:31] VITALS: BP 107/71; TEMP 97.8
[2019-09-25] MEDS: CITALOPRAM HYDROBROMIDE 20 MG TAB PO SCH (08:38)
[2019-09-25] MEDS: FENOFIBRATE 160 MG TAB PO SCH (08:38)
[2019-09-25] MEDS: ENOXAPARIN 80 MG/0.8 ML SYRINGE SQ SCH (08:38)
[2019-09-25] MEDS: METOPROLOL SUCCINATE (ER) 25 MG TAB.ER.24H PO SCH (08:38)
[2019-09-25] MEDS: LOSARTAN-HCTZ 50-12.5 MG 1 EACH TAB PO SCH (08:38)
[2019-09-25] MEDS: predniSONE 10 MG TAB PO SCH (08:38)
[2019-09-25] MEDS: NIACIN TR 500 MG CAPLET PO SCH (08:38)
[2019-09-25] MEDS: ZINC SULFATE 220 MG CAP PO SCH (08:39)
[2019-09-25] MEDS: PANTOPRAZOLE 40 MG TABLET PO SCH (08:39)
--- NOTE | 2019-09-25 11:23 | P.DS ---
Providers Date of admission: 09/10/19 11:47 Attending physician: [place] Nice Consults: 09/10/19 11:47 Consult Physician Stat Consulting Provider: Edwin Matta Reason/Comments: critical care Do you want consulting provider notified?: Yes Primary care physician: Jaison Friedman Hospital Course: Diagnoses: -Bilateral Covid pneumonia. Continue with antibiotics and pulmonary consult. Status post convalescent plasma. Improving gradually -Acute hypoxic respiratory failure secondary to COVID 19 pneumonitis -Elevated troponin secondary to Covid myocarditis, cardiology consultation evaluated patient -Mildly elevated liver enzymes -Elevated d-dimer, treated with Lovenox -Elevated inflammatory markers included 13, LDH and C-reactive protein, secondary to Covid -Hypotension : Improved -Hyperlipidemia Hospital course: 63-year-old female is admitted for acute respiratory failure secondary to acute COVID 19 sepsis, patient is presently on 100% nonrebreather saturating at 88-90% chest x-ray showing mild worsening of right upper lobe pneumonia. Inflammatory markers were elevated including ferritin, LDH and C-reactive protein,d-dimer elevated as well. Patient troponins are elevated because of possible Covid myocarditis. Patient evaluated by pulmonary/critical care team, Also die repairer forging evaluated the patient and recommended to continue with medical management. Patient first was treated in the ICU where she did high dose off oxygen via high flow cannula, she was treated with Plaquenil, zinc, Rocephin, Solu-Medrol and normal saline. Her Lovenox was increased to 80 mg twice a day.Also patient received convalescent immunoglobulin. Gradually patient started to improve and her oxygen requirements went down to 2 L/m via nasal cannula with oxygen saturation 92-93%, breathing quietly at 18 breaths per minute. No chest pain or significant dyspnea. He was fully awake and oriented with no abdominal pain, no nausea vomiting. She tolerates that well. No change in urine or bowel habits. No fever Eventually patient is cleared by pulmonary and cardiology service for discharge. She finished all her therapy with Plaquenil, and discussed with pulmonary team were going to discontinue Lovenox on discharge and taper steroids chronically over few days Problems and management plan were discussed with the patient and he verbalized understanding and acceptance Patient was found stable and can be discharged home however he needs follow-up as an outpatient. Patient was instructed to follow up with PCP Dr. Gerry Friedman within one week and patient agrees. Also patient was instructed to follow up with Dr. Senior and 2 weeks and she agrees Gen: patient is a AAOx3, no distress CVS: S1-S2, RRR, no murmur Lungs: B/L CTA, no wheezing Abdomen: soft, no distention, no tenderness, positive bowel sounds Extremity: no leg edema or induration Time spent more than 35 minutes Patient Condition at Discharge: Serious Plan - Discharge Summary Discharge Rx Participant: No New Discharge Prescriptions: No Action Ondansetron [Zofran] 4 mg PO Q6H PRN PRN Reason: Nausea Citalopram Hydrobromide [CeleXA] 20 mg PO DAILY ALPRAZolam [Xanax] 0.5 mg PO DAILY PRN PRN Reason: Anxiety Simvastatin [Zocor] 10 mg PO HS Niacin [Niacin ER] 500 mg PO DAILY Metoprolol Succinate (ER) [Toprol Xl] 25 mg PO DAILY Losartan/Hydrochlorothiazide [Losartan-Hctz 100-25 mg Tab] 1 tab PO DAILY Fenofibrate 160 mg PO DAILY Discharge Medication List ALPRAZolam [Xanax] 0.5 mg PO DAILY PRN 09/11/19 [History] Citalopram Hydrobromide [CeleXA] 20 mg PO DAILY 09/11/19 [History] Fenofibrate 160 mg PO DAILY 09/11/19 [History] Losartan/Hydrochlorothiazide [Losartan-Hctz 100-25 mg Tab] 1 tab PO DAILY 09/11/19 [History] Metoprolol Succinate (ER) [Toprol Xl] 25 mg PO DAILY 09/11/19 [History] Niacin [Niacin ER] 500 mg PO DAILY 09/11/19 [History] Ondansetron [Zofran] 4 mg PO Q6H PRN 09/11/19 [History] Simvastatin [Zocor] 10 mg PO HS 09/11/19 [History] Follow up Appointment(s)/Referral(s): [facility] [NON-STAFF] - As Needed (oxygen ) Jaison Friedman MD [Primary Care Provider] - 1 Week Edwin Matta DO [Doctor of Osteopathic Medicine] - 2 Weeks [facility], [NON-STAFF] - Patient Instructions/Handouts: Viral Pneumonia (DC)
--- NOTE | 2019-09-25 12:31 | P.PN ---
Subjective Progress Note Date: 09/25/19 Principal diagnosis: Acute CoVID19 related to pneumonitis 63-year-old female patient of Dr. Jaison Friedman, with past medical history of hypertension, hyperlipidemia, nonsmoker, works in the dietary department at [employer], was accepted as a transfer from [employer] [facility] where she presented for evaluation of fatigue, nausea, weakness, occasional fevers and low pulse ox levels. Patient reports symptoms present for about a week. Her coronavirus PCR test was positive on 09/06/2019, and again today on all 09/10/2019. No vomiting or diarrhea, no shortness of breath. Lab work showed white blood cell count 13.2, hemoglobin of 13.5, platelet count is 513, neutrophil count is elevated at 10.6, lymphocytes at 1.6, no d-dimer was drawn, sodium is 134, potassium is 3.7, chloride is 96, CO2 is 27, B1 is 33 creatinine 0.93, LDH is 2470, CRP is significantly elevated at 252, plasma lactic acid was 1.8. EKG shows normal sinus rhythm with evidence of possible inferior infarct of undetermined age, and T-wave inversion in the anterolateral leads. QT/QTc were 388 and 482 respectively. Patient is afebrile, profound hypoxemia, with a pulse ox of 73% on 15 L high flow. Currently requiring 100% nonrebreather in addition to 15 L per high flow nasal cannula and a pulse ox is 98%. In addition patient was borderline hypotensive with pressures of 90 systolic, and patient was given 1/2 L in IV fluid boluses in the emergency department. Patient was transferred to the ICU for close monitoring. Chest x-ray showed scattered mixed interstitial and alveolar infiltrates throughout both lungs compatible with underlying pneumonia. On 09/11/2019 patient seen in follow-up in the intensive care unit, she remains on high flow oxygen, currently on 100% nonrebreather with a pulse ox of 88-90%, patient has been afebrile, hemodynamically stable, today's chest x-ray shows worsening over the right upper lobe pneumonia with multifocal opacities in the left midlung and right lung base unchanged from prior chest x-ray which was done yesterday. Today's labs have been reviewed, showing white blood cell count of 13.8, hemoglobin of 11.7, platelet count is 480, electrolytes were within normal limits, BUN is 19 creatinine 0.63, yesterday patient's d-dimer was 0.90 patient is on reflected dose of Lovenox. Ferritin level yesterday was 1514, AST and ALT improving, down to 7039 respectively, alk phos is 56, lactate dehydrogenase is 2002, trending down from yesterday, and patient had elevated troponins at 3.2 and 1.8, CRP remains significantly elevated as well at 192. Pro-calcitonin was mildly elevated to 0.18, we will add Rocephin for empiric antibiotic coverage. The patient is seen today 09/12/2019 in follow-up in the intensive care unit. She is awake and alert in no acute distress. She is resting in bed. She is continuing to require high flow nasal cannula at 15 L/m along with a nonrebreather. O2 saturations remained in the high 80s. She is currently afebrile. Hemodynamically stable. Tachypneic. Chest x-ray shows bilateral airspace disease that of increased compared to yesterday. Small bilateral effusions. White count 18.6. Hemoglobin 12.6. Platelets 49. D-dimer 14.2. Sodium 139. Potassium 3.7. Creatinine 0.62. Ferritin 1072. LDH 2980. C- reactive protein 87. She did receive tocilizumab 2. She remains on Plaquenil, IV Solu-Medrol and zinc. Antibiotics in the form of ceftriaxone. Lovenox to be increased to 80 mg subcu twice daily. The patient is seen today 09/13/2019 in follow-up in the intensive care unit. She is currently resting in bed. Awake and alert in no acute distress. She is still requiring 15 L high flow nasal cannula along with a nonrebreather mask to maintain O2 saturation in the low 90s. Chest x-ray continues to show worsening aeration bilaterally. She did receive tocilizumab 2. She remains on Plaquenil, Solu-Medrol, zinc, ceftriaxone. She is on Lovenox 80 mg subcutaneously twice a day. White count 19.6. Hemoglobin 12.1. Lymphocytes 0.8. Sodium 140. Potassium 4.0. Creatinine 0.57. AST 88. ALT 50. LDH 3118. CK 318. C- reactive protein 41.9. On today's evaluation of 09/15/2019, the patient's condition essentially unchanged. The patient remains in the 100% nonrebreather facemask addition to 15 L of oxygen by nasal cannula. Chest x-ray findings remains essentially unchanged diffuse bilateral pulmonary infiltrates, unchanged compared to yesterday. Inflammatory markers continue to be quite elevated including ferritin, LDH, and there has been some improvement in the d-dimer over the course of treatment. The patient remains on IV fluids with normal state rate of 40 mL an hour. The patient remains on IV Rocephin. The patient remains on Plaquenil. The patient remains on IV Solu Medrol. She has no altered mentation. She is feeling weak. No significant cough or sputum production. No chest pain. Her reserve is minimal at the patient desaturates easily with limited amount of activity and for that reason she is been kept in bed for now. The white cell count is 14.6. Platelet count is at 462. The patient's LDH level was 3638. The patient's C-reactive protein is 15.6. The patient's ferritin level is 1402. On today's evaluation of 09/16/2019 the patient is being seen in follow-up in the intensive care unit. She continues to be an acute hypoxic respiratory failure related to Covid 19 related pneumonia. The patient remains on the percent nonrebreather facemask in addition to 15 L of oxygen by nasal cannula. Her pulse ox is ranging between 91-92% to chest x-ray showing diffuse bilateral pulmonary infiltrates unchanged compared to yesterday. Her white cell count 16.4. She is having some limited cough. No significant sputum production. No hemoptysis. No pleurisy. She is tolerating her diet. She is taking Glucerna shakes at the bedside. In terms of the rest of the inflammatory markers, the patient's LDH level is still elevated at 3660. LFTs are also abnormal with a AST of 88, ALT of 71 and a bilirubin of 0.7 with an alkaline phosphatase of 199. CRP is at 11.4. The calcium level is at 7.8. Ferritin level is at 1036. The serum bicarbs at 31. BUN is 18 with a creatinine of 0.4. Remains on Lovenox. Remains on Rocephin. Remains on IV Solu-Medrol. On 09/17/2019, the patient is feeling better. She is able to sit up on a chair. She is tolerating her diet. She is trying to eat more. She is on 100% nonrebreather facemask. Her chest x-ray showing diffuse breath and pulmonary infiltrates. She is also utilizing 15 L of oxygen nasal cannula along with the 100% nonrebreather and is possible that we should be able to wean her off the nasal cannula. No chest pain. No altered mentation. No cough or sputum production. No nausea. No vomiting. No diarrhea. No abdominal pain. Paperwork for convalescent immunoglobulins has been sent. D-dimer is slowly improving. LDH still elevated. Patient remains on his Lovenox. The patient remains on IV Solu-Medrol. On 09/18/2019, the patient's condition essentially unchanged. Remains on 100% nonrebreather facemask. The high flow oxygen was cut down from 15 L note date liters. Chest x-ray still showing diffuse breath and pulmonary infiltrates unchanged compared to yesterday. The patient received a dose of convalescent plasma yesterday regarding her Covid 19 related pneumonia. She remains on IV Solu-Medrol. LDH is slowly improving. She remains on Lovenox therapeutic dose. no chest pain. No nausea. No vomiting. No altered mentation. She is reporting some increased edema and for that reason she'll be given a dose of Lasix 40 mg IV push. She has also completed a seven-day course of Rocephin and this will be also discontinued. No other significant issues for now. She is a bit bored and tired being in the hospital with the same condition. No other new events otherwise for now. The patient is resting comfortably in bed and she is able to sit up on a recliner. On 09/19/2019, the patient is improved in terms of her oxygenation. She is currently on a pressure nonrebreather facemask and the nasal cannula has been discontinued. Pulse ox is and order of 94-95%. She feels less short of breath. No cough or sputum production. No nausea. No vomiting. No diarrhea. No fever. No chills. No other complaints otherwise. She has a Mariee catheter in place. The LDH level is down to 2368. LFTs are slightly abnormal and they have been persistently abnormal for the past 1 week. No major change in the AST and ALP. D-dimer is down to 6.43. Rest of the blood work and electrodes are all within normal limits. On 09/20/2019, the patient is feeling better. I took her off the 100% nonrebreather and switch this patient related of oxygen by nasal cannula. Her chest x-ray shows some limited improvement of bilateral pulmonary infiltrates. No fever. No chills. No nausea. No vomiting. No diarrhea. No chest pain. No altered mentation. The patient seems to be clinically improving specially after the convalescent plasma administration. The inflammatory markers are also improving. LDH level is down to 1892. D-dimer was not checked however it was down trending and the patient remains on therapeutic doses of Lovenox. The patient has abnormal LFTs including AST 107 ALT 175. The patient is seen today 09/21/2019 in follow-up on in the intensive care unit. She is awake and alert in no acute distress. She is down to 4 L high flow nasal cannula and maintaining O2 saturations in the mid 90s. She's been afebrile. Hemodynamically stable. Chest x-ray continues to show mixed interstitial and alveolar infiltrates bilaterally. Unchanged compared to previous. She had received 1 unit of convalescent plasma this admission. Blood cultures reveal no growth. White count 8.4. Hemoglobin 13.8. Sodium 134. Potassium 3.4. Creatinine 0.37. Ferritin 1091. AST 67. ALT 114. LDH and thousand 636. Creatinine kinase 35. C-reactive protein less than 5. She remains on Lovenox, prednisone, bronchodilators. The patient is seen today 09/22/2019 in follow-up on the regular medical floor. She is awake and alert in no acute distress. She is breathing easier today compared to yesterday. She remains on 4 L high flow nasal cannula and maintaining good O2 saturations in the low 90s. She's been afebrile. Hemodynamically stable. White count 7.8. Hemoglobin 13.7. D-dimer 4.07. Sodium 137. Potassium 3.8. Creatinine 0.56. LDH 1634. Troponin 0.118. C- reactive protein 5.0. I'll trending down. She remains on Lovenox 80 mg subcu twice a day. The patient is seen today 09/25/2019 in follow-up on the regular medical floor. She is awake and alert in no acute distress. Currently sitting up in bed. No worsening shortness of breath, cough or congestion. She is maintaining O2 saturations in the low 90s on room air. She's been afebrile. Hemodynamically stable. Blood glucose 114. She remains on Lovenox, prednisone. Objective - Vital Signs Vital signs: Vital Signs Temp 97.8 F 09/25/19 07:00 Pulse 91 09/25/19 07:18 Resp 18 09/25/19 07:18 BP 107/71 09/25/19 07:00 Pulse Ox 93 L 09/25/19 07:00 Intake & Output 09/24/19 09/25/19 09/25/19 18:59 06:59 18:59 Intake Total 400 Output Total 0 0 Balance 400 0 Weight 77.2 kg Intake: Oral 400 Output: Urine 0 0 Stool 0 0 Other: Voiding Method Toilet Toilet Toilet Bedside Commode Bedside Commode Bedside Commode # Voids 2 1 1 - Exam GENERAL EXAM: Alert, very pleasant, 63-year-old female patient, currently on room air with a pulse ox in the 90s, comfortable in no apparent distress. HEAD: Normocephalic/atraumatic. EYES: Normal reaction of pupils, equal size. Conjunctiva pink, sclera white. NOSE: Clear with pink turbinates. THROAT: No erythema or exudates. NECK: No masses, no JVD, no thyroid enlargement, no adenopathy. CHEST: No chest wall deformity. Symmetrical expansion. LUNGS: Equal air entry with crackles in the bases. CVS: Regular rate and rhythm, normal S1 and S2, no gallops, no murmurs, no rubs ABDOMEN: Soft, nontender. No hepatosplenomegaly, normal bowel sounds, no guarding or rigidity. EXTREMITIES: No clubbing, no edema, no cyanosis, 2+ pulses and upper and lower extremities. MUSCULOSKELETAL: Muscle strength and tone normal. SPINE: No scoliosis or deformity SKIN: No rashes CENTRAL NERVOUS SYSTEM: No focal deficits, tone is normal in all 4 extremities. PSYCHIATRIC: Alert and oriented -3. Appropriate affect. Intact judgment and insight. - Labs CBC & Chem 7: 09/24/19 07:48 09/24/19 07:48 Labs: Abnormal Lab Results - Last 24 Hours (Table) 09/24/19 09/24/19 09/24/19 Range/Units 07:48 17:20 20:34 POC Glucose (mg/dL) 190 H 117 H (75-99) mg/dL Ferritin 1163.7 H (10.0-291.0) ng/mL 09/25/19 Range/Units 07:03 POC Glucose (mg/dL) 114 H (75-99) mg/dL Ferritin (10.0-291.0) ng/mL Assessment and Plan Assessment: #1. Acute hypoxemic respiratory failure related to acute COVID 19 pneumonitis, improved and currently on room air #2. Acute COVID 19 infection with symptoms of profound hypoxemia, weakness, fatigue, intermittent fevers, nausea for one week prior to presentation, patient had a COVID 19 PCR test positive on 2 occasions on 09/06/2019, and again on 09/10/2019 #3. Sepsis related to viral pneumonia, although possibility of bacterial pneumonia is not entirely excluded. #4. Hypotension, hypovolemic and related to decreased oral intake, nausea, and sepsis related to viral pneumonia, recovered with IV fluid boluses #5. Elevated LDH, CRP related to COVID 19 infection, trending down #6. History of hypertension #7. History of hyperlipidemia #8. Never smoker #9. No history of EtOH use #10. Positive troponin, possibly related to acute Covid 19 related myocarditis Plan: The patient was seen and evaluated by Dr. Keating She is cleared for discharge from the pulmonary standpoint Follow-up in the office in 1 week I, the cosigning physician, performed a history & physical examination of the patient. Lungs sounds with crackles in the bases. Maintaining good O2 saturations in the 90s on room air with FiO2 in the 90s. I discussed the assessment and plan of care with my nurse practitioner, Marlene Mcgarry. I attest to the above note as dictated by her.
== END 2019-09-25 12:23 | disposition home health service (06) | DRG 871 ==
LOC: EC 08:56 → 2SICU 11:47 → 4SSUR 09-21 12:53
PROVIDERS: ADMIT Internal Medicine; ATTEND Internal Medicine
PROC: 30233K1 Transfusion of Nonautologous Frozen Plasma into Peripheral Vein, Percutaneous Approach (ICD-10-PCS; principal; 2019-09-21)
DX: A41.89 Other specified sepsis (principal); U07.1 COVID-19; J12.89 Other viral pneumonia; J96.01 Acute respiratory failure with hypoxia; I40.0 Infective myocarditis; E78.5 Hyperlipidemia, unspecified; E86.1 Hypovolemia; R74.8 Abnormal levels of other serum enzymes; B97.89 Other viral agents as the cause of diseases classified elsewhere; I95.9 Hypotension, unspecified; I11.9 Hypertensive heart disease without heart failure; F41.9 Anxiety disorder, unspecified; Z82.49 Family history of ischemic heart disease and other diseases of the circulatory system; Z79.4 Long term (current) use of insulin; Z82.5 Family history of asthma and other chronic lower respiratory diseases
CPT/HCPCS: 36415; 71045; 80048; 80053; 80076; 82550; 82728; 83520; 83605; 83615; 83735; 84145; 84484; 85025; 85379; 85610; 85730; 86140; 86850; 86900; 86901; 87040; 87635; 93005; 93306; 94640; 94760; 96360; 96361; 96374; 99291

== ENCOUNTER → 2019-11-26 | Outpatient (CLI) | payer BC | END | disposition home or self-care (01) | LOC: LABWHC1 09:55 | PROVIDERS: ATTEND Internal Medicine Critical Care Medicine | DX: U07.1 COVID-19 (principal); J12.89 Other viral pneumonia | CPT/HCPCS: 36415; 86769 ==